=== PATIENT | male | born 1950 | race American Indian/Alaskan Native ===

== ENCOUNTER 2017-06-17 22:16 | Inpatient (IN) | payer MEDICARE ==
[2017-06-17] MEDS ORDERED: NACL 0.9% 1000 ML 1,000 ML IV ONE (22:49)
[2017-06-17 23:52] LABS: Basophils % (Auto) 1.4 % (0.0-1.8); Eosinophils % (Auto) 1.4 % (0.0-4.3); Hemoglobin 6.4 gm/dl (11.8-15.2); Mean Corpuscular HGB Conc 33 % (32-34); Mean Corpuscular Hemoglobin 28 pg (28-32); Mean Corpuscular Volume 85 fl (84-94); Platelet Count 208 K/mm3 (140-440); Red Blood Count 2.29 M/mm3 (3.65-5.03)
[2017-06-17 23:58] LABS: Hematocrit 19.4 % (35.5-45.6)
[2017-06-18 00:01] LABS: Albumin 3.7 g/dL (3.9-5); Albumin/Globulin Ratio 1.3 %; Alkaline Phosphatase 43 units/L (35-129); Anion Gap 20 mmol/L; BUN/Creatinine Ratio 4.26; Blood Urea Nitrogen 29 mg/dL (9-20); Calcium 8.9 mg/dL (8.4-10.2); Carbon Dioxide 29 mmol/L (22-30); Chloride 96.6 mmol/L (98-107); Glucose 88 mg/dL (75-100); Lipase 32 units/L (13-60); Potassium 4.7 mmol/L (3.6-5.0); Sodium 141 mmol/L (137-145); Total Protein 6.6 g/dL (6.3-8.2)
[2017-06-18 00:04] LABS: INR 1.14 (0.87-1.13)
[2017-06-18 00:05] LABS: Partial Thromboplastin Time 37.7 Sec. (24.2-36.6)
[2017-06-18 00:17] LABS: Alanine Aminotransferase < 5 units/L (7-56)
[2017-06-18] MEDS ORDERED: NACL 0.9% 1000 ML 1,000 ML ONE (06:52)
[2017-06-18] MEDS ORDERED: NACL 0.9% 500 ML 500 ML IV ONE (07:24)
--- NOTE | 2017-06-18 07:28 | Emergency Department Report ---
HPI - General Chief Complaint: GI Bleed Time Seen by Provider: 06/18/17 07:24 - HPI HPI: patient c/o dark stool for the past 3 days. chest pain, mild sob. patient with h /o esrd on dialysis. patient describes chest pain as sharp, burning, no radiation. patient denies any alleviating or exacerbating factors. ED Past Medical Hx - Past Medical History Previous Medical History?: Yes Hx Renal Disease: Yes (dialysis fri) - Surgical History Past Surgical History?: No Additional Surgical History: prostate - Family History Family history: hypertension - Social History Smoking Status: Current Every Day Smoker Substance Use Type: None ED Review of Systems ROS: Stated complaint: BLEEDING/ ABD BLOATING Other details as noted in HPI Comment: All other systems reviewed and negative Cardiovascular: chest pain Endocrine: no symptoms reported Gastrointestinal: melena Physical Exam - Physical Exam Vital Signs: Vital Signs 06/17/17 06/17/17 06/18/17 22:26 22:41 02:07 Temperature 98.5 F 98.5 F 97.7 F Pulse Rate 97 H 97 H 89 Respiratory 18 18 18 Rate Blood Pressure 173/96 172/95 Blood Pressure 173/96 [Right] O2 Sat by Pulse 100 100 Oximetry Physical Exam: gen: alert and oriented x 3 heent: perrla, eomi cv: rrr, normal s1,s2 abd: s,nt,nd pos bs ext: left upper ext dialysis access d/c/i neuro: no deficits, lungs: cta dayanna psych: normal mood. ED Course Vital Signs 06/17/17 06/17/17 06/18/17 22:26 22:41 02:07 Temperature 98.5 F 98.5 F 97.7 F Pulse Rate 97 H 97 H 89 Respiratory 18 18 18 Rate Blood Pressure 173/96 172/95 Blood Pressure 173/96 [Right] O2 Sat by Pulse 100 100 Oximetry - Reevaluation(s) Reevaluation #1: 06/18/17 09:25 GI CONSULTED NEPRHOLOGY CONSULTED ED Medical Decision Making - Lab Data Result diagrams: 06/17/17 23:10 06/17/17 23:10 Critical care time in (mins) excluding proc time.: 45 Critical care attestation.: If time is entered above; I have spent that time in minutes in the direct care of this critically ill patient, excluding procedure time. ED Disposition Clinical Impression: GI bleed, Severe anemia Disposition: DC OP ADMIT IP TO THIS HOSP Is pt being admited?: Yes Does the pt Need Aspirin: No Condition: Stable Referrals: PRIMARY CARE, [Primary Care Provider] - 3-5 Days Forms: Accompanied Note
--- NOTE | 2017-06-18 08:05 | XRay Report ---
AP CHEST: HISTORY: chest pain AP view of the chest demonstrates a normal mediastinal and cardiac contour with clear lungs and normal bony and soft tissue structures. IMPRESSION: No acute cardiopulmonary process appreciated.
--- NOTE | 2017-06-18 08:09 | Admit Criteria Form ---
Admission Criteria Documentation: GASTROINTESTINAL BLEEDING Clinical Indications for Inpatient Care (Place 'X' for any and all applicable criteria): Ongoing inpatient care may be indicated for gastrointestinal bleeding with ANY ONE of the following (4)(20)(21)(22)(23)(24): [X ]I. Active bleeding (eg, fresh voluminous blood in emesis or nasogastric aspirate, or per rectum) [ ]II. Hemodynamic instability [ ]III. Anticoagulation therapy or coagulopathy ((eg, advanced liver disease, irreversible anticoagulation) [ ]IV. Ischemic colitis (22) [ ]V. Endoscopy showing arterial bleeding, adherent clot, nonbleeding visible vessel, varices, flat red spots, ulcer size greater than 2 cm, or portal hypertensive gastropathy [ ]. High-risk low platelet count [ X]VII. Anemia requiring inpatient care as indicated by ANY ONE of the following a)[ ] Cognitive impairment b)[ ] Syncope c)[ ] Heart failure d)[X ] Chest pain e)[X ] Dyspnea f)[ ] Other findings suggesting inadequate perfusion (eg, peripheral or myocardial ischemia, end organ dysfunction) [ ]VIII. High-risk low platelet count [ ]IX. Suspected variceal cause of bleeding as indicated by ANY ONE of the following(27)(28): a)[ ] Known varices b)[ ] Hepatomegaly or splenomegaly c)[ ] Ascites d)[ ] Jaundice or scleral icterus e)[ ] History of liver disease (eg, cirrhosis) f)[ ] Physical findings of portal hypertension (eg, caput medusa) g)[ ] Comorbid disorder indicating risk for portal vein thrombosis (eg , abdominal surgery, sepsis, shock, exchange transfusion, prior umbilical vein catheterization) Extended stay may be needed until ALL of the following are present(20)(38)(47): [ ]a) Hemodynamic stability [ ]b) No evidence of active bleeding (eg, stable Hematocrit) [ ]c) Platelet count, prothrombin time, and partial thromboplastin time acceptable for next level of care [ ]d) Surgical or other acute intervention not needed [ ]e) Oral hydration and diet tolerated The original [facility] [employer] content created by [employer] has been revised. The portions of the content which have been revised are identified through the use of italic text or in bold, and [facility] [employer] has neither reviewed nor approved the modified material. All other unmodified content is copyright [facility]. Please see references footnoted in the original [facility] edition 2016 Admission Criteria Met: Yes
[2017-06-18] MEDS: PROTONIX IV ONE ×2 (08:20→08:40)
[2017-06-18] MEDS ORDERED: DULCOLAX PR PRN (09:02)
[2017-06-18] MEDS ORDERED: TYLENOL PO PRN (09:02)
--- NOTE | 2017-06-18 09:14 | Progress Note ---
Hospitalist Physical - Constitutional Vitals: Temp Pulse Resp BP Pulse Ox 98.5 F 82 18 177/90 97 06/18/17 08:40 06/18/17 08:40 06/18/17 08:40 06/18/17 08:40 06/18/17 08:40 Results - Labs CBC & Chem 7: 06/17/17 23:10 06/17/17 23:10 Labs: Laboratory Last Values WBC 5.0 K/mm3 (4.5-11.0) 06/17/17 23:10 RBC 2.29 M/mm3 (3.65-5.03) L 06/17/17 23:10 Hgb 6.4 gm/dl (11.8-15.2) L 06/17/17 23:10 Hct 19.4 % (35.5-45.6) L* 06/17/17 23:10 MCV 85 fl (84-94) 06/17/17 23:10 MCH 28 pg (28-32) 06/17/17 23:10 MCHC 33 % (32-34) 06/17/17 23:10 RDW 21.0 % (13.2-15.2) H 06/17/17 23:10 Plt Count 208 K/mm3 (140-440) 06/17/17 23:10 Lymph % (Auto) 26.5 % (13.4-35.0) 06/17/17 23:10 [place] % (Auto) 9.9 % (0.0-7.3) H 06/17/17 23:10 Eos % (Auto) 1.4 % (0.0-4.3) 06/17/17 23:10 Baso % (Auto) 1.4 % (0.0-1.8) 06/17/17 23:10 Lymph # 1.3 K/mm3 (1.2-5.4) 06/17/17 23:10 [place] # 0.5 K/mm3 (0.0-0.8) 06/17/17 23:10 Eos # 0.1 K/mm3 (0.0-0.4) 06/17/17 23:10 Baso # 0.1 K/mm3 (0.0-0.1) 06/17/17 23:10 Seg Neutrophils % 60.8 % (40.0-70.0) 06/17/17 23:10 Seg Neutrophils # 3.1 K/mm3 (1.8-7.7) 06/17/17 23:10 PT 14.5 Sec. (12.2-14.9) 06/17/17 23:10 INR 1.14 (0.87-1.13) H 06/17/17 23:10 APTT 37.7 Sec. (24.2-36.6) H 06/17/17 23:10 Sodium 141 mmol/L (137-145) 06/17/17 23:10 Potassium 4.7 mmol/L (3.6-5.0) 06/17/17 23:10 Chloride 96.6 mmol/L (98-107) L 06/17/17 23:10 Carbon Dioxide 29 mmol/L (22-30) 06/17/17 23:10 Anion Gap 20 mmol/L 06/17/17 23:10 BUN 29 mg/dL (9-20) H 06/17/17 23:10 Creatinine 6.8 mg/dL (0.8-1.5) H 06/17/17 23:10 Estimated GFR 8 ml/min 06/17/17 23:10 BUN/Creatinine Ratio 4.26 % 06/17/17 23:10 Glucose 88 mg/dL (75-100) 06/17/17 23:10 Calcium 8.9 mg/dL (8.4-10.2) 06/17/17 23:10 Total Bilirubin 0.40 mg/dL (0.1-1.2) 06/17/17 23:10 AST 9 units/L (5-40) 06/17/17 23:10 ALT < 5 units/L (7-56) L 06/17/17 23:10 Alkaline Phosphatase 43 units/L (35-129) 06/17/17 23:10 Total Protein 6.6 g/dL (6.3-8.2) 06/17/17 23:10 Albumin 3.7 g/dL (3.9-5) L 06/17/17 23:10 Albumin/Globulin Ratio 1.3 % 06/17/17 23:10 Lipase 32 units/L (13-60) 06/17/17 23:10 Blood Type O POSITIVE 06/17/17 23:15 Antibody Screen Negative 06/17/17 23:15 Crossmatch See Detail 06/17/17 23:15
--- NOTE | 2017-06-18 09:20 | Consultation ---
History of Present Illness - Reason for Consult Consult date: 06/18/17 end stage renal disease - History of Present Illness atient c/o dark stool for the past 3 days. chest pain, mild sob. patient with h/ o esrd on dialysis. patient describes chest pain as sharp, burning, no radiation. patient denies any alleviating or exacerbating factors. - Past Medical History Previous Medical History?: Yes Hx Renal Disease: Yes (dialysis fri) - Surgical History Past Surgical History?: No Additional Surgical History: prostate - Family History Family history: hypertension - Social History Smoking Status: Current Every Day Smoker Substance Use Type: None ROS: Stated complaint: BLEEDING/ ABD BLOATING Other details as noted in HPI Comment: All other systems reviewed and negative Cardiovascular: chest pain Endocrine: no symptoms reported Gastrointestinal: melena Medications and Allergies Allergies Allergy/AdvReac Type Severity Reaction Status Date / Time No Known Allergies Allergy Unverified 06/17/17 22:41 Active Meds: Active Medications Acetaminophen (Tylenol) 650 mg PO Q4H PRN PRN Reason: Pain MILD(1-3)/Fever >100.5/CALDERÓN Bisacodyl (Dulcolax) 10 mg [place] QDAY PRN PRN Reason: Constipation unrelieved by MOM Epoetin Roman (Epogen) 20,000 unit IV BROWN PRN PRN Reason: hemodialysis Sodium Chloride (Nacl 0.9% 1000 Ml) 1,000 mls @ 100 mls/hr IV DIRECT ZAHIDA Pantoprazole Sodium 80 mg/ (Sodium Chloride) 100 mls @ 10 mls/hr IV Q10H ZAHIDA PRN Reason: 8 MG/HR Sodium Chloride (Nacl 0.9%) 100 mls @ 999 mls/hr IV BROWN PRN PRN Reason: Hypotension Exam - Vital Signs Vital signs: Vital Signs Temp Pulse Resp BP Pulse Ox 98.5 F 97 H 18 173/96 100 06/17/17 22:26 06/17/17 22:26 06/17/17 22:26 06/17/17 22:26 06/17/17 22:26 - Physical Exam Narrative exam: gen: alert and oriented x 3 heent: perrla, eomi cv: rrr, normal s1,s2 abd: s,nt,nd pos bs ext: left upper ext dialysis access d/c/i neuro: no deficits, lungs: cta dayanna psych: normal mood. Results - Lab Results 06/17/17 23:10 06/17/17 23:10 Most recent lab results Calcium 8.9 mg/dL (8.4-10.2) 06/17/17 23:10 Assessment and Plan Impression: * esrd * gi bleeding * anemia abl/esrd * htn plan: * hd today with uf as tolerated * epogen with hd * no heparin * gi consult needed * strict i/os * avoid nephrotoxins * daily cbc * renal diet
[2017-06-18] MEDS ORDERED: MORPHINE IV ONE (09:22)
[2017-06-18] MEDS ORDERED: NITROSTAT SL PRN (09:34)
[2017-06-18] MEDS ORDERED: NACL 0.9% 500 ML 500 ML ONE (09:42)
--- NOTE | 2017-06-18 09:45 | Gastroenterology Consultation ---
<ALESSIO ROJO - Last Filed: 06/18/17 10:01> History of Present Illness - Reason for Consult Consult date: 06/18/17 GI bleed Requesting physician: DINA WATKINS - History of Present Illness Patient is a 66 y/o male with a medical hx of HTN and ESRD on HD who presented to ER for black stools x 3 days. This morning pt was resting on stretcher. States he flew into [place] from [place] where he lives to participate in a court case (he is a retired care worker) and to see family. He reports noticing black stools on Friday which have continued, last BM of black stool last night. He admits to N/V x 3 episode this am with non-bloody emesis. He is also c/o active CP. Hospitalist notified, EKG and troponin ordered. Denies fever , wt loss, SOB, dizziness, hematemesis, diarrhea, constipation, or hematochezia. No hx of liver disease. No NSAID use. No ETOH abuse. Current daily smoker. Past History Past Medical History: ESRD (on HD), hyperthyroidism Past Surgical History: Other (prostate CA) Social history: lives with family, smoking. denies: alcohol abuse Medications and Allergies Allergies Allergy/AdvReac Type Severity Reaction Status Date / Time No Known Allergies Allergy Unverified 06/17/17 22:41 Active Meds: Active Medications Acetaminophen (Tylenol) 650 mg PO Q4H PRN PRN Reason: Pain MILD(1-3)/Fever >100.5/CALDERÓN Bisacodyl (Dulcolax) 10 mg [place] QDAY PRN PRN Reason: Constipation unrelieved by MOM Epoetin Roman (Epogen) 20,000 unit IV BROWN PRN PRN Reason: hemodialysis Sodium Chloride (Nacl 0.9% 1000 Ml) 1,000 mls @ 100 mls/hr IV DIRECT ZAHIDA Pantoprazole Sodium 80 mg/ (Sodium Chloride) 100 mls @ 10 mls/hr IV Q10H ZAHIDA PRN Reason: 8 MG/HR Sodium Chloride (Nacl 0.9%) 100 mls @ 999 mls/hr IV BROWN PRN PRN Reason: Hypotension Morphine Sulfate (Morphine) 2 mg IV Q4H PRN PRN Reason: Pain, Moderate (4-6) Nitroglycerin (Nitrostat) 0.4 mg SL .Q5MIN PRN PRN Reason: Chest Pain Review of Systems - Review of Systems All systems: negative Cardiovascular: chest pain Gastrointestinal: nausea, vomiting, melena Exam - Constitutional Vital Signs: Temp Pulse Resp BP Pulse Ox 98.5 F 82 18 177/90 97 06/18/17 08:40 06/18/17 08:40 06/18/17 08:40 06/18/17 08:40 06/18/17 08:40 General appearance: mild distress, well-nourished - EENT Eyes: PERRL, EOM intact ENT: hearing intact - Neck Neck: supple, normal ROM - Respiratory Respiratory: bilateral: CTA - Cardiovascular Heart Sounds: Present: S1 & S2 Extremities: No edema - Gastrointestinal General gastrointestinal: Present: soft, non-tender, non-distended, normal bowel sounds Rectal Exam: stool dark - Integumentary Integumentary: Present: warm, dry - Neurologic Neurological: alert and oriented x3 - Psychiatric Psychiatric: appropriate mood/affect, cooperative - Labs CBC & Chem 7: 06/17/17 23:10 06/17/17 23:10 Lab Results: Laboratory Results - last 24 hr 06/17/17 06/17/17 06/17/17 23:10 23:10 23:10 WBC 5.0 RBC 2.29 L Hgb 6.4 L Hct 19.4 L* MCV 85 MCH 28 MCHC 33 RDW 21.0 H Plt Count 208 Lymph % (Auto) 26.5 [place] % (Auto) 9.9 H Eos % (Auto) 1.4 Baso % (Auto) 1.4 Lymph # 1.3 [place] # 0.5 Eos # 0.1 Baso # 0.1 Seg Neutrophils % 60.8 Seg Neutrophils # 3.1 PT 14.5 INR 1.14 H APTT 37.7 H Sodium 141 Potassium 4.7 Chloride 96.6 L Carbon Dioxide 29 Anion Gap 20 BUN 29 H Creatinine 6.8 H Estimated GFR 8 BUN/Creatinine Ratio 4.26 Glucose 88 Calcium 8.9 Total Bilirubin 0.40 AST 9 ALT < 5 L Alkaline Phosphatase 43 Total Protein 6.6 Albumin 3.7 L Albumin/Globulin Ratio 1.3 Lipase 32 Blood Type Antibody Screen Crossmatch 06/17/17 23:15 WBC RBC Hgb Hct MCV MCH MCHC RDW Plt Count Lymph % (Auto) [place] % (Auto) Eos % (Auto) Baso % (Auto) Lymph # Morrison # Eos # Baso # Seg Neutrophils % Seg Neutrophils # PT INR APTT Sodium Potassium Chloride Carbon Dioxide Anion Gap BUN Creatinine Estimated GFR BUN/Creatinine Ratio Glucose Calcium Total Bilirubin AST ALT Alkaline Phosphatase Total Protein Albumin Albumin/Globulin Ratio Lipase Blood Type O POSITIVE Antibody Screen Negative Crossmatch See Detail Assessment and Plan 1. GI bleed 2. melena 3. CP -pt with active CP- EKG and cardiac enzymes pending -HGB 6.4- transfusion of PRBCs pending -continue to monitor H&H and transfuse as needed -Last BM with black stool last night around 10pm, no signs of active bleeding this am -hold blood thinning medications -continue PPI -Keep NPO -Will schedule EGD once cardiac evaluation is complete and pt medically stable, unless overt bleeding develops -will follow <JOANNA BINGHAM - Last Filed: 06/18/17 14:32> History of Present Illness - History of Present Illness Pt has had 2 similar episodes over the last 2-3 yrs, with EGD/Colon x 2 with no etiology found. Last episode was approx 1 yr ago. No Pillcam done. ? Dieulafoy's lesion. Will do EGD once stable. Subsequently, may need outpatient Pillcam. Medications and Allergies Active Meds: Active Medications Acetaminophen (Tylenol) 650 mg PO Q4H PRN PRN Reason: Pain MILD(1-3)/Fever >100.5/CALDERÓN Aspirin (Aspirin) 325 mg PO DAILY [facility] Last Admin: 06/18/17 10:06 Dose: 325 mg Bisacodyl (Dulcolax) 10 mg [place] QDAY PRN PRN Reason: Constipation unrelieved by MOM Epoetin Roman (Epogen) 20,000 unit IV BROWN PRN PRN Reason: hemodialysis Hydralazine HCl (Apresoline) 10 mg IV Q6H [facility] Last Admin: 06/18/17 12:54 Dose: Not Given Sodium Chloride (Nacl 0.9% 1000 Ml) 1,000 mls @ 100 mls/hr IV DIRECT ZAHIDA Pantoprazole Sodium 80 mg/ (Sodium Chloride) 100 mls @ 10 mls/hr IV Q10H ZAHIDA PRN Reason: 8 MG/HR Last Admin: 06/18/17 12:54 Dose: Not Given Sodium Chloride (Nacl 0.9%) 100 mls @ 999 mls/hr IV BROWN PRN PRN Reason: Hypotension Morphine Sulfate (Morphine) 2 mg IV Q4H PRN PRN Reason: Pain, Moderate (4-6) Nitroglycerin (Nitrostat) 0.4 mg SL .Q5MIN PRN PRN Reason: Chest Pain Exam - Constitutional Vital Signs: Temp Pulse Resp BP Pulse Ox 97.6 F 98 H 20 198/98 99 06/18/17 14:03 06/18/17 14:03 06/18/17 14:03 06/18/17 14:03 06/18/17 13:44 - Labs CBC & Chem 7: 06/17/17 23:10 06/17/17 23:10 Lab Results: Laboratory Results - last 24 hr 06/18/17 09:32 Troponin T 0.029
[2017-06-18] MEDS ORDERED: NACL 0.9% 100 ML IV PRN (10:00)
[2017-06-18] MEDS: ASPIRIN PO SCH (10:06)
[2017-06-18] MEDS ORDERED: ASPIRIN ONE (10:11)
--- NOTE | 2017-06-18 12:08 | Consultation ---
History of Present Illness Consult date: 06/18/17 Consult reason: chest pain History of present illness: This is a 66yr old male who is visiting from [place] for a court case. He reports a history of end stage renal disease and is on hemodialysis. Patient reports he is currently being evaluated for kidney transplant. He also has chronic hypertension. He came to this hospital with complaints of black tarry stools. While waiting in the lobby, patient had an episode of vomiting followed with chest pain. He denies any exertional chest pain and shortness of breath. Initial labs in the ED showed severe anemia with a Hgb of 6.4. His ECG shows a sinus rhythm with ST, T wave abnormalities. No prior ECG for comparison. Patient denies a cardiac history. He had not had any recent cardiac workup. Cardiac consultation requested for evaluation of chest pain. Past History Past Medical History: ESRD (on HD), hypertension Past Surgical History: Other (prostate CA) Social history: lives with family, smoking. denies: alcohol abuse Medications and Allergies Allergies Allergy/AdvReac Type Severity Reaction Status Date / Time No Known Allergies Allergy Unverified 06/17/17 22:41 Home Medications Medication Instructions Recorded Confirmed Last Taken Type AtorvaSTATin [Lipitor] 10 mg PO QHS 06/18/17 06/18/17 06/17/17 History Carvedilol [Coreg] 12.5 mg PO BID 06/18/17 06/18/17 06/17/17 History Cinacalcet HCl [Sensipar] 90 mg PO DAILY 06/18/17 06/18/17 06/17/17 History Clonidine HCl [Catapres] 0.3 mg PO TID 06/18/17 06/18/17 06/17/17 History Dexlansoprazole [Dexilant] 60 mg PO DAILY 06/18/17 06/18/17 06/17/17 History Fluticasone [Flonase] 1 spray NS QDAY 06/18/17 06/18/17 06/17/17 History Folic Acid/Vit B Comp W-C [Renal 1 cap PO QDAY 06/18/17 06/18/17 06/17/17 History Caps] Hydralazine HCl [Apresoline TAB] 50 mg PO BID 06/18/17 06/18/17 06/17/17 History Valsartan [Diovan] 320 mg PO QDAY 06/18/17 06/18/17 06/17/17 History Zolpidem [Ambien] 10 mg PO QHS 06/18/17 06/18/17 06/17/17 History amLODIPine [Norvasc] 10 mg PO DAILY 06/18/17 06/18/17 06/17/17 History Active Meds: Active Medications Acetaminophen (Tylenol) 650 mg PO Q4H PRN PRN Reason: Pain MILD(1-3)/Fever >100.5/CALDERÓN Aspirin (Aspirin) 325 mg PO DAILY [facility] Last Admin: 06/18/17 10:06 Dose: 325 mg Bisacodyl (Dulcolax) 10 mg [place] QDAY PRN PRN Reason: Constipation unrelieved by MOM Epoetin Roman (Epogen) 20,000 unit IV BROWN PRN PRN Reason: hemodialysis Hydralazine HCl (Apresoline) 10 mg IV Q6H [facility] Sodium Chloride (Nacl 0.9% 1000 Ml) 1,000 mls @ 100 mls/hr IV DIRECT ZAHIDA Pantoprazole Sodium 80 mg/ (Sodium Chloride) 100 mls @ 10 mls/hr IV Q10H ZAHIDA PRN Reason: 8 MG/HR Sodium Chloride (Nacl 0.9%) 100 mls @ 999 mls/hr IV BROWN PRN PRN Reason: Hypotension Morphine Sulfate (Morphine) 2 mg IV Q4H PRN PRN Reason: Pain, Moderate (4-6) Nitroglycerin (Nitrostat) 0.4 mg SL .Q5MIN PRN PRN Reason: Chest Pain Physical Examination Vital Signs Temp Pulse Resp BP Pulse Ox 98.5 F 97 H 18 173/96 100 06/17/17 22:26 06/17/17 22:26 06/17/17 22:26 06/17/17 22:26 06/17/17 22:26 General appearance: no acute distress HEENT: Positive: PERRL Neck: Positive: trachea midline Cardiac: Positive: Reg Rate and Rhythm Lungs: Positive: Decreased Breath Sounds Neuro: Positive: Grossly Intact Results 06/17/17 23:10 06/17/17 23:10 Assessment and Plan Acute GI bleed s/p transfusion of PRBCs ESRD on HD Hypertension Tobacco abuse
--- NOTE | 2017-06-18 12:08 | History and Physical Report ---
<KRYSTAL JONES - Last Filed: 06/18/17 13:25> History of Present Illness Date of examination: 06/18/17 Date of admission: 06/18/17 09:02 Chief complaint: Bloody stool History of present illness: Patient is 66 years old male with past medical history of hypertension and end stage renal disease and is on hemodialysis who presents to the with 3 days of worsening bloody stools . Just over 3 days ago the patient was at his normal baseline state of health. Now he has had progressive worsening of bloody stool. Patient noticed black stools on 06/15/2017 and Called his Information Technology Technician in [facility] and instructed him to visit the nearest emergency department if continue to have bloody stools. Patient on 06/17 he had a toilet full of bloody loose stools. Patient had the same problem years ago. Patient also complaining chest pain on the epigastric area. [place] states that the pain began this morning and consisted of a sharp pain that lasted around 30 seconds, followed by constant a dull pain. He describes the quality as a chest tightness/pressure without radiation to the shoulder, arm, back, or jaw. He denies nausea, vomiting and shortness of breath. He denies fever, wt loss, SOB, dizziness, hematemesis, diarrhea, constipation, or hematochezia. No hx of liver disease. No NSAID use. No ETOH abuse. Patient current daily smoker. Past History Past Medical History: ESRD (on HD), hyperthyroidism Past Surgical History: Other (prostate CA) Social history: lives with family, smoking. denies: alcohol abuse Medications and Allergies Allergies Allergy/AdvReac Type Severity Reaction Status Date / Time No Known Allergies Allergy Unverified 06/17/17 22:41 Home Medications Medication Instructions Recorded Confirmed Last Taken Type AtorvaSTATin [Lipitor] 10 mg PO QHS 06/18/17 06/18/17 06/17/17 History Carvedilol [Coreg] 12.5 mg PO BID 06/18/17 06/18/17 06/17/17 History Cinacalcet HCl [Sensipar] 90 mg PO DAILY 06/18/17 06/18/17 06/17/17 History Clonidine HCl [Catapres] 0.3 mg PO TID 06/18/17 06/18/17 06/17/17 History Dexlansoprazole [Dexilant] 60 mg PO DAILY 06/18/17 06/18/17 06/17/17 History Fluticasone [Flonase] 1 spray NS QDAY 06/18/17 06/18/17 06/17/17 History Folic Acid/Vit B Comp W-C [Renal 1 cap PO QDAY 06/18/17 06/18/17 06/17/17 History Caps] Hydralazine HCl [Apresoline TAB] 50 mg PO BID 06/18/17 06/18/17 06/17/17 History Valsartan [Diovan] 320 mg PO QDAY 06/18/17 06/18/17 06/17/17 History Zolpidem [Ambien] 10 mg PO QHS 06/18/17 06/18/17 06/17/17 History amLODIPine [Norvasc] 10 mg PO DAILY 06/18/17 06/18/17 06/17/17 History Active Meds: Active Medications Acetaminophen (Tylenol) 650 mg PO Q4H PRN PRN Reason: Pain MILD(1-3)/Fever >100.5/CALDERÓN Aspirin (Aspirin) 325 mg PO DAILY [facility] Last Admin: 06/18/17 10:06 Dose: 325 mg Bisacodyl (Dulcolax) 10 mg MA QDAY PRN PRN Reason: Constipation unrelieved by MOM Epoetin Roman (Epogen) 20,000 unit IV BROWN PRN PRN Reason: hemodialysis Hydralazine HCl (Apresoline) 10 mg IV Q6H [facility] Sodium Chloride (Nacl 0.9% 1000 Ml) 1,000 mls @ 100 mls/hr IV DIRECT ZAHIDA Pantoprazole Sodium 80 mg/ (Sodium Chloride) 100 mls @ 10 mls/hr IV Q10H ZAHIDA PRN Reason: 8 MG/HR Sodium Chloride (Nacl 0.9%) 100 mls @ 999 mls/hr IV BROWN PRN PRN Reason: Hypotension Morphine Sulfate (Morphine) 2 mg IV Q4H PRN PRN Reason: Pain, Moderate (4-6) Nitroglycerin (Nitrostat) 0.4 mg SL .Q5MIN PRN PRN Reason: Chest Pain Review of Systems Constitutional: no fever, no chills, no sweats Ears, nose, mouth and throat: no ear pain, no ear discharge, no tinnitis, no decreased hearing, no nose pain Cardiovascular: chest pain, lightheadedness, no orthopnea, no palpitations, no rapid/irregular heart beat, no dyspnea on exertion Respiratory: no cough, no cough with sputum, no excessive sputum Gastrointestinal: melena, loss of appetite, no nausea, no vomiting, no diarrhea , no constipation, no hematemesis Genitourinary Male: no hematuria, no flank pain, no discharge, no urinary frequency Rectal: no incontinence, no bleeding Musculoskeletal: no neck stiffness, no neck pain, no shooting arm pain, no arm numbness/tingling Integumentary: no rash, no pruritis, no redness Neurological: weakness, no head injury, no transient paralysis, no paralysis, no parathesias Psychiatric: no anxiety, no memory loss, no change in sleep habits, no sleep disturbances Endocrine: no cold intolerance, no heat intolerance, no polyphagia, no excessive thirst, no polydipsia Hematologic/Lymphatic: no easy bruising, no easy bleeding Allergic/Immunologic: no urticaria, no allergic rhinitis, no wheezing Exam - Constitutional Vitals: Temp Pulse Resp BP Pulse Ox 97.5 F L 76 20 176/96 98 06/18/17 11:48 06/18/17 11:48 06/18/17 11:48 06/18/17 11:48 06/18/17 10:28 General appearance: Present: no acute distress - EENT Eyes: Present: PERRL ENT: hearing intact - Neck Neck: Present: supple - Respiratory Respiratory effort: normal Respiratory: bilateral: CTA - Cardiovascular Rhythm: regular Heart Sounds: Present: S1 & S2 - Extremities Extremities: no ischemia Peripheral Pulses: within normal limits - Abdominal General gastrointestinal: Present: soft, non-tender Male genitourinary: Present: deferred - Rectal Rectal Exam: deferred - Integumentary Integumentary: Present: clear, warm, dry - Musculoskeletal Musculoskeletal: strength equal bilaterally - Psychiatric Psychiatric: appropriate mood/affect - Neurologic Neurologic: CNII-XII intact - Allied Health Allied health notes reviewed: nursing Results - Labs CBC & Chem 7: 06/17/17 23:10 06/17/17 23:10 Labs: Laboratory Last Values WBC 5.0 K/mm3 (4.5-11.0) 06/17/17 23:10 RBC 2.29 M/mm3 (3.65-5.03) L 06/17/17 23:10 Hgb 6.4 gm/dl (11.8-15.2) L 06/17/17 23:10 Hct 19.4 % (35.5-45.6) L* 06/17/17 23:10 MCV 85 fl (84-94) 06/17/17 23:10 MCH 28 pg (28-32) 06/17/17 23:10 MCHC 33 % (32-34) 06/17/17 23:10 RDW 21.0 % (13.2-15.2) H 06/17/17 23:10 Plt Count 208 K/mm3 (140-440) 06/17/17 23:10 Lymph % (Auto) 26.5 % (13.4-35.0) 06/17/17 23:10 [place] % (Auto) 9.9 % (0.0-7.3) H 06/17/17 23:10 Eos % (Auto) 1.4 % (0.0-4.3) 06/17/17 23:10 Baso % (Auto) 1.4 % (0.0-1.8) 06/17/17 23:10 Lymph # 1.3 K/mm3 (1.2-5.4) 06/17/17 23:10 [place] # 0.5 K/mm3 (0.0-0.8) 06/17/17 23:10 Eos # 0.1 K/mm3 (0.0-0.4) 06/17/17 23:10 Baso # 0.1 K/mm3 (0.0-0.1) 06/17/17 23:10 Seg Neutrophils % 60.8 % (40.0-70.0) 06/17/17 23:10 Seg Neutrophils # 3.1 K/mm3 (1.8-7.7) 06/17/17 23:10 PT 14.5 Sec. (12.2-14.9) 06/17/17 23:10 INR 1.14 (0.87-1.13) H 06/17/17 23:10 APTT 37.7 Sec. (24.2-36.6) H 06/17/17 23:10 Sodium 141 mmol/L (137-145) 06/17/17 23:10 Potassium 4.7 mmol/L (3.6-5.0) 06/17/17 23:10 Chloride 96.6 mmol/L (98-107) L 06/17/17 23:10 Carbon Dioxide 29 mmol/L (22-30) 06/17/17 23:10 Anion Gap 20 mmol/L 06/17/17 23:10 BUN 29 mg/dL (9-20) H 06/17/17 23:10 Creatinine 6.8 mg/dL (0.8-1.5) H 06/17/17 23:10 Estimated GFR 8 ml/min 06/17/17 23:10 BUN/Creatinine Ratio 4.26 % 06/17/17 23:10 Glucose 88 mg/dL (75-100) 06/17/17 23:10 Calcium 8.9 mg/dL (8.4-10.2) 06/17/17 23:10 Total Bilirubin 0.40 mg/dL (0.1-1.2) 06/17/17 23:10 AST 9 units/L (5-40) 06/17/17 23:10 ALT < 5 units/L (7-56) L 06/17/17 23:10 Alkaline Phosphatase 43 units/L (35-129) 06/17/17 23:10 Troponin T 0.029 ng/mL (0.00-0.029) 06/18/17 09:32 Total Protein 6.6 g/dL (6.3-8.2) 06/17/17 23:10 Albumin 3.7 g/dL (3.9-5) L 06/17/17 23:10 Albumin/Globulin Ratio 1.3 % 06/17/17 23:10 Lipase 32 units/L (13-60) 06/17/17 23:10 Blood Type O POSITIVE 06/17/17 23:15 Antibody Screen Negative 06/17/17 23:15 Crossmatch See Detail 06/17/17 23:15 - Imaging and Cardiology Chest x-ray: image reviewed (unremarkable AP) Assessment and Plan Assessment and plan: Acute Blood loss Anemia Patient has significant drop of H&H today, ordered stat transfusion of 2 units of PRBC STAT Type and screen for transfusion Treat underlying cause and restore normal levels of red blood cells, hemoglobin to safe levels. IV Fluid GI consulted Closely monitor H&H Acute GI bleed Started on IV Protonix Possible endoscopy today, place the patient nothing by mouth GI consulted Closely monitor H&H Chest Pain Admit to Telemetry floor for continues cardiac monitoring ECG shows a sinus rhythm with ST, T wave abnormalities. No prior ECG for comparison but we will also get another EKG in order for any changes that have taken since the first one. Negative cardiac enzyme X2 Started on Aspirin and nitroglycerin when necessary We will get stress test IV Fluid Hydration Cardiology evaluation Closely monitor patient End stage renal disease (ESRD) Nephrology consulted Hypertension Continue on home antihypertensive medicine Thrombocytopenia Closely monitor PT/INR DVT/GI prophylaxis Protonix IV Just SCD's due to active GI bleeding Advance Directives: Yes VTE prophylaxis?: Mechanical Contraindication Mechanical VTE Prophylaxis: Treatment Not Indicated Plan of care discussed with patient/family: Yes <MARY THORNTON M - Last Filed: 06/18/17 17:21> History of Present Illness Date of admission: 06/18/17 09:02 Medications and Allergies Active Meds: Active Medications Acetaminophen (Tylenol) 650 mg PO Q4H PRN PRN Reason: Pain MILD(1-3)/Fever >100.5/CALDER[place]N Aspirin (Aspirin) 325 mg PO DAILY [facility] Last Admin: 06/18/17 10:06 Dose: 325 mg Bisacodyl (Dulcolax) 10 mg MA QDAY PRN PRN Reason: Constipation unrelieved by MOM Epoetin Roman (Epogen) 20,000 unit IV BROWN PRN PRN Reason: hemodialysis Hydralazine HCl (Apresoline) 10 mg IV Q6H [facility] Last Admin: 06/18/17 12:54 Dose: Not Given Sodium Chloride (Nacl 0.9% 1000 Ml) 1,000 mls @ 100 mls/hr IV DIRECT [facility] Pantoprazole Sodium 80 mg/ (Sodium Chloride) 100 mls @ 10 mls/hr IV Q10H ZAHIDA PRN Reason: 8 MG/HR Last Admin: 06/18/17 12:54 Dose: Not Given Sodium Chloride (Nacl 0.9%) 100 mls @ 999 mls/hr IV BROWN PRN PRN Reason: Hypotension Morphine Sulfate (Morphine) 2 mg IV Q4H PRN PRN Reason: Pain, Moderate (4-6) Nitroglycerin (Nitrostat) 0.4 mg SL .Q5MIN PRN PRN Reason: Chest Pain Exam - Constitutional Vitals: Temp Pulse Resp BP Pulse Ox 97.6 F 98 H 20 198/98 99 06/18/17 14:03 06/18/17 14:03 06/18/17 14:03 06/18/17 14:03 06/18/17 13:44 Results - Labs CBC & Chem 7: 06/17/17 23:10 06/17/17 23:10 Labs: Laboratory Last Values WBC 5.0 K/mm3 (4.5-11.0) 06/17/17 23:10 RBC 2.29 M/mm3 (3.65-5.03) L 06/17/17 23:10 Hgb 6.4 gm/dl (11.8-15.2) L 06/17/17 23:10 Hct 19.4 % (35.5-45.6) L* 06/17/17 23:10 MCV 85 fl (84-94) 06/17/17 23:10 MCH 28 pg (28-32) 06/17/17 23:10 MCHC 33 % (32-34) 06/17/17 23:10 RDW 21.0 % (13.2-15.2) H 06/17/17 23:10 Plt Count 208 K/mm3 (140-440) 06/17/17 23:10 Lymph % (Auto) 26.5 % (13.4-35.0) 06/17/17 23:10 [place] % (Auto) 9.9 % (0.0-7.3) H 06/17/17 23:10 Eos % (Auto) 1.4 % (0.0-4.3) 06/17/17 23:10 Baso % (Auto) 1.4 % (0.0-1.8) 06/17/17 23:10 Lymph # 1.3 K/mm3 (1.2-5.4) 06/17/17 23:10 [place] # 0.5 K/mm3 (0.0-0.8) 06/17/17 23:10 Eos # 0.1 K/mm3 (0.0-0.4) 06/17/17 23:10 Baso # 0.1 K/mm3 (0.0-0.1) 06/17/17 23:10 Seg Neutrophils % 60.8 % (40.0-70.0) 06/17/17 23:10 Seg Neutrophils # 3.1 K/mm3 (1.8-7.7) 06/17/17 23:10 PT 14.5 Sec. (12.2-14.9) 06/17/17 23:10 INR 1.14 (0.87-1.13) H 06/17/17 23:10 APTT 37.7 Sec. (24.2-36.6) H 06/17/17 23:10 Sodium 141 mmol/L (137-145) 06/17/17 23:10 Potassium 4.7 mmol/L (3.6-5.0) 06/17/17 23:10 Chloride 96.6 mmol/L (98-107) L 06/17/17 23:10 Carbon Dioxide 29 mmol/L (22-30) 06/17/17 23:10 Anion Gap 20 mmol/L 06/17/17 23:10 BUN 29 mg/dL (9-20) H 06/17/17 23:10 Creatinine 6.8 mg/dL (0.8-1.5) H 06/17/17 23:10 Estimated GFR 8 ml/min 06/17/17 23:10 BUN/Creatinine Ratio 4.26 % 06/17/17 23:10 Glucose 88 mg/dL (75-100) 06/17/17 23:10 Calcium 8.9 mg/dL (8.4-10.2) 06/17/17 23:10 Total Bilirubin 0.40 mg/dL (0.1-1.2) 06/17/17 23:10 AST 9 units/L (5-40) 06/17/17 23:10 ALT < 5 units/L (7-56) L 06/17/17 23:10 Alkaline Phosphatase 43 units/L (35-129) 06/17/17 23:10 Troponin T 0.046 ng/mL (0.00-0.029) H D 06/18/17 15:40 Total Protein 6.6 g/dL (6.3-8.2) 06/17/17 23:10 Albumin 3.7 g/dL (3.9-5) L 06/17/17 23:10 Albumin/Globulin Ratio 1.3 % 06/17/17 23:10 Triglycerides 90 mg/dL (2-149) 06/18/17 15:40 Cholesterol 92 mg/dL (50-199) 06/18/17 15:40 LDL Cholesterol Direct 48 mg/dL (50-130) L 06/18/17 15:40 HDL Cholesterol 26 mg/dL (40-59) L 06/18/17 15:40 Cholesterol/HDL Ratio 3.53 % 06/18/17 15:40 Lipase 32 units/L (13-60) 06/17/17 23:10 Blood Type O POSITIVE 06/17/17 23:15 Antibody Screen Negative 06/17/17 23:15 Crossmatch See Detail 06/17/17 23:15 Assessment and Plan Assessment and plan: I saw and evaluated the patient. I agree with the findings and the plan of care as documented in the Nurse Practitioner's historynote, with the following corrections and additions. Patient was evaluated by cardiology and recommend cardiac cath before starting any procedure, 2 nd troponin is negative , NSTEMI should be considered given he has chest pain, even though the patient has ESRD. Advance Directives: Yes VTE prophylaxis?: Mechanical Contraindication Mechanical VTE Prophylaxis: Contraindicated Reason for no VTE Prophylaxis: Bleeding Plan of care discussed with patient/family: Yes
[2017-06-18] MEDS: PROTONIX 80 MG in NACL 0.9% 100 ML IV SCH ×2 (12:54→19:17)
[2017-06-18] MEDS: APRESOLINE IV SCH ×3 (12:54→21:51)
[2017-06-18 19:05] LABS: Hematocrit 20.8 % (35.5-45.6); Hemoglobin 7.1 gm/dl (11.8-15.2)
[2017-06-18] MEDS ORDERED: APRESOLINE IV ONE (19:35)
[2017-06-19] MEDS ORDERED: PROTONIX 80 MG in NACL 0.9% 100 ML IV SCH (01:00)
[2017-06-19] MEDS: NACL 0.9% 1000 ML 1,000 ML IV SCH ×2 (02:04→16:00)
[2017-06-19] MEDS: APRESOLINE IV SCH ×4 (04:56→23:09)
[2017-06-19 06:27] LABS: Basophils % (Auto) 0.5 % (0.0-1.8); Eosinophils % (Auto) 0.1 % (0.0-4.3); Mean Corpuscular HGB Conc 34 % (32-34); Mean Corpuscular Hemoglobin 29 pg (28-32); Mean Corpuscular Volume 83 fl (84-94); Platelet Count 169 K/mm3 (140-440); Red Cell Distribution Width 17.2 % (13.2-15.2); White Blood Count 10.5 K/mm3 (4.5-11.0)
[2017-06-19 06:41] LABS: Hematocrit 17.4 % (35.5-45.6)
[2017-06-19 06:44] LABS: BUN/Creatinine Ratio 4.34; Calcium 8.6 mg/dL (8.4-10.2); Chloride 99.7 mmol/L (98-107); Potassium 5.4 mmol/L (3.6-5.0)
[2017-06-19 07:43] LABS: Hematocrit 15.5 % (35.5-45.6); Hemoglobin 5.3 gm/dl (11.8-15.2)
--- NOTE | 2017-06-19 08:04 | Progress Note ---
Assessment and Plan Assessment and plan: Severe anemia secondary to GI bleed - Patient has multiple bloody bowel movement overnight - Hemoglobin and hematocrit is trending down despite he was given 3 units of blood, last hemoglobin is 5.3 - I will transfuse with 3 more units of blood - I discussed with GI and is going to do emergency EGD Chest pain - Cardiology consulted and is going to do left heart cath - The patient needs emergency EGD End stage renal disease on hemodialysis -Nephrology is consulted -Continue with the hemodialysis DVT prophylaxis -chemical because of GI bleed Disposition - Transfer to ICU for close follow-up and monitoring History Interval history: Patient has multiple bloody BM overnight Hospitalist Physical - Physical exam Narrative exam: Not in cardiopulmonary distress. The patient appeared well nourished and normally developed. Vital signs as documented. Head exam is unremarkable. No scleral icterus . Neck is without jugular venous distension, thyromegaly, or carotid bruits. Lungs are clear to auscultation. Cardiac exam reveals regular rate and Rhythm. First and second heart sounds normal. No murmurs, rubs or gallops. Abdominal exam reveals normal bowel sounds, no masses, no organomegaly and no aortic enlargement. Extremities are nonedematous and both femoral and pedal pulses are normal. DIRECTOR OF PLANNING: Alert and oriented 3. No focal weakness. - Constitutional Vitals: Temp Pulse Resp BP Pulse Ox 97.7 F 95 H 18 155/80 100 06/19/17 05:00 06/19/17 05:00 06/19/17 05:00 06/19/17 05:00 06/19/17 00:10 General appearance: Present: no acute distress Results - Labs CBC & Chem 7: 06/19/17 08:06/19/17 05:30 Labs: Laboratory Last Values WBC 10.5 K/mm3 (4.5-11.0) 06/19/17 05:30 RBC 2.10 M/mm3 (3.65-5.03) L 06/19/17 05:30 Hgb 5.3 gm/dl (11.8-15.2) L* 06/19/17 07:21 Hct 15.5 % (35.5-45.6) L* 06/19/17 07:21 MCV 83 fl (84-94) L 06/19/17 05:30 MCH 29 pg (28-32) 06/19/17 05:30 MCHC 34 % (32-34) 06/19/17 05:30 RDW 17.2 % (13.2-15.2) H 06/19/17 05:30 Plt Count 169 K/mm3 (140-440) 06/19/17 05:30 Lymph % (Auto) 12.0 % (13.4-35.0) L 06/19/17 05:30 [place] % (Auto) 8.6 % (0.0-7.3) H 06/19/17 05:30 Eos % (Auto) 0.1 % (0.0-4.3) 06/19/17 05:30 Baso % (Auto) 0.5 % (0.0-1.8) 06/19/17 05:30 Lymph # 1.3 K/mm3 (1.2-5.4) 06/19/17 05:30 [place] # 0.9 K/mm3 (0.0-0.8) H 06/19/17 05:30 Eos # 0.0 K/mm3 (0.0-0.4) 06/19/17 05:30 Baso # 0.1 K/mm3 (0.0-0.1) 06/19/17 05:30 Seg Neutrophils % 78.8 % (40.0-70.0) H 06/19/17 05:30 Seg Neutrophils # 8.3 K/mm3 (1.8-7.7) H 06/19/17 05:30 PT 14.5 Sec. (12.2-14.9) 06/17/17 23:10 INR 1.14 (0.87-1.13) H 06/17/17 23:10 APTT 37.7 Sec. (24.2-36.6) H 06/17/17 23:10 Sodium 143 mmol/L (137-145) 06/19/17 05:30 Potassium 5.4 mmol/L (3.6-5.0) H 06/19/17 05:30 Chloride 99.7 mmol/L (98-107) 06/19/17 05:30 Carbon Dioxide 27 mmol/L (22-30) 06/19/17 05:30 Anion Gap 22 mmol/L 06/19/17 05:30 BUN 33 mg/dL (9-20) H 06/19/17 05:30 Creatinine 7.6 mg/dL (0.8-1.5) H 06/19/17 05:30 Estimated GFR 9 ml/min 06/19/17 05:30 BUN/Creatinine Ratio 4.34 % 06/19/17 05:30 Glucose 78 mg/dL (75-100) 06/19/17 05:30 Calcium 8.6 mg/dL (8.4-10.2) 06/19/17 05:30 Total Bilirubin 0.40 mg/dL (0.1-1.2) 06/17/17 23:10 AST 9 units/L (5-40) 06/17/17 23:10 ALT < 5 units/L (7-56) L 06/17/17 23:10 Alkaline Phosphatase 43 units/L (35-129) 06/17/17 23:10 Troponin T 0.063 ng/mL (0.00-0.029) H D 06/18/17 18:34 Total Protein 6.6 g/dL (6.3-8.2) 06/17/17 23:10 Albumin 3.7 g/dL (3.9-5) L 06/17/17 23:10 Albumin/Globulin Ratio 1.3 % 06/17/17 23:10 Triglycerides 90 mg/dL (2-149) 06/18/17 15:40 Cholesterol 92 mg/dL (50-199) 06/18/17 15:40 LDL Cholesterol Direct 48 mg/dL (50-130) L 06/18/17 15:40 HDL Cholesterol 26 mg/dL (40-59) L 06/18/17 15:40 Cholesterol/HDL Ratio 3.53 % 06/18/17 15:40 Lipase 32 units/L (13-60) 06/17/17 23:10 Blood Type O POSITIVE 06/17/17 23:15 Antibody Screen Negative 06/17/17 23:15 Crossmatch See Detail 06/17/17 23:15 Hemoglobin is trending down
[2017-06-19] MEDS ORDERED: NACL 0.9% 500 ML 500 ML IV NR (08:30)
[2017-06-19 08:34] LABS: Hematocrit 15.5 % (35.5-45.6); Hemoglobin 5.2 gm/dl (11.8-15.2)
--- NOTE | 2017-06-19 09:19 | Gastroenterology Progress Note ---
Assessment and Plan 1. GI bleed 2. melena 3. CP -EKG abnormal with troponin elevated- cardiology plans to do diagnostic heart cath but with active bleed, emergent GI intervention benefits outweigh risks -HGB 5.2- first of 3 units PRBCs transfusing now -continue to monitor H&H and transfuse as needed -large BM last night and this morning with bright red blood reported by pt and nursing -pt currently hemodynamically stable, denies active CP, SOB, or dizziness -hold blood thinning medications -continue PPI gtt -Keep NPO -will schedule CTA and emergent EGD for today -will follow Subjective Date of service: 06/19/17 Principal diagnosis: GI bleed Interval history: Patient resting in bed. No acute distress. Reports large BM last night and this morning of bright red blood. PRBCs transfusing now. Denies SOB, CP, or dizziness. Objective - Constitutional Vitals: Temp Pulse Resp BP Pulse Ox 99.1 F 94 H 20 130/60 96 06/19/17 07:15 06/19/17 08:17 06/19/17 07:15 06/19/17 07:15 06/19/17 07:15 General appearance: no acute distress, well-nourished - EENT Eyes: PERRL, EOM intact ENT: hearing intact - Neck Neck: supple, normal ROM - Respiratory Respiratory: bilateral: CTA - Cardiovascular Rhythm: regular Heart Sounds: Present: S1 & S2 - Extremities Extremities: No edema - Gastrointestinal General gastrointestinal: Present: soft, non-tender, non-distended, normal bowel sounds - Integumentary Integumentary: Present: warm, dry - Neurologic Neurological: alert and oriented x3 - Psychiatric Psychiatric: appropriate mood/affect, cooperative - Labs CBC & Chem 7: 06/19/17 08:17 06/19/17 05:30 Labs: Laboratory Results - last 24 hr 06/18/17 06/18/17 06/18/17 09:32 15:40 18:34 WBC RBC Hgb Hct MCV MCH MCHC RDW Plt Count Lymph % (Auto) [place] % (Auto) Eos % (Auto) Baso % (Auto) Lymph # [place] # Eos # Baso # Seg Neutrophils % Seg Neutrophils # Sodium Potassium Chloride Carbon Dioxide Anion Gap BUN Creatinine Estimated GFR BUN/Creatinine Ratio Glucose Calcium Troponin T 0.029 0.046 H D 0.063 H D Triglycerides 90 Cholesterol 92 LDL Cholesterol Direct 48 L HDL Cholesterol 26 L Cholesterol/HDL Ratio 3.53 06/18/17 06/19/17 06/19/17 18:34 05:30 05:30 WBC 10.5 RBC 2.10 L Hgb 7.1 L 6.0 L Hct 20.8 L 17.4 L* MCV 83 L MCH 29 MCHC 34 RDW 17.2 H Plt Count 169 Lymph % (Auto) 12.0 L [place] % (Auto) 8.6 H Eos % (Auto) 0.1 Baso % (Auto) 0.5 Lymph # 1.3 [place] # 0.9 H Eos # 0.0 Baso # 0.1 Seg Neutrophils % 78.8 H Seg Neutrophils # 8.3 H Sodium 143 Potassium 5.4 H Chloride 99.7 Carbon Dioxide 27 Anion Gap 22 BUN 33 H Creatinine 7.6 H Estimated GFR 9 BUN/Creatinine Ratio 4.34 Glucose 78 Calcium 8.6 Troponin T Triglycerides Cholesterol LDL Cholesterol Direct HDL Cholesterol Cholesterol/HDL Ratio 06/19/17 06/19/17 07:21 08:17 WBC RBC Hgb 5.3 L* 5.2 L* Hct 15.5 L* 15.5 L* MCV MCH MCHC RDW Plt Count Lymph % (Auto) [place] % (Auto) Eos % (Auto) Baso % (Auto) Lymph # [place] # Eos # Baso # Seg Neutrophils % Seg Neutrophils # Sodium Potassium Chloride Carbon Dioxide Anion Gap BUN Creatinine Estimated GFR BUN/Creatinine Ratio Glucose Calcium Troponin T Triglycerides Cholesterol LDL Cholesterol Direct HDL Cholesterol Cholesterol/HDL Ratio
--- NOTE | 2017-06-19 09:37 | Progress Note ---
Assessment and Plan Impression: * esrd * gi bleeding * anemia abl/esrd * htn plan: * hd today with uf as tolerated * prbcs with hd * epogen with hd * no heparin * gi consult needed * strict i/os * avoid nephrotoxins * daily cbc * renal diet Subjective Date of service: 06/19/17 Principal diagnosis: GI bleed Interval history: resting in bed today Objective - Exam Narrative Exam: gen: alert and oriented x 3 heent: perrla, eomi cv: rrr, normal s1,s2 abd: s,nt,nd pos bs ext: left upper ext dialysis access d/c/i neuro: no deficits, lungs: cta dayanna psych: normal mood. - Vital Signs Vital signs: Vital Signs - 12hr 06/18/17 06/19/17 06/19/17 22:00 00:10 05:00 Temperature 99.2 F 97.7 F Pulse Rate 102 H 95 H Respiratory 18 18 18 Rate Blood Pressure 142/99 155/80 O2 Sat by Pulse 100 Oximetry 06/19/17 06/19/17 07:15 08:17 Temperature 99.1 F Pulse Rate 104 H 94 H Respiratory 20 Rate Blood Pressure 130/60 O2 Sat by Pulse 96 Oximetry - Lab 06/19/17 08:17 06/19/17 05:30 Most recent lab results Calcium 8.6 mg/dL (8.4-10.2) 06/19/17 05:30
[2017-06-19] MEDS ORDERED: XYLOCAINE CARDIAC IV ONE (10:00)
[2017-06-19] MEDS: ASPIRIN PO SCH (10:47)
--- NOTE | 2017-06-19 14:33 | Progress Note ---
Assessment and Plan Acute GI bleed s/p transfusion of PRBCs ESRD on HD Hypertension Tobacco abuse Chest pain Subjective Date of service: 06/19/17 Principal diagnosis: GI bleed Interval history: Patient is resting in bed comfortably. Noted severe anemia on am labs. Objective Vital Signs Temp Pulse Pulse Resp Resp BP Pulse Ox 06/19/17 13:19 98.8 F 98 H 20 168/90 100 06/19/17 12:00 99 F 100 H 18 164/78 100 06/19/17 11:30 99 F 96 H 20 160/80 100 06/19/17 11:15 99.0 F 100 H 18 177/85 98 06/19/17 11:00 99 F 100 H 20 158/84 06/19/17 10:47 72 110/64 06/19/17 10:30 99.6 F 101 H 18 136/64 100 06/19/17 10:00 99.2 F 102 H 100 H 20 20 128/68 99 06/19/17 09:30 99 F 100 H 20 110/60 98 06/19/17 09:15 99.4 F 102 H 20 110/52 99 06/19/17 08:55 99.1 F 104 H 20 114/54 99 06/19/17 08:17 94 H 06/19/17 07:15 99.1 F 104 H 20 130/60 96 06/19/17 05:00 97.7 F 95 H 18 155/80 06/19/17 00:10 99.2 F 102 H 18 142/99 100 06/18/17 22:00 18 06/18/17 21:00 98.7 F 97 H 18 121/71 06/18/17 17:40 98.2 F 98 H 18 102/67 06/18/17 17:30 102 H 100/68 06/18/17 17:15 95 H 100/72 06/18/17 17:00 95 H 110/70 06/18/17 16:45 97 H 115/73 06/18/17 16:30 99 H 129/80 06/18/17 16:15 98 H 105/72 06/18/17 16:00 101 H 124/69 06/18/17 15:45 103 H 141/83 06/18/17 15:33 102 H 151/86 06/18/17 15:20 97.7 F 105 H 18 153/93 - Physical Examination General: No Apparent Distress HEENT: Positive: PERRL Neck: Positive: trachea midline Cardiac: Positive: Reg Rate and Rhythm Lungs: Positive: Decreased Breath Sounds Neuro: Positive: Grossly Intact - Labs and Meds Lipids 06/18/17 Range/Units 15:40 Triglycerides 90 (2-149) mg/dL Cholesterol 92 (50-199) mg/dL HDL Cholesterol 26 L (40-59) mg/dL Cholesterol/HDL Ratio 3.53 % CBC 06/18/17 06/19/17 06/19/17 Range/Units 18:34 05:30 07:21 WBC 10.5 (4.5-11.0) K/mm3 RBC 2.10 L (3.65-5.03) M/mm3 Hgb 7.1 L 6.0 L 5.3 L* (11.8-15.2) gm/dl Hct 20.8 L 17.4 L* 15.5 L* (35.5-45.6) % Plt Count 169 (140-440) K/mm3 Lymph # 1.3 (1.2-5.4) K/mm3 [place] # 0.9 H (0.0-0.8) K/mm3 Eos # 0.0 (0.0-0.4) K/mm3 Baso # 0.1 (0.0-0.1) K/mm3 06/19/17 Range/Units 08:17 WBC (4.5-11.0) K/mm3 RBC (3.65-5.03) M/mm3 Hgb 5.2 L* (11.8-15.2) gm/dl Hct 15.5 L* (35.5-45.6) % Plt Count (140-440) K/mm3 Lymph # (1.2-5.4) K/mm3 [place] # (0.0-0.8) K/mm3 Eos # (0.0-0.4) K/mm3 Baso # (0.0-0.1) K/mm3 Comprehensive Metabolic Panel 06/19/17 Range/Units 05:30 Sodium 143 (137-145) mmol/L Potassium 5.4 H (3.6-5.0) mmol/L Chloride 99.7 (98-107) mmol/L Carbon Dioxide 27 (22-30) mmol/L BUN 33 H (9-20) mg/dL Creatinine 7.6 H (0.8-1.5) mg/dL Glucose 78 (75-100) mg/dL Calcium 8.6 (8.4-10.2) mg/dL
--- NOTE | 2017-06-19 15:02 | Event Note ---
Date: 06/19/17 66-year-old male with end-stage renal disease and history of obscure bleeding who presents with melanoma and subsequent bright red blood per rectum. Recommend multiphase CT angiogram of the abdomen and pelvis. Patient will subsequently have endoscopy performed by gastroenterology (Dr. Felix) Based on endoscopy and CT angiogram, possible intervention can be considered. Await imaging and endoscopy results.
[2017-06-19] MEDS ORDERED: WATER FOR IRRIG STERILE IR ONE (16:07)
[2017-06-19] MEDS ORDERED: DIPRIVAN 10 MG/ML IV ONE ×2 (16:15)
--- NOTE | 2017-06-19 16:15 | Anesthesia Consultation ---
Anesthesia Consult and Med Hx Date of service: 06/19/17 - Airway Anesthetic Teeth Evaluation: Good ROM Head & Neck: Adequate Mental/Hyoid Distance: Adequate Mallampati Class: Class II Intubation Access Assessment: Possibly Difficult - Pulmonary Exam CTA: Yes - Cardiac Exam Cardiac Exam: RRR - Pre-Operative Health Status ASA Pre-Surgery Classification: ASA3 Proposed Anesthetic Plan: MAC - Pulmonary Hx Smoking: Yes (tobacco use) Hx Asthma: No COPD: No Hx Pneumonia: No - Cardiovascular System Hx Hypertension: Yes - Central Nervous System Hx Psychiatric Problems: No - Gastrointestinal Hx Gastroesophageal Reflux Disease: Yes - Endocrine Hx Renal Disease: Yes (dialysis fri) Hx End Stage Renal Disease: Yes Hx Hyperthyroidism: Yes - Hematic Hx Anemia: Yes
--- NOTE | 2017-06-19 16:15 | Anesthesia Day of Surgery ---
Anesthesia Day of Surgery - Day of Surgery Patient Examined: Yes Patient H&P Reviewed: Yes Patient is NPO: Yes Beta Blockers: No (not in hospital; at home)
[2017-06-19] MEDS ORDERED: AMIDATE IV ONE (16:16)
--- NOTE | 2017-06-19 16:53 | Post Operative Note ---
Pre-op diagnosis: GI bleed Post-op diagnosis: other (Normal exam) Findings: 1. Normal EGD Procedure: EGD Anesthesia: MAC Surgeon: JOANNA BINGHAM Estimated blood loss: none Pathology: none Condition: stable Disposition: floor (Colonoscopy tomorrow)
[2017-06-19] MEDS ORDERED: NACL 0.9% 1000 ML 1,000 ML IV SCH (17:00)
--- NOTE | 2017-06-19 17:03 | Cat Scan Report ---
CTA ABDOMEN AND PELVIS INDICATION: GI bleed. COMPARISON: None similar. FINDINGS: Abdomen and pelvis CTA performed following IV contrast. Precontrast images also obtained. LUNG BASES: Slight cardiomegaly. Minimal bilateral pleural effusions/thickening posteriorly also noted as on axial image 4, series 3. Anemia suspected. Atherosclerotic coronary and aortic calcifications. ABDOMEN: Precontrast images demonstrate no radiopaque gallstones or definite renal calculi with innumerable bilateral renal cysts. Postcontrast arterial phase images demonstrate no suspicious hypervascular lesions. Patent celiac axis although mild stenosis possible approximately 2.5 cm beyond its aortic origin. Patent SMA and DOROTHY as well. Atherosclerotic aortoiliac and bilateral renal artery calcifications. Right renal artery not excluded occluded approximately 9 mm from its aortic origin. Left renal artery though patent with few calcifications. Mildly aneurysmal left proximal common iliac artery, axial image 61, series 6 with subtle 6-7 mm pseudoaneurysms as on axial image 63. Tiny left hepatic benign calcifications superiorly, axial image 28, series 5. Otherwise unremarkable liver, spleen, gallbladder, pancreas, adrenals and IVC. Polycystic kidneys with innumerable cysts near completely replacing renal cortex noted bilaterally. Largest right renal cyst is 7.3 cm, axial image 51, series 5 while on the left inferiorly is approximately 7 cm, axial image 88. Nonopacified GI tract evaluation limited, though grossly nonobstructive. Normal appendix. Numerous colonic diverticuli, greatest along the ascending and distal descending colon. Slight fat stranding around the left distal descending colon also noted, axial images 105-150 on series 5, also extending to the proximal sigmoid. Small fat-containing umbilical hernia with a transverse neck of 1 cm. PELVIS: Numerous remainder sigmoid diverticuli also noted. Mild rectosigmoid stool. Numerous prostatic calcifications, few small brachytherapy seeds and an approximately 4.5 cm AP x 5.2 cm transverse prostate as on axial image 174, series 5 creating an impression at the bladder base may also be correlated for clinically and with PSA. Urinary bladder suboptimally distended and assessed. Grossly unremarkable seminal vesicles. No free fluid or significant adenopathy. Demineralized bones. Mild spinal dextrorotoscoliosis. Mild multilevel spinal degenerative spurring, more so lower thoracic and lower lumbar. CONCLUSION: 1. Mild acute diverticulitis with exaggerated wall prominence/thickening suspected along the descending colon and proximal sigmoid in this patient with extensive diverticulosis. Subtle occult mass/neoplasm however difficult to exclude in this setting and may be reevaluated after resolution of acute symptoms. Please correlate. 2. Various other incidental findings, including those at imaged lung bases, polycystic kidneys, possibly occluded right renal artery, mildly aneurysmal left proximal iliac artery, and an enlarged prostate, amongst others, as detailed above. Thank you for the opportunity to participate in this patient's care.
[2017-06-19] MEDS ORDERED: NACL 0.9 (PRIMING MACHINE ONLY DIALYSIS) MC ONE (20:08)
[2017-06-19] MEDS: ZOFRAN IV PRN (20:10)
[2017-06-20 00:58] LABS: Hematocrit 20.8 % (35.5-45.6); Hemoglobin 6.9 gm/dl (11.8-15.2)
[2017-06-20] MEDS ORDERED: GOLYTELY PO ONE (02:00)
[2017-06-20 04:50] LABS: Hemoglobin 6.6 gm/dl (11.8-15.2)
[2017-06-20 04:57] LABS: Hematocrit 19.3 % (35.5-45.6)
[2017-06-20] MEDS ORDERED: NACL 0.9% 500 ML 500 ML ONE (05:07)
[2017-06-20] MEDS ORDERED: NACL 0.9% 500 ML 500 ML IV ONE (06:45)
[2017-06-20] MEDS ORDERED: WATER FOR IRRIG STERILE IR ONE (08:09)
--- NOTE | 2017-06-20 09:18 | Consultation ---
History of Present Illness - Reason for Consult Consult date: 06/20/17 GI bleed Requesting physician: MARY THORNTON - History of Present Illness 66 y/o male transitioned from the floor secondary to GI bleed. Scoped once already and had normal EGD. Now having BRBPR. Has been transfused several units and remains anemic. Hemodynamically stable. Past History Past Medical History: ESRD (on HD), hyperthyroidism Past Surgical History: Other (prostate CA) Social history: lives with family, smoking. denies: alcohol abuse Medications and Allergies Allergies Allergy/AdvReac Type Severity Reaction Status Date / Time No Known Allergies Allergy Unverified 06/17/17 22:41 Home Medications Medication Instructions Recorded Confirmed Last Taken Type AtorvaSTATin [Lipitor] 10 mg PO QHS 06/18/17 06/18/17 06/17/17 History Carvedilol [Coreg] 12.5 mg PO BID 06/18/17 06/18/17 06/17/17 History Cinacalcet HCl [Sensipar] 90 mg PO DAILY 06/18/17 06/18/17 06/17/17 History Clonidine HCl [Catapres] 0.3 mg PO TID 06/18/17 06/18/17 06/17/17 History Dexlansoprazole [Dexilant] 60 mg PO DAILY 06/18/17 06/18/17 06/17/17 History Fluticasone [Flonase] 1 spray NS QDAY 06/18/17 06/18/17 06/17/17 History Folic Acid/Vit B Comp W-C [Renal 1 cap PO QDAY 06/18/17 06/18/17 06/17/17 History Caps] Hydralazine HCl [Apresoline TAB] 50 mg PO BID 06/18/17 06/18/17 06/17/17 History Valsartan [Diovan] 320 mg PO QDAY 06/18/17 06/18/17 06/17/17 History Zolpidem [Ambien] 10 mg PO QHS 06/18/17 06/18/17 06/17/17 History amLODIPine [Norvasc] 10 mg PO DAILY 06/18/17 06/18/17 06/17/17 History Active Meds: Active Medications Acetaminophen (Tylenol) 650 mg PO Q4H PRN PRN Reason: Pain MILD(1-3)/Fever >100.5/CALDERÓN Epoetin Roman (Epogen) 20,000 unit IV BROWN PRN PRN Reason: hemodialysis Last Admin: 06/19/17 20:09 Dose: 20,000 unit Hydralazine HCl (Apresoline) 10 mg IV Q6H ZAHIDA Last Admin: 06/19/17 23:09 Dose: 10 mg Sodium Chloride (Nacl 0.9% 1000 Ml) 1,000 mls @ 50 mls/hr IV DIRECT ZAHIDA Last Admin: 06/19/17 15:40 Dose: 50 mls/hr Sodium Chloride (Nacl 0.9% 500 Ml) 500 mls @ 0 mls/hr IV ONCE ONE PRN Reason: As Directed Stop: 06/20/17 08:21 Morphine Sulfate (Morphine) 2 mg IV Q4H PRN PRN Reason: Pain, Moderate (4-6) Nitroglycerin (Nitrostat) 0.4 mg SL .Q5MIN PRN PRN Reason: Chest Pain Ondansetron HCl (Zofran) 4 mg IV Q8H PRN PRN Reason: Nausea And Vomiting Last Admin: 06/19/17 20:10 Dose: 4 mg Pantoprazole Sodium (Protonix) 40 mg IV BID [facility] Review of Systems All systems: negative Exam - Constitutional Vitals: Temp Pulse Resp BP Pulse Ox 98.6 F 99 H 14 142/80 100 06/20/17 08:00 06/20/17 08:40 06/20/17 08:40 06/20/17 08:40 06/20/17 08:40 General appearance: Present: no acute distress - EENT ENT: hearing intact - Neck Neck: Present: supple - Respiratory Respiratory effort: normal Respiratory: bilateral: CTA - Cardiovascular Rhythm: regular Heart Sounds: Present: S1 & S2 - Abdominal General gastrointestinal: Present: soft Results - Labs CBC & Chem 7: 06/20/17 03:57 06/19/17 05:30 Labs: Abnormal lab results 06/20/17 06/20/17 Range/Units 00:24 03:57 Hgb 6.9 L 6.6 L (11.8-15.2) gm/dl Hct 20.8 L 19.3 L* (35.5-45.6) % - Imaging and Cardiology Chest x-ray: report reviewed CT scan - abdomen: report reviewed CT scan - pelvis: report reviewed Assessment and Plan 66 y/o male with GI bleed Per GI this is the patients third episode. He has had 2 in the [facility] prior to this episode. Will do as follows: 1. Colonoscopy today 2. If negative, then bleeding scan 3. Continue q6hr H/H's through tomorrow at least 4. Refresh type and screen 5. May need transfer to [place] for deep form of endoscopy. CCT 31 minutes.
[2017-06-20] MEDS ORDERED: NACL 0.9% 1000 ML 1,000 ML ONE (09:29)
[2017-06-20] MEDS ORDERED: DIPRIVAN 10 MG/ML IV ONE ×2 (09:35)
[2017-06-20] MEDS: APRESOLINE IV SCH ×4 (10:14→22:49)
[2017-06-20] MEDS ORDERED: NACL 0.9% 500 ML 500 ML IV NR (10:30)
--- NOTE | 2017-06-20 10:45 | Progress Note ---
Subjective Principal diagnosis: GI bleed Interval history: Patient was evaluated today for follow-up on multiple renal related issues, time of evaluation 2 PM Events of this hospitalization were noted,admitted with GI bleed Patient states that he does not require any dialysis today Patient does not appear to be any acute distress Vital labs intake and output medications were reviewed Current medications: Reviewed Social history:Reviewed Family history: Reviewed HEENT: No uremic order oral mucosa moist Neck: Supple without any thyromegaly mass or JVD Chest: Clear to auscultation occasional basilar crackles posteriorly Heart: Regular rate and rhythm S1 and S2 heard no S3-S4 Abdomen: Soft nontender no voluntary guarding rigidity or rebound Extremity: Dry skin minimal edema Psychiatry: No agitation and aggression noted Assessment and plan End-stage renal disease: Patient is currently in maintenance hemodialysis there is no acute indication for renal replacement therapy today Hyperkalemia: Needs to be monitored and followed, current potassium is 4.2 Anemia and end-stage renal disease: Patient also has evidence evidence of GI bleed currently on Protonix 40 mg twice a day also on erythropoietin was also given desmopressin and is currently on at Secondary hyperparathyroidism: To monitor and follow Malnutrition risk: High in dialysis patient currently nothing by mouth status advance diet as tolerated per GI Hypertension and volume: Monitor follow-up keep systolic blood pressure under 150 Accelerated hypertension requires better control, we will start the patient on clonidine Bone mineral disorder phosphorus currently 4.5 Objective - Vital Signs Vital signs: Vital Signs - 12hr 06/19/17 06/19/17 06/19/17 22:50 23:00 23:10 Temperature Pulse Rate 98 H 98 H 101 H Respiratory 20 15 12 Rate Blood Pressure 184/69 184/69 150/65 O2 Sat by Pulse 100 100 100 Oximetry 06/19/17 06/19/17 06/19/17 23:20 23:30 23:40 Temperature Pulse Rate 105 H 103 H 107 H Respiratory 22 19 21 Rate Blood Pressure 150/65 139/86 139/86 O2 Sat by Pulse 99 99 100 Oximetry 06/19/17 06/20/17 06/20/17 23:50 00:00 00:10 Temperature 98.8 F Pulse Rate 104 H 102 H 107 H Respiratory 19 19 22 Rate Blood Pressure 139/86 152/68 139/86 O2 Sat by Pulse 98 98 98 Oximetry 06/20/17 06/20/17 06/20/17 00:20 00:30 00:40 Temperature Pulse Rate 105 H 103 H 101 H Respiratory 19 17 21 Rate Blood Pressure 139/86 150/63 150/63 O2 Sat by Pulse 99 98 98 Oximetry 06/20/17 06/20/17 06/20/17 00:44 00:50 01:00 Temperature 99.5 F Pulse Rate 103 H 107 H Respiratory 21 22 Rate Blood Pressure 150/63 136/74 O2 Sat by Pulse 99 96 Oximetry 06/20/17 06/20/17 06/20/17 01:10 01:20 01:30 Temperature Pulse Rate 104 H 103 H 103 H Respiratory 20 25 H 19 Rate Blood Pressure 136/74 136/74 146/69 O2 Sat by Pulse 98 100 98 Oximetry 06/20/17 06/20/17 06/20/17 01:40 01:50 02:00 Temperature Pulse Rate 107 H 99 H 106 H Respiratory 19 17 21 Rate Blood Pressure 136/74 136/74 136/74 O2 Sat by Pulse 99 99 99 Oximetry 06/20/17 06/20/17 06/20/17 02:10 02:20 02:30 Temperature Pulse Rate 97 H 98 H 98 H Respiratory 18 20 20 Rate Blood Pressure 146/69 146/69 142/75 O2 Sat by Pulse 99 99 100 Oximetry 06/20/17 06/20/17 06/20/17 02:40 02:50 03:00 Temperature Pulse Rate 99 H 104 H 105 H Respiratory 24 23 21 Rate Blood Pressure 137/71 137/71 142/75 O2 Sat by Pulse 100 99 100 Oximetry 06/20/17 06/20/17 06/20/17 03:10 03:20 03:30 Temperature Pulse Rate 101 H 99 H 104 H Respiratory 19 15 22 Rate Blood Pressure 142/75 142/75 142/75 O2 Sat by Pulse 96 98 100 Oximetry 06/20/17 06/20/17 06/20/17 03:40 03:50 04:00 Temperature 99.5 F Pulse Rate 96 H 95 H 97 H Respiratory 12 21 20 Rate Blood Pressure 133/82 133/82 133/82 O2 Sat by Pulse 98 98 97 Oximetry 06/20/17 06/20/17 06/20/17 04:10 04:20 04:30 Temperature Pulse Rate 96 H 113 H 98 H Respiratory 18 24 19 Rate Blood Pressure 141/78 141/78 134/73 O2 Sat by Pulse 97 99 98 Oximetry 06/20/17 06/20/17 06/20/17 04:40 04:50 04:53 Temperature 99.0 F Pulse Rate 112 H 103 H Respiratory 30 H 22 Rate Blood Pressure 163/72 163/72 O2 Sat by Pulse 98 100 Oximetry 06/20/17 06/20/17 06/20/17 05:00 05:10 05:20 Temperature Pulse Rate 98 H 98 H 95 H Respiratory 16 26 H 19 Rate Blood Pressure 139/70 139/70 139/70 O2 Sat by Pulse 98 99 98 Oximetry 06/20/17 06/20/17 06/20/17 05:30 05:40 05:50 Temperature Pulse Rate 95 H 94 H 107 H Respiratory 22 14 27 H Rate Blood Pressure 147/67 147/67 147/67 O2 Sat by Pulse 100 100 100 Oximetry 06/20/17 06/20/17 06/20/17 06:00 06:10 06:20 Temperature Pulse Rate 102 H 96 H 99 H Respiratory 16 18 14 Rate Blood Pressure 152/88 152/88 152/88 O2 Sat by Pulse 99 100 99 Oximetry 06/20/17 06/20/17 06/20/17 06:30 06:40 06:50 Temperature Pulse Rate 97 H 97 H 103 H Respiratory 16 15 19 Rate Blood Pressure 152/88 148/79 148/79 O2 Sat by Pulse 100 99 100 Oximetry 06/20/17 06/20/17 06/20/17 07:00 07:10 07:20 Temperature Pulse Rate 95 H 96 H 100 H Respiratory 22 23 13 Rate Blood Pressure 142/79 142/79 O2 Sat by Pulse 99 98 100 Oximetry 06/20/17 06/20/17 06/20/17 07:30 07:40 07:50 Temperature 98.3 F Pulse Rate 99 H 101 H 100 H Respiratory 16 16 21 Rate Blood Pressure 144/82 144/82 144/82 O2 Sat by Pulse 100 98 100 Oximetry 06/20/17 06/20/17 06/20/17 08:00 08:10 08:20 Temperature 98.6 F Pulse Rate 99 H 101 H 98 H Respiratory 22 25 H 16 Rate Blood Pressure 132/80 132/80 132/80 O2 Sat by Pulse 100 99 99 Oximetry 06/20/17 06/20/17 06/20/17 08:30 08:40 08:50 Temperature Pulse Rate 102 H 99 H 101 H Respiratory 21 14 20 Rate Blood Pressure 142/80 142/80 142/80 O2 Sat by Pulse 100 100 99 Oximetry 06/20/17 06/20/17 06/20/17 09:00 09:10 09:20 Temperature 98.5 F Pulse Rate 99 H 100 H 99 H Respiratory 16 15 13 Rate Blood Pressure 138/60 138/60 134/73 O2 Sat by Pulse 100 98 99 Oximetry 06/20/17 06/20/17 06/20/17 09:30 09:40 09:50 Temperature 98.2 F Pulse Rate 98 H 98 H 93 H Respiratory 13 13 13 Rate Blood Pressure 152/65 152/65 129/87 O2 Sat by Pulse 100 98 99 Oximetry 06/20/17 06/20/17 10:00 10:14 Temperature 98.7 F Pulse Rate 95 H Respiratory 18 Rate Blood Pressure 153/79 O2 Sat by Pulse 100 Oximetry - Lab 06/20/17 12:16 06/20/17 12:16 Most recent lab results Calcium 8.6 mg/dL (8.4-10.2) 06/19/17 05:30
--- NOTE | 2017-06-20 10:54 | Progress Note ---
Assessment and Plan Acute GI bleed s/p transfusion of PRBCs awaits further GI workup ESRD on HD Hypertension Tobacco abuse Chest pain Further cardiac evaluation depends on clinical course. Subjective Date of service: 06/20/17 Principal diagnosis: GI bleed Interval history: Patient reports continued bright red blood per rectum. He denies chest pain. Objective Vital Signs Temp Pulse Resp Resp BP Pulse Ox 06/20/17 10:50 98.8 F 06/20/17 10:40 98 H 13 152/81 06/20/17 10:30 97 H 17 152/81 06/20/17 10:20 99 H 19 156/77 100 06/20/17 10:14 98.7 F 06/20/17 10:10 98 H 19 153/79 97 06/20/17 10:00 95 H 18 153/79 100 06/20/17 09:50 93 H 13 129/87 99 06/20/17 09:40 98.2 F 98 H 13 152/65 98 06/20/17 09:30 98 H 13 152/65 100 06/20/17 09:20 98.5 F 99 H 13 134/73 99 06/20/17 09:10 100 H 15 138/60 98 06/20/17 09:00 99 H 16 138/60 100 06/20/17 08:50 101 H 20 142/80 99 06/20/17 08:40 99 H 14 142/80 100 06/20/17 08:30 102 H 21 142/80 100 06/20/17 08:20 98 H 16 132/80 99 06/20/17 08:10 101 H 25 H 132/80 99 06/20/17 08:00 98.6 F 99 H 22 132/80 100 06/20/17 07:50 98.3 F 100 H 21 144/82 100 06/20/17 07:40 101 H 16 144/82 98 06/20/17 07:30 99 H 16 144/82 100 06/20/17 07:20 100 H 13 100 06/20/17 07:10 96 H 23 142/79 98 06/20/17 07:00 95 H 22 142/79 99 06/20/17 06:50 103 H 19 148/79 100 06/20/17 06:40 97 H 15 148/79 99 06/20/17 06:30 97 H 16 152/88 100 17 06:20 99 H 14 152/88 99 18/17 06:10 96 H 18 152/88 100 1817 06:00 102 H 16 152/88 99 1817 05:50 107 H 27 H 147/67 100 1817 05:40 94 H 14 147/67 100 18/17 05:30 95 H 22 147/67 100 1817 05:20 95 H 19 139/70 98 18 05:10 98 H 26 H 139/70 99 1817 05:00 98 H 16 139/70 98 1817 04:53 99.0 F 06/20/17 04:50 103 H 22 163/72 100 06/20/17 04:40 112 H 30 H 163/72 98 1817 04:30 98 H 19 134/73 98 06/20/17 04:20 113 H 24 141/78 99 06/20/17 04:10 96 H 18 141/78 97 06/20/17 04:00 99.5 F 97 H 20 133/82 97 18 03:50 95 H 21 133/82 98 18/17 03:40 96 H 12 133/82 98 18 03:30 104 H 22 142/75 100 06/20/17 03:20 99 H 15 142/75 98 1817 03:10 101 H 19 142/75 96 1817 03:00 105 H 21 142/75 100 06/20/17 02:50 104 H 23 137/71 99 1817 02:40 99 H 24 137/71 100 1817 02:30 98 H 20 142/75 100 1817 02:20 98 H 20 146/69 99 18/17 02:10 97 H 18 146/69 99 1817 02:00 106 H 21 136/74 99 18 01:50 99 H 17 136/74 99 1817 01:40 107 H 19 136/74 99 18/17 01:30 103 H 19 146/69 98 18 01:20 103 H 25 H 136/74 100 18 01:10 104 H 20 136/74 98 06/20/17 01:00 107 H 22 136/74 96 06/20/17 00:50 103 H 21 150/63 99 06/20/17 00:44 99.5 F 06/20/17 00:40 101 H 21 150/63 98 06/20/17 00:30 103 H 17 150/63 98 06/20/17 00:20 105 H 19 139/86 99 06/20/17 00:10 107 H 22 139/86 98 06/20/17 00:00 98.8 F 102 H 19 152/68 98 06/19/17 23:50 104 H 19 139/86 98 06/19/17 23:40 107 H 21 139/86 100 06/19/17 23:30 103 H 19 139/86 99 06/19/17 23:20 105 H 22 150/65 99 06/19/17 23:10 101 H 12 150/65 100 06/19/17 23:00 98 H 15 184/69 100 06/19/17 22:50 98 H 20 184/69 100 06/19/17 22:40 100 H 14 184/69 100 06/19/17 22:30 97 H 19 162/80 99 06/19/17 22:20 99 H 17 184/69 100 06/19/17 22:10 97 H 26 H 184/69 99 06/19/17 22:00 100 H 16 20 100 06/19/17 21:54 101 H 17 06/19/17 20:45 98.8 F 88 20 158/80 06/19/17 20:30 94 H 155/91 06/19/17 20:15 99 H 132/72 06/19/17 20:00 80 137/62 06/19/17 19:45 99 H 142/82 06/19/17 19:30 80 137/62 06/19/17 19:15 95 H 152/94 06/19/17 19:00 62 152/94 06/19/17 18:45 59 L 149/80 06/19/17 18:30 92 H 174/92 06/19/17 18:15 94 H 155/91 06/19/17 18:00 94 H 166/90 06/19/17 17:45 94 H 178/94 06/19/17 17:30 99.0 F 76 20 175/93 06/19/17 17:11 97 H 20 141/80 98 06/19/17 16:38 98.7 F 95 H 19 130/72 99 06/19/17 16:35 98.7 F 96 H 24 148/79 100 06/19/17 15:46 97.6 F 77 15 107/46 100 06/19/17 15:40 98.6 F 96 H 32 H 197/97 98 06/19/17 14:04 98.7 F 95 H 19 130/72 99 06/19/17 14:00 98.6 F 86 20 164/78 06/19/17 13:35 98.6 F 100 H 20 170/88 100 06/19/17 13:19 98.8 F 98 H 20 168/90 100 06/19/17 12:00 99 F 100 H 18 164/78 100 06/19/17 11:30 99 F 96 H 20 160/80 100 06/19/17 11:15 99.0 F 100 H 18 177/85 98 06/19/17 11:00 99 F 100 H 20 158/84 - Physical Examination General: No Apparent Distress HEENT: Positive: PERRL Neck: Positive: trachea midline Cardiac: Positive: Reg Rate and Rhythm Lungs: Positive: Decreased Breath Sounds Neuro: Positive: Grossly Intact - Labs and Meds CBC 06/20/17 06/20/17 Range/Units 00:24 03:57 Hgb 6.9 L 6.6 L (11.8-15.2) gm/dl Hct 20.8 L 19.3 L* (35.5-45.6) %
[2017-06-20] MEDS: PROTONIX IV SCH ×2 (12:01→22:48)
--- NOTE | 2017-06-20 12:15 | Anesthesia Day of Surgery ---
Anesthesia Day of Surgery - Day of Surgery Patient Examined: Yes Patient H&P Reviewed: Yes Patient is NPO: Yes
[2017-06-20 12:59] LABS: Hematocrit 21.4 % (35.5-45.6); Hemoglobin 7.2 gm/dl (11.8-15.2)
[2017-06-20 13:13] LABS: BUN/Creatinine Ratio 4.55; Calcium 8.4 mg/dL (8.4-10.2); Chloride 96.7 mmol/L (98-107); Potassium 4.2 mmol/L (3.6-5.0)
--- NOTE | 2017-06-20 13:51 | Post Operative Note ---
Pre-op diagnosis: GI bleed Post-op diagnosis: other (Diverticulosis, cecal AVMs, and relatively fresh blood and clot throughout colon - no active bleeding) Findings: 1. Terminal ileum showed bilious material, no blood. 2. Relatively fresh blood and clot throughout the colon. 3. Severe diffuse diverticulosis. 4. No active bleeding identified. Procedure: Colonoscopy Anesthesia: MAC Surgeon: JOANNA BINGHAM Estimated blood loss: none Pathology: none Condition: stable Disposition: ICU (1. DDAVP, and monitor H/H and transfuse as needed. 2. Bleeding scan. 3. Surgical evaluation 4. If continues to bleed, consider subtotal colectomy)
--- NOTE | 2017-06-20 14:32 | Progress Note ---
Assessment and Plan Assessment and plan: Severe anemia secondary to GI bleed - Patient has dark tarry stool - was transfused multiple units of blood - last hemoglobin was 7.2, will monitor closely - GI did endoscopy and colonoscopy, diverticulosis, no active bleeding, recommended Surgical evaluation and consult placed, DDAVP Chest pain - Cardiology consulted - Patient didn't have any chest pain and recommend to continue with GI work up End stage renal disease on hemodialysis -Nephrology is consulted -Continue with the hemodialysis DVT prophylaxis -chemical because of GI bleed Disposition - Continue ICU care The high probability of a clinically significant, sudden or life threatening deterioration of the [GI, CVS] system(s) required my full and direct attention, intervention and personal management. The aggregate critical care time was [32] minutes. This time is in addition to time spent performing reported procedures but includes the following: [x] Data Review and interpretation [x] Patient assessment and monitoring of vital signs [x] Documentation [x] Medication orders and management History Interval history: Patient has 2 bowel movement overnight and was dark. Patient is feeling tired. Hospitalist Physical - Physical exam Narrative exam: Not in cardiopulmonary distress. The patient appeared well nourished and normally developed. Vital signs as documented. Head exam is unremarkable. No scleral icterus . Neck is without jugular venous distension, thyromegaly, or carotid bruits. Lungs are clear to auscultation. Cardiac exam reveals regular rate and Rhythm. First and second heart sounds normal. No murmurs, rubs or gallops. Abdominal exam reveals normal bowel sounds, no masses, no organomegaly and no aortic enlargement. Extremities are nonedematous and both femoral and pedal pulses are normal. TRANSIT MIX OPERATOR: Alert and oriented 3. No focal weakness. - Constitutional Vitals: Temp Pulse Resp BP Pulse Ox 98.2 F 87 14 189/96 99 06/20/17 13:39 06/20/17 14:09 06/20/17 14:09 06/20/17 14:09 06/20/17 14:09 General appearance: Present: no acute distress Results - Labs CBC & Chem 7: 06/20/17 12:16 06/20/17 12:16 Labs: Laboratory Last Values WBC 10.5 K/mm3 (4.5-11.0) 06/19/17 05:30 RBC 2.10 M/mm3 (3.65-5.03) L 06/19/17 05:30 Hgb 7.2 gm/dl (11.8-15.2) L 06/20/17 12:16 Hct 21.4 % (35.5-45.6) L 06/20/17 12:16 MCV 83 fl (84-94) L 06/19/17 05:30 MCH 29 pg (28-32) 06/19/17 05:30 MCHC 34 % (32-34) 06/19/17 05:30 RDW 17.2 % (13.2-15.2) H 06/19/17 05:30 Plt Count 169 K/mm3 (140-440) 06/19/17 05:30 Lymph % (Auto) 12.0 % (13.4-35.0) L 06/19/17 05:30 [place] % (Auto) 8.6 % (0.0-7.3) H 06/19/17 05:30 Eos % (Auto) 0.1 % (0.0-4.3) 06/19/17 05:30 Baso % (Auto) 0.5 % (0.0-1.8) 06/19/17 05:30 Lymph # 1.3 K/mm3 (1.2-5.4) 06/19/17 05:30 [place] # 0.9 K/mm3 (0.0-0.8) H 06/19/17 05:30 Eos # 0.0 K/mm3 (0.0-0.4) 06/19/17 05:30 Baso # 0.1 K/mm3 (0.0-0.1) 06/19/17 05:30 Seg Neutrophils % 78.8 % (40.0-70.0) H 06/19/17 05:30 Seg Neutrophils # 8.3 K/mm3 (1.8-7.7) H 06/19/17 05:30 PT 14.5 Sec. (12.2-14.9) 06/17/17 23:10 INR 1.14 (0.87-1.13) H 06/17/17 23:10 APTT 37.7 Sec. (24.2-36.6) H 06/17/17 23:10 Sodium 140 mmol/L (137-145) 06/20/17 12:16 Potassium 4.2 mmol/L (3.6-5.0) D 06/20/17 12:16 Chloride 96.7 mmol/L (98-107) L 06/20/17 12:16 Carbon Dioxide 28 mmol/L (22-30) 06/20/17 12:16 Anion Gap 20 mmol/L 06/20/17 12:16 BUN 31 mg/dL (9-20) H 06/20/17 12:16 Creatinine 6.8 mg/dL (0.8-1.5) H 06/20/17 12:16 Estimated GFR 10 ml/min 06/20/17 12:16 BUN/Creatinine Ratio 4.55 % 06/20/17 12:16 Glucose 83 mg/dL (75-100) 06/20/17 12:16 POC Glucose 90 (70-105) 06/20/17 11:19 Calcium 8.4 mg/dL (8.4-10.2) 06/20/17 12:16 Phosphorus 4.50 mg/dL (2.5-4.5) 06/20/17 12:20 Total Bilirubin 0.40 mg/dL (0.1-1.2) 06/17/17 23:10 AST 9 units/L (5-40) 06/17/17 23:10 ALT < 5 units/L (7-56) L 06/17/17 23:10 Alkaline Phosphatase 43 units/L (35-129) 06/17/17 23:10 Troponin T 0.063 ng/mL (0.00-0.029) H D 06/18/17 18:34 Total Protein 6.6 g/dL (6.3-8.2) 06/17/17 23:10 Albumin 3.7 g/dL (3.9-5) L 06/17/17 23:10 Albumin/Globulin Ratio 1.3 % 06/17/17 23:10 Triglycerides 90 mg/dL (2-149) 06/18/17 15:40 Cholesterol 92 mg/dL (50-199) 06/18/17 15:40 LDL Cholesterol Direct 48 mg/dL (50-130) L 06/18/17 15:40 HDL Cholesterol 26 mg/dL (40-59) L 06/18/17 15:40 Cholesterol/HDL Ratio 3.53 % 06/18/17 15:40 Lipase 32 units/L (13-60) 06/17/17 23:10 Blood Type O POSITIVE 06/17/17 23:15 Antibody Screen Negative 06/17/17 23:15 Crossmatch See Detail 06/17/17 23:15
[2017-06-20] MEDS ORDERED: FLUSH HEPARIN IV ONE ×2 (15:16→15:23)
--- NOTE | 2017-06-20 17:55 | Operative Report ---
PROCEDURE: Upper endoscopy. PREOPERATIVE DIAGNOSIS: Gastrointestinal bleed. POSTOPERATIVE DIAGNOSIS: Normal upper endoscopy with mild duodenitis. SEDATION: MAC by Anesthesia. HISTORY: The patient is a 66-year-old man who has chronic renal failure, on dialysis for 10 years. He presents with GI bleeding. Of note, he has a history of GI bleed episodes x 2 in the past with negative upper and lower endoscopy over the last 2 years. Procedure, indications, risks, and benefits were explained and consent was obtained. The patient was placed in left lateral decubitus position and sedated. [employer] video upper scope was passed through the mouth and oropharynx into the descending duodenum. Scope was then gradually withdrawn with close inspection of mucosa. FINDINGS: 1. Normal appearing esophagus. 2. Normal appearing gastric antrum, fundus, body, and cardia. 3. Patchy erythema in the duodenum at the apex of the bulb consistent with mild duodenitis, but with no bleeding source identified. No clear AVMs was noted. The patient tolerated procedure well without immediate complications. IMPRESSION: 1. Normal upper endoscopy with mild duodenitis. This can be seen with renal failure. 2. No bleeding identified. PLAN: 1. Monitor H and H and transfuse as needed. 2. Colonoscopy. JOB# [id number] HRC/NTS
--- NOTE | 2017-06-20 18:20 | Nuclear Medicine Report ---
FINAL REPORT EXAM: NM GI BLEEDING SCAN HISTORY: Hematochezia TECHNIQUE: Standard gastrointestinal imaging was obtained in the anterior projection over 60 minutes. Delayed images were also obtained in multiple oblique and lateral positions. DOSE: 20.0 mCi 99m-Tc Ultratagged Red Blood Cells given IV. PRIORS: None. FINDINGS: There is abnormal uptake identified in the left upper quadrant which progressively increases throughout the exam. This is located anteriorly on lateral films suggesting distal transverse colon and splenic flexure as the most likely etiology. In addition, at 30 minutes, there is a small focus of uptake in the lateral left mid flank which persists throughout the remainder of the exam and is likely antegrade intraluminal flow tracer in the descending colon. IMPRESSION: Abnormal uptake in the left upper quadrant in a distribution suspicious for distal transverse colon or splenic flexure. There is antegrade flow of intraluminal tracer to the mid descending colon on later images.
[2017-06-20] MEDS ORDERED: APRESOLINE IV ONE (19:30)
[2017-06-20] MEDS: DDAVP 25 MCG in NACL 0.9% 50 ML IV SCH ×2 (19:36→23:05)
[2017-06-20 19:46] LABS: Hematocrit 21.7 % (35.5-45.6); Hemoglobin 7.2 gm/dl (11.8-15.2)
[2017-06-20 19:56] LABS: INR 1.14 (0.87-1.13)
[2017-06-20 19:57] LABS: Partial Thromboplastin Time 30.2 Sec. (24.2-36.6)
--- NOTE | 2017-06-20 20:18 | Operative Report ---
PROCEDURE: Colonoscopy. PREOPERATIVE DIAGNOSIS: Gastrointestinal bleed. POSTOPERATIVE DIAGNOSIS: Blood noted throughout the colon and severe diverticulosis. SEDATION: MAC by Anesthesia. HISTORY: The patient is a 66-year-old man who is on dialysis for the last 10 years. He has had 2 episodes in the past of GI bleeding of unclear etiology. He presents again with repeat bleeding. Upper endoscopy yesterday was normal. PROCEDURE: Indications, risks, and benefits were explained and consent was obtained. The patient was placed in left lateral decubitus position and sedated. [employer] video colonoscope was passed through the rectum after digital examination and passed with minimal difficulty to the cecum, which was identified by the ileocecal valve and the appendiceal orifice. Scope was then advanced into the terminal ileum very briefly. Prep was fair to poor with areas of scattered blood the lumen. FINDINGS: 1. Terminal ileum had bilious material in it and no fresh blood was noted. 2. Severe diverticulosis noted throughout the colon. 3. 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 4. Throughout the colon, fresh red blood and clots were noted, but no active bleeding was identified. The patient tolerated the procedure well without immediate complications. IMPRESSION: 1. Blood noted throughout the colon, but no active bleeding noted. 2. No blood noted in small bowel. 3. Diverticulosis severe throughout the colon, and cecal AVM noted. RECOMMENDATIONS: 1. DDAVP and hematologic support. 2. Bleeding scan. 3. Surgical evaluation. 4. If the patient continues to bleed, subtotal colectomy would need to be considered. JOB# [id number] HRC/NTS
[2017-06-20] MEDS: CATAPRES PO SCH (22:46)
[2017-06-20] MEDS: MORPHINE IV PRN (22:49)
[2017-06-21 01:43] LABS: Hemoglobin 6.3 gm/dl (11.8-15.2)
[2017-06-21 01:59] LABS: Hematocrit 18.4 % (35.5-45.6)
[2017-06-21 04:21] LABS: Hemoglobin 6.1 gm/dl (11.8-15.2)
[2017-06-21 04:24] LABS: Hematocrit 18.2 % (35.5-45.6)
[2017-06-21] MEDS ORDERED: DILAUDID ONE (05:04)
[2017-06-21] MEDS ORDERED: XYLOCAINE MPF 2% ONE (05:04)
[2017-06-21] MEDS ORDERED: DIPRIVAN 10 MG/ML IV ONE (05:04)
[2017-06-21] MEDS ORDERED: QUELICIN ONE (05:05)
[2017-06-21] MEDS ORDERED: ZEMURON IV ONE (05:05)
[2017-06-21] MEDS: DDAVP 25 MCG in NACL 0.9% 50 ML IV SCH ×2 (05:10→11:27)
[2017-06-21] MEDS: MORPHINE IV PRN (05:14)
[2017-06-21] MEDS: ZOFRAN IV PRN (05:16)
[2017-06-21] MEDS: APRESOLINE IV SCH ×4 (05:16→22:50)
[2017-06-21] MEDS ORDERED: ANCEF ONE ×2 (06:03)
[2017-06-21] MEDS ORDERED: ePHEDrine SULFATE ONE (06:11)
[2017-06-21] MEDS ORDERED: NACL 0.9% 500 ML 500 ML IV ONE (06:19)
[2017-06-21] MEDS ORDERED: NEOSTIGMINE ONE (07:59)
[2017-06-21] MEDS ORDERED: ROBINUL ONE (07:59)
[2017-06-21] MEDS ORDERED: NEO SYNEPHRINE/NS Syringe(OR USE) IV ONE (08:00)
[2017-06-21] MEDS ORDERED: ZOFRAN ONE (08:00)
[2017-06-21] MEDS ORDERED: ZOFRAN IV PRN (08:15)
--- NOTE | 2017-06-21 08:15 | Anesthesia Day of Surgery ---
Anesthesia Day of Surgery - Day of Surgery Patient Examined: Yes Patient H&P Reviewed: Yes Patient is NPO: Yes
[2017-06-21] MEDS: DILAUDID IV PRN ×5 (08:16→22:48)
[2017-06-21] MEDS ORDERED: NACL 0.9% 500 ML 500 ML ONE (08:27)
--- NOTE | 2017-06-21 08:27 | Operative Report ---
PREOPERATIVE DIAGNOSIS: Massive bleeding from the colon. POSTOPERATIVE DIAGNOSIS: Massive bleeding from the colon. SURGERY: Exploratory laparotomy, subtotal colon resection with upper rectal anastomoses. ANESTHESIA: General. BLOOD LOSS: About 250 mL. FINDINGS: The patient had very diffuse diverticular disease with diverticulosis all the way in the small intestine from the cecum to the descending colon and the proximal rectum. I could see blood within the lumen of the colon. I was able to anastomose the distal ileum to the proximal rectum using the COURT for that purpose. I am sure that the anastomosis was wide open. ANESTHESIA: General. BLOOD LOSS: As mentioned above. PROCEDURE: With the patient in supine position, routine prepped and draped in the usual fashion. I made a midline incision from above the umbilicus to below it by about 10 cm to the deep subcutaneous tissue all the way down to the fascia and then, the peritoneum was opened. Once I was there, I could see the colon as mentioned above with very diffuse disease diverticulosis. I could see the bleeding within the colon, so I went ahead and transected the distal ileum using for that purpose, the COURT #75 and then slowly dissecting mesocolon using the [employer] for that purpose assuring no bleeding. Then, this was done all the way up to the splenic flexure that was mobilized inferiorly. The dissection continued all the way inferiorly towards the peritoneal reflection of the colon. At that point, I was able to transect the rectum at its upper part using the COURT-75. I was well satisfied, we had good hemostasis. Then, the anastomosis was performed using also the COURT-75 between 2 other stay sutures of 3-0 Vicryl and then the opening was closed with a TA-60 in the usual fashion. I was very much satisfied, the staple lines were then enforced with interrupted stitches of 3-0 Vicryl. We had good hemostasis. The area was then irrigated and the medial fascia was closed with interrupted stitches of #1 Vicryl and the skin with darek. We did have NG tube into the stomach. The patient was then transferred to the recovery room in good condition. cc: JOB# [id number] ETHEL/KARLOS
--- NOTE | 2017-06-21 08:56 | Event Note ---
Date: 06/21/17 Patient off the floor. S/p subtotal colectomy this morning. Will f/u as needed , please call with questions.
[2017-06-21] MEDS ORDERED: NACL 0.9% 1000 ML 1,000 ML IV SCH (09:00)
--- NOTE | 2017-06-21 09:44 | Progress Note ---
Subjective Principal diagnosis: GI bleed Objective - Constitutional Vitals: Vital Signs - 12hr 06/20/17 06/20/17 06/20/17 22:00 22:46 22:49 Temperature Pulse Rate 103 H 104 H 106 H Respiratory 18 12 Rate Respiratory Rate [Abdomen] Blood Pressure 153/67 153/67 153/67 O2 Sat by Pulse Oximetry 06/20/17 06/20/17 06/21/17 23:00 23:38 00:00 Temperature 97.9 F Pulse Rate 104 H 102 H Respiratory 20 21 Rate Respiratory Rate [Abdomen] Blood Pressure 173/84 176/89 O2 Sat by Pulse Oximetry 06/21/17 06/21/17 06/21/17 01:00 02:00 03:00 Temperature Pulse Rate 95 H 96 H 93 H Respiratory 18 18 20 Rate Respiratory Rate [Abdomen] Blood Pressure 161/88 169/90 180/79 O2 Sat by Pulse Oximetry 06/21/17 06/21/17 06/21/17 04:00 05:00 05:14 Temperature 98.2 F Pulse Rate 89 94 H Respiratory 15 23 18 Rate Respiratory 25 H Rate [Abdomen] Blood Pressure 198/89 183/87 O2 Sat by Pulse Oximetry 06/21/17 06/21/17 06/21/17 05:16 08:00 08:05 Temperature 97.7 F Pulse Rate 94 H 107 H 105 H Respiratory 16 15 Rate Respiratory Rate [Abdomen] Blood Pressure 183/84 166/69 159/69 O2 Sat by Pulse 100 100 Oximetry 06/21/17 06/21/17 06/21/17 08:10 08:15 08:16 Temperature Pulse Rate 102 H 96 H Respiratory 17 16 16 Rate Respiratory Rate [Abdomen] Blood Pressure 154/76 153/66 O2 Sat by Pulse 100 100 Oximetry 06/21/17 06/21/17 06/21/17 08:20 08:30 08:35 Temperature 97.3 F L Pulse Rate 97 H 95 H 93 H Respiratory 15 16 14 Rate Respiratory Rate [Abdomen] Blood Pressure 145/67 134/61 126/60 O2 Sat by Pulse 100 100 100 Oximetry 06/21/17 06/21/17 06/21/17 08:45 08:49 09:00 Temperature Pulse Rate 91 H 92 H Respiratory 14 14 14 Rate Respiratory Rate [Abdomen] Blood Pressure 123/55 134/60 O2 Sat by Pulse 100 100 Oximetry 06/21/17 09:15 Temperature Pulse Rate 92 H Respiratory 14 Rate Respiratory Rate [Abdomen] Blood Pressure 126/58 O2 Sat by Pulse 100 Oximetry - Labs CBC & Chem 7: 06/21/17 03:57 06/20/17 12:16 Labs: Abnormal lab results 06/20/17 06/20/17 06/20/17 Range/Units 12:16 12:16 19:31 Hgb 7.2 L 7.2 L (11.8-15.2) gm/dl Hct 21.4 L 21.7 L (35.5-45.6) % PT (12.2-14.9) Sec. INR (0.87-1.13) Chloride 96.7 L (98-107) mmol/L BUN 31 H (9-20) mg/dL Creatinine 6.8 H (0.8-1.5) mg/dL Crossmatch 06/20/17 06/21/17 06/21/17 Range/Units 19:31 01:10 03:57 Hgb 6.3 L 6.1 L (11.8-15.2) gm/dl Hct 18.4 L* 18.2 L* (35.5-45.6) % PT 15.2 H (12.2-14.9) Sec. INR 1.14 H (0.87-1.13) Chloride (98-107) mmol/L BUN (9-20) mg/dL Creatinine (0.8-1.5) mg/dL Crossmatch 06/21/17 Range/Units 06:54 Hgb (11.8-15.2) gm/dl Hct (35.5-45.6) % PT (12.2-14.9) Sec. INR (0.87-1.13) Chloride (98-107) mmol/L BUN (9-20) mg/dL Creatinine (0.8-1.5) mg/dL Crossmatch See Detail
[2017-06-21] MEDS: CATAPRES PO SCH ×3 (11:02→23:38)
[2017-06-21] MEDS: PROTONIX IV SCH ×2 (11:26→22:47)
--- NOTE | 2017-06-21 11:31 | Progress Note ---
Subjective Principal diagnosis: GI bleed Interval history: Patient was evaluated today for follow-up on multiple renal related issues, He is feeling much better no complaints of any nausea vomiting due for dialysis today Patient does not appear to be any acute distress Vital labs intake and output medications were reviewed Current medications: Reviewed Social history:Reviewed Family history: Reviewed HEENT: No uremic order oral mucosa moist Neck: Supple without any thyromegaly mass or JVD Chest: Clear to auscultation occasional basilar crackles posteriorly Heart: Regular rate and rhythm S1 and S2 heard no S3-S4 Abdomen: Soft nontender no voluntary guarding rigidity or rebound Extremity: Dry skin minimal edema Psychiatry: No agitation and aggression noted Assessment and plan End-stage renal disease: Patient is currently in maintenance hemodialysis , patient will now continue to dialyze on Friday schedule Hyperkalemia appears to have improved Anemia likely due to chronic kidney disease as well as GI bleed currently stabilized, GI to follow and make recommendations Secondary hyperparathyroidism: To monitor and follow Malnutrition risk: High in dialysis patient currently nothing by mouth status advance diet as tolerated per GI Hypertension and volume: Monitor follow-up keep systolic blood pressure under 150 Accelerated hypertension requires better control, we will start the patient on clonidine Bone mineral disorder phosphorus currently 4.5 Patient is adequately educated about rule out diet and lifestyle changes with dialysis With a recent history of GI bleed advised not to use any form of Renvela Renagel or Fosrenol Objective - Vital Signs Vital signs: Vital Signs - 12hr 06/20/17 06/21/17 06/21/17 23:38 00:00 01:00 Temperature 97.9 F Pulse Rate 102 H 95 H Respiratory 21 18 Rate Respiratory Rate [Abdomen] Blood Pressure 176/89 161/88 O2 Sat by Pulse Oximetry 06/21/17 06/21/17 06/21/17 02:00 03:00 04:00 Temperature 98.2 F Pulse Rate 96 H 93 H 89 Respiratory 18 20 15 Rate Respiratory Rate [Abdomen] Blood Pressure 169/90 180/79 198/89 O2 Sat by Pulse Oximetry 06/21/17 06/21/17 06/21/17 05:00 05:14 05:16 Temperature Pulse Rate 94 H 94 H Respiratory 23 18 Rate Respiratory 25 H Rate [Abdomen] Blood Pressure 183/87 183/84 O2 Sat by Pulse Oximetry 06/21/17 06/21/17 06/21/17 08:00 08:05 08:10 Temperature 97.7 F Pulse Rate 107 H 105 H 102 H Respiratory 16 15 17 Rate Respiratory Rate [Abdomen] Blood Pressure 166/69 159/69 154/76 O2 Sat by Pulse 100 100 100 Oximetry 06/21/17 06/21/17 06/21/17 08:15 08:16 08:20 Temperature Pulse Rate 96 H 97 H Respiratory 16 16 15 Rate Respiratory Rate [Abdomen] Blood Pressure 153/66 145/67 O2 Sat by Pulse 100 100 Oximetry 06/21/17 06/21/17 06/21/17 08:30 08:35 08:45 Temperature 97.3 F L Pulse Rate 95 H 93 H 91 H Respiratory 16 14 14 Rate Respiratory Rate [Abdomen] Blood Pressure 134/61 126/60 123/55 O2 Sat by Pulse 100 100 100 Oximetry 06/21/17 06/21/17 06/21/17 08:49 09:00 09:15 Temperature Pulse Rate 92 H 92 H Respiratory 14 14 14 Rate Respiratory Rate [Abdomen] Blood Pressure 134/60 126/58 O2 Sat by Pulse 100 100 Oximetry 06/21/17 06/21/17 06/21/17 09:30 09:40 09:45 Temperature 98.3 F Pulse Rate 90 93 H Respiratory 16 16 14 Rate Respiratory Rate [Abdomen] Blood Pressure 122/65 132/59 O2 Sat by Pulse 100 100 Oximetry 06/21/17 06/21/17 06/21/17 09:50 09:55 10:00 Temperature Pulse Rate 93 H Respiratory 16 14 14 Rate Respiratory Rate [Abdomen] Blood Pressure 126/62 O2 Sat by Pulse 100 Oximetry 06/21/17 06/21/17 06/21/17 10:15 10:22 10:30 Temperature Pulse Rate 93 H 95 H Respiratory 15 10 L 12 Rate Respiratory Rate [Abdomen] Blood Pressure 134/61 O2 Sat by Pulse 100 Oximetry 06/21/17 06/21/17 06/21/17 10:40 11:00 11:10 Temperature 97.8 F Pulse Rate 98 H 100 H 100 H Respiratory 15 12 15 Rate Respiratory Rate [Abdomen] Blood Pressure 134/61 153/67 134/61 O2 Sat by Pulse 100 100 100 Oximetry 06/21/17 11:26 Temperature Pulse Rate 102 H Respiratory Rate Respiratory Rate [Abdomen] Blood Pressure 153/67 O2 Sat by Pulse Oximetry - Lab 06/21/17 03:57 06/20/17 12:16 Most recent lab results Calcium 8.4 mg/dL (8.4-10.2) 06/20/17 12:16 Phosphorus 4.50 mg/dL (2.5-4.5) 06/20/17 12:20
[2017-06-21] MEDS ORDERED: NACL 0.9% 100 ML IV PRN (11:32)
--- NOTE | 2017-06-21 13:09 | Progress Note ---
Assessment and Plan Assessment and plan: Severe anemia secondary to GI bleed, S/P total colectomy - was transfused multiple units of blood - last hemoglobin was 6.1, transfused with 1 unit of blood, will check H/H after transfusion - Colectomy done this morning Chest pain - Cardiology consulted - Patient didn't have any chest pain and recommend to continue with GI work up End stage renal disease on hemodialysis -Nephrology is consulted -Continue with the hemodialysis DVT prophylaxis - On SCDs because of GI bleed Disposition - Continue ICU care The high probability of a clinically significant, sudden or life threatening deterioration of the [GI, CVS] system(s) required my full and direct attention, intervention and personal management. The aggregate critical care time was [32] minutes. This time is in addition to time spent performing reported procedures but includes the following: [x] Data Review and interpretation [x] Patient assessment and monitoring of vital signs [x] Documentation [x] Medication orders and management History Interval history: Patient was seen and evaluated this morning, S/P total colectomy. Hospitalist Physical - Physical exam Narrative exam: Not in cardiopulmonary distress. The patient appeared well nourished and normally developed. Vital signs as documented. Head exam is unremarkable. No scleral icterus . Neck is without jugular venous distension, thyromegaly, or carotid bruits. Lungs are clear to auscultation. Cardiac exam reveals regular rate and Rhythm. First and second heart sounds normal. No murmurs, rubs or gallops. Abdominal exam reveals clean dressing on the mid abdomen. Extremities are nonedematous and both femoral and pedal pulses are normal. LEAD JAVASCRIPT ENGINEER: Alert and oriented 3. No focal weakness. - Constitutional Vitals: Temp Pulse Resp BP Pulse Ox 97.6 F 101 H 11 L 125/54 98 06/21/17 12:00 06/21/17 12:00 06/21/17 12:00 06/21/17 12:00 06/21/17 12:00 General appearance: Present: no acute distress Results - Labs CBC & Chem 7: 06/21/17 03:57 06/20/17 12:16 Labs: Laboratory Last Values WBC 10.5 K/mm3 (4.5-11.0) 06/19/17 05:30 RBC 2.10 M/mm3 (3.65-5.03) L 06/19/17 05:30 Hgb 6.1 gm/dl (11.8-15.2) L 06/21/17 03:57 Hct 18.2 % (35.5-45.6) L* 06/21/17 03:57 MCV 83 fl (84-94) L 06/19/17 05:30 MCH 29 pg (28-32) 06/19/17 05:30 MCHC 34 % (32-34) 06/19/17 05:30 RDW 17.2 % (13.2-15.2) H 06/19/17 05:30 Plt Count 169 K/mm3 (140-440) 06/19/17 05:30 Lymph % (Auto) 12.0 % (13.4-35.0) L 06/19/17 05:30 [place] % (Auto) 8.6 % (0.0-7.3) H 06/19/17 05:30 Eos % (Auto) 0.1 % (0.0-4.3) 06/19/17 05:30 Baso % (Auto) 0.5 % (0.0-1.8) 06/19/17 05:30 Lymph # 1.3 K/mm3 (1.2-5.4) 06/19/17 05:30 [place] # 0.9 K/mm3 (0.0-0.8) H 06/19/17 05:30 Eos # 0.0 K/mm3 (0.0-0.4) 06/19/17 05:30 Baso # 0.1 K/mm3 (0.0-0.1) 06/19/17 05:30 Seg Neutrophils % 78.8 % (40.0-70.0) H 06/19/17 05:30 Seg Neutrophils # 8.3 K/mm3 (1.8-7.7) H 06/19/17 05:30 PT 15.2 Sec. (12.2-14.9) H 06/20/17 19:31 INR 1.14 (0.87-1.13) H 06/20/17 19:31 APTT 30.2 Sec. (24.2-36.6) 06/20/17 19:31 Sodium 140 mmol/L (137-145) 06/20/17 12:16 Potassium 4.2 mmol/L (3.6-5.0) D 06/20/17 12:16 Chloride 96.7 mmol/L (98-107) L 06/20/17 12:16 Carbon Dioxide 28 mmol/L (22-30) 06/20/17 12:16 Anion Gap 20 mmol/L 06/20/17 12:16 BUN 31 mg/dL (9-20) H 06/20/17 12:16 Creatinine 6.8 mg/dL (0.8-1.5) H 06/20/17 12:16 Estimated GFR 10 ml/min 06/20/17 12:16 BUN/Creatinine Ratio 4.55 % 06/20/17 12:16 Glucose 83 mg/dL (75-100) 06/20/17 12:16 POC Glucose 80 (70-105) 06/21/17 11:29 Calcium 8.4 mg/dL (8.4-10.2) 06/20/17 12:16 Phosphorus 4.50 mg/dL (2.5-4.5) 06/20/17 12:20 Total Bilirubin 0.40 mg/dL (0.1-1.2) 06/17/17 23:10 AST 9 units/L (5-40) 06/17/17 23:10 ALT < 5 units/L (7-56) L 06/17/17 23:10 Alkaline Phosphatase 43 units/L (35-129) 06/17/17 23:10 Troponin T 0.063 ng/mL (0.00-0.029) H D 06/18/17 18:34 Total Protein 6.6 g/dL (6.3-8.2) 06/17/17 23:10 Albumin 3.7 g/dL (3.9-5) L 06/17/17 23:10 Albumin/Globulin Ratio 1.3 % 06/17/17 23:10 Triglycerides 90 mg/dL (2-149) 06/18/17 15:40 Cholesterol 92 mg/dL (50-199) 06/18/17 15:40 LDL Cholesterol Direct 48 mg/dL (50-130) L 06/18/17 15:40 HDL Cholesterol 26 mg/dL (40-59) L 06/18/17 15:40 Cholesterol/HDL Ratio 3.53 % 06/18/17 15:40 Lipase 32 units/L (13-60) 06/17/17 23:10 Blood Type O POSITIVE 06/21/17 06:54 Antibody Screen Negative 06/21/17 06:54 Crossmatch See Detail 06/21/17 06:54
[2017-06-21 13:23] LABS: Hematocrit 21.9 % (35.5-45.6); Hemoglobin 7.3 gm/dl (11.8-15.2); Mean Corpuscular HGB Conc 33 % (32-34); Mean Corpuscular Hemoglobin 29 pg (28-32); Mean Corpuscular Volume 87 fl (84-94); Platelet Count 191 K/mm3 (140-440); Red Blood Count 2.52 M/mm3 (3.65-5.03); Red Cell Distribution Width 16.2 % (13.2-15.2); White Blood Count 13.8 K/mm3 (4.5-11.0)
[2017-06-21 13:43] LABS: Albumin 2.8 g/dL (3.9-5); Albumin/Globulin Ratio 1.3 %; BUN/Creatinine Ratio 4.28; Bilirubin,Total 0.4 mg/dL (0.1-1.2); Calcium 8.2 mg/dL (8.4-10.2); Chloride 99.8 mmol/L (98-107); Potassium 4.5 mmol/L (3.6-5.0); Total Protein 4.9 g/dL (6.3-8.2)
[2017-06-21 14:19] LABS: Blastocytes % (Manual) 0 %; Total Cells Counted Percent 0
[2017-06-21 14:20] LABS: Anisocytosis 1+; Diff Status Complete; Polychromasia Few
--- NOTE | 2017-06-21 15:08 | Post Anesthesia Evaluation ---
- Post Anesthesia Evaluation Patient Participated: Yes Airway Patent: Yes Stable Respiratory Function: Yes Nausea/Vomiting: No Temp > 96.8F: Yes Pain Manageable: Yes Adequeate Hydration: Yes Anesthesia Complications: No Block Receding Appropriately: Not Applicable Patient on Ventilator: No
--- NOTE | 2017-06-21 18:17 | Progress Note ---
Assessment and Plan 66 y/o male with GI bleed 1. Status post surgery this am, back in ICU stable 2. Continue q6hour H/H's 3. Transfuse for H/H less than 7 4. Will continue to follow CCT 31 minutes. Subjective Date of service: 06/21/17 Principal diagnosis: GI bleed Interval history: BAck from OR stable. Did receive blood in the OR. Extubated and stable Objective - Constitutional Vitals: Vital Signs - 12hr 06/21/17 06/21/17 06/21/17 08:00 08:05 08:10 Temperature 97.7 F Pulse Rate 107 H 105 H 102 H Pulse Rate [ From Monitor] Respiratory 16 15 17 Rate Blood Pressure 166/69 159/69 154/76 O2 Sat by Pulse 100 100 100 Oximetry 06/21/17 06/21/17 06/21/17 08:15 08:16 08:20 Temperature Pulse Rate 96 H 97 H Pulse Rate [ From Monitor] Respiratory 16 16 15 Rate Blood Pressure 153/66 145/67 O2 Sat by Pulse 100 100 Oximetry 06/21/17 06/21/17 06/21/17 08:30 08:35 08:45 Temperature 97.3 F L Pulse Rate 95 H 93 H 91 H Pulse Rate [ From Monitor] Respiratory 16 14 14 Rate Blood Pressure 134/61 126/60 123/55 O2 Sat by Pulse 100 100 100 Oximetry 06/21/17 06/21/17 06/21/17 08:49 09:00 09:15 Temperature Pulse Rate 92 H 92 H Pulse Rate [ From Monitor] Respiratory 14 14 14 Rate Blood Pressure 134/60 126/58 O2 Sat by Pulse 100 100 Oximetry 06/21/17 06/21/17 06/21/17 09:30 09:40 09:45 Temperature 98.3 F Pulse Rate 90 93 H Pulse Rate [ From Monitor] Respiratory 16 16 14 Rate Blood Pressure 122/65 132/59 O2 Sat by Pulse 100 100 Oximetry 06/21/17 06/21/17 06/21/17 09:50 09:55 10:00 Temperature Pulse Rate 93 H Pulse Rate [ From Monitor] Respiratory 16 14 14 Rate Blood Pressure 126/62 O2 Sat by Pulse 100 Oximetry 06/21/17 06/21/17 06/21/17 10:15 10:22 10:30 Temperature Pulse Rate 93 H 95 H Pulse Rate [ From Monitor] Respiratory 15 10 L 12 Rate Blood Pressure 134/61 O2 Sat by Pulse 100 Oximetry 06/21/17 06/21/17 06/21/17 10:40 11:00 11:10 Temperature 97.8 F Pulse Rate 98 H 100 H 100 H Pulse Rate [ From Monitor] Respiratory 15 12 15 Rate Blood Pressure 134/61 153/67 134/61 O2 Sat by Pulse 100 100 100 Oximetry 06/21/17 06/21/17 06/21/17 11:26 11:47 12:00 Temperature 97.6 F Pulse Rate 102 H 101 H Pulse Rate [ 102 H From Monitor] Respiratory 20 11 L Rate Blood Pressure 153/67 125/54 O2 Sat by Pulse 98 98 Oximetry 06/21/17 06/21/17 06/21/17 12:45 13:00 13:15 Temperature 98.7 F Pulse Rate 101 H 103 H 105 H Pulse Rate [ From Monitor] Respiratory 12 15 Rate Blood Pressure 125/54 129/62 129/62 O2 Sat by Pulse 100 Oximetry 06/21/17 06/21/17 06/21/17 13:30 13:45 14:00 Temperature Pulse Rate 105 H 105 H 104 H Pulse Rate [ From Monitor] Respiratory 9 L Rate Blood Pressure 112/62 106/62 112/56 O2 Sat by Pulse 99 Oximetry 06/21/17 06/21/17 06/21/17 14:15 14:30 14:45 Temperature Pulse Rate 106 H 103 H 102 H Pulse Rate [ From Monitor] Respiratory Rate Blood Pressure 94/56 98/60 99/59 O2 Sat by Pulse Oximetry 06/21/17 06/21/17 06/21/17 15:00 15:15 15:30 Temperature Pulse Rate 104 H 104 H 103 H Pulse Rate [ From Monitor] Respiratory 10 L Rate Blood Pressure 105/60 94/67 98/66 O2 Sat by Pulse 100 Oximetry 06/21/17 06/21/17 06/21/17 15:45 16:00 16:13 Temperature 97.5 F L 97.6 F Pulse Rate 102 H 105 H 102 H Pulse Rate [ From Monitor] Respiratory 12 12 Rate Blood Pressure 99/59 100/60 100/60 O2 Sat by Pulse 100 Oximetry 06/21/17 06/21/17 17:00 18:05 Temperature Pulse Rate 105 H 104 H Pulse Rate [ From Monitor] Respiratory 9 L Rate Blood Pressure 109/56 113/60 O2 Sat by Pulse 100 Oximetry General appearance: Present: no acute distress - Neck Neck: supple - Respiratory Respiratory effort: normal Respiratory: bilateral: CTA - Breasts Breasts: deferred - Cardiovascular Rhythm: regular Heart Sounds: Present: S1 & S2 - Labs CBC & Chem 7: 06/21/17 12:49 06/21/17 12:49 Labs: Abnormal lab results 06/20/17 06/20/17 06/21/17 Range/Units 19:31 19:31 01:10 WBC (4.5-11.0) K/mm3 RBC (3.65-5.03) M/mm3 Hgb 7.2 L 6.3 L (11.8-15.2) gm/dl Hct 21.7 L 18.4 L* (35.5-45.6) % RDW (13.2-15.2) % Lymphocytes % (Manual) (13.4-35.0) % Seg Neutrophils # Man (1.8-7.7) K/mm3 Lymphocytes # (Manual) (1.2-5.4) K/mm3 PT 15.2 H (12.2-14.9) Sec. INR 1.14 H (0.87-1.13) BUN (9-20) mg/dL Creatinine (0.8-1.5) mg/dL Glucose (75-100) mg/dL Calcium (8.4-10.2) mg/dL ALT (7-56) units/L Total Protein (6.3-8.2) g/dL Albumin (3.9-5) g/dL Crossmatch 06/21/17 06/21/17 06/21/17 Range/Units 03:57 06:54 12:49 WBC 13.8 H (4.5-11.0) K/mm3 RBC 2.52 L (3.65-5.03) M/mm3 Hgb 6.1 L 7.3 L (11.8-15.2) gm/dl Hct 18.2 L* 21.9 L (35.5-45.6) % RDW 16.2 H (13.2-15.2) % Lymphocytes % (Manual) 4.0 L (13.4-35.0) % Seg Neutrophils # Man 12.6 H (1.8-7.7) K/mm3 Lymphocytes # (Manual) 0.6 L (1.2-5.4) K/mm3 PT (12.2-14.9) Sec. INR (0.87-1.13) BUN (9-20) mg/dL Creatinine (0.8-1.5) mg/dL Glucose (75-100) mg/dL Calcium (8.4-10.2) mg/dL ALT (7-56) units/L Total Protein (6.3-8.2) g/dL Albumin (3.9-5) g/dL Crossmatch See Detail 06/21/17 Range/Units 12:49 WBC (4.5-11.0) K/mm3 RBC (3.65-5.03) M/mm3 Hgb (11.8-15.2) gm/dl Hct (35.5-45.6) % RDW (13.2-15.2) % Lymphocytes % (Manual) (13.4-35.0) % Seg Neutrophils # Man (1.8-7.7) K/mm3 Lymphocytes # (Manual) (1.2-5.4) K/mm3 PT (12.2-14.9) Sec. INR (0.87-1.13) BUN 42 H (9-20) mg/dL Creatinine 9.8 H (0.8-1.5) mg/dL Glucose 64 L (75-100) mg/dL Calcium 8.2 L (8.4-10.2) mg/dL ALT 5 L (7-56) units/L Total Protein 4.9 L D (6.3-8.2) g/dL Albumin 2.8 L (3.9-5) g/dL Crossmatch
[2017-06-21 18:48] LABS: Hematocrit 21.2 % (35.5-45.6); Hemoglobin 7.1 gm/dl (11.8-15.2)
[2017-06-22 00:48] LABS: Hematocrit 21.7 % (35.5-45.6); Hemoglobin 7.2 gm/dl (11.8-15.2)
[2017-06-22] MEDS: APRESOLINE IV SCH ×4 (04:47→22:39)
[2017-06-22] MEDS: CATAPRES PO SCH ×3 (06:49→22:54)
[2017-06-22] MEDS: MORPHINE IV PRN ×3 (07:30→22:48)
[2017-06-22 08:00] LABS: Hematocrit 23.3 % (35.5-45.6); Hemoglobin 7.7 gm/dl (11.8-15.2); Mean Corpuscular HGB Conc 33 % (32-34); Mean Corpuscular Hemoglobin 29 pg (28-32); Mean Corpuscular Volume 88 fl (84-94); Platelet Count 168 K/mm3 (140-440); Red Blood Count 2.65 M/mm3 (3.65-5.03); Red Cell Distribution Width 15.7 % (13.2-15.2); White Blood Count 3.1 K/mm3 (4.5-11.0)
[2017-06-22 08:58] LABS: BUN/Creatinine Ratio 3.41; Calcium 8.3 mg/dL (8.4-10.2); Chloride 101.4 mmol/L (98-107)
--- NOTE | 2017-06-22 09:19 | Progress Note ---
Assessment and Plan Acute GI bleed s/p transfusion of PRBCs s/p colectomy and iterminal ileum-rectal anstomosis ESRD on HD Hypertension Tobacco abuse Chest pain Reflex sinus tachycardia Recommendations: Supportive care Low dose IV lopressor Subjective Date of service: 06/22/17 Principal diagnosis: GI bleed Interval history: s/p colectomy yesterday, sinus tachycardia on tele. Objective Vital Signs Temp Pulse Pulse Pulse Pulse Resp Resp 06/22/17 08:00 98.6 F 116 H 116 H 21 06/22/17 07:30 31 H 06/22/17 07:21 06/22/17 07:00 120 H 21 06/22/17 06:49 99 H 06/22/17 06:00 124 H 20 06/22/17 05:00 109 H 29 H 06/22/17 04:47 74 06/22/17 04:35 107 H 105 H 109 H 101 H 26 H 25 H 06/22/17 04:00 128 H 17 06/22/17 03:21 99.1 F 06/22/17 03:00 114 H 06/22/17 02:00 100 H 06/22/17 01:00 102 H 06/22/17 00:00 98.7 F 99 H 06/21/17 23:38 101 H 06/21/17 23:28 98.7 F 06/21/17 23:18 29 H 06/21/17 23:00 99 H 06/21/17 22:50 98 H 06/21/17 22:48 26 H 06/21/17 22:00 99 H 16 06/21/17 21:00 99 H 06/21/17 20:00 99.8 F H 103 H 18 06/21/17 19:00 103 H 15 06/21/17 18:30 104 H 17 06/21/17 18:05 104 H 06/21/17 18:00 104 H 16 06/21/17 17:00 105 H 9 L 06/21/17 16:13 97.6 F 102 H 12 06/21/17 16:00 97.5 F L 105 H 12 06/21/17 15:45 102 H 06/21/17 15:30 103 H 06/21/17 15:15 104 H 06/21/17 15:00 104 H 10 L 06/21/17 14:45 102 H 06/21/17 14:30 103 H 06/21/17 14:15 106 H 06/21/17 14:00 104 H 9 L 06/21/17 13:45 105 H 06/21/17 13:30 105 H 06/21/17 13:15 105 H 06/21/17 13:00 103 H 15 06/21/17 12:45 98.7 F 101 H 12 06/21/17 12:00 97.6 F 101 H 11 L 06/21/17 11:47 102 H 20 06/21/17 11:26 102 H 06/21/17 11:10 100 H 15 06/21/17 11:00 97.8 F 100 H 12 06/21/17 10:40 98 H 15 06/21/17 10:30 95 H 12 06/21/17 10:22 93 H 10 L 06/21/17 10:15 15 06/21/17 10:00 93 H 14 06/21/17 09:55 14 06/21/17 09:50 16 06/21/17 09:45 93 H 14 06/21/17 09:40 16 06/21/17 09:30 98.3 F 90 16 BP Pulse Ox 06/22/17 08:00 128/47 99 06/22/17 07:30 06/22/17 07:21 95 06/22/17 07:00 114/59 06/22/17 06:49 139/69 06/22/17 06:00 138/78 06/22/17 05:00 139/69 06/22/17 04:47 139/69 06/22/17 04:35 94 06/22/17 04:00 158/77 06/22/17 03:21 06/22/17 03:00 141/78 06/22/17 02:00 145/76 06/22/17 01:00 137/70 06/22/17 00:00 136/69 06/21/17 23:38 131/65 06/21/17 23:28 06/21/17 23:18 06/21/17 23:00 147/74 100 06/21/17 22:50 131/65 06/21/17 22:48 06/21/17 22:00 146/73 100 06/21/17 21:00 131/65 100 06/21/17 20:00 130/63 100 06/21/17 19:00 126/64 99 06/21/17 18:30 119/59 100 06/21/17 18:05 113/60 06/21/17 18:00 128/65 100 06/21/17 17:00 109/56 100 06/21/17 16:13 100/60 06/21/17 16:00 100/60 100 06/21/17 15:45 99/59 06/21/17 15:30 98/66 06/21/17 15:15 94/67 06/21/17 15:00 105/60 100 06/21/17 14:45 99/59 06/21/17 14:30 98/60 06/21/17 14:15 94/56 06/21/17 14:00 112/56 99 06/21/17 13:45 106/62 06/21/17 13:30 112/62 06/21/17 13:15 129/62 06/21/17 13:00 129/62 100 06/21/17 12:45 125/54 06/21/17 12:00 125/54 98 06/21/17 11:47 98 06/21/17 11:26 153/67 06/21/17 11:10 134/61 100 06/21/17 11:00 153/67 100 06/21/17 10:40 134/61 100 06/21/17 10:30 134/61 100 06/21/17 10:22 06/21/17 10:15 06/21/17 10:00 126/62 100 06/21/17 09:55 06/21/17 09:50 06/21/17 09:45 132/59 100 06/21/17 09:40 06/21/17 09:30 122/65 100 - Physical Examination General: No Apparent Distress HEENT: Positive: PERRL Neck: Positive: trachea midline Cardiac: Positive: Tachycardia Lungs: Positive: Decreased Breath Sounds Neuro: Positive: Grossly Intact - Labs and Meds Cardiac Enzymes 06/21/17 Range/Units 12:49 AST 16 (5-40) units/L CBC 06/21/17 06/21/17 06/22/17 Range/Units 12:49 18:28 00:33 WBC 13.8 H (4.5-11.0) K/mm3 RBC 2.52 L (3.65-5.03) M/mm3 Hgb 7.3 L 7.1 L 7.2 L (11.8-15.2) gm/dl Hct 21.9 L 21.2 L 21.7 L (35.5-45.6) % Plt Count 191 (140-440) K/mm3 06/22/17 Range/Units 07:23 WBC 3.1 L (4.5-11.0) K/mm3 RBC 2.65 L (3.65-5.03) M/mm3 Hgb 7.7 L (11.8-15.2) gm/dl Hct 23.3 L (35.5-45.6) % Plt Count 168 (140-440) K/mm3 Comprehensive Metabolic Panel 06/21/17 06/22/17 Range/Units 12:49 07:53 Sodium 144 144 (137-145) mmol/L Potassium 4.5 4.0 (3.6-5.0) mmol/L Chloride 99.8 101.4 (98-107) mmol/L Carbon Dioxide 25 27 (22-30) mmol/L BUN 42 H 27 H (9-20) mg/dL Creatinine 9.8 H 7.9 H (0.8-1.5) mg/dL Glucose 64 L 57 L (75-100) mg/dL Calcium 8.2 L 8.3 L (8.4-10.2) mg/dL AST 16 (5-40) units/L ALT 5 L (7-56) units/L Alkaline Phosphatase 40 (35-129) units/L Total Protein 4.9 L D (6.3-8.2) g/dL Albumin 2.8 L (3.9-5) g/dL
[2017-06-22] MEDS: PROTONIX IV SCH ×2 (10:25→22:39)
--- NOTE | 2017-06-22 10:32 | Progress Note ---
Assessment and Plan 66 y/o male with GI bleed 1. Change H/H to q12 2. Follow up any surgery recs 3. HD per renal 4. OK with transfer out of unit. Appears stable. Subjective Date of service: 06/22/17 Principal diagnosis: GI bleed Interval history: No further bleeding episodes. h/h has been stable through the night. Objective - Constitutional Vitals: Vital Signs - 12hr 06/21/17 06/21/17 06/21/17 22:48 22:50 23:00 Temperature Pulse Rate 98 H 99 H Pulse Rate [ From Monitor] Pulse Rate [ Left Radial] Pulse Rate [ Right Radial] Respiratory 26 H 16 Rate Respiratory Rate [Abdomen] Blood Pressure 131/65 147/74 O2 Sat by Pulse 100 Oximetry 06/21/17 06/21/17 06/21/17 23:18 23:28 23:38 Temperature 98.7 F Pulse Rate 101 H Pulse Rate [ From Monitor] Pulse Rate [ Left Radial] Pulse Rate [ Right Radial] Respiratory 29 H Rate Respiratory Rate [Abdomen] Blood Pressure 131/65 O2 Sat by Pulse Oximetry 06/22/17 06/22/17 06/22/17 00:00 01:00 02:00 Temperature 98.7 F Pulse Rate 99 H 102 H 100 H Pulse Rate [ From Monitor] Pulse Rate [ Left Radial] Pulse Rate [ Right Radial] Respiratory 12 13 15 Rate Respiratory Rate [Abdomen] Blood Pressure 136/69 137/70 145/76 O2 Sat by Pulse Oximetry 06/22/17 06/22/17 06/22/17 03:00 03:21 04:00 Temperature 99.1 F Pulse Rate 114 H 128 H Pulse Rate [ From Monitor] Pulse Rate [ Left Radial] Pulse Rate [ Right Radial] Respiratory 15 17 Rate Respiratory 21 Rate [Abdomen] Blood Pressure 141/78 158/77 O2 Sat by Pulse Oximetry 06/22/17 06/22/17 06/22/17 04:35 04:47 05:00 Temperature Pulse Rate 107 H 74 109 H Pulse Rate [ 105 H From Monitor] Pulse Rate [ 109 H Left Radial] Pulse Rate [ 101 H Right Radial] Respiratory 26 H 29 H Rate Respiratory 25 H Rate [Abdomen] Blood Pressure 139/69 139/69 O2 Sat by Pulse 94 Oximetry 06/22/17 06/22/17 06/22/17 06:00 06:49 07:00 Temperature Pulse Rate 124 H 99 H 120 H Pulse Rate [ From Monitor] Pulse Rate [ Left Radial] Pulse Rate [ Right Radial] Respiratory 20 21 Rate Respiratory Rate [Abdomen] Blood Pressure 138/78 139/69 114/59 O2 Sat by Pulse Oximetry 06/22/17 06/22/17 06/22/17 07:21 07:30 08:00 Temperature 98.6 F Pulse Rate 116 H Pulse Rate [ 116 H From Monitor] Pulse Rate [ Left Radial] Pulse Rate [ Right Radial] Respiratory 31 H 21 Rate Respiratory Rate [Abdomen] Blood Pressure 128/47 O2 Sat by Pulse 95 99 Oximetry 06/22/17 06/22/17 06/22/17 09:00 10:01 10:25 Temperature Pulse Rate 111 H 111 H 111 H Pulse Rate [ From Monitor] Pulse Rate [ Left Radial] Pulse Rate [ Right Radial] Respiratory 21 17 Rate Respiratory Rate [Abdomen] Blood Pressure 127/59 134/54 134/54 O2 Sat by Pulse 98 100 Oximetry General appearance: Present: no acute distress - Neck Neck: supple, normal ROM - Respiratory Respiratory effort: normal Respiratory: bilateral: CTA - Labs CBC & Chem 7: 06/22/17 07:23 06/22/17 07:53 Labs: Abnormal lab results 06/21/17 06/21/17 06/21/17 Range/Units 06:54 12:49 12:49 WBC 13.8 H (4.5-11.0) K/mm3 RBC 2.52 L (3.65-5.03) M/mm3 Hgb 7.3 L (11.8-15.2) gm/dl Hct 21.9 L (35.5-45.6) % RDW 16.2 H (13.2-15.2) % Lymphocytes % (Manual) 4.0 L (13.4-35.0) % Seg Neutrophils # Man 12.6 H (1.8-7.7) K/mm3 Lymphocytes # (Manual) 0.6 L (1.2-5.4) K/mm3 BUN 42 H (9-20) mg/dL Creatinine 9.8 H (0.8-1.5) mg/dL Glucose 64 L (75-100) mg/dL POC Glucose (70-105) Calcium 8.2 L (8.4-10.2) mg/dL ALT 5 L (7-56) units/L Total Protein 4.9 L D (6.3-8.2) g/dL Albumin 2.8 L (3.9-5) g/dL Crossmatch See Detail 06/21/17 06/22/17 06/22/17 Range/Units 18:28 00:33 05:12 WBC (4.5-11.0) K/mm3 RBC (3.65-5.03) M/mm3 Hgb 7.1 L 7.2 L (11.8-15.2) gm/dl Hct 21.2 L 21.7 L (35.5-45.6) % RDW (13.2-15.2) % Lymphocytes % (Manual) (13.4-35.0) % Seg Neutrophils # Man (1.8-7.7) K/mm3 Lymphocytes # (Manual) (1.2-5.4) K/mm3 BUN (9-20) mg/dL Creatinine (0.8-1.5) mg/dL Glucose (75-100) mg/dL POC Glucose 69 L (70-105) Calcium (8.4-10.2) mg/dL ALT (7-56) units/L Total Protein (6.3-8.2) g/dL Albumin (3.9-5) g/dL Crossmatch 06/22/17 06/22/17 Range/Units 07:23 07:53 WBC 3.1 L (4.5-11.0) K/mm3 RBC 2.65 L (3.65-5.03) M/mm3 Hgb 7.7 L (11.8-15.2) gm/dl Hct 23.3 L (35.5-45.6) % RDW 15.7 H (13.2-15.2) % Lymphocytes % (Manual) (13.4-35.0) % Seg Neutrophils # Man (1.8-7.7) K/mm3 Lymphocytes # (Manual) (1.2-5.4) K/mm3 BUN 27 H (9-20) mg/dL Creatinine 7.9 H (0.8-1.5) mg/dL Glucose 57 L (75-100) mg/dL POC Glucose (70-105) Calcium 8.3 L (8.4-10.2) mg/dL ALT (7-56) units/L Total Protein (6.3-8.2) g/dL Albumin (3.9-5) g/dL Crossmatch
--- NOTE | 2017-06-22 11:05 | Progress Note ---
Subjective Principal diagnosis: GI bleed Interval history: Patient was evaluated today for follow-up on multiple renal related issues, he is resting comfortably tolerated dialysis fairly well Patient has an NG tube Vital labs intake and output medications were reviewed Current medications: Reviewed Social history:Reviewed Family history: Reviewed HEENT: No uremic order oral mucosa moist Neck: Supple without any thyromegaly mass or JVD Chest: Clear to auscultation occasional basilar crackles posteriorly Heart: Regular rate and rhythm S1 and S2 heard no S3-S4 Abdomen: Soft nontender no voluntary guarding rigidity or rebound Extremity: Dry skin minimal edema Psychiatry: No agitation and aggression noted Assessment and plan End-stage renal disease: Patient is currently in maintenance hemodialysis , patient will now continue to dialyze on Friday schedule at this time patient will benefit from IV hydration/we'll start IV fluid He has been appropriately counseled and educated regarding all the renal data issues Hyperkalemia appears to have improved Anemia likely due to chronic kidney disease as well as GI bleed currently stabilized, GI to follow and make recommendations Secondary hyperparathyroidism: To monitor and follow Malnutrition risk: High in dialysis patient currently nothing by mouth status advance diet as tolerated per GI Hypertension and volume: Monitor follow-up keep systolic blood pressure under 150 Accelerated hypertension East monitoring and close follow Bone mineral disorder phosphorus currently 4.5 Patient is adequately educated about rule out diet and lifestyle changes with dialysis With a recent history of GI bleed advised not to use any form of Renvela Renagel or Fosrenol Objective - Vital Signs Vital signs: Vital Signs - 12hr 06/21/17 06/21/17 06/21/17 23:18 23:28 23:38 Temperature 98.7 F Pulse Rate 101 H Pulse Rate [ From Monitor] Pulse Rate [ Left Radial] Pulse Rate [ Right Radial] Respiratory 29 H Rate Respiratory Rate [Abdomen] Blood Pressure 131/65 O2 Sat by Pulse Oximetry 06/22/17 06/22/17 06/22/17 00:00 01:00 02:00 Temperature 98.7 F Pulse Rate 99 H 102 H 100 H Pulse Rate [ From Monitor] Pulse Rate [ Left Radial] Pulse Rate [ Right Radial] Respiratory 12 13 15 Rate Respiratory Rate [Abdomen] Blood Pressure 136/69 137/70 145/76 O2 Sat by Pulse Oximetry 06/22/17 06/22/17 06/22/17 03:00 03:21 04:00 Temperature 99.1 F Pulse Rate 114 H 128 H Pulse Rate [ From Monitor] Pulse Rate [ Left Radial] Pulse Rate [ Right Radial] Respiratory 15 17 Rate Respiratory 21 Rate [Abdomen] Blood Pressure 141/78 158/77 O2 Sat by Pulse Oximetry 06/22/17 06/22/17 06/22/17 04:35 04:47 05:00 Temperature Pulse Rate 107 H 74 109 H Pulse Rate [ 105 H From Monitor] Pulse Rate [ 109 H Left Radial] Pulse Rate [ 101 H Right Radial] Respiratory 26 H 29 H Rate Respiratory 25 H Rate [Abdomen] Blood Pressure 139/69 139/69 O2 Sat by Pulse 94 Oximetry 06/22/17 06/22/17 06/22/17 06:00 06:49 07:00 Temperature Pulse Rate 124 H 99 H 120 H Pulse Rate [ From Monitor] Pulse Rate [ Left Radial] Pulse Rate [ Right Radial] Respiratory 20 21 Rate Respiratory Rate [Abdomen] Blood Pressure 138/78 139/69 114/59 O2 Sat by Pulse Oximetry 06/22/17 06/22/17 06/22/17 07:21 07:30 08:00 Temperature 98.6 F Pulse Rate 116 H Pulse Rate [ 116 H From Monitor] Pulse Rate [ Left Radial] Pulse Rate [ Right Radial] Respiratory 31 H 21 Rate Respiratory Rate [Abdomen] Blood Pressure 128/47 O2 Sat by Pulse 95 99 Oximetry 06/22/17 06/22/17 06/22/17 09:00 10:01 10:25 Temperature Pulse Rate 111 H 111 H 111 H Pulse Rate [ From Monitor] Pulse Rate [ Left Radial] Pulse Rate [ Right Radial] Respiratory 21 17 Rate Respiratory Rate [Abdomen] Blood Pressure 127/59 134/54 134/54 O2 Sat by Pulse 98 100 Oximetry - Lab 06/22/17 07:23 06/22/17 07:53 Most recent lab results Calcium 8.3 mg/dL (8.4-10.2) L 06/22/17 07:53 Phosphorus 4.50 mg/dL (2.5-4.5) 06/20/17 12:20
[2017-06-22] MEDS ORDERED: VASELINE LIP THERAPY TP PRN (11:29)
[2017-06-22] MEDS: LOPRESSOR IV SCH ×2 (12:12→18:01)
[2017-06-22] MEDS ORDERED: D50W (25GM) Vial IV ONE (13:00)
--- NOTE | 2017-06-22 13:48 | Progress Note ---
Assessment and Plan Assessment and plan: Severe anemia secondary to GI bleed, S/P total colectomy - was transfused multiple units of blood - Hemoglobin this morning is 7.7 - No bowel movement after the surgery Chest pain - Cardiology consulted End stage renal disease on hemodialysis -Nephrology is consulted -Continue with the hemodialysis Hypoglycemia - blood glucose was 57 and was given IV dextrose DVT prophylaxis - On SCDs because of GI bleed Disposition - Continue ICU care The high probability of a clinically significant, sudden or life threatening deterioration of the [GI, CVS] system(s) required my full and direct attention, intervention and personal management. The aggregate critical care time was [31] minutes. This time is in addition to time spent performing reported procedures but includes the following: [x] Data Review and interpretation [x] Patient assessment and monitoring of vital signs [x] Documentation [x] Medication orders and management History Interval history: Patient was seen and evaluated this morning, S/P total colectomy, he said he is feeling better. No bowel movement after the procedure. Hospitalist Physical - Physical exam Narrative exam: Not in cardiopulmonary distress. The patient appeared well nourished and normally developed. Vital signs as documented. Head exam is unremarkable. No scleral icterus . Neck is without jugular venous distension, thyromegaly, or carotid bruits. Lungs are clear to auscultation. Cardiac exam reveals regular rate and Rhythm. First and second heart sounds normal. No murmurs, rubs or gallops. Abdominal exam reveals clean dressing on the mid abdomen. Extremities are nonedematous and both femoral and pedal pulses are normal. DIRECT CARE SUPERVISOR: Alert and oriented 3. No focal weakness. - Constitutional Vitals: Temp Pulse Resp BP Pulse Ox 99.0 F 105 H 18 112/57 100 06/22/17 12:00 06/22/17 12:12 06/22/17 12:01 06/22/17 12:12 06/22/17 12:01 General appearance: Present: no acute distress Results - Labs CBC & Chem 7: 06/22/17 07:23 06/22/17 07:53 Labs: Laboratory Last Values WBC 3.1 K/mm3 (4.5-11.0) L 06/22/17 07:23 RBC 2.65 M/mm3 (3.65-5.03) L 06/22/17 07:23 Hgb 7.7 gm/dl (11.8-15.2) L 06/22/17 07:23 Hct 23.3 % (35.5-45.6) L 06/22/17 07:23 MCV 88 fl (84-94) 06/22/17 07:23 MCH 29 pg (28-32) 06/22/17 07:23 MCHC 33 % (32-34) 06/22/17 07:23 RDW 15.7 % (13.2-15.2) H 06/22/17 07:23 Plt Count 168 K/mm3 (140-440) 06/22/17 07:23 Lymph % (Auto) 12.0 % (13.4-35.0) L 06/19/17 05:30 Winston % (Auto) 8.6 % (0.0-7.3) H 06/19/17 05:30 Eos % (Auto) 0.1 % (0.0-4.3) 06/19/17 05:30 Baso % (Auto) 0.5 % (0.0-1.8) 06/19/17 05:30 Lymph # 1.3 K/mm3 (1.2-5.4) 06/19/17 05:30 Winston # 0.9 K/mm3 (0.0-0.8) H 06/19/17 05:30 Eos # 0.0 K/mm3 (0.0-0.4) 06/19/17 05:30 Baso # 0.1 K/mm3 (0.0-0.1) 06/19/17 05:30 Add Manual Diff Complete 06/21/17 12:49 Total Counted 100 06/21/17 12:49 Seg Neutrophils % Outbound Sales Advisor 06/21/17 12:49 Band Neutrophils % 5.0 % 06/21/17 12:49 Lymphocytes % (Manual) 4.0 % (13.4-35.0) L 06/21/17 12:49 Reactive Lymphs % (Man) 0 % 06/21/17 12:49 Monocytes % (Manual) 0 % (0.0-7.3) 06/21/17 12:49 Metamyelocytes % 0 % 06/21/17 12:49 Myelocytes % 0 % 06/21/17 12:49 Promyelocytes % 0 % 06/21/17 12:49 Blast Cells % 0 % 06/21/17 12:49 Nucleated RBC % Not Reportable 06/21/17 12:49 Seg Neutrophils # 8.3 K/mm3 (1.8-7.7) H 06/19/17 05:30 Seg Neutrophils # Man 12.6 K/mm3 (1.8-7.7) H 06/21/17 12:49 Band Neutrophils # 0.7 K/mm3 06/21/17 12:49 Lymphocytes # (Manual) 0.6 K/mm3 (1.2-5.4) L 06/21/17 12:49 Abs React Lymphs (Man) 0.0 K/mm3 06/21/17 12:49 Monocytes # (Manual) 0.0 K/mm3 (0.0-0.8) 06/21/17 12:49 Eosinophils # (Manual) 0.0 K/mm3 (0.0-0.4) 06/21/17 12:49 Basophils # (Manual) 0.0 K/mm3 (0.0-0.1) 06/21/17 12:49 Metamyelocytes # 0.0 K/mm3 06/21/17 12:49 Myelocytes # 0.0 K/mm3 06/21/17 12:49 Promyelocytes # 0.0 K/mm3 06/21/17 12:49 Blast Cells # 0.0 K/mm3 06/21/17 12:49 WBC Morphology Not Reportable 06/21/17 12:49 Hypersegmented Neuts Not Reportable 06/21/17 12:49 Hyposegmented Neuts Not Reportable 06/21/17 12:49 Hypogranular Neuts Not Reportable 06/21/17 12:49 Smudge Cells Not Reportable 06/21/17 12:49 Toxic Granulation Not Reportable 06/21/17 12:49 Toxic Vacuolation Not Reportable 06/21/17 12:49 Dohle Bodies Not Reportable 06/21/17 12:49 Pelger-Huet Anomaly Not Reportable 06/21/17 12:49 Reji Rods Not Reportable 06/21/17 12:49 Platelet Estimate Appears normal 06/21/17 12:49 Clumped Platelets Not Reportable 06/21/17 12:49 Plt Clumps, EDTA Not Reportable 06/21/17 12:49 Large Platelets Not Reportable 06/21/17 12:49 Giant Platelets Not Reportable 06/21/17 12:49 Platelet Satelliting Not Reportable 06/21/17 12:49 Plt Morphology Comment Not Reportable 06/21/17 12:49 RBC Morphology Not Reportable 06/21/17 12:49 Dimorphic RBCs Not Reportable 06/21/17 12:49 Polychromasia Few 06/21/17 12:49 Hypochromasia Not Reportable 06/21/17 12:49 Poikilocytosis Not Reportable 06/21/17 12:49 Anisocytosis 1+ 06/21/17 12:49 Microcytosis Not Reportable 06/21/17 12:49 Macrocytosis Not Reportable 06/21/17 12:49 Spherocytes Not Reportable 06/21/17 12:49 Pappenheimer Bodies Not Reportable 06/21/17 12:49 Sickle Cells Not Reportable 06/21/17 12:49 Target Cells Not Reportable 06/21/17 12:49 Tear Drop Cells Not Reportable 06/21/17 12:49 Ovalocytes Not Reportable 06/21/17 12:49 Helmet Cells Not Reportable 06/21/17 12:49 [place] Bodies Not Reportable 06/21/17 12:49 [place] Rings Not Reportable 06/21/17 12:49 Nicole Cells Not Reportable 06/21/17 12:49 Bite Cells Not Reportable 06/21/17 12:49 Crenated Cell Not Reportable 06/21/17 12:49 Elliptocytes Not Reportable 06/21/17 12:49 Acanthocytes (Spur) Not Reportable 06/21/17 12:49 Rouleaux Not Reportable 06/21/17 12:49 Hemoglobin C Crystals Not Reportable 06/21/17 12:49 Schistocytes Not Reportable 06/21/17 12:49 Malaria parasites Not Reportable 06/21/17 12:49 Ravindra Bodies Not Reportable 06/21/17 12:49 Hem Pathologist Commnt No 06/21/17 12:49 PT 15.2 Sec. (12.2-14.9) H 06/20/17 19:31 INR 1.14 (0.87-1.13) H 06/20/17 19:31 APTT 30.2 Sec. (24.2-36.6) 06/20/17 19:31 Sodium 144 mmol/L (137-145) 06/22/17 07:53 Potassium 4.0 mmol/L (3.6-5.0) 06/22/17 07:53 Chloride 101.4 mmol/L (98-107) 06/22/17 07:53 Carbon Dioxide 27 mmol/L (22-30) 06/22/17 07:53 Anion Gap 20 mmol/L 06/22/17 07:53 BUN 27 mg/dL (9-20) H 06/22/17 07:53 Creatinine 7.9 mg/dL (0.8-1.5) H 06/22/17 07:53 Estimated GFR 8 ml/min 06/22/17 07:53 BUN/Creatinine Ratio 3.41 % 06/22/17 07:53 Glucose 57 mg/dL (75-100) L 06/22/17 07:53 POC Glucose 62 (70-105) L 06/22/17 11:37 Calcium 8.3 mg/dL (8.4-10.2) L 06/22/17 07:53 Phosphorus 4.50 mg/dL (2.5-4.5) 06/20/17 12:20 Total Bilirubin 0.40 mg/dL (0.1-1.2) 06/21/17 12:49 AST 16 units/L (5-40) 06/21/17 12:49 ALT 5 units/L (7-56) L 06/21/17 12:49 Alkaline Phosphatase 40 units/L (35-129) 06/21/17 12:49 Troponin T 0.063 ng/mL (0.00-0.029) H D 06/18/17 18:34 Total Protein 4.9 g/dL (6.3-8.2) L D 06/21/17 12:49 Albumin 2.8 g/dL (3.9-5) L 06/21/17 12:49 Albumin/Globulin Ratio 1.3 % 06/21/17 12:49 Triglycerides 90 mg/dL (2-149) 06/18/17 15:40 Cholesterol 92 mg/dL (50-199) 06/18/17 15:40 LDL Cholesterol Direct 48 mg/dL (50-130) L 06/18/17 15:40 HDL Cholesterol 26 mg/dL (40-59) L 06/18/17 15:40 Cholesterol/HDL Ratio 3.53 % 06/18/17 15:40 Lipase 32 units/L (13-60) 06/17/17 23:10 Blood Type O POSITIVE 06/21/17 06:54 Antibody Screen Negative 06/21/17 06:54 Crossmatch See Detail 06/21/17 06:54
[2017-06-22] MEDS ORDERED: D50W (25GM) Vial 50 ML IV ONE (17:33)
[2017-06-22] MEDS ORDERED: D50W (25GM) Syringe IV PRN (17:46)
[2017-06-22] MEDS ORDERED: D5W 1,000 ML IV SCH (18:00)
[2017-06-22] MEDS ORDERED: D5NS 1,000 ML IV SCH (20:00)
[2017-06-23] MEDS: DILAUDID IV PRN
[2017-06-23] MEDS: LOPRESSOR IV SCH ×5 (00:16→23:53)
[2017-06-23] MEDS ORDERED: D50W (25GM) Syringe IV ONE (00:47)
[2017-06-23] MEDS ORDERED: D50W (25GM) Vial 50 ML IV ONE ×4 (01:03→09:24)
[2017-06-23] MEDS: TYLENOL PR PRN ×2 (01:10→05:13)
[2017-06-23 02:49] LABS: Hematocrit 22.3 % (35.5-45.6); Hemoglobin 7.5 gm/dl (11.8-15.2); Mean Corpuscular HGB Conc 34 % (32-34); Mean Corpuscular Hemoglobin 29 pg (28-32); Mean Corpuscular Volume 88 fl (84-94); Platelet Count 191 K/mm3 (140-440); Red Blood Count 2.55 M/mm3 (3.65-5.03); Red Cell Distribution Width 16.9 % (13.2-15.2)
[2017-06-23 02:51] LABS: BUN/Creatinine Ratio 4.43; Calcium 8.8 mg/dL (8.4-10.2); Chloride 99.1 mmol/L (98-107); Potassium 5.3 mmol/L (3.6-5.0)
[2017-06-23 03:58] LABS: Anisocytosis 1+; Basophils % (Manual) 0 % (0.0-1.8); Blastocytes % (Manual) 0 %; Eosinophils % (Manual) 0 % (0.0-4.3); Macrocytosis Rare; Polychromasia Rare
[2017-06-23 03:59] LABS: Diff Status Complete; Platelet Estimate Consistent w Auto
[2017-06-23] MEDS: APRESOLINE IV SCH ×4 (04:43→21:54)
[2017-06-23] MEDS: CATAPRES PO SCH ×3 (05:27→21:53)
[2017-06-23] MEDS ORDERED: NACL 0.9% 1000 ML 2,000 ML IV ONE ×2 (08:11→10:18)
[2017-06-23] MEDS ORDERED: NACL 0.9% 1000 ML 1,000 ML IV SCH (09:00)
[2017-06-23] MEDS ORDERED: VANCOMYCIN PHARMACY TO DOSE IV SCH (09:00)
[2017-06-23] MEDS ORDERED: ZOSYN/NS 3.375GM/50ML 3.375 GM/50 ML BAG IV SCH (09:00)
[2017-06-23] MEDS ORDERED: VANCOMYCIN 1,250 MG in NACL 0.9% 250ML 250 ML IV ONE (10:00)
[2017-06-23] MEDS: D10W 1,000 ML IV SCH (10:14)
--- NOTE | 2017-06-23 10:46 | Progress Note ---
Subjective Principal diagnosis: GI bleed Interval history: Patient was evaluated today for follow-up on multiple renal related issues, According to the ICU nurse patient has been noted to be markedly hypotensive and hypoglycemic patient appears to be doing very poorly critically ill hypotensive not, doing well overall Events of 24 hours vitals labs intake output medications were reviewed He did receive fluid bolus as well as dextrose drip and an infusion Current medications: Reviewed Social history:Reviewed Family history: Reviewed HEENT: No uremic order oral mucosa moist Neck: Supple without any thyromegaly mass or JVD Chest: Clear to auscultation occasional basilar crackles posteriorly Heart: Regular rate and rhythm S1 and S2 heard no S3-S4 Abdomen: Soft nontender no voluntary guarding rigidity or rebound Extremity: Dry skin minimal edema Psychiatry: No agitation and aggression noted Assessment and plan End-stage renal disease: No acute emergent indication for renal replacement therapy today monitor labs hemodialysis ifrelatively stable, Patient is currently on dialysis Friday Hyperkalemia has stabilized , potassium 5.3 to follow Severe hypotension with fever rule out sepsis will give IV fluid monitor closely May require vasopressin nurse GI bleeding status post GI follow-up endoscopy Hypoglycemia needs to be kept on dextrose infusion monitor blood sugar closely Fever etiology unclear at this point, patient does need cultures antibiotic? Infectious disease evaluation his overall prognosis appears to be very poor patient is critically ill with multiorgan failure like feature mortality risk is very high family is aware Objective - Vital Signs Vital signs: Vital Signs - 12hr 06/22/17 06/22/17 06/22/17 22:48 23:00 23:18 Temperature Pulse Rate 104 H Pulse Rate [ From Monitor] Respiratory 18 18 20 Rate Respiratory Rate [Abdomen] Blood Pressure 121/63 O2 Sat by Pulse 94 Oximetry 06/23/17 06/23/17 06/23/17 00:00 00:16 00:27 Temperature 101.2 F H Pulse Rate 106 H 109 H Pulse Rate [ From Monitor] Respiratory 15 Rate Respiratory 20 Rate [Abdomen] Blood Pressure 141/81 141/81 O2 Sat by Pulse 88 Oximetry 06/23/17 06/23/17 06/23/17 00:30 01:01 01:10 Temperature Pulse Rate 100 H Pulse Rate [ From Monitor] Respiratory 19 20 19 Rate Respiratory Rate [Abdomen] Blood Pressure 141/81 O2 Sat by Pulse 97 Oximetry 06/23/17 06/23/17 06/23/17 01:31 01:46 02:00 Temperature Pulse Rate 123 H 118 H 118 H Pulse Rate [ From Monitor] Respiratory 26 H 24 Rate Respiratory Rate [Abdomen] Blood Pressure 122/98 97/47 O2 Sat by Pulse 93 92 Oximetry 06/23/17 06/23/17 06/23/17 02:10 02:30 03:00 Temperature Pulse Rate 110 H 112 H Pulse Rate [ From Monitor] Respiratory 20 23 22 Rate Respiratory Rate [Abdomen] Blood Pressure 102/52 87/53 O2 Sat by Pulse 94 90 Oximetry 06/23/17 06/23/17 06/23/17 03:30 04:00 04:30 Temperature 101.2 F H Pulse Rate 114 H 113 H 112 H Pulse Rate [ 113 H From Monitor] Respiratory 24 15 23 Rate Respiratory Rate [Abdomen] Blood Pressure 113/57 93/57 95/57 O2 Sat by Pulse 96 96 97 Oximetry 06/23/17 06/23/17 06/23/17 04:43 04:45 05:00 Temperature Pulse Rate 80 106 H 108 H Pulse Rate [ From Monitor] Respiratory 18 22 Rate Respiratory Rate [Abdomen] Blood Pressure 95/57 86/47 86/40 O2 Sat by Pulse 100 Oximetry 06/23/17 06/23/17 06/23/17 05:13 05:15 05:27 Temperature Pulse Rate 110 H 109 H Pulse Rate [ From Monitor] Respiratory 26 H 22 Rate Respiratory Rate [Abdomen] Blood Pressure 88/46 99/50 O2 Sat by Pulse 96 Oximetry 06/23/17 06/23/17 06/23/17 05:30 05:45 06:00 Temperature Pulse Rate 109 H 110 H 98 H Pulse Rate [ From Monitor] Respiratory 22 20 18 Rate Respiratory Rate [Abdomen] Blood Pressure 103/54 103/58 103/58 O2 Sat by Pulse 96 94 95 Oximetry 06/23/17 06/23/17 06/23/17 06:15 06:30 06:45 Temperature Pulse Rate 113 H 111 H 111 H Pulse Rate [ From Monitor] Respiratory 22 22 24 Rate Respiratory Rate [Abdomen] Blood Pressure 117/62 115/56 112/59 O2 Sat by Pulse 95 94 93 Oximetry 06/23/17 06/23/17 06/23/17 07:00 07:15 07:30 Temperature Pulse Rate 109 H 109 H 109 H Pulse Rate [ From Monitor] Respiratory 22 21 20 Rate Respiratory Rate [Abdomen] Blood Pressure 115/52 110/56 107/47 O2 Sat by Pulse 95 95 94 Oximetry 06/23/17 06/23/17 06/23/17 07:45 07:52 08:00 Temperature 99.2 F Pulse Rate 108 H Pulse Rate [ 105 H From Monitor] Respiratory 20 19 Rate Respiratory Rate [Abdomen] Blood Pressure 107/47 O2 Sat by Pulse 96 94 Oximetry 06/23/17 06/23/17 06/23/17 08:01 08:15 08:30 Temperature Pulse Rate 108 H 107 H 105 H Pulse Rate [ From Monitor] Respiratory 19 22 17 Rate Respiratory Rate [Abdomen] Blood Pressure 73/34 68/35 79/43 O2 Sat by Pulse 94 92 94 Oximetry 06/23/17 06/23/17 06/23/17 08:45 08:55 09:00 Temperature Pulse Rate 104 H 105 H Pulse Rate [ From Monitor] Respiratory 18 18 Rate Respiratory Rate [Abdomen] Blood Pressure 95/47 105/48 O2 Sat by Pulse 96 97 97 Oximetry - Lab 06/26/17 01:55 06/26/17 05:31 Most recent lab results Calcium 8.8 mg/dL (8.4-10.2) 06/23/17 02:11 Phosphorus 4.50 mg/dL (2.5-4.5) 06/20/17 12:20
--- NOTE | 2017-06-23 11:30 | Progress Note ---
Assessment and Plan Acute GI bleed s/p transfusion of PRBCs s/p colectomy and iterminal ileum-rectal anastomosis. AMS ESRD on HD Hypertension now hypotensive Fever Tobacco abuse Chest pain Reflex sinus tachycardia Conservative cardiac management. Subjective Date of service: 06/23/17 Principal diagnosis: GI bleed Interval history: Patient alert with confusion. Sinus tach on telemetry. Objective Vital Signs Temp Pulse Pulse Resp Resp BP Pulse Ox 06/23/17 09:00 105 H 18 105/48 97 06/23/17 08:55 97 06/23/17 08:45 104 H 18 95/47 96 06/23/17 08:30 105 H 17 79/43 94 06/23/17 08:15 107 H 22 68/35 92 06/23/17 08:01 108 H 19 73/34 94 06/23/17 08:00 105 H 19 94 06/23/17 07:52 99.2 F 06/23/17 07:45 108 H 20 107/47 96 06/23/17 07:30 109 H 20 107/47 94 06/23/17 07:15 109 H 21 110/56 95 06/23/17 07:00 109 H 22 115/52 95 06/23/17 06:45 111 H 24 112/59 93 06/23/17 06:30 111 H 22 115/56 94 06/23/17 06:15 113 H 22 117/62 95 06/23/17 06:00 98 H 18 103/58 95 06/23/17 05:45 110 H 20 103/58 94 06/23/17 05:30 109 H 22 103/54 96 06/23/17 05:27 109 H 99/50 06/23/17 05:15 110 H 22 88/46 96 06/23/17 05:13 26 H 06/23/17 05:00 108 H 22 86/40 100 06/23/17 04:45 106 H 18 86/47 06/23/17 04:43 80 95/57 06/23/17 04:30 112 H 23 95/57 97 06/23/17 04:00 101.2 F H 113 H 113 H 15 93/57 96 06/23/17 03:30 114 H 24 113/57 96 06/23/17 03:00 112 H 22 87/53 90 06/23/17 02:30 110 H 23 102/52 94 06/23/17 02:10 20 06/23/17 02:00 118 H 24 97/47 92 06/23/17 01:46 118 H 06/23/17 01:31 123 H 26 H 122/98 93 06/23/17 01:10 19 06/23/17 01:01 100 H 20 141/81 97 06/23/17 00:30 19 06/23/17 00:27 101.2 F H 06/23/17 00:16 109 H 141/81 06/23/17 00:00 106 H 15 20 141/81 88 06/22/17 23:18 20 06/22/17 23:00 104 H 18 121/63 94 06/22/17 22:48 18 06/22/17 22:39 74 156/67 06/22/17 22:00 103 H 19 156/67 94 06/22/17 21:00 99 H 15 155/73 96 06/22/17 20:00 98.6 F 99 H 16 135/81 100 06/22/17 19:45 97 H 06/22/17 19:00 97 H 17 135/82 99 06/22/17 18:03 94 H 16 135/58 99 06/22/17 18:01 89 120/58 06/22/17 18:00 93 H 17 135/58 99 06/22/17 17:00 101 H 15 120/58 99 06/22/17 16:27 101 H 126/50 06/22/17 16:00 98.7 F 103 H 16 126/50 100 06/22/17 15:00 102 H 19 133/57 100 06/22/17 14:00 100 H 14 124/63 100 06/22/17 13:00 98 H 18 115/59 100 06/22/17 12:12 105 H 112/57 06/22/17 12:01 105 H 18 134/54 100 06/22/17 12:00 99.0 F 105 H - Physical Examination General: No Apparent Distress HEENT: Positive: PERRL Neck: Positive: trachea midline Cardiac: Positive: Tachycardia - Labs and Meds CBC 06/23/17 Range/Units 02:11 WBC 2.0 L (4.5-11.0) K/mm3 RBC 2.55 L (3.65-5.03) M/mm3 Hgb 7.5 L (11.8-15.2) gm/dl Hct 22.3 L (35.5-45.6) % Plt Count 191 (140-440) K/mm3 Comprehensive Metabolic Panel 06/23/17 06/23/17 06/23/17 Range/Units 02:11 08:12 10:53 Sodium 142 (137-145) mmol/L Potassium 5.3 H D (3.6-5.0) mmol/L Chloride 99.1 (98-107) mmol/L Carbon Dioxide 24 (22-30) mmol/L BUN 43 H (9-20) mg/dL Creatinine 9.7 H (0.8-1.5) mg/dL Glucose 46 L 74 L 42 L (75-100) mg/dL Calcium 8.8 (8.4-10.2) mg/dL
[2017-06-23] MEDS: D50W (25GM) Vial IV PRN ×5 (11:33→23:40)
--- NOTE | 2017-06-23 12:02 | Progress Note ---
Assessment and Plan Hypotension/shock. Improving after IV fluids. Probably combine the setting of recent fever, hypotension, hyperglycemia; suspicious for septic shock component AMS. Secondary to the above. No immediate respiratory compromise noted. Patient not hypoxemic at the bedside Upper GI bleeding. H&H stable Status post hemicolectomy End-stage renal disease Recommendations Currently normotensive without pressors. I think he can have More fluid I'm have more fluid-500 mL saline if needed. Discussed with nurse I asked to review current IV site with nephrology, anticipating need for central line with hemodialysis capability, if low blood pressure continues The patient already has received antibiotics this morning and cultures are in progress Monitor fever and hypotension Serum lactate the next 24 hours Hemodialysis per nephrology Continue serial H&H next 24 hours Discussed with family and staff. Critical care time was 40 minutes of face-to- face evaluation coordination of care Subjective Date of service: 06/23/17 Principal diagnosis: GI bleed Interval history: Slightly confused this morning. He denies any chest pain or shortness of breath at this time. Family at the bedside. Noted with hypotension earlier, now completing fluid bolus Objective Vital Signs - 12hr 06/23/17 06/23/17 06/23/17 00:00 00:16 00:27 Temperature 101.2 F H Pulse Rate 106 H 109 H Pulse Rate [ From Monitor] Respiratory 15 Rate Respiratory 20 Rate [Abdomen] Blood Pressure 141/81 141/81 O2 Sat by Pulse 88 Oximetry 06/23/17 06/23/17 06/23/17 00:30 01:01 01:10 Temperature Pulse Rate 100 H Pulse Rate [ From Monitor] Respiratory 19 20 19 Rate Respiratory Rate [Abdomen] Blood Pressure 141/81 O2 Sat by Pulse 97 Oximetry 06/23/17 06/23/17 06/23/17 01:31 01:46 02:00 Temperature Pulse Rate 123 H 118 H 118 H Pulse Rate [ From Monitor] Respiratory 26 H 24 Rate Respiratory Rate [Abdomen] Blood Pressure 122/98 97/47 O2 Sat by Pulse 93 92 Oximetry 06/23/17 06/23/17 06/23/17 02:10 02:30 03:00 Temperature Pulse Rate 110 H 112 H Pulse Rate [ From Monitor] Respiratory 20 23 22 Rate Respiratory Rate [Abdomen] Blood Pressure 102/52 87/53 O2 Sat by Pulse 94 90 Oximetry 06/23/17 06/23/17 06/23/17 03:30 04:00 04:30 Temperature 101.2 F H Pulse Rate 114 H 113 H 112 H Pulse Rate [ 113 H From Monitor] Respiratory 24 15 23 Rate Respiratory Rate [Abdomen] Blood Pressure 113/57 93/57 95/57 O2 Sat by Pulse 96 96 97 Oximetry 06/23/17 06/23/17 06/23/17 04:43 04:45 05:00 Temperature Pulse Rate 80 106 H 108 H Pulse Rate [ From Monitor] Respiratory 18 22 Rate Respiratory Rate [Abdomen] Blood Pressure 95/57 86/47 86/40 O2 Sat by Pulse 100 Oximetry 06/23/17 06/23/17 06/23/17 05:13 05:15 05:27 Temperature Pulse Rate 110 H 109 H Pulse Rate [ From Monitor] Respiratory 26 H 22 Rate Respiratory Rate [Abdomen] Blood Pressure 88/46 99/50 O2 Sat by Pulse 96 Oximetry 06/23/17 06/23/17 06/23/17 05:30 05:45 06:00 Temperature Pulse Rate 109 H 110 H 98 H Pulse Rate [ From Monitor] Respiratory 22 20 18 Rate Respiratory Rate [Abdomen] Blood Pressure 103/54 103/58 103/58 O2 Sat by Pulse 96 94 95 Oximetry 06/23/17 06/23/17 06/23/17 06:15 06:30 06:45 Temperature Pulse Rate 113 H 111 H 111 H Pulse Rate [ From Monitor] Respiratory 22 22 24 Rate Respiratory Rate [Abdomen] Blood Pressure 117/62 115/56 112/59 O2 Sat by Pulse 95 94 93 Oximetry 06/23/17 06/23/17 06/23/17 07:00 07:15 07:30 Temperature Pulse Rate 109 H 109 H 109 H Pulse Rate [ From Monitor] Respiratory 22 21 20 Rate Respiratory Rate [Abdomen] Blood Pressure 115/52 110/56 107/47 O2 Sat by Pulse 95 95 94 Oximetry 06/23/17 06/23/17 06/23/17 07:45 07:52 08:00 Temperature 99.2 F Pulse Rate 108 H Pulse Rate [ 105 H From Monitor] Respiratory 20 19 Rate Respiratory Rate [Abdomen] Blood Pressure 107/47 O2 Sat by Pulse 96 94 Oximetry 06/23/17 06/23/17 06/23/17 08:01 08:15 08:30 Temperature Pulse Rate 108 H 107 H 105 H Pulse Rate [ From Monitor] Respiratory 19 22 17 Rate Respiratory Rate [Abdomen] Blood Pressure 73/34 68/35 79/43 O2 Sat by Pulse 94 92 94 Oximetry 06/23/17 06/23/17 06/23/17 08:45 08:55 09:00 Temperature Pulse Rate 104 H 105 H Pulse Rate [ From Monitor] Respiratory 18 18 Rate Respiratory Rate [Abdomen] Blood Pressure 95/47 105/48 O2 Sat by Pulse 96 97 97 Oximetry 06/23/17 11:47 Temperature 98.2 F Pulse Rate Pulse Rate [ From Monitor] Respiratory Rate Respiratory Rate [Abdomen] Blood Pressure O2 Sat by Pulse Oximetry Constitutional: no acute distress, alert Eyes: non-icteric Effort: no acute distress Ascultation: Bilateral: rhonchi (sporadic the bases. No crackles) Cardiovascular: regular rate and rhythm Gastrointestinal: absent bowel sounds, tender (mild), non-distended, other ( wound covered,no oozing) Integumentary: normal Extremities: no cyanosis, no edema Neurologic: non-focal exam, pupils equal and round, CN II-XII normal, other ( mild confusion but able to answer questions appropriately) Psychiatric: mood appropriate CBC and BMP: 06/23/17 02:11 06/23/17 10:53 ABG, PT/INR, D-dimer: PT/INR, D-dimer PT 15.2 Sec. (12.2-14.9) H 06/20/17 19:31 INR 1.14 (0.87-1.13) H 06/20/17 19:31 Abnormal lab findings: Abnormal Labs 06/18/17 06/18/17 06/18/17 15:40 18:34 18:34 WBC RBC Hgb 7.1 L Hct 20.8 L MCV RDW Lymph % (Auto) [place] % (Auto) [place] # Seg Neutrophils % Seg Neuts % (Manual) Lymphocytes % (Manual) Nucleated RBC % Seg Neutrophils # Seg Neutrophils # Man Lymphocytes # (Manual) PT INR Potassium Chloride BUN Creatinine Glucose POC Glucose Calcium ALT Troponin T 0.046 H D 0.063 H D Total Protein Albumin LDL Cholesterol Direct 48 L HDL Cholesterol 26 L Crossmatch 06/19/17 06/19/17 06/19/17 05:30 05:30 07:21 WBC RBC 2.10 L Hgb 6.0 L 5.3 L* Hct 17.4 L* 15.5 L* MCV 83 L RDW 17.2 H Lymph % (Auto) 12.0 L [place] % (Auto) 8.6 H [place] # 0.9 H Seg Neutrophils % 78.8 H Seg Neuts % (Manual) Lymphocytes % (Manual) Nucleated RBC % Seg Neutrophils # 8.3 H Seg Neutrophils # Man Lymphocytes # (Manual) PT INR Potassium 5.4 H Chloride BUN 33 H Creatinine 7.6 H Glucose POC Glucose Calcium ALT Troponin T Total Protein Albumin LDL Cholesterol Direct HDL Cholesterol Crossmatch 06/19/17 06/20/17 06/20/17 08:17 00:24 03:57 WBC RBC Hgb 5.2 L* 6.9 L 6.6 L Hct 15.5 L* 20.8 L 19.3 L* MCV RDW Lymph % (Auto) [place] % (Auto) [place] # Seg Neutrophils % Seg Neuts % (Manual) Lymphocytes % (Manual) Nucleated RBC % Seg Neutrophils # Seg Neutrophils # Man Lymphocytes # (Manual) PT INR Potassium Chloride BUN Creatinine Glucose POC Glucose Calcium ALT Troponin T Total Protein Albumin LDL Cholesterol Direct HDL Cholesterol Crossmatch 06/20/17 06/20/17 06/20/17 12:16 12:16 19:31 WBC RBC Hgb 7.2 L 7.2 L Hct 21.4 L 21.7 L MCV RDW Lymph % (Auto) [place] % (Auto) [place] # Seg Neutrophils % Seg Neuts % (Manual) Lymphocytes % (Manual) Nucleated RBC % Seg Neutrophils # Seg Neutrophils # Man Lymphocytes # (Manual) PT INR Potassium Chloride 96.7 L BUN 31 H Creatinine 6.8 H Glucose POC Glucose Calcium ALT Troponin T Total Protein Albumin LDL Cholesterol Direct HDL Cholesterol Crossmatch 06/20/17 06/21/17 06/21/17 19:31 01:10 03:57 WBC RBC Hgb 6.3 L 6.1 L Hct 18.4 L* 18.2 L* MCV RDW Lymph % (Auto) [place] % (Auto) [place] # Seg Neutrophils % Seg Neuts % (Manual) Lymphocytes % (Manual) Nucleated RBC % Seg Neutrophils # Seg Neutrophils # Man Lymphocytes # (Manual) PT 15.2 H INR 1.14 H Potassium Chloride BUN Creatinine Glucose POC Glucose Calcium ALT Troponin T Total Protein Albumin LDL Cholesterol Direct HDL Cholesterol Crossmatch 06/21/17 06/21/17 06/21/17 06:54 12:49 12:49 WBC 13.8 H RBC 2.52 L Hgb 7.3 L Hct 21.9 L MCV RDW 16.2 H Lymph % (Auto) [place] % (Auto) [place] # Seg Neutrophils % Seg Neuts % (Manual) Lymphocytes % (Manual) 4.0 L Nucleated RBC % Seg Neutrophils # Seg Neutrophils # Man 12.6 H Lymphocytes # (Manual) 0.6 L PT INR Potassium Chloride BUN 42 H Creatinine 9.8 H Glucose 64 L POC Glucose Calcium 8.2 L ALT 5 L Troponin T Total Protein 4.9 L D Albumin 2.8 L LDL Cholesterol Direct HDL Cholesterol Crossmatch See Detail 06/21/17 06/22/17 06/22/17 18:28 00:33 05:12 WBC RBC Hgb 7.1 L 7.2 L Hct 21.2 L 21.7 L MCV RDW Lymph % (Auto) [place] % (Auto) [place] # Seg Neutrophils % Seg Neuts % (Manual) Lymphocytes % (Manual) Nucleated RBC % Seg Neutrophils # Seg Neutrophils # Man Lymphocytes # (Manual) PT INR Potassium Chloride BUN Creatinine Glucose POC Glucose 69 L Calcium ALT Troponin T Total Protein Albumin LDL Cholesterol Direct HDL Cholesterol Crossmatch 06/22/17 06/22/17 06/22/17 07:23 07:53 11:37 WBC 3.1 L RBC 2.65 L Hgb 7.7 L Hct 23.3 L MCV RDW 15.7 H Lymph % (Auto) [place] % (Auto) [place] # Seg Neutrophils % Seg Neuts % (Manual) Lymphocytes % (Manual) Nucleated RBC % Seg Neutrophils # Seg Neutrophils # Man Lymphocytes # (Manual) PT INR Potassium Chloride BUN 27 H Creatinine 7.9 H Glucose 57 L POC Glucose 62 L Calcium 8.3 L ALT Troponin T Total Protein Albumin LDL Cholesterol Direct HDL Cholesterol Crossmatch 06/22/17 06/22/17 06/23/17 16:41 18:13 00:27 WBC RBC Hgb Hct MCV RDW Lymph % (Auto) [place] % (Auto) [place] # Seg Neutrophils % Seg Neuts % (Manual) Lymphocytes % (Manual) Nucleated RBC % Seg Neutrophils # Seg Neutrophils # Man Lymphocytes # (Manual) PT INR Potassium Chloride BUN Creatinine Glucose POC Glucose 57 L 156 H 64 L Calcium ALT Troponin T Total Protein Albumin LDL Cholesterol Direct HDL Cholesterol Crossmatch 06/23/17 06/23/1706/23/17 02:11 02:11 04:28 WBC 2.0 L RBC 2.55 L Hgb 7.5 L Hct 22.3 L MCV RDW 16.9 H Lymph % (Auto) [place] % (Auto) [place] # Seg Neutrophils % Seg Neuts % (Manual) 39.0 L Lymphocytes % (Manual) 8.0 L Nucleated RBC % 1.0 H Seg Neutrophils # Seg Neutrophils # Man 0.8 L Lymphocytes # (Manual) 0.2 L PT INR Potassium 5.3 H D Chloride BUN 43 H Creatinine 9.7 H Glucose 46 L POC Glucose 48 L Calcium ALT Troponin T Total Protein Albumin LDL Cholesterol Direct HDL Cholesterol Crossmatch 06/23/17 06/23/17 06/23/17 07:51 08:12 10:53 WBC RBC Hgb Hct MCV RDW Lymph % (Auto) [place] % (Auto) [place] # Seg Neutrophils % Seg Neuts % (Manual) Lymphocytes % (Manual) Nucleated RBC % Seg Neutrophils # Seg Neutrophils # Man Lymphocytes # (Manual) PT INR Potassium Chloride BUN Creatinine Glucose 74 L 42 L POC Glucose < 40 L Calcium ALT Troponin T Total Protein Albumin LDL Cholesterol Direct HDL Cholesterol Crossmatch 06/23/17 11:16 WBC RBC Hgb Hct MCV RDW Lymph % (Auto) [place] % (Auto) [place] # Seg Neutrophils % Seg Neuts % (Manual) Lymphocytes % (Manual) Nucleated RBC % Seg Neutrophils # Seg Neutrophils # Man Lymphocytes # (Manual) PT INR Potassium Chloride BUN Creatinine Glucose POC Glucose 51 L Calcium ALT Troponin T Total Protein Albumin LDL Cholesterol Direct HDL Cholesterol Crossmatch
[2017-06-23] MEDS: ZOSYN/NS 2.25 GM/50ML 2.25 GM/50 ML BAG IV SCH ×2 (12:18→19:57)
--- NOTE | 2017-06-23 15:44 | Progress Note ---
Subjective Patient Reports: Positive: feels better, flatus Narrative: doing fine lots of flatus , abd soft , will DC NG Objective Vital Signs - 12hr 06/23/17 06/23/17 06/23/17 04:00 04:30 04:43 Temperature 101.2 F H Pulse Rate 113 H 112 H 80 Pulse Rate [ 113 H From Monitor] Respiratory 15 23 Rate Blood Pressure 93/57 95/57 95/57 O2 Sat by Pulse 96 97 Oximetry 06/23/17 06/23/17 06/23/17 04:45 05:00 05:13 Temperature Pulse Rate 106 H 108 H Pulse Rate [ From Monitor] Respiratory 18 22 26 H Rate Blood Pressure 86/47 86/40 O2 Sat by Pulse 100 Oximetry 06/23/17 06/23/17 06/23/17 05:15 05:27 05:30 Temperature Pulse Rate 110 H 109 H 109 H Pulse Rate [ From Monitor] Respiratory 22 22 Rate Blood Pressure 88/46 99/50 103/54 O2 Sat by Pulse 96 96 Oximetry 06/23/17 06/23/17 06/23/17 05:45 06:00 06:15 Temperature Pulse Rate 110 H 98 H 113 H Pulse Rate [ From Monitor] Respiratory 20 18 22 Rate Blood Pressure 103/58 103/58 117/62 O2 Sat by Pulse 94 95 95 Oximetry 06/23/17 06/23/17 06/23/17 06:30 06:45 07:00 Temperature Pulse Rate 111 H 111 H 109 H Pulse Rate [ From Monitor] Respiratory 22 24 22 Rate Blood Pressure 115/56 112/59 115/52 O2 Sat by Pulse 94 93 95 Oximetry 06/23/17 06/23/17 06/23/17 07:15 07:30 07:45 Temperature Pulse Rate 109 H 109 H 108 H Pulse Rate [ From Monitor] Respiratory 21 20 20 Rate Blood Pressure 110/56 107/47 107/47 O2 Sat by Pulse 95 94 96 Oximetry 06/23/17 06/23/17 06/23/17 07:52 08:00 08:01 Temperature 99.2 F Pulse Rate 108 H Pulse Rate [ 105 H From Monitor] Respiratory 19 19 Rate Blood Pressure 73/34 O2 Sat by Pulse 94 94 Oximetry 06/23/17 06/23/17 06/23/17 08:15 08:30 08:45 Temperature Pulse Rate 107 H 105 H 104 H Pulse Rate [ From Monitor] Respiratory 22 17 18 Rate Blood Pressure 68/35 79/43 95/47 O2 Sat by Pulse 92 94 96 Oximetry 06/23/17 06/23/17 06/23/17 08:55 09:00 09:15 Temperature Pulse Rate 105 H 104 H Pulse Rate [ From Monitor] Respiratory 18 20 Rate Blood Pressure 105/48 118/52 O2 Sat by Pulse 97 97 91 Oximetry 06/23/17 06/23/17 06/23/17 09:30 09:45 10:00 Temperature Pulse Rate 99 H 94 H 96 H Pulse Rate [ From Monitor] Respiratory 19 21 18 Rate Blood Pressure 98/47 98/47 114/54 O2 Sat by Pulse 92 94 Oximetry 06/23/17 06/23/17 06/23/17 10:15 10:30 10:45 Temperature Pulse Rate 98 H 98 H 100 H Pulse Rate [ From Monitor] Respiratory 14 17 16 Rate Blood Pressure 115/55 93/48 101/53 O2 Sat by Pulse 94 89 96 Oximetry 06/23/17 06/23/17 06/23/17 11:00 11:15 11:30 Temperature Pulse Rate 99 H 101 H 102 H Pulse Rate [ From Monitor] Respiratory 15 18 15 Rate Blood Pressure 121/58 135/65 114/47 O2 Sat by Pulse 88 93 Oximetry 06/23/17 06/23/17 06/23/17 11:45 11:47 12:00 Temperature 98.2 F Pulse Rate 103 H 107 H Pulse Rate [ 110 H From Monitor] Respiratory 19 24 Rate Blood Pressure 133/63 125/63 O2 Sat by Pulse 90 94 Oximetry 06/23/17 06/23/17 06/23/17 12:15 12:30 12:45 Temperature Pulse Rate 101 H 103 H 103 H Pulse Rate [ From Monitor] Respiratory 20 22 15 Rate Blood Pressure 125/63 102/56 112/58 O2 Sat by Pulse 92 93 Oximetry 06/23/17 06/23/17 06/23/17 13:00 13:15 13:25 Temperature Pulse Rate 106 H 105 H 104 H Pulse Rate [ From Monitor] Respiratory 22 21 Rate Blood Pressure 104/54 111/58 111/58 O2 Sat by Pulse 92 92 Oximetry 06/23/17 06/23/17 06/23/17 13:30 13:45 14:00 Temperature Pulse Rate 106 H 107 H 104 H Pulse Rate [ From Monitor] Respiratory 22 24 23 Rate Blood Pressure 117/59 107/58 95/53 O2 Sat by Pulse 90 77 L Oximetry 06/23/17 06/23/17 06/23/17 14:15 14:30 14:45 Temperature Pulse Rate 76 109 H 111 H Pulse Rate [ 109 H From Monitor] Respiratory 25 H 21 25 H Rate Blood Pressure 117/51 114/55 98/50 O2 Sat by Pulse 80 L 94 93 Oximetry 06/23/17 06/23/17 14:46 15:01 Temperature Pulse Rate 110 H Pulse Rate [ From Monitor] Respiratory 25 H Rate Blood Pressure 98/50 O2 Sat by Pulse 100 100 Oximetry - Labs 06/23/17 02:11 06/23/17 10:53 Diabetes panel 06/23/17 06/23/17 06/23/17 Range/Units 02:11 08:12 10:53 Sodium 142 (137-145) mmol/L Potassium 5.3 H D (3.6-5.0) mmol/L Chloride 99.1 (98-107) mmol/L Carbon Dioxide 24 (22-30) mmol/L BUN 43 H (9-20) mg/dL Creatinine 9.7 H (0.8-1.5) mg/dL Glucose 46 L 74 L 42 L (75-100) mg/dL Calcium 8.8 (8.4-10.2) mg/dL Calcium panel 06/23/17 Range/Units 02:11 Calcium 8.8 (8.4-10.2) mg/dL Pituitary panel 06/23/17 06/23/17 06/23/17 Range/Units 02:11 08:12 10:53 Sodium 142 (137-145) mmol/L Potassium 5.3 H D (3.6-5.0) mmol/L Chloride 99.1 (98-107) mmol/L Carbon Dioxide 24 (22-30) mmol/L BUN 43 H (9-20) mg/dL Creatinine 9.7 H (0.8-1.5) mg/dL Glucose 46 L 74 L 42 L (75-100) mg/dL Calcium 8.8 (8.4-10.2) mg/dL Adrenal panel 06/23/17 06/23/17 06/23/17 Range/Units 02:11 08:12 10:53 Sodium 142 (137-145) mmol/L Potassium 5.3 H D (3.6-5.0) mmol/L Chloride 99.1 (98-107) mmol/L Carbon Dioxide 24 (22-30) mmol/L BUN 43 H (9-20) mg/dL Creatinine 9.7 H (0.8-1.5) mg/dL Glucose 46 L 74 L 42 L (75-100) mg/dL Calcium 8.8 (8.4-10.2) mg/dL
[2017-06-23] MEDS ORDERED: VERSED IV ONE ×2 (16:00→16:01)
[2017-06-23] MEDS ORDERED: VERSED IV STA (16:00)
[2017-06-23] MEDS ORDERED: SUBLIMAZE IV ONE (16:00)
[2017-06-23 16:04] LABS: ISTAT Base Excess -6; ISTAT HCO3 20.6; ISTAT PCO2 41.5 (35-45); ISTAT PH 7.305 (7.35-7.45); ISTAT PO2 79 (80-105); ISTAT SO2 94; ISTAT TCO2 22
--- NOTE | 2017-06-23 16:26 | Progress Note ---
Assessment and Plan Assessment and plan: Acute hypoxic respiratory failure - Patient is going to be intubated, currently on high flow oxygen - ABG, 7.3 PCO2 40 PaO2 74 bicarbonate 20 Sepsis with hypotension - Patient was given IV fluids but he has a current hypotension - We will going to put central line, we going to put him on pressors Hypoglycemia with confusion, acute metabolic encephalopathy - Patient is on D10 normal saline 75 mL per hour - Accu-Chek every hour and patient is on D50 infusion as needed Severe anemia secondary to GI bleed, S/P total colectomy - was transfused multiple units of blood - Hemoglobin this morning is 7.5 - No bowel movement after the surgery Chest pain - Cardiology consulted End stage renal disease on hemodialysis -Nephrology is consulted -Continue with the hemodialysis DVT prophylaxis - On SCDs because of GI bleed Disposition - Continue ICU care I called his son and sister and get a consent for central line, discussed the management plan and they agreed with the plan Prognosis: Poor The high probability of a clinically significant, sudden or life threatening deterioration of the [GI, CVS, [employer] CLERK, endocrine] system(s) required my full and direct attention, intervention and personal management. The aggregate critical care time was [45] minutes. This time is in addition to time spent performing reported procedures but includes the following: [x] Data Review and interpretation [x] Patient assessment and monitoring of vital signs [x] Documentation [x] Medication orders and management History Interval history: Patient was seen and evaluated this morning, S/P total colectomy, the patient is deteriorating, he become confused, blood pressure and blood glucose dropping down. Hospitalist Physical - Physical exam Narrative exam: Patient is in cardiopulmonary distress. The patient appeared well nourished and normally developed. Vital signs as documented. Head exam is unremarkable. No scleral icterus . Neck is without jugular venous distension, thyromegaly, or carotid bruits. Lungs are clear to auscultation. Cardiac exam reveals regular rate and Rhythm. First and second heart sounds normal. No murmurs, rubs or gallops. Abdominal exam reveals clean dressing on the mid abdomen. Extremities are nonedematous and both femoral and pedal pulses are normal. [employer] CLERK: confused. - Constitutional Vitals: Temp Pulse Resp BP Pulse Ox 99.3 F 110 H 25 H 98/50 100 06/23/17 16:00 06/23/17 15:01 06/23/17 15:01 06/23/17 15:01 06/23/17 15:51 General appearance: Present: no acute distress Results - Labs CBC & Chem 7: 06/23/17 02:11 06/23/17 10:53 Labs: Laboratory Last Values WBC 2.0 K/mm3 (4.5-11.0) L 06/23/17 02:11 RBC 2.55 M/mm3 (3.65-5.03) L 06/23/17 02:11 Hgb 7.5 gm/dl (11.8-15.2) L 06/23/17 02:11 Hct 22.3 % (35.5-45.6) L 06/23/17 02:11 MCV 88 fl (84-94) 06/23/17 02:11 MCH 29 pg (28-32) 06/23/17 02:11 MCHC 34 % (32-34) 06/23/17 02:11 RDW 16.9 % (13.2-15.2) H 06/23/17 02:11 Plt Count 191 K/mm3 (140-440) 06/23/17 02:11 Lymph % (Auto) 12.0 % (13.4-35.0) L 06/19/17 05:30 [place] % (Auto) 8.6 % (0.0-7.3) H 06/19/17 05:30 Eos % (Auto) 0.1 % (0.0-4.3) 06/19/17 05:30 Baso % (Auto) 0.5 % (0.0-1.8) 06/19/17 05:30 Lymph # 1.3 K/mm3 (1.2-5.4) 06/19/17 05:30 [place]offey # 0.9 K/mm3 (0.0-0.8) H 06/19/17 05:30 Eos # 0.0 K/mm3 (0.0-0.4) 06/19/17 05:30 Baso # 0.1 K/mm3 (0.0-0.1) 06/19/17 05:30 Add Manual Diff Complete 06/23/17 02:11 Total Counted 100 06/23/17 02:11 Seg Neutrophils % Fire Extinguisher Mechanic 06/21/17 12:49 Seg Neuts % (Manual) 39.0 % (40.0-70.0) L 06/23/17 02:11 Band Neutrophils % 43.0 % 06/23/17 02:11 Lymphocytes % (Manual) 8.0 % (13.4-35.0) L 06/23/17 02:11 Reactive Lymphs % (Man) 0 % 06/23/17 02:11 Monocytes % (Manual) 7.0 % (0.0-7.3) 06/23/17 02:11 Eosinophils % (Manual) 0 % (0.0-4.3) 06/23/17 02:11 Basophils % (Manual) 0 % (0.0-1.8) 06/23/17 02:11 Metamyelocytes % 3.0 % 06/23/17 02:11 Myelocytes % 0 % 06/23/17 02:11 Promyelocytes % 0 % 06/23/17 02:11 Blast Cells % 0 % 06/23/17 02:11 Nucleated RBC % 1.0 % (0.0-0.9) H 06/23/17 02:11 Seg Neutrophils # 8.3 K/mm3 (1.8-7.7) H 06/19/17 05:30 Seg Neutrophils # Man 0.8 K/mm3 (1.8-7.7) L 06/23/17 02:11 Band Neutrophils # 0.9 K/mm3 06/23/17 02:11 Lymphocytes # (Manual) 0.2 K/mm3 (1.2-5.4) L 06/23/17 02:11 Abs React Lymphs (Man) 0.0 K/mm3 06/23/17 02:11 Monocytes # (Manual) 0.1 K/mm3 (0.0-0.8) 06/23/17 02:11 Eosinophils # (Manual) 0.0 K/mm3 (0.0-0.4) 06/23/17 02:11 Basophils # (Manual) 0.0 K/mm3 (0.0-0.1) 06/23/17 02:11 Metamyelocytes # 0.1 K/mm3 06/23/17 02:11 Myelocytes # 0.0 K/mm3 06/23/17 02:11 Promyelocytes # 0.0 K/mm3 06/23/17 02:11 Blast Cells # 0.0 K/mm3 06/23/17 02:11 WBC Morphology Not Reportable 06/23/17 02:11 Hypersegmented Neuts Not Reportable 06/23/17 02:11 Hyposegmented Neuts Not Reportable 06/23/17 02:11 Hypogranular Neuts Not Reportable 06/23/17 02:11 Smudge Cells Not Reportable 06/23/17 02:11 Toxic Granulation Not Reportable 06/23/17 02:11 Toxic Vacuolation Not Reportable 06/23/17 02:11 Dohle Bodies Not Reportable 06/23/17 02:11 Pelger-Huet Anomaly Not Reportable 06/23/17 02:11 Reji Rods Not Reportable 06/23/17 02:11 Platelet Estimate Consistent w auto 06/23/17 02:11 Clumped Platelets Not Reportable 06/23/17 02:11 Plt Clumps, EDTA Not Reportable 06/23/17 02:11 Large Platelets Not Reportable 06/23/17 02:11 Giant Platelets Not Reportable 06/23/17 02:11 Platelet Satelliting Not Reportable 06/23/17 02:11 Plt Morphology Comment Not Reportable 06/23/17 02:11 RBC Morphology Not Reportable 06/23/17 02:11 Dimorphic RBCs Not Reportable 06/23/17 02:11 Polychromasia Rare 06/23/17 02:11 Hypochromasia Not Reportable 06/23/17 02:11 Poikilocytosis Not Reportable 06/23/17 02:11 Anisocytosis 1+ 06/23/17 02:11 Microcytosis Not Reportable 06/23/17 02:11 Macrocytosis Rare 06/23/17 02:11 Spherocytes Not Reportable 06/23/17 02:11 Pappenheimer Bodies Not Reportable 06/23/17 02:11 Sickle Cells Not Reportable 06/23/17 02:11 Target Cells Not Reportable 06/23/17 02:11 Tear Drop Cells Not Reportable 06/23/17 02:11 Ovalocytes Not Reportable 06/23/17 02:11 Helmet Cells Not Reportable 06/23/17 02:11 [place] Bodies Not Reportable 06/23/17 02:11 [place] Rings Not Reportable 06/23/17 02:11 [place] Cells Not Reportable 06/23/17 02:11 Bite Cells Not Reportable 06/23/17 02:11 Crenated Cell Not Reportable 06/23/17 02:11 Elliptocytes Not Reportable 06/23/17 02:11 Acanthocytes (Spur) Not Reportable 06/23/17 02:11 Rouleaux Not Reportable 06/23/17 02:11 Hemoglobin C Crystals Not Reportable 06/23/17 02:11 Schistocytes Not Reportable 06/23/17 02:11 Malaria parasites Not Reportable 06/23/17 02:11 Ravindra Bodies Not Reportable 06/23/17 02:11 Hem Pathologist Commnt No 06/23/17 02:11 PT 15.2 Sec. (12.2-14.9) H 06/20/17 19:31 INR 1.14 (0.87-1.13) H 06/20/17 19:31 APTT 30.2 Sec. (24.2-36.6) 06/20/17 19:31 POC ABG pH 7.305 (7.35-7.45) L 06/23/17 15:49 POC ABG pCO2 41.5 (35-45) 06/23/17 15:49 POC ABG pO2 79 (80-105) L 06/23/17 15:49 POC ABG HCO3 20.6 06/23/17 15:49 POC ABG Total CO2 22 06/23/17 15:49 POC ABG O2 Sat 94 06/23/17 15:49 POC ABG Base Excess -6 06/23/17 15:49 FiO2 100 % 06/23/17 15:49 Sodium 142 mmol/L (137-145) 06/23/17 02:11 Potassium 5.3 mmol/L (3.6-5.0) H D 06/23/17 02:11 Chloride 99.1 mmol/L (98-107) 06/23/17 02:11 Carbon Dioxide 24 mmol/L (22-30) 06/23/17 02:11 Anion Gap 24 mmol/L 06/23/17 02:11 BUN 43 mg/dL (9-20) H 06/23/17 02:11 Creatinine 9.7 mg/dL (0.8-1.5) H 06/23/17 02:11 Estimated GFR 7 ml/min 06/23/17 02:11 BUN/Creatinine Ratio 4.43 % 06/23/17 02:11 Glucose 42 mg/dL (75-100) L 06/23/17 10:53 POC Glucose 101 (70-105) 06/23/17 12:12 Calcium 8.8 mg/dL (8.4-10.2) 06/23/17 02:11 Phosphorus 4.50 mg/dL (2.5-4.5) 06/20/17 12:20 Total Bilirubin 0.40 mg/dL (0.1-1.2) 06/21/17 12:49 AST 16 units/L (5-40) 06/21/17 12:49 ALT 5 units/L (7-56) L 06/21/17 12:49 Alkaline Phosphatase 40 units/L (35-129) 06/21/17 12:49 Troponin T 0.063 ng/mL (0.00-0.029) H D 06/18/17 18:34 Total Protein 4.9 g/dL (6.3-8.2) L D 06/21/17 12:49 Albumin 2.8 g/dL (3.9-5) L 06/21/17 12:49 Albumin/Globulin Ratio 1.3 % 06/21/17 12:49 Triglycerides 90 mg/dL (2-149) 06/18/17 15:40 Cholesterol 92 mg/dL (50-199) 06/18/17 15:40 LDL Cholesterol Direct 48 mg/dL (50-130) L 06/18/17 15:40 HDL Cholesterol 26 mg/dL (40-59) L 06/18/17 15:40 Cholesterol/HDL Ratio 3.53 % 06/18/17 15:40 Lipase 32 units/L (13-60) 06/17/17 23:10 Blood Type O POSITIVE 06/21/17 06:54 Antibody Screen Negative 06/21/17 06:54 Crossmatch See Detail 06/21/17 06:54
[2017-06-23] MEDS ORDERED: LEVOPHED DRIP 4 MG/NS 250 ML 4 MG/250 ML BAG IV ONE (16:29)
[2017-06-23] MEDS ORDERED: VASELINE LIP THERAPY TP PRN (16:39)
[2017-06-23] MEDS ORDERED: ARTIFICIAL TEARS OPHTH OINT OU PRN (16:39)
--- NOTE | 2017-06-23 16:51 | Operative Report ---
Operative Report Operative Report: EXAM: ULTRASOUND GUIDED PLACEMENT OF CENTRAL VENOUS CATHETER CLINICAL INDICATION: HYPOTENSION REQUIRING PRESSORS DATE: 06/23/2017 PROCEDURE: Following an expiration of the risks, benefits and alternatives; written informed consent was obtained from the patient's next of kin. The procedure was performed at bedside in the ICU. Initial ultrasound evaluation of the left groin demonstrated an occluded left common femoral vein. Initial ultrasound evaluation of the right groin demonstrated a patent right common femoral vein. Patient's right groin was prepped and draped in the usual sterile fashion. 1% lidocaine was used for anesthesia. Under ultrasound guidance, the right common femoral vein was cannulated with a 7 cm 18-gauge needle. A 0.035 guidewire was advanced centrally easily. The needle was removed and following serial dilation, a 6 [place] triple-lumen catheter was advanced over the guidewire centrally. The guidewire was removed. Nonpulsatile blood return from all 3 ports. The catheter was flushed with sterile saline. Catheter was securely fastened of the skin surface using 2-0 silk suture and a sterile dressing applied. The patient tolerated the procedure well. There were no immediate post procedure complications. IMPRESSION: 1) Ultrasound guided placement of central venous catheter via the right common femoral vein, the left common femoral vein is occluded.
[2017-06-23] MEDS ORDERED: NACL 0.9% 500 ML IV SCH (17:00)
--- NOTE | 2017-06-23 17:13 | XRay Report ---
FINAL REPORT PROCEDURE: XR CHEST 1V AP TECHNIQUE: Chest radiograph anteroposterior view. CPT 64826 HISTORY: ETT placement COMPARISON: No prior studies are available for comparison. FINDINGS: Heart: Mildly prominent contour Mediastinum/Vessels: Prominent in tortuous central vessels. Lungs/Pleural space: No infiltrate, effusion, or pneumothorax. Bony thorax: No acute osseous abnormality. Life support devices: Endotracheal tube tip projects 4.3 centimeters superior to the onofre. IMPRESSION: Endotracheal tube tip projects 4.3 centimeters superior to the onofre.
[2017-06-23 17:17] LABS: ISTAT Base Excess -4; ISTAT PCO2 48.7 (35-45); ISTAT PH 7.282 (7.35-7.45); ISTAT PO2 172 (80-105); ISTAT SO2 99; ISTAT TCO2 24
[2017-06-23 17:59] LABS: Hematocrit 21.7 % (35.5-45.6); Mean Corpuscular HGB Conc 32 % (32-34); Mean Corpuscular Hemoglobin 29 pg (28-32); Mean Corpuscular Volume 90 fl (84-94); Platelet Count 114 K/mm3 (140-440); Red Blood Count 2.42 M/mm3 (3.65-5.03); Red Cell Distribution Width 17.6 % (13.2-15.2); White Blood Count 2.7 K/mm3 (4.5-11.0)
[2017-06-23 18:18] LABS: BUN/Creatinine Ratio 5.69; Calcium 8.3 mg/dL (8.4-10.2); Chloride 102.2 mmol/L (98-107); Magnesium 1.6 mg/dL (1.7-2.3); Phosphorous 8.2 mg/dL (2.5-4.5); Potassium 5.5 mmol/L (3.6-5.0)
[2017-06-23] MEDS ORDERED: NACL 0.9% 500 ML 500 ML IV ONE (18:41)
[2017-06-23 19:20] LABS: Basophils % (Manual) 0 % (0.0-1.8); Blastocytes % (Manual) 0 %; Eosinophils % (Manual) 0 % (0.0-4.3)
[2017-06-23 19:21] LABS: Anisocytosis 1+; Macrocytosis Rare; Platelet Estimate Consistent w Auto; Target Cells Few
[2017-06-23 19:22] LABS: Diff Status Complete
[2017-06-23] MEDS: PROTONIX IV SCH ×2 (20:35→21:53)
[2017-06-23] MEDS: LEVOPHED DRIP 4 MG/NS 250 ML 4 MG/250 ML BAG IV SCH (21:57)
[2017-06-24] MEDS: D50W (25GM) Vial IV PRN ×9 (00:27→21:07)
[2017-06-24] MEDS: D10W 1,000 ML IV SCH ×3 (00:36→20:16)
[2017-06-24] MEDS: LEVOPHED DRIP 4 MG/NS 250 ML 4 MG/250 ML BAG IV SCH ×5 (00:37→20:17)
[2017-06-24 01:14] LABS: ISTAT Base Excess -7; ISTAT HCO3 20.3; ISTAT PCO2 46.5 (35-45); ISTAT PH 7.248 (7.35-7.45); ISTAT PO2 72 (80-105); ISTAT SO2 91; ISTAT TCO2 22
[2017-06-24] MEDS: ZOSYN/NS 2.25 GM/50ML 2.25 GM/50 ML BAG IV SCH ×3 (03:00→18:25)
[2017-06-24] MEDS: APRESOLINE IV SCH ×3 (04:17→17:31)
[2017-06-24 05:23] LABS: Hematocrit 21.6 % (35.5-45.6); Hemoglobin 7.1 gm/dl (11.8-15.2); Mean Corpuscular HGB Conc 33 % (32-34); Mean Corpuscular Hemoglobin 30 pg (28-32); Mean Corpuscular Volume 89 fl (84-94); Red Blood Count 2.42 M/mm3 (3.65-5.03); White Blood Count 3.7 K/mm3 (4.5-11.0)
[2017-06-24 05:25] LABS: Platelet Count 100 K/mm3 (140-440)
[2017-06-24] MEDS: CATAPRES PO SCH ×2 (05:35→18:28)
[2017-06-24] MEDS: LOPRESSOR IV SCH ×3 (05:35→17:31)
[2017-06-24 05:47] LABS: BUN/Creatinine Ratio 6.21; Calcium 7.7 mg/dL (8.4-10.2); Chloride 99.9 mmol/L (98-107); Potassium 5.7 mmol/L (3.6-5.0)
[2017-06-24 06:10] LABS: ISTAT Base Excess -5; ISTAT HCO3 20.9; ISTAT PH 7.337 (7.35-7.45); ISTAT PO2 66 (80-105); ISTAT SO2 91; ISTAT TCO2 22
[2017-06-24 07:14] LABS: Basophils % (Manual) 0 % (0.0-1.8); Blastocytes % (Manual) 0 %
[2017-06-24 07:15] LABS: Anisocytosis 1+; Diff Status Complete; Dohle Bodies 1+; Hypochromasia 1+; Macrocytosis Rare; Target Cells Few
--- NOTE | 2017-06-24 07:48 | XRay Report ---
Single view chest: Compared to 06/23/17. History: Sepsis. Findings: Cardiomegaly. Trachea is midline. Endotracheal tube in normal position. Mild pulmonary venous congestion. No consolidation. Minimal left pleural effusion. Impression: Findings as detailed above. No significant interval change.
[2017-06-24 07:53] LABS: Platelet Estimate Appears Decreased
[2017-06-24] MEDS ORDERED: NACL 0.9% 1000 ML 1,000 ML IV SCH (08:00)
--- NOTE | 2017-06-24 09:49 | Progress Note ---
Subjective Principal diagnosis: GI bleed Interval history: Patient was evaluated today for follow-up on multiple renal related issues, Patient has been hypotensive septic respiratory failure currently intubated No family members are at the bedside Even so 24 hours vitals labs noted Current medications: Reviewed Social history:Reviewed Family history: Reviewed HEENT: Early intubated Neck: Supple without JVD Chest: Clear to auscultation occasional basilar crackles posteriorly Heart: Regular rate and rhythm S1 and S2 heard no S3-S4 Abdomen: Soft slightly distended has dressing in place bowel sounds absent Extremity: Dry skin minimal edema Psychiatry: No agitation and aggression noted Assessment and plan End-stage renal disease: patient is currently hemodynamically unstable at this time will like to treat hyperkalemia medically and follow Patient is mildly hyperkalemic ;patient may need to be dialyzed with a lower blood flow if tolerated will discuss with the family, in the meantime I would like to give him albumin 50 g, may benefit from IV steroid if there is no contraindication from infectious disease standpoint At this time patient will need calcium chloride/also would give him small dose of albuterol to correct hyperkalemia and follow-up on the potassium Lactic acidosis severe/ likely due to abdominal sepsis,needs monitoring and close follow-up Admitted with GI bleed/status post surgery GI bleeding status post GI follow-up endoscopy Hypoglycemia currently on D10 drip overall his prognosis is very poor mortality risk is very high Discussed with family at the bedside Objective - Vital Signs Vital signs: Vital Signs - 12hr 06/23/17 06/23/17 06/23/17 22:00 22:07 22:15 Temperature Pulse Rate 104 H 108 H 112 H Pulse Rate [ From Monitor] Pulse Rate [ Right Dorsalis Pedis] Respiratory 18 19 Rate Blood Pressure 107/55 110/52 O2 Sat by Pulse 91 95 Oximetry 06/23/17 06/23/17 06/23/17 22:30 22:45 23:00 Temperature Pulse Rate 105 H 105 H 113 H Pulse Rate [ From Monitor] Pulse Rate [ Right Dorsalis Pedis] Respiratory 17 17 20 Rate Blood Pressure 97/46 118/34 112/62 O2 Sat by Pulse 96 97 Oximetry 06/23/17 06/23/17 06/23/17 23:15 23:18 23:31 Temperature Pulse Rate 106 H 99 H 111 H Pulse Rate [ From Monitor] Pulse Rate [ Right Dorsalis Pedis] Respiratory 26 H 21 Rate Blood Pressure 112/62 103/56 86/51 O2 Sat by Pulse 77 L 99 80 L Oximetry 06/23/17 06/24/17 06/24/17 23:45 00:00 00:15 Temperature 97.9 F Pulse Rate 108 H 104 H 104 H Pulse Rate [ 104 H From Monitor] Pulse Rate [ 104 H Right Dorsalis Pedis] Respiratory 21 22 22 Rate Blood Pressure 92/42 112/40 88/35 O2 Sat by Pulse 78 L 87 100 Oximetry 06/24/17 06/24/17 06/24/17 00:31 00:45 01:01 Temperature Pulse Rate 114 H 109 H 115 H Pulse Rate [ From Monitor] Pulse Rate [ Right Dorsalis Pedis] Respiratory 20 21 20 Rate Blood Pressure 121/67 108/39 120/43 O2 Sat by Pulse Oximetry 06/24/17 06/24/17 06/24/17 01:15 01:30 01:45 Temperature Pulse Rate 116 H 117 H 123 H Pulse Rate [ From Monitor] Pulse Rate [ Right Dorsalis Pedis] Respiratory 20 21 22 Rate Blood Pressure 122/45 113/53 109/42 O2 Sat by Pulse Oximetry 06/24/17 06/24/17 06/24/17 02:00 02:15 02:30 Temperature Pulse Rate 113 H 120 H 117 H Pulse Rate [ From Monitor] Pulse Rate [ Right Dorsalis Pedis] Respiratory 20 24 20 Rate Blood Pressure 131/50 112/77 116/57 O2 Sat by Pulse 78 L Oximetry 06/24/17 06/24/17 06/24/17 02:45 03:00 03:15 Temperature Pulse Rate 121 H 119 H 119 H Pulse Rate [ From Monitor] Pulse Rate [ Right Dorsalis Pedis] Respiratory 22 21 23 Rate Blood Pressure 116/57 109/45 99/47 O2 Sat by Pulse 84 91 Oximetry 06/24/17 06/24/17 06/24/17 03:29 03:30 03:44 Temperature Pulse Rate 102 H 121 H 121 H Pulse Rate [ From Monitor] Pulse Rate [ Right Dorsalis Pedis] Respiratory 22 Rate Blood Pressure 105/57 120/48 O2 Sat by Pulse 94 86 Oximetry 06/24/17 06/24/17 06/24/17 03:45 04:00 04:01 Temperature 98.3 F Pulse Rate 119 H 118 H Pulse Rate [ From Monitor] Pulse Rate [ Right Dorsalis Pedis] Respiratory 23 23 Rate Blood Pressure 128/50 92/47 O2 Sat by Pulse 92 96 Oximetry 06/24/17 06/24/17 06/24/17 04:15 04:30 04:45 Temperature Pulse Rate 116 H 117 H 122 H Pulse Rate [ 116 H From Monitor] Pulse Rate [ Right Dorsalis Pedis] Respiratory 20 21 25 H Rate Blood Pressure 92/47 113/48 97/52 O2 Sat by Pulse 99 96 95 Oximetry 06/24/17 06/24/17 06/24/17 05:00 05:15 05:30 Temperature Pulse Rate 120 H 123 H 119 H Pulse Rate [ From Monitor] Pulse Rate [ Right Dorsalis Pedis] Respiratory 22 25 H 25 H Rate Blood Pressure 111/57 111/57 112/51 O2 Sat by Pulse 96 93 97 Oximetry 06/24/17 06/24/17 06/24/17 05:45 06:00 06:15 Temperature Pulse Rate 117 H 119 H 116 H Pulse Rate [ From Monitor] Pulse Rate [ Right Dorsalis Pedis] Respiratory 22 25 H 22 Rate Blood Pressure 112/59 101/57 113/53 O2 Sat by Pulse 96 96 98 Oximetry 06/24/17 06/24/17 06/24/17 06:17 06:30 06:45 Temperature Pulse Rate 120 H 120 H 120 H Pulse Rate [ From Monitor] Pulse Rate [ Right Dorsalis Pedis] Respiratory 25 H 24 Rate Blood Pressure 112/59 120/51 110/53 O2 Sat by Pulse 93 98 98 Oximetry 06/24/17 06/24/17 06/24/17 07:00 07:15 07:30 Temperature Pulse Rate 116 H 119 H 122 H Pulse Rate [ From Monitor] Pulse Rate [ Right Dorsalis Pedis] Respiratory 22 25 H 25 H Rate Blood Pressure 110/53 118/61 107/58 O2 Sat by Pulse 99 99 98 Oximetry 06/24/17 06/24/17 06/24/17 07:45 08:00 08:11 Temperature 99.9 F H Pulse Rate 120 H 106 H 116 H Pulse Rate [ 113 H From Monitor] Pulse Rate [ Right Dorsalis Pedis] Respiratory 26 H 23 Rate Blood Pressure 97/55 92/50 97/52 O2 Sat by Pulse 99 95 97 Oximetry - Lab 06/24/17 13:00 06/24/17 13:00 Most recent lab results Calcium 7.7 mg/dL (8.4-10.2) L 06/24/17 05:05 Phosphorus 8.20 mg/dL (2.5-4.5) H 06/23/17 17:40 Magnesium 1.60 mg/dL (1.7-2.3) L 06/23/17 17:40
--- NOTE | 2017-06-24 09:56 | Progress Note ---
Assessment and Plan Acute GI bleed s/p transfusion of PRBCs s/p colectomy and iterminal ileum-rectal anastomosis. AMS Sepsis Gram negative rods bacteremia ESRD on HD Hypoglycemia Acute respiratory failure intubated on the vent Hypertension now hypotensive on pressors Fever Tobacco abuse Chest pain Reflex sinus tachycardia Conservative cardiac management. Subjective Date of service: 06/24/17 Principal diagnosis: GI bleed Interval history: Patient is now intubated and sedated, on mechanical ventilation and on pressors for support. Objective Vital Signs Temp Pulse Pulse Pulse Resp Resp BP 06/24/17 08:11 116 H 97/52 06/24/17 08:00 99.9 F H 106 H 113 H 23 92/50 06/24/17 07:45 120 H 26 H 97/55 06/24/17 07:30 122 H 25 H 107/58 06/24/17 07:15 119 H 25 H 118/61 06/24/17 07:00 116 H 22 110/53 06/24/17 06:45 120 H 24 110/53 06/24/17 06:30 120 H 25 H 120/51 06/24/17 06:17 120 H 112/59 06/24/17 06:15 116 H 22 113/53 06/24/17 06:00 119 H 25 H 101/57 06/24/17 05:45 117 H 22 112/59 06/24/17 05:30 119 H 25 H 112/51 06/24/17 05:15 123 H 25 H 111/57 06/24/17 05:00 120 H 22 111/57 06/24/17 04:45 122 H 25 H 97/52 06/24/17 04:30 117 H 21 113/48 06/24/17 04:15 116 H 116 H 20 92/47 06/24/17 04:01 118 H 23 92/47 06/24/17 04:00 98.3 F 06/24/17 03:45 119 H 23 128/50 06/24/17 03:44 121 H 06/24/17 03:30 121 H 22 120/48 06/24/17 03:29 102 H 105/57 06/24/17 03:15 119 H 23 99/47 06/24/17 03:00 119 H 21 109/45 06/24/17 02:45 121 H 22 116/57 06/24/17 02:30 117 H 20 116/57 06/24/17 02:15 120 H 24 112/77 06/24/17 02:00 113 H 20 131/50 06/24/17 01:45 123 H 22 109/42 06/24/17 01:30 117 H 21 113/53 06/24/17 01:15 116 H 20 122/45 06/24/17 01:01 115 H 20 120/43 06/24/17 00:45 109 H 21 108/39 06/24/17 00:31 114 H 20 121/67 06/24/17 00:15 104 H 22 88/35 06/24/17 00:00 97.9 F 104 H 104 H 104 H 22 112/40 06/23/17 23:45 108 H 21 92/42 06/23/17 23:31 111 H 21 86/51 06/23/17 23:18 99 H 103/56 06/23/17 23:15 106 H 26 H 112/62 06/23/17 23:00 113 H 20 112/62 06/23/17 22:45 105 H 17 118/34 06/23/17 22:30 105 H 17 97/46 06/23/17 22:15 112 H 19 110/52 06/23/17 22:07 108 H 06/23/17 22:00 104 H 18 107/55 06/23/17 21:45 104 H 17 120/46 06/23/17 21:30 106 H 16 113/55 06/23/17 21:15 104 H 16 116/60 06/23/17 21:00 97.8 F 106 H 16 115/52 06/23/17 20:45 104 H 15 100/52 06/23/17 20:31 107 H 104/57 06/23/17 20:30 105 H 105 H 16 16 93/42 06/23/17 20:15 107 H 16 131/65 06/23/17 20:01 108 H 16 130/68 06/23/17 19:45 104 H 15 86/51 06/23/17 19:30 108 H 18 86/51 06/23/17 19:15 107 H 16 96/51 06/23/17 19:00 107 H 16 102/50 06/23/17 18:45 107 H 15 104/46 06/23/17 18:30 107 H 16 111/38 06/23/17 18:15 108 H 16 98/30 06/23/17 18:01 109 H 16 98/30 06/23/17 18:00 103 H 16 06/23/17 17:45 109 H 18 113/65 06/23/17 17:30 110 H 16 97/46 06/23/17 17:15 109 H 17 114/47 06/23/17 17:00 108 H 18 111/45 06/23/17 16:45 101 H 15 111/40 06/23/17 16:30 104 H 16 86/34 06/23/17 16:15 99 H 23 69/35 06/23/17 16:10 100 H 75/40 06/23/17 16:01 104 H 22 98/47 06/23/17 16:00 99.3 F 93 H 108 H 16 06/23/17 15:51 06/23/17 15:45 105 H 23 85/53 06/23/17 15:31 107 H 23 98/47 06/23/17 15:15 110 H 22 98/47 06/23/17 15:01 110 H 25 H 98/50 06/23/17 14:46 06/23/17 14:45 111 H 25 H 98/50 06/23/17 14:30 109 H 109 H 21 114/55 06/23/17 14:15 76 25 H 117/51 06/23/17 14:00 104 H 23 95/53 06/23/17 13:45 107 H 24 107/58 06/23/17 13:30 106 H 22 117/59 06/23/17 13:25 104 H 111/58 06/23/17 13:15 105 H 21 111/58 06/23/17 13:00 106 H 22 104/54 06/23/17 12:45 103 H 15 112/58 06/23/17 12:30 103 H 22 102/56 06/23/17 12:15 101 H 20 125/63 06/23/17 12:00 107 H 110 H 24 125/63 06/23/17 11:47 98.2 F 06/23/17 11:45 103 H 19 133/63 06/23/17 11:30 102 H 15 114/47 06/23/17 11:15 101 H 18 135/65 06/23/17 11:00 99 H 15 121/58 06/23/17 10:45 100 H 16 101/53 06/23/17 10:30 98 H 17 93/48 06/23/17 10:15 98 H 14 115/55 06/23/17 10:00 96 H 18 114/54 Pulse Ox 06/24/17 08:11 97 06/24/17 08:00 95 06/24/17 07:45 99 06/24/17 07:30 98 06/24/17 07:15 99 06/24/17 07:00 99 06/24/17 06:45 98 06/24/17 06:30 98 06/24/17 06:17 93 06/24/17 06:15 98 06/24/17 06:00 96 06/24/17 05:45 96 06/24/17 05:30 97 06/24/17 05:15 93 06/24/17 05:00 96 06/24/17 04:45 95 06/24/17 04:30 96 06/24/17 04:15 99 06/24/17 04:01 96 06/24/17 04:00 06/24/17 03:45 92 06/24/17 03:44 06/24/17 03:30 86 06/24/17 03:29 94 06/24/17 03:15 91 06/24/17 03:00 84 06/24/17 02:45 06/24/17 02:30 78 L 06/24/17 02:15 06/24/17 02:00 06/24/17 01:45 06/24/17 01:30 06/24/17 01:15 06/24/17 01:01 06/24/17 00:45 06/24/17 00:31 06/24/17 00:15 100 06/24/17 00:00 87 06/23/17 23:45 78 L 06/23/17 23:31 80 L 06/23/17 23:18 99 06/23/17 23:15 77 L 06/23/17 23:00 06/23/17 22:45 97 06/23/17 22:30 96 06/23/17 22:15 95 06/23/17 22:07 06/23/17 22:00 91 06/23/17 21:45 96 06/23/17 21:30 98 06/23/17 21:15 98 06/23/17 21:00 97 06/23/17 20:45 97 06/23/17 20:31 100 06/23/17 20:30 95 06/23/17 20:15 89 06/23/17 20:01 71 L 06/23/17 19:45 100 06/23/17 19:30 99 06/23/17 19:15 98 06/23/17 19:00 100 06/23/17 18:45 100 06/23/17 18:30 98 06/23/17 18:15 100 06/23/17 18:01 06/23/17 18:00 98 06/23/17 17:45 100 06/23/17 17:30 96 06/23/17 17:15 98 06/23/17 17:00 100 06/23/17 16:45 100 06/23/17 16:30 100 06/23/17 16:15 76 L 06/23/17 16:10 100 06/23/17 16:01 95 06/23/17 16:00 100 06/23/17 15:51 100 06/23/17 15:45 100 06/23/17 15:31 100 06/23/17 15:15 06/23/17 15:01 100 06/23/17 14:46 100 06/23/17 14:45 93 06/23/17 14:30 94 06/23/17 14:15 80 L 06/23/17 14:00 77 L 06/23/17 13:45 06/23/17 13:30 90 06/23/17 13:25 06/23/17 13:15 92 06/23/17 13:00 92 06/23/17 12:45 06/23/17 12:30 93 06/23/17 12:15 92 06/23/17 12:00 94 06/23/17 11:47 06/23/17 11:45 90 06/23/17 11:30 93 06/23/17 11:15 88 06/23/17 11:00 06/23/17 10:45 96 06/23/17 10:30 89 06/23/17 10:15 94 06/23/17 10:00 94 - Physical Examination General: Other (intubated on the vent) Cardiac: Positive: Tachycardia - Labs and Meds CBC 06/23/17 06/24/17 Range/Units 17:40 05:05 WBC 2.7 L 3.7 L (4.5-11.0) K/mm3 RBC 2.42 L 2.42 L (3.65-5.03) M/mm3 Hgb 7.0 L 7.1 L (11.8-15.2) gm/dl Hct 21.7 L 21.6 L (35.5-45.6) % Plt Count 114 L 100 L (140-440) K/mm3 Comprehensive Metabolic Panel 06/23/17 06/23/17 06/24/17 Range/Units 10:53 17:40 05:05 Sodium 144 141 (137-145) mmol/L Potassium 5.5 H 5.7 H (3.6-5.0) mmol/L Chloride 102.2 99.9 (98-107) mmol/L Carbon Dioxide 22 21 L (22-30) mmol/L BUN 53 H 59 H (9-20) mg/dL Creatinine 9.3 H 9.5 H (0.8-1.5) mg/dL Glucose 42 L 47 L 48 L (75-100) mg/dL Calcium 8.3 L 7.7 L (8.4-10.2) mg/dL
[2017-06-24] MEDS ORDERED: PROVENTIL IH ONE (10:00)
[2017-06-24] MEDS ORDERED: ALBURX 25% (ALBUMIN) IV ONE (10:00)
[2017-06-24] MEDS: PROTONIX IV SCH ×2 (10:53→21:08)
[2017-06-24] MEDS ORDERED: CALCIUM CHLORIDE 1,000 MG in NACL 0.9% 100 ML IV ONE (11:00)
--- NOTE | 2017-06-24 11:43 | Consultation ---
History of Present Illness - Reason for Consult Consult date: 06/24/17 GNR bacteremia Requesting physician: CYNDI AKHTAR - History of Present Illness This is a 66 year-old male with history of ESRD on HD via AVF, hypertension who lives in [place] and came to [place] to visit his mother; admitted on 2016 due to 3-day history of nausea, non-bloody vomiting and bloody stools. Patient is currrently intubated and sedated. History taken from family members. Patient was also complaining of chest pain. BP 173/96 In the ED, temperature was 98.5, HR 97, BP 173/96, WBC 5K, Hg 6.4, creat 6.8, CXR neg. Patient underwent a CTA showing mild diverticulitis and a possible colonic mass, also showed bilateral pleural effusions and polycystic kidneys. Patient was evaluated by GI med. GI nuclear scan showed uptake on LUQ. Patient was taken to the OR on 06/21 underwent subtotal colectomy for diverticular bleeding. On 06/23 patient became septic with temp 101.2, hypotension, neutropenia at 2K and bandemia at 40%. Microbiology: Blood cultures: 06/23 GNR 2 of 4 bottles Urine cultures: Respiratory cultures: Sp 06/23 neg Wound cultures: Stool cultures: Current Antimicrobials: 06/23 Zosyn 06/23 Vancomycin Previous Antimicrobials: Past History Past Medical History: ESRD (on HD), hyperthyroidism Past Surgical History: Other (prostate CA) Social history: lives with family, smoking. denies: alcohol abuse Family history: hypertension Medications and Allergies Allergies Allergy/AdvReac Type Severity Reaction Status Date / Time No Known Allergies Allergy Unverified 06/17/17 22:41 Home Medications Medication Instructions Recorded Confirmed Last Taken Type AtorvaSTATin [Lipitor] 10 mg PO QHS 06/18/17 06/18/17 06/17/17 History Carvedilol [Coreg] 12.5 mg PO BID 06/18/17 06/18/17 06/17/17 History Cinacalcet HCl [Sensipar] 90 mg PO DAILY 06/18/17 06/18/17 06/17/17 History Clonidine HCl [Catapres] 0.3 mg PO TID 06/18/17 06/18/17 06/17/17 History Dexlansoprazole [Dexilant] 60 mg PO DAILY 06/18/17 06/18/17 06/17/17 History Fluticasone [Flonase] 1 spray NS QDAY 06/18/17 06/18/17 06/17/17 History Folic Acid/Vit B Comp W-C [Renal 1 cap PO QDAY 06/18/17 06/18/17 06/17/17 History Caps] Hydralazine HCl [Apresoline TAB] 50 mg PO BID 06/18/17 06/18/17 06/17/17 History Valsartan [Diovan] 320 mg PO QDAY 06/18/17 06/18/17 06/17/17 History Zolpidem [Ambien] 10 mg PO QHS 06/18/17 06/18/17 06/17/17 History amLODIPine [Norvasc] 10 mg PO DAILY 06/18/17 06/18/17 06/17/17 History Active Meds: Active Medications Acetaminophen (Tylenol) 650 mg OH Q4H PRN PRN Reason: Fever Last Admin: 06/23/17 05:13 Dose: 650 mg Clonidine HCl (Catapres) 0.1 mg PO Q8HR ZAHIDA Last Admin: 06/24/17 05:35 Dose: Not Given Dextrose (D50w (25gm)) 25 gm IV PRN PRN PRN Reason: Hypoglycemia Last Admin: 06/24/17 09:58 Dose: 25 gm Epoetin Roman (Epogen) 20,000 unit IV BROWN PRN PRN Reason: hemodialysis Last Admin: 06/21/17 15:50 Dose: 20,000 unit Hydralazine HCl (Apresoline) 10 mg IV Q6H ZAHIDA Last Admin: 06/24/17 04:17 Dose: Not Given Hydrocortisone Sodium Succinate (Solu-Cortef) 50 mg IV Q6HR [facility]AHIDA Hydrophilic Ointment (Vaseline Lip Therapy) 1 applic TP DIRECT PRN PRN Reason: Dry Lips Last Admin: 06/22/17 12:14 Dose: 1 applic Hydrophilic Ointment (Vaseline Lip Therapy) 1 applic TP Q2HR PRN PRN Reason: Dry Lips Sodium Chloride (Nacl 0.9%) 100 mls @ 999 mls/hr IV BROWN PRN PRN Reason: Hypotension Dextrose (D10w) 1,000 mls @ 150 mls/hr IV DIRECT ZAHIDA Last Infusion: 06/24/17 01:00 Dose: 75 mls/hr Piperacillin Sod/Tazobactam Sod (Zosyn/Ns 2.25 Gm/50ml) 2.25 gm in 50 mls @ 100 mls/hr IV Q8H [facility] Last Admin: 06/24/17 11:18 Dose: 100 mls/hr Norepinephrine (Levophed Drip 4 Mg/Ns 250 Ml) 4 mg in 250 mls @ 7.5 mls/hr IV TITR ZAHIDA; 2 MCG/MIN PRN Reason: Protocol Last Admin: 06/24/17 08:27 Dose: 16 mcg/min, 60 mls/hr Thiamine HCl 200 mg/ Sodium (Chloride) 52 mls @ 100 mls/hr IV BID [facility] Stop: 06/27/17 22:32 Ascorbic Acid 1,500 mg/ Sodium (Chloride) 53 mls @ 50 mls/30 min IV Q6HR [facility] Stop: 06/28/17 06:32 Metoprolol Tartrate (Lopressor) 2.5 mg IV Q6HR [facility] Last Admin: 06/24/17 11:19 Dose: Not Given Morphine Sulfate (Morphine) 2 mg IV Q4H PRN PRN Reason: Pain, Moderate (4-6) Last Admin: 06/22/17 22:48 Dose: 2 mg Multi-Ingred Cream/Lotion/Oil/Oint (Artificial Tears Ophth Oint) 1 applic OU Q4HR PRN PRN Reason: Dry Eye(s) Nitroglycerin (Nitrostat) 0.4 mg SL .Q5MIN PRN PRN Reason: Chest Pain Ondansetron HCl (Zofran) 4 mg IV Q8H PRN PRN Reason: Nausea And Vomiting Last Admin: 06/21/17 05:16 Dose: 4 mg Pantoprazole Sodium (Protonix) 40 mg IV BID [facility] Last Admin: 06/24/17 10:53 Dose: 40 mg Sodium Chloride (Nacl 0.9% 500 Ml) 1 ml IV DIRECT [facility]AHIDA Vancomycin HCl (Vancomycin Pharmacy To Dose) 1 each IV PKCONSULT ZAHIDA PRN Reason: Protocol Physical Examination - Physical Exam Narrative exam: General appearance: sedated on the vent in NAD Eyes: anicteric sclerae, moist conjunctivae; no lid-lag; PERRLA HENT: Atraumatic; oropharynx limited + ETT Neck: Trachea midline; supple, no thyromegaly or lymphadenopathy Lungs: CTA CV: RRR, no murmurs Abdomen: Soft, midline surgical wound with surgical dressings Extremities: peripheral edema or extremity lymphadenopathy Skin: + left arm AVF with a thrill. Skin Normal temperature, turgor and texture ; no rash, ulcers or subcutaneous nodules Psych: sedated. Neuro: sedated Lines: right fem TLC placed 06/23 - Constitutional Vitals: Vital Signs Temp Pulse Resp BP Pulse Ox 99.9 F H 115 H 27 H 97/48 96 06/24/17 08:00 06/24/17 11:19 06/24/17 10:45 06/24/17 11:19 06/24/17 10:45 Temperature -Last 24 Hours Temperature 99.9 F Temperature 98.3 F Temperature 97.9 F Temperature 97.8 F Temperature 99.3 F Temperature 98.2 F Results - Labs CBC & Chem 7: 06/24/17 05:05 06/24/17 05:05 Labs: Abnormal lab results 06/21/17 06/23/17 06/23/17 Range/Units 06:54 09:21 11:16 WBC (4.5-11.0) K/mm3 RBC (3.65-5.03) M/mm3 Hgb (11.8-15.2) gm/dl Hct (35.5-45.6) % RDW (13.2-15.2) % Plt Count (140-440) K/mm3 Seg Neuts % (Manual) (40.0-70.0) % Lymphocytes % (Manual) (13.4-35.0) % Monocytes % (Manual) (0.0-7.3) % Nucleated RBC % (0.0-0.9) % Seg Neutrophils # Man (1.8-7.7) K/mm3 Lymphocytes # (Manual) (1.2-5.4) K/mm3 POC ABG pH (7.35-7.45) POC ABG pCO2 (35-45) POC ABG pO2 (80-105) Potassium (3.6-5.0) mmol/L Carbon Dioxide (22-30) mmol/L BUN (9-20) mg/dL Creatinine (0.8-1.5) mg/dL Glucose (75-100) mg/dL POC Glucose < 40 L 51 L (70-105) Lactic Acid (0.7-2.0) mmol/L Calcium (8.4-10.2) mg/dL Phosphorus (2.5-4.5) mg/dL Magnesium (1.7-2.3) mg/dL Troponin T (0.00-0.029) ng/mL Crossmatch See Detail 06/23/17 06/23/17 06/23/17 Range/Units 13:12 13:57 15:15 WBC (4.5-11.0) K/mm3 RBC (3.65-5.03) M/mm3 Hgb (11.8-15.2) gm/dl Hct (35.5-45.6) % RDW (13.2-15.2) % Plt Count (140-440) K/mm3 Seg Neuts % (Manual) (40.0-70.0) % Lymphocytes % (Manual) (13.4-35.0) % Monocytes % (Manual) (0.0-7.3) % Nucleated RBC % (0.0-0.9) % Seg Neutrophils # Man (1.8-7.7) K/mm3 Lymphocytes # (Manual) (1.2-5.4) K/mm3 POC ABG pH (7.35-7.45) POC ABG pCO2 (35-45) POC ABG pO2 (80-105) Potassium (3.6-5.0) mmol/L Carbon Dioxide (22-30) mmol/L BUN (9-20) mg/dL Creatinine (0.8-1.5) mg/dL Glucose (75-100) mg/dL POC Glucose 55 L 52 L 63 L (70-105) Lactic Acid (0.7-2.0) mmol/L Calcium (8.4-10.2) mg/dL Phosphorus (2.5-4.5) mg/dL Magnesium (1.7-2.3) mg/dL Troponin T (0.00-0.029) ng/mL Crossmatch 06/23/17 06/23/17 06/23/17 Range/Units 15:49 16:26 16:57 WBC (4.5-11.0) K/mm3 RBC (3.65-5.03) M/mm3 Hgb (11.8-15.2) gm/dl Hct (35.5-45.6) % RDW (13.2-15.2) % Plt Count (140-440) K/mm3 Seg Neuts % (Manual) (40.0-70.0) % Lymphocytes % (Manual) (13.4-35.0) % Monocytes % (Manual) (0.0-7.3) % Nucleated RBC % (0.0-0.9) % Seg Neutrophils # Man (1.8-7.7) K/mm3 Lymphocytes # (Manual) (1.2-5.4) K/mm3 POC ABG pH 7.305 L (7.35-7.45) POC ABG pCO2 (35-45) POC ABG pO2 79 L (80-105) Potassium (3.6-5.0) mmol/L Carbon Dioxide (22-30) mmol/L BUN (9-20) mg/dL Creatinine (0.8-1.5) mg/dL Glucose (75-100) mg/dL POC Glucose 60 L 111 H (70-105) Lactic Acid (0.7-2.0) mmol/L Calcium (8.4-10.2) mg/dL Phosphorus (2.5-4.5) mg/dL Magnesium (1.7-2.3) mg/dL Troponin T (0.00-0.029) ng/mL Crossmatch 06/23/17 06/23/17 06/23/17 Range/Units 17:09 17:40 17:40 WBC 2.7 L (4.5-11.0) K/mm3 RBC 2.42 L (3.65-5.03) M/mm3 Hgb 7.0 L (11.8-15.2) gm/dl Hct 21.7 L (35.5-45.6) % RDW 17.6 H (13.2-15.2) % Plt Count 114 L (140-440) K/mm3 Seg Neuts % (Manual) 83.0 H (40.0-70.0) % Lymphocytes % (Manual) 7.0 L (13.4-35.0) % Monocytes % (Manual) 9.0 H (0.0-7.3) % Nucleated RBC % (0.0-0.9) % Seg Neutrophils # Man (1.8-7.7) K/mm3 Lymphocytes # (Manual) 0.2 L (1.2-5.4) K/mm3 POC ABG pH 7.282 L (7.35-7.45) POC ABG pCO2 48.7 H (35-45) POC ABG pO2 172 H (80-105) Potassium (3.6-5.0) mmol/L Carbon Dioxide (22-30) mmol/L BUN (9-20) mg/dL Creatinine (0.8-1.5) mg/dL Glucose (75-100) mg/dL POC Glucose (70-105) Lactic Acid 5.30 H* (0.7-2.0) mmol/L Calcium (8.4-10.2) mg/dL Phosphorus (2.5-4.5) mg/dL Magnesium (1.7-2.3) mg/dL Troponin T (0.00-0.029) ng/mL Crossmatch 06/23/17 06/23/17 06/23/17 Range/Units 17:40 17:47 19:28 WBC (4.5-11.0) K/mm3 RBC (3.65-5.03) M/mm3 Hgb (11.8-15.2) gm/dl Hct (35.5-45.6) % RDW (13.2-15.2) % Plt Count (140-440) K/mm3 Seg Neuts % (Manual) (40.0-70.0) % Lymphocytes % (Manual) (13.4-35.0) % Monocytes % (Manual) (0.0-7.3) % Nucleated RBC % (0.0-0.9) % Seg Neutrophils # Man (1.8-7.7) K/mm3 Lymphocytes # (Manual) (1.2-5.4) K/mm3 POC ABG pH (7.35-7.45) POC ABG pCO2 (35-45) POC ABG pO2 (80-105) Potassium 5.5 H (3.6-5.0) mmol/L Carbon Dioxide (22-30) mmol/L BUN 53 H (9-20) mg/dL Creatinine 9.3 H (0.8-1.5) mg/dL Glucose 47 L (75-100) mg/dL POC Glucose 61 L 52 L (70-105) Lactic Acid (0.7-2.0) mmol/L Calcium 8.3 L (8.4-10.2) mg/dL Phosphorus 8.20 H (2.5-4.5) mg/dL Magnesium 1.60 L (1.7-2.3) mg/dL Troponin T 0.272 H* D (0.00-0.029) ng/mL Crossmatch 06/23/17 06/23/17 06/23/17 Range/Units 21:15 22:12 23:25 WBC (4.5-11.0) K/mm3 RBC (3.65-5.03) M/mm3 Hgb (11.8-15.2) gm/dl Hct (35.5-45.6) % RDW (13.2-15.2) % Plt Count (140-440) K/mm3 Seg Neuts % (Manual) (40.0-70.0) % Lymphocytes % (Manual) (13.4-35.0) % Monocytes % (Manual) (0.0-7.3) % Nucleated RBC % (0.0-0.9) % Seg Neutrophils # Man (1.8-7.7) K/mm3 Lymphocytes # (Manual) (1.2-5.4) K/mm3 POC ABG pH (7.35-7.45) POC ABG pCO2 (35-45) POC ABG pO2 (80-105) Potassium (3.6-5.0) mmol/L Carbon Dioxide (22-30) mmol/L BUN (9-20) mg/dL Creatinine (0.8-1.5) mg/dL Glucose (75-100) mg/dL POC Glucose 61 L 109 H 48 L (70-105) Lactic Acid (0.7-2.0) mmol/L Calcium (8.4-10.2) mg/dL Phosphorus (2.5-4.5) mg/dL Magnesium (1.7-2.3) mg/dL Troponin T (0.00-0.029) ng/mL Crossmatch 06/24/17 06/24/17 06/24/17 Range/Units 00:41 00:42 01:04 WBC (4.5-11.0) K/mm3 RBC (3.65-5.03) M/mm3 Hgb (11.8-15.2) gm/dl Hct (35.5-45.6) % RDW (13.2-15.2) % Plt Count (140-440) K/mm3 Seg Neuts % (Manual) (40.0-70.0) % Lymphocytes % (Manual) (13.4-35.0) % Monocytes % (Manual) (0.0-7.3) % Nucleated RBC % (0.0-0.9) % Seg Neutrophils # Man (1.8-7.7) K/mm3 Lymphocytes # (Manual) (1.2-5.4) K/mm3 POC ABG pH 7.248 L (7.35-7.45) POC ABG pCO2 46.5 H (35-45) POC ABG pO2 72 L (80-105) Potassium (3.6-5.0) mmol/L Carbon Dioxide (22-30) mmol/L BUN (9-20) mg/dL Creatinine (0.8-1.5) mg/dL Glucose (75-100) mg/dL POC Glucose 132 H (70-105) Lactic Acid 5.80 H* (0.7-2.0) mmol/L Calcium (8.4-10.2) mg/dL Phosphorus (2.5-4.5) mg/dL Magnesium (1.7-2.3) mg/dL Troponin T (0.00-0.029) ng/mL Crossmatch 06/24/17 06/24/17 06/24/17 Range/Units 02:13 04:07 05:05 WBC (4.5-11.0) K/mm3 RBC (3.65-5.03) M/mm3 Hgb (11.8-15.2) gm/dl Hct (35.5-45.6) % RDW (13.2-15.2) % Plt Count (140-440) K/mm3 Seg Neuts % (Manual) (40.0-70.0) % Lymphocytes % (Manual) (13.4-35.0) % Monocytes % (Manual) (0.0-7.3) % Nucleated RBC % (0.0-0.9) % Seg Neutrophils # Man (1.8-7.7) K/mm3 Lymphocytes # (Manual) (1.2-5.4) K/mm3 POC ABG pH (7.35-7.45) POC ABG pCO2 (35-45) POC ABG pO2 (80-105) Potassium (3.6-5.0) mmol/L Carbon Dioxide (22-30) mmol/L BUN (9-20) mg/dL Creatinine (0.8-1.5) mg/dL Glucose (75-100) mg/dL POC Glucose < 40 L < 40 L (70-105) Lactic Acid 4.50 H* (0.7-2.0) mmol/L Calcium (8.4-10.2) mg/dL Phosphorus (2.5-4.5) mg/dL Magnesium (1.7-2.3) mg/dL Troponin T (0.00-0.029) ng/mL Crossmatch 06/24/17 06/24/17 06/24/17 Range/Units 05:05 05:05 05:58 WBC 3.7 L (4.5-11.0) K/mm3 RBC 2.42 L (3.65-5.03) M/mm3 Hgb 7.1 L (11.8-15.2) gm/dl Hct 21.6 L (35.5-45.6) % RDW 17.0 H (13.2-15.2) % Plt Count 100 L (140-440) K/mm3 Seg Neuts % (Manual) 15.0 L (40.0-70.0) % Lymphocytes % (Manual) 8.0 L (13.4-35.0) % Monocytes % (Manual) 15.0 H (0.0-7.3) % Nucleated RBC % 2.0 H (0.0-0.9) % Seg Neutrophils # Man 0.6 L (1.8-7.7) K/mm3 Lymphocytes # (Manual) 0.3 L (1.2-5.4) K/mm3 POC ABG pH (7.35-7.45) POC ABG pCO2 (35-45) POC ABG pO2 (80-105) Potassium 5.7 H (3.6-5.0) mmol/L Carbon Dioxide 21 L (22-30) mmol/L BUN 59 H (9-20) mg/dL Creatinine 9.5 H (0.8-1.5) mg/dL Glucose 48 L (75-100) mg/dL POC Glucose 40 L (70-105) Lactic Acid (0.7-2.0) mmol/L Calcium 7.7 L (8.4-10.2) mg/dL Phosphorus (2.5-4.5) mg/dL Magnesium (1.7-2.3) mg/dL Troponin T (0.00-0.029) ng/mL Crossmatch 06/24/17 Range/Units 06:00 WBC (4.5-11.0) K/mm3 RBC (3.65-5.03) M/mm3 Hgb (11.8-15.2) gm/dl Hct (35.5-45.6) % RDW (13.2-15.2) % Plt Count (140-440) K/mm3 Seg Neuts % (Manual) (40.0-70.0) % Lymphocytes % (Manual) (13.4-35.0) % Monocytes % (Manual) (0.0-7.3) % Nucleated RBC % (0.0-0.9) % Seg Neutrophils # Man (1.8-7.7) K/mm3 Lymphocytes # (Manual) (1.2-5.4) K/mm3 POC ABG pH 7.337 L (7.35-7.45) POC ABG pCO2 (35-45) POC ABG pO2 66 L (80-105) Potassium (3.6-5.0) mmol/L Carbon Dioxide (22-30) mmol/L BUN (9-20) mg/dL Creatinine (0.8-1.5) mg/dL Glucose (75-100) mg/dL POC Glucose (70-105) Lactic Acid (0.7-2.0) mmol/L Calcium (8.4-10.2) mg/dL Phosphorus (2.5-4.5) mg/dL Magnesium (1.7-2.3) mg/dL Troponin T (0.00-0.029) ng/mL Crossmatch - Imaging and Cardiology Chest x-ray: report reviewed CT scan - abdomen: report reviewed Assessment and Plan Assessment: 1) Severe sepsis with septic shock: Not present on admission, manifested by fever, neutropenia, bandemia and hypotension. Etiology: GNR bacteremia 2) GNR bacteremia: from extensive diverticular disease with diverticulitis and severe diverticular bleed -S/P subtotal colectomy on 06/21 -Blood cultures positive on 06/23 for GNR 3) Respiratory failure 4) Persistent hypoglycemia 5) Tobacco abuse 6) ESRD on HD via AVF Plan: -follow-up blood cultures -recheck blood cultures on 06/25 fro clearance -obtain C-reactive protein (CRP) -continue vancomycin and zosyn IV for now -add fluconazole for now until blood cx negative for hali -if not better in 24h consider abdominal CT r/o leak, abscess -f/u colon path -discussed with Dr Chamberlain, patient's family and ICU staff Thank you Dr Chamberlain for your consultation, will follow up with you. Willow Bo MD Infectious Diseases Specialist [facility] [phone] O [phone]
--- NOTE | 2017-06-24 11:45 | Progress Note ---
Assessment and Plan Acute respiratory failure. Intubated in view of impending deterioration. Severe Septic shock. Been stabilized after IV fluids,pressors . ABX TX ongoing. G- growth on B/C Persistent hypogycemia. Likely due to the above,ongoing severe sepsis,inmune and adrenal response AMS. Secondary to the above. Upper GI bleeding. H&H stable Status post hemicolectomy End-stage renal disease Recommendations: Continue IVF's and pressors. Keep MAP > 60-65 Nephrology following for HD need and K+ management The patient already has received antibiotics ,but still very sick: - ID reviewing ABX and cultures,will follow recommendations - In view of severity of clinical picture, will add Solu-cortef/Thiamine/Asc acid; which recently as been reported to decrease mortality in this scenario. Will order cortisol level first, but doubt it will be available on time for TX review Protective ventilation discussed with RT,currently Vt 7 cc/kg PBW, PEEP to 8. Monitor serum lactate Continue serial H&H next 24 hours Discussed with family and staff. Critical care time was 35 minutes of face-to- face evaluation coordination of care Subjective Principal diagnosis: GI bleed Interval history: Slightly confused this morning. He denies any chest pain or shortness of breath at this time. Family at the bedside. Noted with hypotension earlier, now completing fluid bolus Objective Vital Signs - 12hr 06/23/17 06/24/17 06/24/17 23:45 00:00 00:15 Temperature 97.9 F Pulse Rate 108 H 104 H 104 H Pulse Rate [ 104 H From Monitor] Pulse Rate [ 104 H Right Dorsalis Pedis] Respiratory 21 22 22 Rate Blood Pressure 92/42 112/40 88/35 O2 Sat by Pulse 78 L 87 100 Oximetry 06/24/17 06/24/17 06/24/17 00:31 00:45 01:01 Temperature Pulse Rate 114 H 109 H 115 H Pulse Rate [ From Monitor] Pulse Rate [ Right Dorsalis Pedis] Respiratory 20 21 20 Rate Blood Pressure 121/67 108/39 120/43 O2 Sat by Pulse Oximetry 06/24/17 06/24/17 06/24/17 01:15 01:30 01:45 Temperature Pulse Rate 116 H 117 H 123 H Pulse Rate [ From Monitor] Pulse Rate [ Right Dorsalis Pedis] Respiratory 20 21 22 Rate Blood Pressure 122/45 113/53 109/42 O2 Sat by Pulse Oximetry 06/24/17 06/24/17 06/24/17 02:00 02:15 02:30 Temperature Pulse Rate 113 H 120 H 117 H Pulse Rate [ From Monitor] Pulse Rate [ Right Dorsalis Pedis] Respiratory 20 24 20 Rate Blood Pressure 131/50 112/77 116/57 O2 Sat by Pulse 78 L Oximetry 06/24/17 06/24/17 06/24/17 02:45 03:00 03:15 Temperature Pulse Rate 121 H 119 H 119 H Pulse Rate [ From Monitor] Pulse Rate [ Right Dorsalis Pedis] Respiratory 22 21 23 Rate Blood Pressure 116/57 109/45 99/47 O2 Sat by Pulse 84 91 Oximetry 06/24/17 06/24/17 06/24/17 03:29 03:30 03:44 Temperature Pulse Rate 102 H 121 H 121 H Pulse Rate [ From Monitor] Pulse Rate [ Right Dorsalis Pedis] Respiratory 22 Rate Blood Pressure 105/57 120/48 O2 Sat by Pulse 94 86 Oximetry 06/24/17 06/24/17 06/24/17 03:45 04:00 04:01 Temperature 98.3 F Pulse Rate 119 H 118 H Pulse Rate [ From Monitor] Pulse Rate [ Right Dorsalis Pedis] Respiratory 23 23 Rate Blood Pressure 128/50 92/47 O2 Sat by Pulse 92 96 Oximetry 06/24/17 06/24/17 06/24/17 04:15 04:30 04:45 Temperature Pulse Rate 116 H 117 H 122 H Pulse Rate [ 116 H From Monitor] Pulse Rate [ Right Dorsalis Pedis] Respiratory 20 21 25 H Rate Blood Pressure 92/47 113/48 97/52 O2 Sat by Pulse 99 96 95 Oximetry 06/24/17 06/24/17 06/24/17 05:00 05:15 05:30 Temperature Pulse Rate 120 H 123 H 119 H Pulse Rate [ From Monitor] Pulse Rate [ Right Dorsalis Pedis] Respiratory 22 25 H 25 H Rate Blood Pressure 111/57 111/57 112/51 O2 Sat by Pulse 96 93 97 Oximetry 06/24/17 06/24/17 06/24/17 05:45 06:00 06:15 Temperature Pulse Rate 117 H 119 H 116 H Pulse Rate [ From Monitor] Pulse Rate [ Right Dorsalis Pedis] Respiratory 22 25 H 22 Rate Blood Pressure 112/59 101/57 113/53 O2 Sat by Pulse 96 96 98 Oximetry 06/24/17 06/24/17 06/24/17 06:17 06:30 06:45 Temperature Pulse Rate 120 H 120 H 120 H Pulse Rate [ From Monitor] Pulse Rate [ Right Dorsalis Pedis] Respiratory 25 H 24 Rate Blood Pressure 112/59 120/51 110/53 O2 Sat by Pulse 93 98 98 Oximetry 06/24/17 06/24/17 06/24/17 07:00 07:15 07:30 Temperature Pulse Rate 116 H 119 H 122 H Pulse Rate [ From Monitor] Pulse Rate [ Right Dorsalis Pedis] Respiratory 22 25 H 25 H Rate Blood Pressure 110/53 118/61 107/58 O2 Sat by Pulse 99 99 98 Oximetry 06/24/17 06/24/17 06/24/17 07:45 08:00 08:11 Temperature 99.9 F H Pulse Rate 120 H 106 H 116 H Pulse Rate [ 113 H From Monitor] Pulse Rate [ Right Dorsalis Pedis] Respiratory 26 H 23 Rate Blood Pressure 97/55 92/50 97/52 O2 Sat by Pulse 99 95 97 Oximetry 06/24/17 06/24/17 06/24/17 08:15 08:30 08:45 Temperature Pulse Rate 115 H 118 H 118 H Pulse Rate [ From Monitor] Pulse Rate [ Right Dorsalis Pedis] Respiratory 26 H 25 H 26 H Rate Blood Pressure 97/52 104/56 103/59 O2 Sat by Pulse 97 97 98 Oximetry 06/24/17 06/24/17 06/24/17 09:00 09:15 09:30 Temperature Pulse Rate 117 H 120 H 117 H Pulse Rate [ From Monitor] Pulse Rate [ Right Dorsalis Pedis] Respiratory 22 26 H 24 Rate Blood Pressure 120/58 111/59 105/54 O2 Sat by Pulse 100 99 99 Oximetry 06/24/17 06/24/17 06/24/17 09:45 10:00 10:15 Temperature Pulse Rate 118 H 116 H 115 H Pulse Rate [ From Monitor] Pulse Rate [ Right Dorsalis Pedis] Respiratory 25 H 23 24 Rate Blood Pressure 93/47 112/56 106/56 O2 Sat by Pulse 99 98 98 Oximetry 06/24/17 06/24/17 06/24/17 10:30 10:41 10:45 Temperature Pulse Rate 114 H 112 H 112 H Pulse Rate [ From Monitor] Pulse Rate [ Right Dorsalis Pedis] Respiratory 24 27 H Rate Blood Pressure 98/46 98/46 95/48 O2 Sat by Pulse 97 97 96 Oximetry 06/24/17 11:19 Temperature Pulse Rate 115 H Pulse Rate [ From Monitor] Pulse Rate [ Right Dorsalis Pedis] Respiratory Rate Blood Pressure 97/48 O2 Sat by Pulse Oximetry Constitutional: no acute distress, other (sedated intubated) Eyes: non-icteric ENT: other (ETT @ 24) Effort: no acute distress Ascultation: Bilateral: clear, diminished breath sounds, rhonchi (sporadic) Cardiovascular: regular rate and rhythm, other (tachycardic) Gastrointestinal: absent bowel sounds, tender, non-distended, other (wound covered,no oozing) Integumentary: normal Extremities: no cyanosis, no edema Neurologic: non-focal exam, pupils equal and round, CN II-XII normal, unable to assess, other (RASS -2) Psychiatric: mood appropriate CBC and BMP: 06/24/17 05:05 06/24/17 05:05 ABG, PT/INR, D-dimer: ABG POC ABG pH 7.337 (7.35-7.45) L 06/24/17 06:00 POC ABG pCO2 39.0 (35-45) 06/24/17 06:00 POC ABG pO2 66 (80-105) L 06/24/17 06:00 POC ABG HCO3 20.9 06/24/17 06:00 POC ABG Total CO2 22 06/24/17 06:00 POC ABG O2 Sat 91 06/24/17 06:00 PT/INR, D-dimer PT 15.2 Sec. (12.2-14.9) H 06/20/17 19:31 INR 1.14 (0.87-1.13) H 06/20/17 19:31 Abnormal lab findings: Abnormal Labs 06/18/17 06/18/17 06/18/17 15:40 18:34 18:34 WBC RBC Hgb 7.1 L Hct 20.8 L MCV RDW Plt Count Lymph % (Auto) Park % (Auto) Park # Seg Neutrophils % Seg Neuts % (Manual) Lymphocytes % (Manual) Monocytes % (Manual) Nucleated RBC % Seg Neutrophils # Seg Neutrophils # Man Lymphocytes # (Manual) PT INR POC ABG pH POC ABG pCO2 POC ABG pO2 Potassium Chloride Carbon Dioxide BUN Creatinine Glucose POC Glucose Lactic Acid Calcium Phosphorus Magnesium ALT Troponin T 0.046 H D 0.063 H D Total Protein Albumin LDL Cholesterol Direct 48 L HDL Cholesterol 26 L Crossmatch 06/19/17 06/19/17 06/19/17 05:30 05:30 07:21 WBC RBC 2.10 L Hgb 6.0 L 5.3 L* Hct 17.4 L* 15.5 L* MCV 83 L RDW 17.2 H Plt Count Lymph % (Auto) 12.0 L Park % (Auto) 8.6 H Park # 0.9 H Seg Neutrophils % 78.8 H Seg Neuts % (Manual) Lymphocytes % (Manual) Monocytes % (Manual) Nucleated RBC % Seg Neutrophils # 8.3 H Seg Neutrophils # Man Lymphocytes # (Manual) PT INR POC ABG pH POC ABG pCO2 POC ABG pO2 Potassium 5.4 H Chloride Carbon Dioxide BUN 33 H Creatinine 7.6 H Glucose POC Glucose Lactic Acid Calcium Phosphorus Magnesium ALT Troponin T Total Protein Albumin LDL Cholesterol Direct HDL Cholesterol Crossmatch 06/19/17 06/20/17 06/20/17 08:17 00:24 03:57 WBC RBC Hgb 5.2 L* 6.9 L 6.6 L Hct 15.5 L* 20.8 L 19.3 L* MCV RDW Plt Count Lymph % (Auto) Park % (Auto) Park # Seg Neutrophils % Seg Neuts % (Manual) Lymphocytes % (Manual) Monocytes % (Manual) Nucleated RBC % Seg Neutrophils # Seg Neutrophils # Man Lymphocytes # (Manual) PT INR POC ABG pH POC ABG pCO2 POC ABG pO2 Potassium Chloride Carbon Dioxide BUN Creatinine Glucose POC Glucose Lactic Acid Calcium Phosphorus Magnesium ALT Troponin T Total Protein Albumin LDL Cholesterol Direct HDL Cholesterol Crossmatch 06/20/17 06/20/17 06/20/17 12:16 12:16 19:31 WBC RBC Hgb 7.2 L 7.2 L Hct 21.4 L 21.7 L MCV RDW Plt Count Lymph % (Auto) Park % (Auto) Park # Seg Neutrophils % Seg Neuts % (Manual) Lymphocytes % (Manual) Monocytes % (Manual) Nucleated RBC % Seg Neutrophils # Seg Neutrophils # Man Lymphocytes # (Manual) PT INR POC ABG pH POC ABG pCO2 POC ABG pO2 Potassium Chloride 96.7 L Carbon Dioxide BUN 31 H Creatinine 6.8 H Glucose POC Glucose Lactic Acid Calcium Phosphorus Magnesium ALT Troponin T Total Protein Albumin LDL Cholesterol Direct HDL Cholesterol Crossmatch 06/20/17 06/21/17 06/21/17 19:31 01:10 03:57 WBC RBC Hgb 6.3 L 6.1 L Hct 18.4 L* 18.2 L* MCV RDW Plt Count Lymph % (Auto) Park % (Auto) Park # Seg Neutrophils % Seg Neuts % (Manual) Lymphocytes % (Manual) Monocytes % (Manual) Nucleated RBC % Seg Neutrophils # Seg Neutrophils # Man Lymphocytes # (Manual) PT 15.2 H INR 1.14 H POC ABG pH POC ABG pCO2 POC ABG pO2 Potassium Chloride Carbon Dioxide BUN Creatinine Glucose POC Glucose Lactic Acid Calcium Phosphorus Magnesium ALT Troponin T Total Protein Albumin LDL Cholesterol Direct HDL Cholesterol Crossmatch 06/21/17 06/21/17 06/21/17 06:54 12:49 12:49 WBC 13.8 H RBC 2.52 L Hgb 7.3 L Hct 21.9 L MCV RDW 16.2 H Plt Count Lymph % (Auto) Park % (Auto) Park # Seg Neutrophils % Seg Neuts % (Manual) Lymphocytes % (Manual) 4.0 L Monocytes % (Manual) Nucleated RBC % Seg Neutrophils # Seg Neutrophils # Man 12.6 H Lymphocytes # (Manual) 0.6 L PT INR POC ABG pH POC ABG pCO2 POC ABG pO2 Potassium Chloride Carbon Dioxide BUN 42 H Creatinine 9.8 H Glucose 64 L POC Glucose Lactic Acid Calcium 8.2 L Phosphorus Magnesium ALT 5 L Troponin T Total Protein 4.9 L D Albumin 2.8 L LDL Cholesterol Direct HDL Cholesterol Crossmatch See Detail 06/21/17 06/22/17 06/22/17 18:28 00:33 05:12 WBC RBC Hgb 7.1 L 7.2 L Hct 21.2 L 21.7 L MCV RDW Plt Count Lymph % (Auto) Park % (Auto) Park # Seg Neutrophils % Seg Neuts % (Manual) Lymphocytes % (Manual) Monocytes % (Manual) Nucleated RBC % Seg Neutrophils # Seg Neutrophils # Man Lymphocytes # (Manual) PT INR POC ABG pH POC ABG pCO2 POC ABG pO2 Potassium Chloride Carbon Dioxide BUN Creatinine Glucose POC Glucose 69 L Lactic Acid Calcium Phosphorus Magnesium ALT Troponin T Total Protein Albumin LDL Cholesterol Direct HDL Cholesterol Crossmatch 06/22/17 06/22/17 06/22/17 07:23 07:53 11:37 WBC 3.1 L RBC 2.65 L Hgb 7.7 L Hct 23.3 L MCV RDW 15.7 H Plt Count Lymph % (Auto) Park % (Auto) Park # Seg Neutrophils % Seg Neuts % (Manual) Lymphocytes % (Manual) Monocytes % (Manual) Nucleated RBC % Seg Neutrophils # Seg Neutrophils # Man Lymphocytes # (Manual) PT INR POC ABG pH POC ABG pCO2 POC ABG pO2 Potassium Chloride Carbon Dioxide BUN 27 H Creatinine 7.9 H Glucose 57 L POC Glucose 62 L Lactic Acid Calcium 8.3 L Phosphorus Magnesium ALT Troponin T Total Protein Albumin LDL Cholesterol Direct HDL Cholesterol Crossmatch 06/22/17 06/22/17 06/23/17 16:41 18:13 00:27 WBC RBC Hgb Hct MCV RDW Plt Count Lymph % (Auto) Park % (Auto) Park # Seg Neutrophils % Seg Neuts % (Manual) Lymphocytes % (Manual) Monocytes % (Manual) Nucleated RBC % Seg Neutrophils # Seg Neutrophils # Man Lymphocytes # (Manual) PT INR POC ABG pH POC ABG pCO2 POC ABG pO2 Potassium Chloride Carbon Dioxide BUN Creatinine Glucose POC Glucose 57 L 156 H 64 L Lactic Acid Calcium Phosphorus Magnesium ALT Troponin T Total Protein Albumin LDL Cholesterol Direct HDL Cholesterol Crossmatch 06/23/17 06/23/17 06/23/17 02:11 02:11 04:28 WBC 2.0 L RBC 2.55 L Hgb 7.5 L Hct 22.3 L MCV RDW 16.9 H Plt Count Lymph % (Auto) Park % (Auto) Park # Seg Neutrophils % Seg Neuts % (Manual) 39.0 L Lymphocytes % (Manual) 8.0 L Monocytes % (Manual) Nucleated RBC % 1.0 H Seg Neutrophils # Seg Neutrophils # Man 0.8 L Lymphocytes # (Manual) 0.2 L PT INR POC ABG pH POC ABG pCO2 POC ABG pO2 Potassium 5.3 H D Chloride Carbon Dioxide BUN 43 H Creatinine 9.7 H Glucose 46 L POC Glucose 48 L Lactic Acid Calcium Phosphorus Magnesium ALT Troponin T Total Protein Albumin LDL Cholesterol Direct HDL Cholesterol Crossmatch 06/23/17 06/23/17 06/23/17 07:51 08:12 09:21 WBC RBC Hgb Hct MCV RDW Plt Count Lymph % (Auto) Park % (Auto) Park # Seg Neutrophils % Seg Neuts % (Manual) Lymphocytes % (Manual) Monocytes % (Manual) Nucleated RBC % Seg Neutrophils # Seg Neutrophils # Man Lymphocytes # (Manual) PT INR POC ABG pH POC ABG pCO2 POC ABG pO2 Potassium Chloride Carbon Dioxide BUN Creatinine Glucose 74 L POC Glucose < 40 L < 40 L Lactic Acid Calcium Phosphorus Magnesium ALT Troponin T Total Protein Albumin LDL Cholesterol Direct HDL Cholesterol Crossmatch 06/23/17 06/23/17 06/23/17 10:53 11:16 13:12 WBC RBC Hgb Hct MCV RDW Plt Count Lymph % (Auto) Park % (Auto) Park # Seg Neutrophils % Seg Neuts % (Manual) Lymphocytes % (Manual) Monocytes % (Manual) Nucleated RBC % Seg Neutrophils # Seg Neutrophils # Man Lymphocytes # (Manual) PT INR POC ABG pH POC ABG pCO2 POC ABG pO2 Potassium Chloride Carbon Dioxide BUN Creatinine Glucose 42 L POC Glucose 51 L 55 L Lactic Acid Calcium Phosphorus Magnesium ALT Troponin T Total Protein Albumin LDL Cholesterol Direct HDL Cholesterol Crossmatch 06/23/17 06/23/17 06/23/17 13:57 15:15 15:49 WBC RBC Hgb Hct MCV RDW Plt Count Lymph % (Auto) Park % (Auto) Park # Seg Neutrophils % Seg Neuts % (Manual) Lymphocytes % (Manual) Monocytes % (Manual) Nucleated RBC % Seg Neutrophils # Seg Neutrophils # Man Lymphocytes # (Manual) PT INR POC ABG pH 7.305 L POC ABG pCO2 POC ABG pO2 79 L Potassium Chloride Carbon Dioxide BUN Creatinine Glucose POC Glucose 52 L 63 L Lactic Acid Calcium Phosphorus Magnesium ALT Troponin T Total Protein Albumin LDL Cholesterol Direct HDL Cholesterol Crossmatch 06/23/17 06/23/17 06/23/17 16:26 16:57 17:09 WBC RBC Hgb Hct MCV RDW Plt Count Lymph % (Auto) Park % (Auto) Park # Seg Neutrophils % Seg Neuts % (Manual) Lymphocytes % (Manual) Monocytes % (Manual) Nucleated RBC % Seg Neutrophils # Seg Neutrophils # Man Lymphocytes # (Manual) PT INR POC ABG pH 7.282 L POC ABG pCO2 48.7 H POC ABG pO2 172 H Potassium Chloride Carbon Dioxide BUN Creatinine Glucose POC Glucose 60 L 111 H Lactic Acid Calcium Phosphorus Magnesium ALT Troponin T Total Protein Albumin LDL Cholesterol Direct HDL Cholesterol Crossmatch 06/23/17 06/23/17 06/23/17 17:40 17:40 17:40 WBC 2.7 L RBC 2.42 L Hgb 7.0 L Hct 21.7 L MCV RDW 17.6 H Plt Count 114 L Lymph % (Auto) Park % (Auto) Park # Seg Neutrophils % Seg Neuts % (Manual) 83.0 H Lymphocytes % (Manual) 7.0 L Monocytes % (Manual) 9.0 H Nucleated RBC % Seg Neutrophils # Seg Neutrophils # Man Lymphocytes # (Manual) 0.2 L PT INR POC ABG pH POC ABG pCO2 POC ABG pO2 Potassium 5.5 H Chloride Carbon Dioxide BUN 53 H Creatinine 9.3 H Glucose 47 L POC Glucose Lactic Acid 5.30 H* Calcium 8.3 L Phosphorus 8.20 H Magnesium 1.60 L ALT Troponin T 0.272 H* D Total Protein Albumin LDL Cholesterol Direct HDL Cholesterol Crossmatch 06/23/17 06/23/17 06/23/17 17:47 19:28 21:15 WBC RBC Hgb Hct MCV RDW Plt Count Lymph % (Auto) Park % (Auto) Park # Seg Neutrophils % Seg Neuts % (Manual) Lymphocytes % (Manual) Monocytes % (Manual) Nucleated RBC % Seg Neutrophils # Seg Neutrophils # Man Lymphocytes # (Manual) PT INR POC ABG pH POC ABG pCO2 POC ABG pO2 Potassium Chloride Carbon Dioxide BUN Creatinine Glucose POC Glucose 61 L 52 L 61 L Lactic Acid Calcium Phosphorus Magnesium ALT Troponin T Total Protein Albumin LDL Cholesterol Direct HDL Cholesterol Crossmatch 06/23/17 06/23/17 06/24/17 22:12 23:25 00:41 WBC RBC Hgb Hct MCV RDW Plt Count Lymph % (Auto) Park % (Auto) Park # Seg Neutrophils % Seg Neuts % (Manual) Lymphocytes % (Manual) Monocytes % (Manual) Nucleated RBC % Seg Neutrophils # Seg Neutrophils # Man Lymphocytes # (Manual) PT INR POC ABG pH POC ABG pCO2 POC ABG pO2 Potassium Chloride Carbon Dioxide BUN Creatinine Glucose POC Glucose 109 H 48 L Lactic Acid 5.80 H* Calcium Phosphorus Magnesium ALT Troponin T Total Protein Albumin LDL Cholesterol Direct HDL Cholesterol Crossmatch 06/24/17 06/24/17 06/24/17 00:42 01:04 02:13 WBC RBC Hgb Hct MCV RDW Plt Count Lymph % (Auto) Park % (Auto) Park # Seg Neutrophils % Seg Neuts % (Manual) Lymphocytes % (Manual) Monocytes % (Manual) Nucleated RBC % Seg Neutrophils # Seg Neutrophils # Man Lymphocytes # (Manual) PT INR POC ABG pH 7.248 L POC ABG pCO2 46.5 H POC ABG pO2 72 L Potassium Chloride Carbon Dioxide BUN Creatinine Glucose POC Glucose 132 H < 40 L Lactic Acid Calcium Phosphorus Magnesium ALT Troponin T Total Protein Albumin LDL Cholesterol Direct HDL Cholesterol Crossmatch 06/24/17 06/24/17 06/24/17 04:07 05:05 05:05 WBC 3.7 L RBC 2.42 L Hgb 7.1 L Hct 21.6 L MCV RDW 17.0 H Plt Count 100 L Lymph % (Auto) Park % (Auto) Park # Seg Neutrophils % Seg Neuts % (Manual) 15.0 L Lymphocytes % (Manual) 8.0 L Monocytes % (Manual) 15.0 H Nucleated RBC % 2.0 H Seg Neutrophils # Seg Neutrophils # Man 0.6 L Lymphocytes # (Manual) 0.3 L PT INR POC ABG pH POC ABG pCO2 POC ABG pO2 Potassium Chloride Carbon Dioxide BUN Creatinine Glucose POC Glucose < 40 L Lactic Acid 4.50 H* Calcium Phosphorus Magnesium ALT Troponin T Total Protein Albumin LDL Cholesterol Direct HDL Cholesterol Crossmatch 06/24/17 06/24/17 06/24/17 05:05 05:58 06:00 WBC RBC Hgb Hct MCV RDW Plt Count Lymph % (Auto) Park % (Auto) Park # Seg Neutrophils % Seg Neuts % (Manual) Lymphocytes % (Manual) Monocytes % (Manual) Nucleated RBC % Seg Neutrophils # Seg Neutrophils # Man Lymphocytes # (Manual) PT INR POC ABG pH 7.337 L POC ABG pCO2 POC ABG pO2 66 L Potassium 5.7 H Chloride Carbon Dioxide 21 L BUN 59 H Creatinine 9.5 H Glucose 48 L POC Glucose 40 L Lactic Acid Calcium 7.7 L Phosphorus Magnesium ALT Troponin T Total Protein Albumin LDL Cholesterol Direct HDL Cholesterol Crossmatch
[2017-06-24] MEDS: VITAMIN B-1 200 MG in NACL 0.9% 50 ML IV SCH ×2 (12:02→21:07)
[2017-06-24] MEDS: ASCORBIC ACID 1,500 MG in NACL 0.9% 50 ML IV SCH ×2 (12:02→17:47)
[2017-06-24] MEDS: DIFLUCAN 200 MG/100 ML BAG IV SCH (12:52)
[2017-06-24 13:32] LABS: BUN/Creatinine Ratio 6.66; Calcium 7.7 mg/dL (8.4-10.2); Chloride 95.6 mmol/L (98-107)
[2017-06-24 13:52] LABS: Hematocrit 20.7 % (35.5-45.6); Hemoglobin 6.6 gm/dl (11.8-15.2)
[2017-06-24] MEDS ORDERED: NACL 0.9% 500 ML 500 ML IV SCH (14:13)
[2017-06-24 14:44] LABS: Potassium 6.3 mmol/L (3.6-5.0)
--- NOTE | 2017-06-24 15:09 | Progress Note ---
Subjective Narrative: kept entubated responsive , concern about pneumonia , malnutrition , Albumin 1.5 , Dr Kern handling medical problems . will need TPN . Objective Vital Signs - 12hr 06/24/17 06/24/17 06/24/17 03:15 03:29 03:30 Temperature Pulse Rate 119 H 102 H 121 H Pulse Rate [ Anterior Bilateral] Pulse Rate [ From Monitor] Respiratory 23 22 Rate Respiratory Rate [Abdomen] Respiratory Rate [Anterior Bilateral] Blood Pressure 99/47 105/57 120/48 O2 Sat by Pulse 91 94 86 Oximetry 06/24/17 06/24/17 06/24/17 03:44 03:45 04:00 Temperature 98.3 F Pulse Rate 121 H 119 H Pulse Rate [ Anterior Bilateral] Pulse Rate [ From Monitor] Respiratory 23 Rate Respiratory Rate [Abdomen] Respiratory Rate [Anterior Bilateral] Blood Pressure 128/50 O2 Sat by Pulse 92 Oximetry 06/24/17 06/24/17 06/24/17 04:01 04:15 04:30 Temperature Pulse Rate 118 H 116 H 117 H Pulse Rate [ Anterior Bilateral] Pulse Rate [ 116 H From Monitor] Respiratory 23 20 21 Rate Respiratory Rate [Abdomen] Respiratory Rate [Anterior Bilateral] Blood Pressure 92/47 92/47 113/48 O2 Sat by Pulse 96 99 96 Oximetry 06/24/17 06/24/17 06/24/17 04:45 05:00 05:15 Temperature Pulse Rate 122 H 120 H 123 H Pulse Rate [ Anterior Bilateral] Pulse Rate [ From Monitor] Respiratory 25 H 22 25 H Rate Respiratory Rate [Abdomen] Respiratory Rate [Anterior Bilateral] Blood Pressure 97/52 111/57 111/57 O2 Sat by Pulse 95 96 93 Oximetry 06/24/17 06/24/17 06/24/17 05:30 05:45 06:00 Temperature Pulse Rate 119 H 117 H 119 H Pulse Rate [ Anterior Bilateral] Pulse Rate [ From Monitor] Respiratory 25 H 22 25 H Rate Respiratory Rate [Abdomen] Respiratory Rate [Anterior Bilateral] Blood Pressure 112/51 112/59 101/57 O2 Sat by Pulse 97 96 96 Oximetry 06/24/17 06/24/17 06/24/17 06:15 06:17 06:30 Temperature Pulse Rate 116 H 120 H 120 H Pulse Rate [ Anterior Bilateral] Pulse Rate [ From Monitor] Respiratory 22 25 H Rate Respiratory Rate [Abdomen] Respiratory Rate [Anterior Bilateral] Blood Pressure 113/53 112/59 120/51 O2 Sat by Pulse 98 93 98 Oximetry 06/24/17 06/24/17 06/24/17 06:45 07:00 07:15 Temperature Pulse Rate 120 H 116 H 119 H Pulse Rate [ Anterior Bilateral] Pulse Rate [ From Monitor] Respiratory 24 22 25 H Rate Respiratory Rate [Abdomen] Respiratory Rate [Anterior Bilateral] Blood Pressure 110/53 110/53 118/61 O2 Sat by Pulse 98 99 99 Oximetry 06/24/17 06/24/17 06/24/17 07:30 07:45 08:00 Temperature 99.9 F H Pulse Rate 122 H 120 H 106 H Pulse Rate [ Anterior Bilateral] Pulse Rate [ 113 H From Monitor] Respiratory 25 H 26 H 23 Rate Respiratory Rate [Abdomen] Respiratory Rate [Anterior Bilateral] Blood Pressure 107/58 97/55 92/50 O2 Sat by Pulse 98 99 95 Oximetry 06/24/17 06/24/17 06/24/17 08:11 08:15 08:30 Temperature Pulse Rate 116 H 115 H 118 H Pulse Rate [ Anterior Bilateral] Pulse Rate [ From Monitor] Respiratory 26 H 25 H Rate Respiratory Rate [Abdomen] Respiratory Rate [Anterior Bilateral] Blood Pressure 97/52 97/52 104/56 O2 Sat by Pulse 97 97 97 Oximetry 06/24/17 06/24/17 06/24/17 08:45 09:00 09:15 Temperature Pulse Rate 118 H 117 H 120 H Pulse Rate [ Anterior Bilateral] Pulse Rate [ From Monitor] Respiratory 26 H 22 26 H Rate Respiratory Rate [Abdomen] Respiratory Rate [Anterior Bilateral] Blood Pressure 103/59 120/58 111/59 O2 Sat by Pulse 98 100 99 Oximetry 06/24/17 06/24/17 06/24/17 09:30 09:45 10:00 Temperature Pulse Rate 117 H 118 H 116 H Pulse Rate [ Anterior Bilateral] Pulse Rate [ From Monitor] Respiratory 24 25 H 23 Rate Respiratory 25 H Rate [Abdomen] Respiratory Rate [Anterior Bilateral] Blood Pressure 105/54 93/47 112/56 O2 Sat by Pulse 99 99 98 Oximetry 06/24/17 06/24/17 06/24/17 10:15 10:30 10:41 Temperature Pulse Rate 115 H 114 H 112 H Pulse Rate [ Anterior Bilateral] Pulse Rate [ From Monitor] Respiratory 24 24 Rate Respiratory Rate [Abdomen] Respiratory Rate [Anterior Bilateral] Blood Pressure 106/56 98/46 98/46 O2 Sat by Pulse 98 97 97 Oximetry 06/24/17 06/24/17 06/24/17 10:45 11:00 11:15 Temperature Pulse Rate 112 H 111 H 114 H Pulse Rate [ Anterior Bilateral] Pulse Rate [ From Monitor] Respiratory 27 H 27 H 27 H Rate Respiratory Rate [Abdomen] Respiratory Rate [Anterior Bilateral] Blood Pressure 95/48 97/48 103/47 O2 Sat by Pulse 96 97 99 Oximetry 06/24/17 06/24/17 06/24/17 11:19 11:20 11:30 Temperature Pulse Rate 115 H 113 H Pulse Rate [ 116 H Anterior Bilateral] Pulse Rate [ From Monitor] Respiratory 27 H Rate Respiratory Rate [Abdomen] Respiratory 26 H Rate [Anterior Bilateral] Blood Pressure 97/48 97/51 O2 Sat by Pulse 94 Oximetry 06/24/17 06/24/17 06/24/17 11:45 11:46 12:00 Temperature 98.6 F Pulse Rate 112 H 114 H Pulse Rate [ 118 H Anterior Bilateral] Pulse Rate [ From Monitor] Respiratory 28 H 26 H Rate Respiratory Rate [Abdomen] Respiratory 26 H Rate [Anterior Bilateral] Blood Pressure 92/49 88/55 O2 Sat by Pulse 99 98 Oximetry 06/24/17 06/24/17 06/24/17 12:15 12:30 12:45 Temperature Pulse Rate 106 H 115 H 115 H Pulse Rate [ Anterior Bilateral] Pulse Rate [ From Monitor] Respiratory 28 H 24 25 H Rate Respiratory Rate [Abdomen] Respiratory Rate [Anterior Bilateral] Blood Pressure 77/44 124/60 118/54 O2 Sat by Pulse 98 100 99 Oximetry 06/24/17 06/24/17 06/24/17 13:00 13:15 13:30 Temperature Pulse Rate 112 H 99 H 114 H Pulse Rate [ Anterior Bilateral] Pulse Rate [ From Monitor] Respiratory 24 27 H 27 H Rate Respiratory Rate [Abdomen] Respiratory Rate [Anterior Bilateral] Blood Pressure 110/53 107/49 101/52 O2 Sat by Pulse 98 97 96 Oximetry 06/24/17 06/24/17 13:45 14:00 Temperature Pulse Rate 112 H 108 H Pulse Rate [ Anterior Bilateral] Pulse Rate [ From Monitor] Respiratory 28 H 28 H Rate Respiratory Rate [Abdomen] Respiratory Rate [Anterior Bilateral] Blood Pressure 101/53 111/49 O2 Sat by Pulse 96 96 Oximetry - Labs 06/24/17 13:00 06/24/17 13:00 Diabetes panel 06/23/17 06/24/17 06/24/17 Range/Units 17:40 05:05 13:00 Sodium 144 141 135 L (137-145) mmol/L Potassium 5.5 H 5.7 H 6.3 H* (3.6-5.0) mmol/L Chloride 102.2 99.9 95.6 L (98-107) mmol/L Carbon Dioxide 22 21 L 17 L (22-30) mmol/L BUN 53 H 59 H 60 H (9-20) mg/dL Creatinine 9.3 H 9.5 H 9.0 H (0.8-1.5) mg/dL Glucose 47 L 48 L 174 H (75-100) mg/dL Calcium 8.3 L 7.7 L 7.7 L (8.4-10.2) mg/dL Calcium panel 06/23/17 06/24/17 06/24/17 Range/Units 17:40 05:05 13:00 Calcium 8.3 L 7.7 L 7.7 L (8.4-10.2) mg/dL Phosphorus 8.20 H (2.5-4.5) mg/dL Pituitary panel 06/23/17 06/24/17 06/24/17 Range/Units 17:40 05:05 13:00 Sodium 144 141 135 L (137-145) mmol/L Potassium 5.5 H 5.7 H 6.3 H* (3.6-5.0) mmol/L Chloride 102.2 99.9 95.6 L (98-107) mmol/L Carbon Dioxide 22 21 L 17 L (22-30) mmol/L BUN 53 H 59 H 60 H (9-20) mg/dL Creatinine 9.3 H 9.5 H 9.0 H (0.8-1.5) mg/dL Glucose 47 L 48 L 174 H (75-100) mg/dL Calcium 8.3 L 7.7 L 7.7 L (8.4-10.2) mg/dL Adrenal panel 06/23/17 06/24/17 06/24/17 Range/Units 17:40 05:05 13:00 Sodium 144 141 135 L (137-145) mmol/L Potassium 5.5 H 5.7 H 6.3 H* (3.6-5.0) mmol/L Chloride 102.2 99.9 95.6 L (98-107) mmol/L Carbon Dioxide 22 21 L 17 L (22-30) mmol/L BUN 53 H 59 H 60 H (9-20) mg/dL Creatinine 9.3 H 9.5 H 9.0 H (0.8-1.5) mg/dL Glucose 47 L 48 L 174 H (75-100) mg/dL Calcium 8.3 L 7.7 L 7.7 L (8.4-10.2) mg/dL
--- NOTE | 2017-06-24 17:32 | Progress Note ---
Assessment and Plan Assessment and plan: Patient is 66 years old male with past medical history of hypertension and end stage renal disease and is on hemodialysis who presents to the with 3 days of worsening bloody stools . Just over 3 days ago the patient was at his normal baseline state of health. Patient noticed black stools on 06/15/2017 and Called his Welding Manager in [facility] and instructed him to visit the nearest emergency department if continue to have bloody stools. Patient on 06/17/17 he had a toilet full of bloody loose stools. Patient had the same problem years ago. Patient also complaining chest pain on the epigastric area. Ritchey states that the pain began this morning and consisted of a sharp pain that lasted around 30 seconds, followed by constant a dull pain. He describes the quality as a chest tightness/pressure without radiation to the shoulder, arm, back, or jaw. He denies nausea, vomiting and shortness of breath. He denies fever, wt loss, SOB, dizziness, hematemesis, diarrhea, constipation, or hematochezia. Was also noted to have elevated blood pressure No hx of liver disease. No NSAID use. No ETOH abuse. Patient current daily smoker. Major status in the ED were concerning for mild diverticulitis with possible colonic mass and bilateral pleural effusion and also polycystic kidney disease. Patient did proceed to have that GI nuclear scan which showed an uptake of the left upper quadrant patient was taken to the OR on 819 and underwent a subtotal colectomy FOR diverticular bleeding. Because septic on 821 with a temperature of 101.2 with neutropenia and bandemia 40%. Cultures growing gram-negative rods Acute hypoxic respiratory failure - Intubated 06/23 remains on mechanical ventilation - ABG, 7.3 PCO2 40 PaO2 74 bicarbonate 20 Severe Sepsis with GNR bactermia- Not present on admission - Patient was treated IV fluids and started on Pressors - cvp LINE on the right femoral region -Fluconazole per ID -Continue Vancomycin and Zosyn Septic shock -As noted above. -Corticol level pending Diverticular Bleed s/p subtotal colectomy -Repeat CT to r/o leak and absces Severe Anemia -Transfuse to keep H/H ABOVE 7 - s/p Subtotal Colectomy for extensive diverticular bleed with diverticulitis Severe Hyperkalemia -Nephrology following -BICARB, CALCIUM, KAYXALATE FOR CORRECTION -MONITOR RENAL FUNCTION Hypoglycemia with confusion, acute metabolic encephalopathy - Patient is on D10 normal saline increase to 150cc per hour -Start on Tube feed - Accu-Chek every hour and patient is on D50 infusion as needed Severe anemia secondary to GI bleed, S/P total colectomy - was transfused multiple units of blood - Hemoglobin this morning is 7.5 - No bowel movement after the surgery Tobacco abuse- counselling when awake Lactic acidosis Toxic Encephalopathy -Likely secondary to sepsis Chest pain - Cardiology consulted End stage renal disease on hemodialysis -Nephrology Following -Continue with the hemodialysis DVT prophylaxis - On SCDs because of GI bleed Disposition - Continue ICU care Prognosis: Poor, FAMILY AWARE The high probability of a clinically significant, sudden or life threatening deterioration of the [GI, CVS, ID, RAG WASHER, endocrine] system(s) required my full and direct attention, intervention and personal management. The aggregate critical care time was [35] minutes. This time is in addition to time spent performing reported procedures but includes the following: [x] Data Review and interpretation [x] Patient assessment and monitoring of vital signs [x] Documentation History Interval history: Patient seen and examined this morning remains sedated and intubated per nursing staff patient with decrease in all blood sugar levels. FEBRILE yesterday Hospitalist Physical - Physical exam Narrative exam: VITAL SIGNS: Reviewed. GENERAL: The patient sedated and intubated. Vital signs as documented. HEAD: No signs of head trauma. EYES: Pupils are equal. EARS: Hearing grossly intact. MOUTH: Oropharynx is normal. NECK: No adenopathy, no JVD. CHEST: Chest with clear breath sounds bilaterally. No wheezes, rales, or rhonchi. CARDIAC: Regular rate and rhythm. S1 and S2, without murmurs, gallops, or rubs. VASCULAR: No Edema. Peripheral pulses normal and equal in all extremities. ABDOMEN: Soft, midline surgical wound with dressing, no overt driange noted. Bowel Sounds hypoactive. MUSCULOSKELETAL: Good range of motion of all major joints. Extremities without clubbing, cyanosis or edema. NEUROLOGIC EXAM: Alert and oriented x 3. No focal sensory or strength deficits. Speech normal. Follows commands. PSYCHIATRIC: Mood normal. SKIN: Right fem line placed. - Constitutional Vitals: Temp Pulse Resp BP Pulse Ox 99.4 F 109 H 27 H 103/50 97 06/24/17 17:29 06/24/17 17:29 06/24/17 17:29 06/24/17 17:29 06/24/17 17:29 General appearance: Present: no acute distress Results - Labs CBC & Chem 7: 06/24/17 13:00 06/24/17 13:00 Labs: Laboratory Last Values WBC 3.7 K/mm3 (4.5-11.0) L 06/24/17 05:05 RBC 2.42 M/mm3 (3.65-5.03) L 06/24/17 05:05 Hgb 6.6 gm/dl (11.8-15.2) L 06/24/17 13:00 Hct 20.7 % (35.5-45.6) L 06/24/17 13:00 MCV 89 fl (84-94) 06/24/17 05:05 MCH 30 pg (28-32) 06/24/17 05:05 MCHC 33 % (32-34) 06/24/17 05:05 RDW 17.0 % (13.2-15.2) H 06/24/17 05:05 Plt Count 100 K/mm3 (140-440) L 06/24/17 05:05 Lymph % (Auto) 12.0 % (13.4-35.0) L 06/19/17 05:30 [place] % (Auto) 8.6 % (0.0-7.3) H 06/19/17 05:30 Eos % (Auto) 0.1 % (0.0-4.3) 06/19/17 05:30 Baso % (Auto) 0.5 % (0.0-1.8) 06/19/17 05:30 Lymph # 1.3 K/mm3 (1.2-5.4) 06/19/17 05:30 [place] # 0.9 K/mm3 (0.0-0.8) H 06/19/17 05:30 Eos # 0.0 K/mm3 (0.0-0.4) 06/19/17 05:30 Baso # 0.1 K/mm3 (0.0-0.1) 06/19/17 05:30 Add Manual Diff Complete 06/24/17 05:05 Total Counted 100 06/24/17 05:05 Seg Neutrophils % Generation Manager 06/21/17 12:49 Seg Neuts % (Manual) 15.0 % (40.0-70.0) L 06/24/17 05:05 Band Neutrophils % 55.0 % 06/24/17 05:05 Lymphocytes % (Manual) 8.0 % (13.4-35.0) L 06/24/17 05:05 Reactive Lymphs % (Man) 0 % 06/24/17 05:05 Monocytes % (Manual) 15.0 % (0.0-7.3) H 06/24/17 05:05 Eosinophils % (Manual) 4.0 % (0.0-4.3) 06/24/17 05:05 Basophils % (Manual) 0 % (0.0-1.8) 06/24/17 05:05 Metamyelocytes % 3.0 % 06/24/17 05:05 Myelocytes % 0 % 06/24/17 05:05 Promyelocytes % 0 % 06/24/17 05:05 Blast Cells % 0 % 06/24/17 05:05 Nucleated RBC % 2.0 % (0.0-0.9) H 06/24/17 05:05 Seg Neutrophils # 8.3 K/mm3 (1.8-7.7) H 06/19/17 05:30 Seg Neutrophils # Man 0.6 K/mm3 (1.8-7.7) L 06/24/17 05:05 Band Neutrophils # 2.0 K/mm3 06/24/17 05:05 Lymphocytes # (Manual) 0.3 K/mm3 (1.2-5.4) L 06/24/17 05:05 Abs React Lymphs (Man) 0.0 K/mm3 06/24/17 05:05 Monocytes # (Manual) 0.6 K/mm3 (0.0-0.8) 06/24/17 05:05 Eosinophils # (Manual) 0.1 K/mm3 (0.0-0.4) 06/24/17 05:05 Basophils # (Manual) 0.0 K/mm3 (0.0-0.1) 06/24/17 05:05 Metamyelocytes # 0.1 K/mm3 06/24/17 05:05 Myelocytes # 0.0 K/mm3 06/24/17 05:05 Promyelocytes # 0.0 K/mm3 06/24/17 05:05 Blast Cells # 0.0 K/mm3 06/24/17 05:05 WBC Morphology Not Reportable 06/24/17 05:05 Hypersegmented Neuts Not Reportable 06/24/17 05:05 Hyposegmented Neuts Not Reportable 06/24/17 05:05 Hypogranular Neuts Not Reportable 06/24/17 05:05 Smudge Cells Not Reportable 06/24/17 05:05 Toxic Granulation Not Reportable 06/24/17 05:05 Toxic Vacuolation Not Reportable 06/24/17 05:05 Dohle Bodies 1+ 06/24/17 05:05 Pelger-Huet Anomaly Not Reportable 06/24/17 05:05 Reji Rods Not Reportable 06/24/17 05:05 Platelet Estimate Appears decreased 06/24/17 05:05 Clumped Platelets Not Reportable 06/24/17 05:05 Plt Clumps, EDTA Not Reportable 06/24/17 05:05 Large Platelets Not Reportable 06/24/17 05:05 Giant Platelets Not Reportable 06/24/17 05:05 Platelet Satelliting Not Reportable 06/24/17 05:05 Plt Morphology Comment Not Reportable 06/24/17 05:05 RBC Morphology Not Reportable 06/24/17 05:05 Dimorphic RBCs Not Reportable 06/24/17 05:05 Polychromasia Not Reportable 06/24/17 05:05 Hypochromasia 1+ 06/24/17 05:05 Poikilocytosis Not Reportable 06/24/17 05:05 Anisocytosis 1+ 06/24/17 05:05 Microcytosis Not Reportable 06/24/17 05:05 Macrocytosis Rare 06/24/17 05:05 Spherocytes Not Reportable 06/24/17 05:05 Pappenheimer Bodies Not Reportable 06/24/17 05:05 Sickle Cells Not Reportable 06/24/17 05:05 Target Cells Few 06/24/17 05:05 Tear Drop Cells Not Reportable 06/24/17 05:05 Ovalocytes Not Reportable 06/24/17 05:05 Helmet Cells Not Reportable 06/24/17 05:05 [place] Bodies Not Reportable 06/24/17 05:05 Zoe Rings Not Reportable 06/24/17 05:05 Nicole Cells Not Reportable 06/24/17 05:05 Bite Cells Not Reportable 06/24/17 05:05 Crenated Cell Not Reportable 06/24/17 05:05 Elliptocytes Not Reportable 06/24/17 05:05 Acanthocytes (Spur) Not Reportable 06/24/17 05:05 Rouleaux Not Reportable 06/24/17 05:05 Hemoglobin C Crystals Not Reportable 06/24/17 05:05 Schistocytes Not Reportable 06/24/17 05:05 Malaria parasites Not Reportable 06/24/17 05:05 Ravindra Bodies Not Reportable 06/24/17 05:05 Hem Pathologist Commnt No 06/24/17 05:05 PT 15.2 Sec. (12.2-14.9) H 06/20/17 19:31 INR 1.14 (0.87-1.13) H 06/20/17 19:31 APTT 30.2 Sec. (24.2-36.6) 06/20/17 19:31 POC ABG pH 7.337 (7.35-7.45) L 06/24/17 06:00 POC ABG pCO2 39.0 (35-45) 06/24/17 06:00 POC ABG pO2 66 (80-105) L 06/24/17 06:00 POC ABG HCO3 20.9 06/24/17 06:00 POC ABG Total CO2 22 06/24/17 06:00 POC ABG O2 Sat 91 06/24/17 06:00 POC ABG Base Excess -5 06/24/17 06:00 FiO2 80 % 06/24/17 06:00 Sodium 135 mmol/L (137-145) L 06/24/17 13:00 Potassium 6.3 mmol/L (3.6-5.0) H* 06/24/17 13:00 Chloride 95.6 mmol/L (98-107) L 06/24/17 13:00 Carbon Dioxide 17 mmol/L (22-30) L 06/24/17 13:00 Anion Gap 29 mmol/L 06/24/17 13:00 BUN 60 mg/dL (9-20) H 06/24/17 13:00 Creatinine 9.0 mg/dL (0.8-1.5) H 06/24/17 13:00 Estimated GFR 7 ml/min 06/24/17 13:00 BUN/Creatinine Ratio 6.66 % 06/24/17 13:00 Glucose 174 mg/dL (75-100) H 06/24/17 13:00 POC Glucose 72 (70-105) 06/24/17 06:51 Lactic Acid 6.20 mmol/L (0.7-2.0) H* 06/24/17 12:00 Calcium 7.7 mg/dL (8.4-10.2) L 06/24/17 13:00 Phosphorus 8.20 mg/dL (2.5-4.5) H 06/23/17 17:40 Magnesium 1.60 mg/dL (1.7-2.3) L 06/23/17 17:40 Total Bilirubin 0.40 mg/dL (0.1-1.2) 06/21/17 12:49 AST 16 units/L (5-40) 06/21/17 12:49 ALT 5 units/L (7-56) L 06/21/17 12:49 Alkaline Phosphatase 40 units/L (35-129) 06/21/17 12:49 Troponin T 0.272 ng/mL (0.00-0.029) H* D 06/23/17 17:40 C-Reactive Protein 29.60 mg/dL (0.00-1.30) H 06/24/17 12:00 Total Protein 4.9 g/dL (6.3-8.2) L D 06/21/17 12:49 Albumin 2.8 g/dL (3.9-5) L 06/21/17 12:49 Albumin/Globulin Ratio 1.3 % 06/21/17 12:49 Triglycerides 90 mg/dL (2-149) 06/18/17 15:40 Cholesterol 92 mg/dL (50-199) 06/18/17 15:40 LDL Cholesterol Direct 48 mg/dL (50-130) L 06/18/17 15:40 HDL Cholesterol 26 mg/dL (40-59) L 06/18/17 15:40 Cholesterol/HDL Ratio 3.53 % 06/18/17 15:40 Lipase 32 units/L (13-60) 06/17/17 23:10 Blood Type O POSITIVE 06/24/17 16:15 Antibody Screen Negative 06/24/17 16:15 Crossmatch See Detail 06/24/17 16:15 - Imaging and Cardiology Chest x-ray: image reviewed (minimal left pleural effusion)
[2017-06-24] MEDS ORDERED: KIONEX PR ONE (19:00)
--- NOTE | 2017-06-24 20:19 | Event Note ---
called and discussed with ICU nurse potassium is 6.3 patient is currently on FiO2 70% discussed with patient's nurse Patient is currently on vasopressor blood pressure elaine he is running around 100 systolic Patient may need hemodialysis with higher dialysate sodium, cooler dialysis albumin support to correct hypokalemia and tolerated I have left a message with patient's sister at [phone] called me to discuss about options as patient is doing poorly overall
--- NOTE | 2017-06-24 21:55 | Event Note ---
had a detailed discussion with patient's sister and the power of [place] attorney whom I called at [phone] Explained her about patient's critical situation with hyperkalemia relatively stable on vasopressors He is not a candidate for Kayexalate therapy also hypoglycemic so would not give him dextrose and insulin Patient has already received albuterol and calcium earlier today At this time if we do not dialyze him he may from hyperkalemia If we dialyze him there is always a risk for hemodynamic instability and Which is very high probability After discussing all the options with the patient's sister and the power of [place] attorney she has decided to proceed with renal replacement therapy We will dialyze him gently if he tolerates well fine if he does not then we'll discontinue the dialysis Patient's power of [place] attorney was also made aware that patient can become unstable in dialysis and during the process as well, she does understand the risk and benefit and is willing to proceed with hemodialysis at this time All questions were answered regarding patient's overall very poor health We'll continue to follow and make recommendation from renal standpoint I have also communicated this to the ICU nurse to call the dialysis nurse for stat dialysis
[2017-06-24] MEDS ORDERED: NACL 0.9% 100 ML IV PRN (21:56)
[2017-06-24 23:08] LABS: BUN/Creatinine Ratio 6.88; Calcium 7.4 mg/dL (8.4-10.2); Chloride 94.5 mmol/L (98-107)
[2017-06-24 23:12] LABS: Potassium 6.9 mmol/L (3.6-5.0)
[2017-06-25] MEDS: ASCORBIC ACID 1,500 MG in NACL 0.9% 50 ML IV SCH ×4 (00:20→17:28)
[2017-06-25] MEDS: LEVOPHED DRIP 4 MG/NS 250 ML 4 MG/250 ML BAG IV SCH ×6 (00:20→20:27)
[2017-06-25] MEDS ORDERED: NACL 0.9% 1000 ML 2,000 ML ONE (00:26)
[2017-06-25 00:54] LABS: Hematocrit 23.3 % (35.5-45.6); Hemoglobin 7.7 gm/dl (11.8-15.2); Mean Corpuscular HGB Conc 33 % (32-34); Mean Corpuscular Hemoglobin 30 pg (28-32); Mean Corpuscular Volume 90 fl (84-94); Red Blood Count 2.59 M/mm3 (3.65-5.03); Red Cell Distribution Width 16.9 % (13.2-15.2); White Blood Count 10.2 K/mm3 (4.5-11.0)
[2017-06-25] MEDS: D50W (25GM) Vial IV PRN ×3 (01:35→08:07)
[2017-06-25] MEDS: ZOSYN/NS 2.25 GM/50ML 2.25 GM/50 ML BAG IV SCH (02:09)
[2017-06-25 02:23] LABS: Anisocytosis 1+; Basophils % (Manual) 0 % (0.0-1.8); Blastocytes % (Manual) 0 %; Eosinophils % (Manual) 0 % (0.0-4.3)
[2017-06-25 02:24] LABS: Diff Status Complete; Hypochromasia Few; Platelet Estimate Consistent w Auto
[2017-06-25 02:25] LABS: Platelet Count 24 K/mm3 (140-440)
[2017-06-25] MEDS: D10W 1,000 ML IV SCH ×3 (02:38→16:19)
[2017-06-25] MEDS ORDERED: NACL 0.9% 500 ML 500 ML IV ONE (03:16)
[2017-06-25] MEDS: APRESOLINE IV SCH (04:59)
[2017-06-25] MEDS: CATAPRES PO SCH ×2 (04:59→05:36)
[2017-06-25] MEDS: LOPRESSOR IV SCH ×2 (04:59→06:39)
[2017-06-25 06:13] LABS: ISTAT Base Excess -6; ISTAT HCO3 21.7; ISTAT PCO2 49.9 (35-45); ISTAT PH 7.246 (7.35-7.45); ISTAT PO2 77 (80-105); ISTAT SO2 93; ISTAT TCO2 23
[2017-06-25 06:36] LABS: BUN/Creatinine Ratio 6.42; Chloride 96.4 mmol/L (98-107); Potassium 5.4 mmol/L (3.6-5.0)
--- NOTE | 2017-06-25 07:17 | XRay Report ---
AP CHEST: HISTORY: Followup respiratory failure Compared to 06/24/17. The endotracheal tube remains in good position. Partial atelectasis has developed at the right lung base. The remainder of the lungs are clear. Borderline to mild cardiomegaly and ectatic aorta are stable. IMPRESSION: Partial atelectasis has developed at the right lung base, otherwise, no change since yesterday's exam.
[2017-06-25 08:14] LABS: Hematocrit 25.2 % (35.5-45.6); Hemoglobin 8.2 gm/dl (11.8-15.2); Mean Corpuscular HGB Conc 33 % (32-34); Mean Corpuscular Hemoglobin 29 pg (28-32); Mean Corpuscular Volume 90 fl (84-94); Red Blood Count 2.79 M/mm3 (3.65-5.03); Red Cell Distribution Width 17.4 % (13.2-15.2); White Blood Count 15.2 K/mm3 (4.5-11.0)
--- NOTE | 2017-06-25 08:28 | Progress Note ---
Assessment and Plan Acute respiratory failure. Intubated in view of impending deterioration. Severe Septic shock. Been stabilized after IV fluids,pressors . ABX TX ongoing. G- growth on B/C Persistent hypogycemia. Likely due to the above,ongoing severe sepsis,[place] and adrenal response AMS. Secondary to the above. Upper GI bleeding. H&H stable Status post hemicolectomy End-stage renal disease Recommendations: Transfuse platelets and whole if level is over 20,000 Discussed lab monitoring issues with staff Wean pressors keep MAP over 65 Continue antibiotics and check cultures. Case also discussed with Dr. Naqvi from [facility] Continue monitoring blood sugars Hemodialysis on potassium intervention per nephrology. He seems to have tolerated HD last night Increase PEEP to 10, increased respiratory rate to 26 for acidosis and FiO2 level Follow-up ABGs Hematology consult Ulcerations some point and recheck neurological status. Discussed with staff. No family available case discussion Critical care time was 35 minutes of [id number] evaluation coordination of care Subjective Date of service: 06/25/17 Principal diagnosis: septic shock, respiratory failure, end-stage renal disease GI bleed Interval history: Sedated and intubated Objective Vital Signs - 12hr 06/24/17 06/24/17 06/24/17 20:30 20:45 21:00 Temperature Pulse Rate 106 H 105 H 106 H Pulse Rate [ From Monitor] Respiratory 25 H 25 H 25 H Rate Blood Pressure 108/50 116/56 117/59 O2 Sat by Pulse 98 98 98 Oximetry O2 Sat by Pulse Oximetry [ Anterior Bilateral] 06/24/17 06/24/17 06/24/17 21:15 21:30 21:45 Temperature Pulse Rate 109 H 108 H 107 H Pulse Rate [ From Monitor] Respiratory 23 24 22 Rate Blood Pressure 116/55 128/50 114/52 O2 Sat by Pulse 98 98 99 Oximetry O2 Sat by Pulse Oximetry [ Anterior Bilateral] 06/24/17 06/24/17 06/24/17 22:00 22:11 22:21 Temperature Pulse Rate 106 H 105 H 130 H Pulse Rate [ From Monitor] Respiratory 24 25 H 26 H Rate Blood Pressure 116/52 116/52 96/47 O2 Sat by Pulse 98 98 97 Oximetry O2 Sat by Pulse Oximetry [ Anterior Bilateral] 06/24/17 06/24/17 06/24/17 22:30 22:41 22:51 Temperature Pulse Rate 128 H 134 H 127 H Pulse Rate [ From Monitor] Respiratory 25 H 25 H 25 H Rate Blood Pressure 104/54 104/54 108/57 O2 Sat by Pulse 97 97 98 Oximetry O2 Sat by Pulse Oximetry [ Anterior Bilateral] 06/24/17 06/24/17 06/24/17 23:00 23:10 23:11 Temperature Pulse Rate 124 H 126 H 122 H Pulse Rate [ From Monitor] Respiratory 25 H 24 Rate Blood Pressure 94/55 94/55 94/55 O2 Sat by Pulse 97 97 98 Oximetry O2 Sat by Pulse Oximetry [ Anterior Bilateral] 06/24/17 06/24/17 06/24/17 23:21 23:26 23:30 Temperature 98.5 F Pulse Rate 137 H 132 H 123 H Pulse Rate [ From Monitor] Respiratory 25 H 20 24 Rate Blood Pressure 108/57 124/58 110/54 O2 Sat by Pulse 98 100 98 Oximetry O2 Sat by Pulse Oximetry [ Anterior Bilateral] 06/24/17 06/25/17 06/25/17 23:45 00:00 00:15 Temperature 98.8 F Pulse Rate 132 H 140 H 136 H Pulse Rate [ 126 H From Monitor] Respiratory 24 22 24 Rate Blood Pressure 109/57 98/50 122/67 O2 Sat by Pulse 99 98 100 Oximetry O2 Sat by Pulse Oximetry [ Anterior Bilateral] 06/25/17 06/25/17 06/25/17 00:20 00:30 00:45 Temperature Pulse Rate 136 H 141 H 135 H Pulse Rate [ From Monitor] Respiratory 23 21 Rate Blood Pressure 122/67 113/55 116/60 O2 Sat by Pulse 100 100 Oximetry O2 Sat by Pulse Oximetry [ Anterior Bilateral] 06/25/17 06/25/17 06/25/17 01:00 01:13 01:15 Temperature 97.9 F Pulse Rate 134 H 136 H 143 H Pulse Rate [ From Monitor] Respiratory 24 24 23 Rate Blood Pressure 107/47 122/67 109/49 O2 Sat by Pulse 99 100 Oximetry O2 Sat by Pulse 100 Oximetry [ Anterior Bilateral] 06/25/17 06/25/17 06/25/17 01:30 01:31 01:36 Temperature Pulse Rate 147 H 157 H 137 H Pulse Rate [ From Monitor] Respiratory 23 Rate Blood Pressure 98/46 98/46 98/46 O2 Sat by Pulse 100 100 Oximetry O2 Sat by Pulse Oximetry [ Anterior Bilateral] 06/25/17 06/25/17 06/25/17 01:45 02:00 02:15 Temperature Pulse Rate 139 H 152 H 145 H Pulse Rate [ From Monitor] Respiratory 22 22 28 H Rate Blood Pressure 105/57 115/55 111/60 O2 Sat by Pulse 99 99 100 Oximetry O2 Sat by Pulse Oximetry [ Anterior Bilateral] 06/25/17 06/25/17 06/25/17 02:30 02:31 02:45 Temperature Pulse Rate 146 H 145 H 150 H Pulse Rate [ From Monitor] Respiratory 22 22 Rate Blood Pressure 105/51 105/51 94/54 O2 Sat by Pulse 99 99 Oximetry O2 Sat by Pulse Oximetry [ Anterior Bilateral] 06/25/17 06/25/17 06/25/17 03:00 03:15 03:30 Temperature 97.3 F L Pulse Rate 139 H 134 H 144 H Pulse Rate [ From Monitor] Respiratory 22 21 23 Rate Blood Pressure 86/46 82/55 81/48 O2 Sat by Pulse 99 100 99 Oximetry O2 Sat by Pulse Oximetry [ Anterior Bilateral] 06/25/17 06/25/17 06/25/17 03:45 04:00 04:01 Temperature 98.4 F Pulse Rate 141 H 158 H Pulse Rate [ 146 H From Monitor] Respiratory 23 26 H 22 Rate Blood Pressure 79/55 86/56 O2 Sat by Pulse 98 99 Oximetry O2 Sat by Pulse Oximetry [ Anterior Bilateral] 06/25/17 06/25/17 06/25/17 04:15 04:30 04:45 Temperature Pulse Rate 165 H 147 H 142 H Pulse Rate [ From Monitor] Respiratory 22 21 20 Rate Blood Pressure 86/56 131/78 121/65 O2 Sat by Pulse 99 100 97 Oximetry O2 Sat by Pulse Oximetry [ Anterior Bilateral] 06/25/17 06/25/17 06/25/17 05:01 05:09 05:15 Temperature Pulse Rate 147 H 133 H 146 H Pulse Rate [ From Monitor] Respiratory 20 20 Rate Blood Pressure 123/67 134/62 O2 Sat by Pulse 99 99 Oximetry O2 Sat by Pulse Oximetry [ Anterior Bilateral] 06/25/17 06/25/17 06/25/17 05:30 05:36 05:45 Temperature Pulse Rate 139 H 136 H 141 H Pulse Rate [ From Monitor] Respiratory 20 20 Rate Blood Pressure 126/65 132/63 O2 Sat by Pulse 99 99 Oximetry O2 Sat by Pulse Oximetry [ Anterior Bilateral] 06/25/17 06/25/17 06/25/17 05:46 06:00 06:15 Temperature Pulse Rate 134 H 149 H 141 H Pulse Rate [ From Monitor] Respiratory 19 19 Rate Blood Pressure 126/66 147/57 127/63 O2 Sat by Pulse 98 99 99 Oximetry O2 Sat by Pulse Oximetry [ Anterior Bilateral] 06/25/17 06/25/17 06/25/17 06:30 06:45 07:00 Temperature Pulse Rate 138 H 141 H 136 H Pulse Rate [ From Monitor] Respiratory 20 21 21 Rate Blood Pressure 144/47 122/59 131/57 O2 Sat by Pulse 99 99 100 Oximetry O2 Sat by Pulse Oximetry [ Anterior Bilateral] 06/25/17 08:00 Temperature 97.5 F L Pulse Rate Pulse Rate [ From Monitor] Respiratory Rate Blood Pressure O2 Sat by Pulse Oximetry O2 Sat by Pulse Oximetry [ Anterior Bilateral] Constitutional: no acute distress, other (sedated intubated) Eyes: non-icteric ENT: other (ETT @ 24) Neck: JVD Effort: no acute distress Ascultation: Bilateral: clear, diminished breath sounds, rhonchi (sporadic) Cardiovascular: regular rate and rhythm, other (tachycardic) Gastrointestinal: absent bowel sounds, tender, non-distended, other Integumentary: normal Extremities: no cyanosis, no edema Neurologic: pupils equal and round, CN II-XII normal, unable to assess, other ( RASS -3) Psychiatric: mood appropriate CBC and BMP: 06/25/17 07:47 06/25/17 04:40 ABG, PT/INR, D-dimer: ABG POC ABG pH 7.246 (7.35-7.45) L 06/25/17 06:05 POC ABG pCO2 49.9 (35-45) H 06/25/17 06:05 POC ABG pO2 77 (80-105) L 06/25/17 06:05 POC ABG HCO3 21.7 06/25/17 06:05 POC ABG Total CO2 23 06/25/17 06:05 POC ABG O2 Sat 93 06/25/17 06:05 PT/INR, D-dimer PT 15.2 Sec. (12.2-14.9) H 06/20/17 19:31 INR 1.14 (0.87-1.13) H 06/20/17 19:31 Abnormal lab findings: Abnormal Labs 06/18/17 06/18/17 06/18/17 15:40 18:34 18:34 WBC RBC Hgb 7.1 L Hct 20.8 L MCV RDW Plt Count Lymph % (Auto) [place] % (Auto) [place] # Seg Neutrophils % Seg Neuts % (Manual) Lymphocytes % (Manual) Monocytes % (Manual) Nucleated RBC % Seg Neutrophils # Seg Neutrophils # Man Lymphocytes # (Manual) PT INR POC ABG pH POC ABG pCO2 POC ABG pO2 Sodium Potassium Chloride Carbon Dioxide BUN Creatinine Glucose POC Glucose Lactic Acid Calcium Phosphorus Magnesium ALT Troponin T 0.046 H D 0.063 H D C-Reactive Protein Total Protein Albumin LDL Cholesterol Direct 48 L HDL Cholesterol 26 L Crossmatch 06/19/17 06/19/17 06/19/17 05:30 05:30 07:21 WBC RBC 2.10 L Hgb 6.0 L 5.3 L* Hct 17.4 L* 15.5 L* MCV 83 L RDW 17.2 H Plt Count Lymph % (Auto) 12.0 L [place] % (Auto) 8.6 H [place] # 0.9 H Seg Neutrophils % 78.8 H Seg Neuts % (Manual) Lymphocytes % (Manual) Monocytes % (Manual) Nucleated RBC % Seg Neutrophils # 8.3 H Seg Neutrophils # Man Lymphocytes # (Manual) PT INR POC ABG pH POC ABG pCO2 POC ABG pO2 Sodium Potassium 5.4 H Chloride Carbon Dioxide BUN 33 H Creatinine 7.6 H Glucose POC Glucose Lactic Acid Calcium Phosphorus Magnesium ALT Troponin T C-Reactive Protein Total Protein Albumin LDL Cholesterol Direct HDL Cholesterol Crossmatch 06/19/17 06/20/17 06/20/17 08:17 00:24 03:57 WBC RBC Hgb 5.2 L* 6.9 L 6.6 L Hct 15.5 L* 20.8 L 19.3 L* MCV RDW Plt Count Lymph % (Auto) [place] % (Auto) [place] # Seg Neutrophils % Seg Neuts % (Manual) Lymphocytes % (Manual) Monocytes % (Manual) Nucleated RBC % Seg Neutrophils # Seg Neutrophils # Man Lymphocytes # (Manual) PT INR POC ABG pH POC ABG pCO2 POC ABG pO2 Sodium Potassium Chloride Carbon Dioxide BUN Creatinine Glucose POC Glucose Lactic Acid Calcium Phosphorus Magnesium ALT Troponin T C-Reactive Protein Total Protein Albumin LDL Cholesterol Direct HDL Cholesterol Crossmatch 06/20/17 06/20/17 06/20/17 12:16 12:16 19:31 WBC RBC Hgb 7.2 L 7.2 L Hct 21.4 L 21.7 L MCV RDW Plt Count Lymph % (Auto) [place] % (Auto) [place] # Seg Neutrophils % Seg Neuts % (Manual) Lymphocytes % (Manual) Monocytes % (Manual) Nucleated RBC % Seg Neutrophils # Seg Neutrophils # Man Lymphocytes # (Manual) PT INR POC ABG pH POC ABG pCO2 POC ABG pO2 Sodium Potassium Chloride 96.7 L Carbon Dioxide BUN 31 H Creatinine 6.8 H Glucose POC Glucose Lactic Acid Calcium Phosphorus Magnesium ALT Troponin T C-Reactive Protein Total Protein Albumin LDL Cholesterol Direct HDL Cholesterol Crossmatch 06/20/17 06/21/17 06/21/17 19:31 01:10 03:57 WBC RBC Hgb 6.3 L 6.1 L Hct 18.4 L* 18.2 L* MCV RDW Plt Count Lymph % (Auto) [place] % (Auto) [place] # Seg Neutrophils % Seg Neuts % (Manual) Lymphocytes % (Manual) Monocytes % (Manual) Nucleated RBC % Seg Neutrophils # Seg Neutrophils # Man Lymphocytes # (Manual) PT 15.2 H INR 1.14 H POC ABG pH POC ABG pCO2 POC ABG pO2 Sodium Potassium Chloride Carbon Dioxide BUN Creatinine Glucose POC Glucose Lactic Acid Calcium Phosphorus Magnesium ALT Troponin T C-Reactive Protein Total Protein Albumin LDL Cholesterol Direct HDL Cholesterol Crossmatch 06/21/17 06/21/17 06/21/17 06:54 12:49 12:49 WBC 13.8 H RBC 2.52 L Hgb 7.3 L Hct 21.9 L MCV RDW 16.2 H Plt Count Lymph % (Auto) [place] % (Auto) [place] # Seg Neutrophils % Seg Neuts % (Manual) Lymphocytes % (Manual) 4.0 L Monocytes % (Manual) Nucleated RBC % Seg Neutrophils # Seg Neutrophils # Man 12.6 H Lymphocytes # (Manual) 0.6 L PT INR POC ABG pH POC ABG pCO2 POC ABG pO2 Sodium Potassium Chloride Carbon Dioxide BUN 42 H Creatinine 9.8 H Glucose 64 L POC Glucose Lactic Acid Calcium 8.2 L Phosphorus Magnesium ALT 5 L Troponin T C-Reactive Protein Total Protein 4.9 L D Albumin 2.8 L LDL Cholesterol Direct HDL Cholesterol Crossmatch See Detail 06/21/17 06/22/17 06/22/17 18:28 00:33 05:12 WBC RBC Hgb 7.1 L 7.2 L Hct 21.2 L 21.7 L MCV RDW Plt Count Lymph % (Auto) [place] % (Auto) [place] # Seg Neutrophils % Seg Neuts % (Manual) Lymphocytes % (Manual) Monocytes % (Manual) Nucleated RBC % Seg Neutrophils # Seg Neutrophils # Man Lymphocytes # (Manual) PT INR POC ABG pH POC ABG pCO2 POC ABG pO2 Sodium Potassium Chloride Carbon Dioxide BUN Creatinine Glucose POC Glucose 69 L Lactic Acid Calcium Phosphorus Magnesium ALT Troponin T C-Reactive Protein Total Protein Albumin LDL Cholesterol Direct HDL Cholesterol Crossmatch 06/22/17 06/22/17 06/22/17 07:23 07:53 11:37 WBC 3.1 L RBC 2.65 L Hgb 7.7 L Hct 23.3 L MCV RDW 15.7 H Plt Count Lymph % (Auto) [place] % (Auto) [place] # Seg Neutrophils % Seg Neuts % (Manual) Lymphocytes % (Manual) Monocytes % (Manual) Nucleated RBC % Seg Neutrophils # Seg Neutrophils # Man Lymphocytes # (Manual) PT INR POC ABG pH POC ABG pCO2 POC ABG pO2 Sodium Potassium Chloride Carbon Dioxide BUN 27 H Creatinine 7.9 H Glucose 57 L POC Glucose 62 L Lactic Acid Calcium 8.3 L Phosphorus Magnesium ALT Troponin T C-Reactive Protein Total Protein Albumin LDL Cholesterol Direct HDL Cholesterol Crossmatch 06/22/17 06/22/17 06/23/17 16:41 18:13 00:27 WBC RBC Hgb Hct MCV RDW Plt Count Lymph % (Auto) [place] % (Auto) [place] # Seg Neutrophils % Seg Neuts % (Manual) Lymphocytes % (Manual) Monocytes % (Manual) Nucleated RBC % Seg Neutrophils # Seg Neutrophils # Man Lymphocytes # (Manual) PT INR POC ABG pH POC ABG pCO2 POC ABG pO2 Sodium Potassium Chloride Carbon Dioxide BUN Creatinine Glucose POC Glucose 57 L 156 H 64 L Lactic Acid Calcium Phosphorus Magnesium ALT Troponin T C-Reactive Protein Total Protein Albumin LDL Cholesterol Direct HDL Cholesterol Crossmatch 06/23/17 06/23/17 06/23/17 02:11 02:11 04:28 WBC 2.0 L RBC 2.55 L Hgb 7.5 L Hct 22.3 L MCV RDW 16.9 H Plt Count Lymph % (Auto) [place] % (Auto) [place] # Seg Neutrophils % Seg Neuts % (Manual) 39.0 L Lymphocytes % (Manual) 8.0 L Monocytes % (Manual) Nucleated RBC % 1.0 H Seg Neutrophils # Seg Neutrophils # Man 0.8 L Lymphocytes # (Manual) 0.2 L PT INR POC ABG pH POC ABG pCO2 POC ABG pO2 Sodium Potassium 5.3 H D Chloride Carbon Dioxide BUN 43 H Creatinine 9.7 H Glucose 46 L POC Glucose 48 L Lactic Acid Calcium Phosphorus Magnesium ALT Troponin T C-Reactive Protein Total Protein Albumin LDL Cholesterol Direct HDL Cholesterol Crossmatch 06/23/17 06/23/17 06/23/17 07:51 08:12 09:21 WBC RBC Hgb Hct MCV RDW Plt Count Lymph % (Auto) [place] % (Auto) [place] # Seg Neutrophils % Seg Neuts % (Manual) Lymphocytes % (Manual) Monocytes % (Manual) Nucleated RBC % Seg Neutrophils # Seg Neutrophils # Man Lymphocytes # (Manual) PT INR POC ABG pH POC ABG pCO2 POC ABG pO2 Sodium Potassium Chloride Carbon Dioxide BUN Creatinine Glucose 74 L POC Glucose < 40 L < 40 L Lactic Acid Calcium Phosphorus Magnesium ALT Troponin T C-Reactive Protein Total Protein Albumin LDL Cholesterol Direct HDL Cholesterol Crossmatch 06/23/17 06/23/17 06/23/17 10:53 11:16 13:12 WBC RBC Hgb Hct MCV RDW Plt Count Lymph % (Auto) [place] % (Auto) [place] # Seg Neutrophils % Seg Neuts % (Manual) Lymphocytes % (Manual) Monocytes % (Manual) Nucleated RBC % Seg Neutrophils # Seg Neutrophils # Man Lymphocytes # (Manual) PT INR POC ABG pH POC ABG pCO2 POC ABG pO2 Sodium Potassium Chloride Carbon Dioxide BUN Creatinine Glucose 42 L POC Glucose 51 L 55 L Lactic Acid Calcium Phosphorus Magnesium ALT Troponin T C-Reactive Protein Total Protein Albumin LDL Cholesterol Direct HDL Cholesterol Crossmatch 06/23/17 06/23/17 06/23/17 13:57 15:15 15:49 WBC RBC Hgb Hct MCV RDW Plt Count Lymph % (Auto) [place] % (Auto) [place] # Seg Neutrophils % Seg Neuts % (Manual) Lymphocytes % (Manual) Monocytes % (Manual) Nucleated RBC % Seg Neutrophils # Seg Neutrophils # Man Lymphocytes # (Manual) PT INR POC ABG pH 7.305 L POC ABG pCO2 POC ABG pO2 79 L Sodium Potassium Chloride Carbon Dioxide BUN Creatinine Glucose POC Glucose 52 L 63 L Lactic Acid Calcium Phosphorus Magnesium ALT Troponin T C-Reactive Protein Total Protein Albumin LDL Cholesterol Direct HDL Cholesterol Crossmatch 06/23/17 06/23/17 06/23/17 16:26 16:57 17:09 WBC RBC Hgb Hct MCV RDW Plt Count Lymph % (Auto) [place] % (Auto) [place] # Seg Neutrophils % Seg Neuts % (Manual) Lymphocytes % (Manual) Monocytes % (Manual) Nucleated RBC % Seg Neutrophils # Seg Neutrophils # Man Lymphocytes # (Manual) PT INR POC ABG pH 7.282 L POC ABG pCO2 48.7 H POC ABG pO2 172 H Sodium Potassium Chloride Carbon Dioxide BUN Creatinine Glucose POC Glucose 60 L 111 H Lactic Acid Calcium Phosphorus Magnesium ALT Troponin T C-Reactive Protein Total Protein Albumin LDL Cholesterol Direct HDL Cholesterol Crossmatch 06/23/17 06/23/17 06/23/17 17:40 17:40 17:40 WBC 2.7 L RBC 2.42 L Hgb 7.0 L Hct 21.7 L MCV RDW 17.6 H Plt Count 114 L Lymph % (Auto) [place] % (Auto) [place] # Seg Neutrophils % Seg Neuts % (Manual) 83.0 H Lymphocytes % (Manual) 7.0 L Monocytes % (Manual) 9.0 H Nucleated RBC % Seg Neutrophils # Seg Neutrophils # Man Lymphocytes # (Manual) 0.2 L PT INR POC ABG pH POC ABG pCO2 POC ABG pO2 Sodium Potassium 5.5 H Chloride Carbon Dioxide BUN 53 H Creatinine 9.3 H Glucose 47 L POC Glucose Lactic Acid 5.30 H* Calcium 8.3 L Phosphorus 8.20 H Magnesium 1.60 L ALT Troponin T 0.272 H* D C-Reactive Protein Total Protein Albumin LDL Cholesterol Direct HDL Cholesterol Crossmatch 06/23/17 06/23/17 06/23/17 17:47 19:28 21:15 WBC RBC Hgb Hct MCV RDW Plt Count Lymph % (Auto) [place] % (Auto) [place] # Seg Neutrophils % Seg Neuts % (Manual) Lymphocytes % (Manual) Monocytes % (Manual) Nucleated RBC % Seg Neutrophils # Seg Neutrophils # Man Lymphocytes # (Manual) PT INR POC ABG pH POC ABG pCO2 POC ABG pO2 Sodium Potassium Chloride Carbon Dioxide BUN Creatinine Glucose POC Glucose 61 L 52 L 61 L Lactic Acid Calcium Phosphorus Magnesium ALT Troponin T C-Reactive Protein Total Protein Albumin LDL Cholesterol Direct HDL Cholesterol Crossmatch 06/23/17 06/23/17 06/24/17 22:12 23:25 00:41 WBC RBC Hgb Hct MCV RDW Plt Count Lymph % (Auto) [place] % (Auto) [place] # Seg Neutrophils % Seg Neuts % (Manual) Lymphocytes % (Manual) Monocytes % (Manual) Nucleated RBC % Seg Neutrophils # Seg Neutrophils # Man Lymphocytes # (Manual) PT INR POC ABG pH POC ABG pCO2 POC ABG pO2 Sodium Potassium Chloride Carbon Dioxide BUN Creatinine Glucose POC Glucose 109 H 48 L Lactic Acid 5.80 H* Calcium Phosphorus Magnesium ALT Troponin T C-Reactive Protein Total Protein Albumin LDL Cholesterol Direct HDL Cholesterol Crossmatch 06/24/17 06/24/17 06/24/17 00:42 01:04 02:13 WBC RBC Hgb Hct MCV RDW Plt Count Lymph % (Auto) [place] % (Auto) [place] # Seg Neutrophils % Seg Neuts % (Manual) Lymphocytes % (Manual) Monocytes % (Manual) Nucleated RBC % Seg Neutrophils # Seg Neutrophils # Man Lymphocytes # (Manual) PT INR POC ABG pH 7.248 L POC ABG pCO2 46.5 H POC ABG pO2 72 L Sodium Potassium Chloride Carbon Dioxide BUN Creatinine Glucose POC Glucose 132 H < 40 L Lactic Acid Calcium Phosphorus Magnesium ALT Troponin T C-Reactive Protein Total Protein Albumin LDL Cholesterol Direct HDL Cholesterol Crossmatch 06/24/17 06/24/17 06/24/17 04:07 05:05 05:05 WBC 3.7 L RBC 2.42 L Hgb 7.1 L Hct 21.6 L MCV RDW 17.0 H Plt Count 100 L Lymph % (Auto) [place] % (Auto) [place] # Seg Neutrophils % Seg Neuts % (Manual) 15.0 L Lymphocytes % (Manual) 8.0 L Monocytes % (Manual) 15.0 H Nucleated RBC % 2.0 H Seg Neutrophils # Seg Neutrophils # Man 0.6 L Lymphocytes # (Manual) 0.3 L PT INR POC ABG pH POC ABG pCO2 POC ABG pO2 Sodium Potassium Chloride Carbon Dioxide BUN Creatinine Glucose POC Glucose < 40 L Lactic Acid 4.50 H* Calcium Phosphorus Magnesium ALT Troponin T C-Reactive Protein Total Protein Albumin LDL Cholesterol Direct HDL Cholesterol Crossmatch 06/24/17 06/24/17 06/24/17 05:05 05:58 06:00 WBC RBC Hgb Hct MCV RDW Plt Count Lymph % (Auto) [place] % (Auto) [place] # Seg Neutrophils % Seg Neuts % (Manual) Lymphocytes % (Manual) Monocytes % (Manual) Nucleated RBC % Seg Neutrophils # Seg Neutrophils # Man Lymphocytes # (Manual) PT INR POC ABG pH 7.337 L POC ABG pCO2 POC ABG pO2 66 L Sodium Potassium 5.7 H Chloride Carbon Dioxide 21 L BUN 59 H Creatinine 9.5 H Glucose 48 L POC Glucose 40 L Lactic Acid Calcium 7.7 L Phosphorus Magnesium ALT Troponin T C-Reactive Protein Total Protein Albumin LDL Cholesterol Direct HDL Cholesterol Crossmatch 06/24/17 06/24/17 06/24/17 07:47 08:38 08:44 WBC RBC Hgb Hct MCV RDW Plt Count Lymph % (Auto) [place] % (Auto) [place] # Seg Neutrophils % Seg Neuts % (Manual) Lymphocytes % (Manual) Monocytes % (Manual) Nucleated RBC % Seg Neutrophils # Seg Neutrophils # Man Lymphocytes # (Manual) PT INR POC ABG pH POC ABG pCO2 POC ABG pO2 Sodium Potassium Chloride Carbon Dioxide BUN Creatinine Glucose POC Glucose 106 H 53 L 52 L Lactic Acid Calcium Phosphorus Magnesium ALT Troponin T C-Reactive Protein Total Protein Albumin LDL Cholesterol Direct HDL Cholesterol Crossmatch 06/24/17 06/24/17 06/24/17 10:38 11:05 12:00 WBC RBC Hgb Hct MCV RDW Plt Count Lymph % (Auto) [place] % (Auto) [place] # Seg Neutrophils % Seg Neuts % (Manual) Lymphocytes % (Manual) Monocytes % (Manual) Nucleated RBC % Seg Neutrophils # Seg Neutrophils # Man Lymphocytes # (Manual) PT INR POC ABG pH POC ABG pCO2 POC ABG pO2 Sodium Potassium Chloride Carbon Dioxide BUN Creatinine Glucose POC Glucose 129 H 106 H Lactic Acid 6.20 H* Calcium Phosphorus Magnesium ALT Troponin T C-Reactive Protein Total Protein Albumin LDL Cholesterol Direct HDL Cholesterol Crossmatch 06/24/17 06/24/17 06/24/17 12:00 12:38 13:00 WBC RBC Hgb Hct MCV RDW Plt Count Lymph % (Auto) [place] % (Auto) [place] # Seg Neutrophils % Seg Neuts % (Manual) Lymphocytes % (Manual) Monocytes % (Manual) Nucleated RBC % Seg Neutrophils # Seg Neutrophils # Man Lymphocytes # (Manual) PT INR POC ABG pH POC ABG pCO2 POC ABG pO2 Sodium 135 L Potassium 6.3 H* Chloride 95.6 L Carbon Dioxide 17 L BUN 60 H Creatinine 9.0 H Glucose 174 H POC Glucose 116 H Lactic Acid Calcium 7.7 L Phosphorus Magnesium ALT Troponin T C-Reactive Protein 29.60 H Total Protein Albumin LDL Cholesterol Direct HDL Cholesterol Crossmatch 06/24/17 06/24/17 06/24/17 13:00 15:08 16:10 WBC RBC Hgb 6.6 L Hct 20.7 L MCV RDW Plt Count Lymph % (Auto) [place] % (Auto) [place] # Seg Neutrophils % Seg Neuts % (Manual) Lymphocytes % (Manual) Monocytes % (Manual) Nucleated RBC % Seg Neutrophils # Seg Neutrophils # Man Lymphocytes # (Manual) PT INR POC ABG pH POC ABG pCO2 POC ABG pO2 Sodium Potassium Chloride Carbon Dioxide BUN Creatinine Glucose POC Glucose 53 L 126 H Lactic Acid Calcium Phosphorus Magnesium ALT Troponin T C-Reactive Protein Total Protein Albumin LDL Cholesterol Direct HDL Cholesterol Crossmatch 06/24/17 06/24/17 06/24/17 16:15 18:31 18:56 WBC RBC Hgb Hct MCV RDW Plt Count Lymph % (Auto) [place] % (Auto) [place] # Seg Neutrophils % Seg Neuts % (Manual) Lymphocytes % (Manual) Monocytes % (Manual) Nucleated RBC % Seg Neutrophils # Seg Neutrophils # Man Lymphocytes # (Manual) PT INR POC ABG pH POC ABG pCO2 POC ABG pO2 Sodium Potassium Chloride Carbon Dioxide BUN Creatinine Glucose POC Glucose 45 L 142 H Lactic Acid Calcium Phosphorus Magnesium ALT Troponin T C-Reactive Protein Total Protein Albumin LDL Cholesterol Direct HDL Cholesterol Crossmatch See Detail 06/24/17 06/24/17 06/24/17 21:02 21:38 22:00 WBC RBC Hgb Hct MCV RDW Plt Count Lymph % (Auto) [place] % (Auto) [place] # Seg Neutrophils % Seg Neuts % (Manual) Lymphocytes % (Manual) Monocytes % (Manual) Nucleated RBC % Seg Neutrophils # Seg Neutrophils # Man Lymphocytes # (Manual) PT INR POC ABG pH POC ABG pCO2 POC ABG pO2 Sodium 132 L Potassium 6.9 H* Chloride 94.5 L Carbon Dioxide 15 L BUN 64 H Creatinine 9.3 H Glucose 125 H POC Glucose 69 L 169 H Lactic Acid Calcium 7.4 L Phosphorus Magnesium ALT Troponin T C-Reactive Protein Total Protein Albumin LDL Cholesterol Direct HDL Cholesterol Crossmatch 06/24/17 06/24/17 06/25/17 22:10 22:56 00:25 WBC RBC 2.59 L Hgb 7.7 L Hct 23.3 L MCV RDW 16.9 H Plt Count 24 L Lymph % (Auto) [place] % (Auto) [place] # Seg Neutrophils % Seg Neuts % (Manual) Lymphocytes % (Manual) 11.0 L Monocytes % (Manual) Nucleated RBC % 3.0 H Seg Neutrophils # Seg Neutrophils # Man Lymphocytes # (Manual) 1.1 L PT INR POC ABG pH POC ABG pCO2 POC ABG pO2 Sodium Potassium Chloride Carbon Dioxide BUN Creatinine Glucose POC Glucose 138 H 109 H Lactic Acid Calcium Phosphorus Magnesium ALT Troponin T C-Reactive Protein Total Protein Albumin LDL Cholesterol Direct HDL Cholesterol Crossmatch 06/25/17 06/25/17 06/25/17 01:44 02:12 02:35 WBC RBC Hgb Hct MCV RDW Plt Count Lymph % (Auto) [place] % (Auto) [place] # Seg Neutrophils % Seg Neuts % (Manual) Lymphocytes % (Manual) Monocytes % (Manual) Nucleated RBC % Seg Neutrophils # Seg Neutrophils # Man Lymphocytes # (Manual) PT INR POC ABG pH POC ABG pCO2 POC ABG pO2 Sodium Potassium Chloride Carbon Dioxide BUN Creatinine Glucose POC Glucose 65 L 47 L 229 H Lactic Acid Calcium Phosphorus Magnesium ALT Troponin T C-Reactive Protein Total Protein Albumin LDL Cholesterol Direct HDL Cholesterol Crossmatch 06/25/17 06/25/17 06/25/17 03:04 04:00 04:40 WBC RBC Hgb Hct MCV RDW Plt Count Lymph % (Auto) [place] % (Auto) Independence # Seg Neutrophils % Seg Neuts % (Manual) Lymphocytes % (Manual) Monocytes % (Manual) Nucleated RBC % Seg Neutrophils # Seg Neutrophils # Man Lymphocytes # (Manual) PT INR POC ABG pH POC ABG pCO2 POC ABG pO2 Sodium 135 L Potassium 5.4 H D Chloride 96.4 L Carbon Dioxide 21 L BUN 36 H Creatinine 5.6 H Glucose 107 H POC Glucose 180 H 157 H Lactic Acid Calcium 8.0 L Phosphorus Magnesium ALT Troponin T C-Reactive Protein Total Protein Albumin LDL Cholesterol Direct HDL Cholesterol Crossmatch 06/25/17 06/25/17 06:05 07:47 WBC 15.2 H RBC 2.79 L Hgb 8.2 L Hct 25.2 L MCV RDW 17.4 H Plt Count Lymph % (Auto) [place] % (Auto) Independence # Seg Neutrophils % Seg Neuts % (Manual) Lymphocytes % (Manual) Monocytes % (Manual) Nucleated RBC % Seg Neutrophils # Seg Neutrophils # Man Lymphocytes # (Manual) PT INR POC ABG pH 7.246 L POC ABG pCO2 49.9 H POC ABG pO2 77 L Sodium Potassium Chloride Carbon Dioxide BUN Creatinine Glucose POC Glucose Lactic Acid Calcium Phosphorus Magnesium ALT Troponin T C-Reactive Protein Total Protein Albumin LDL Cholesterol Direct HDL Cholesterol Crossmatch
[2017-06-25 08:41] LABS: Platelet Count 15 K/mm3 (140-440)
[2017-06-25] MEDS: DIFLUCAN 200 MG/100 ML BAG IV SCH (09:06)
[2017-06-25] MEDS: VITAMIN B-1 200 MG in NACL 0.9% 50 ML IV SCH ×2 (09:10→21:31)
[2017-06-25] MEDS: PROTONIX IV SCH ×2 (09:47→21:26)
[2017-06-25] MEDS ORDERED: MERREM 1,000 MG in NACL 0.9% 100 ML IV SCH (10:00)
[2017-06-25 11:00] LABS: Hematocrit 21.6 % (35.5-45.6); Hemoglobin 6.9 gm/dl (11.8-15.2); Mean Corpuscular HGB Conc 32 % (32-34); Mean Corpuscular Hemoglobin 29 pg (28-32); Mean Corpuscular Volume 91 fl (84-94); Red Blood Count 2.38 M/mm3 (3.65-5.03); Red Cell Distribution Width 17.3 % (13.2-15.2); White Blood Count 13.4 K/mm3 (4.5-11.0)
[2017-06-25 11:12] LABS: INR 3.74 (0.87-1.13)
[2017-06-25 11:21] LABS: Platelet Count 48 K/mm3 (140-440)
--- NOTE | 2017-06-25 11:57 | Progress Note ---
Assessment and Plan Assessment: 1) Severe sepsis with septic shock: worsening now severe anemia/thombocytopenia/ coagulopathy ? DIC and persistent hypoglycemia. Still on levophed at 16. Etiology: GNR bacteremia -CRP=29 -Lactate=6.2 2) GNR bacteremia: from extensive diverticular disease with diverticulitis and severe diverticular bleed -S/P subtotal colectomy on 06/21 -Blood cultures positive on 06/23 for GNR 3) Respiratory failure 4) Persistent hypoglycemia 5) Tobacco abuse 6) ESRD on HD via AVF Plan: -recheck abdominal CT w/o contract today to r/o leak, abscess -repeat blood cultures today -check procalcitonin -trend lactate -continue vancomycin renally dosed -stop zosyn IV for now -start meropenem renally dosed -continue fluconazole for now until blood cx negative for hali -f/u colon path -discussed with Dr Chamberlain, pharmacy and ICU staff Thank you Dr Chamberlain for your consultation, will follow up with you. Willow Bo MD Infectious Diseases Specialist [facility] ([facility] [phone] O [phone] Subjective Date of service: 06/25/17 Principal diagnosis: septic shock, respiratory failure, end-stage renal disease GI bleed Interval history: Patient remains critically ill sedated, afebrile, still hypoglycemic, urgent HD overnight, received PRBCs and platelets overnight, dropped Hg to 6.6, plat to 15. Remains on mechanical ventilation via ETT. Microbiology: Blood cultures: 06/23 GNR 2 of 4 bottles Urine cultures: Respiratory cultures: Sp 06/23 neg Wound cultures: Stool cultures: Current Antimicrobials: 06/23 Zosyn 06/23 Vancomycin 06/24 Fluconazole Previous Antimicrobials: Objective - Exam Narrative Exam: General appearance: sedated on the vent in NAD Eyes: anicteric sclerae, moist conjunctivae; no lid-lag; PERRLA HENT: Atraumatic; oropharynx limited + ETT Neck: Trachea midline; supple, no thyromegaly or lymphadenopathy Lungs: CTA CV: RRR, no murmurs Abdomen: Soft, midline surgical wound with surgical dressings Extremities: peripheral edema or extremity lymphadenopathy Skin: + left arm AVF with a thrill. Skin Normal temperature, turgor and texture ; no rash, ulcers or subcutaneous nodules Psych: sedated. Neuro: sedated Lines: right fem TLC placed 06/23 - Constitutional Vitals: Vital Signs Temp Pulse Resp BP Pulse Ox 97.5 F L 131 H 26 H 94/58 100 06/25/17 08:00 06/25/17 10:30 06/25/17 10:15 06/25/17 10:30 06/25/17 10:30 Temperature -Last 24 Hours Temperature 97.5 F Temperature 98.4 F Temperature 97.3 F Temperature 97.9 F Temperature 98.8 F Temperature 98.9 F Temperature 98.5 F Temperature 99.0 F Temperature 98.9 F Temperature 99.4 F Temperature 99.4 F Temperature 98.6 F - Labs CBC & Chem 7: 06/25/17 10:15 06/25/17 04:40 Labs: Abnormal lab results 06/24/17 06/24/17 06/24/17 Range/Units 07:47 08:38 08:44 WBC (4.5-11.0) K/mm3 RBC (3.65-5.03) M/mm3 Hgb (11.8-15.2) gm/dl Hct (35.5-45.6) % RDW (13.2-15.2) % Plt Count (140-440) K/mm3 Lymphocytes % (Manual) (13.4-35.0) % Nucleated RBC % (0.0-0.9) % Lymphocytes # (Manual) (1.2-5.4) K/mm3 PT (12.2-14.9) Sec. INR (0.87-1.13) POC ABG pH (7.35-7.45) POC ABG pCO2 (35-45) POC ABG pO2 (80-105) Sodium (137-145) mmol/L Potassium (3.6-5.0) mmol/L Chloride (98-107) mmol/L Carbon Dioxide (22-30) mmol/L BUN (9-20) mg/dL Creatinine (0.8-1.5) mg/dL Glucose (75-100) mg/dL POC Glucose 106 H 53 L 52 L (70-105) Lactic Acid (0.7-2.0) mmol/L Calcium (8.4-10.2) mg/dL C-Reactive Protein (0.00-1.30) mg/dL Crossmatch 06/24/17 06/24/17 06/24/17 Range/Units 10:38 11:05 12:00 WBC (4.5-11.0) K/mm3 RBC (3.65-5.03) M/mm3 Hgb (11.8-15.2) gm/dl Hct (35.5-45.6) % RDW (13.2-15.2) % Plt Count (140-440) K/mm3 Lymphocytes % (Manual) (13.4-35.0) % Nucleated RBC % (0.0-0.9) % Lymphocytes # (Manual) (1.2-5.4) K/mm3 PT (12.2-14.9) Sec. INR (0.87-1.13) POC ABG pH (7.35-7.45) POC ABG pCO2 (35-45) POC ABG pO2 (80-105) Sodium (137-145) mmol/L Potassium (3.6-5.0) mmol/L Chloride (98-107) mmol/L Carbon Dioxide (22-30) mmol/L BUN (9-20) mg/dL Creatinine (0.8-1.5) mg/dL Glucose (75-100) mg/dL POC Glucose 129 H 106 H (70-105) Lactic Acid 6.20 H* (0.7-2.0) mmol/L Calcium (8.4-10.2) mg/dL C-Reactive Protein (0.00-1.30) mg/dL Crossmatch 06/24/17 06/24/17 06/24/17 Range/Units 12:00 12:38 13:00 WBC (4.5-11.0) K/mm3 RBC (3.65-5.03) M/mm3 Hgb (11.8-15.2) gm/dl Hct (35.5-45.6) % RDW (13.2-15.2) % Plt Count (140-440) K/mm3 Lymphocytes % (Manual) (13.4-35.0) % Nucleated RBC % (0.0-0.9) % Lymphocytes # (Manual) (1.2-5.4) K/mm3 PT (12.2-14.9) Sec. INR (0.87-1.13) POC ABG pH (7.35-7.45) POC ABG pCO2 (35-45) POC ABG pO2 (80-105) Sodium 135 L (137-145) mmol/L Potassium 6.3 H* (3.6-5.0) mmol/L Chloride 95.6 L (98-107) mmol/L Carbon Dioxide 17 L (22-30) mmol/L BUN 60 H (9-20) mg/dL Creatinine 9.0 H (0.8-1.5) mg/dL Glucose 174 H (75-100) mg/dL POC Glucose 116 H (70-105) Lactic Acid (0.7-2.0) mmol/L Calcium 7.7 L (8.4-10.2) mg/dL C-Reactive Protein 29.60 H (0.00-1.30) mg/dL Crossmatch 06/24/17 06/24/17 06/24/17 Range/Units 13:00 15:08 16:10 WBC (4.5-11.0) K/mm3 RBC (3.65-5.03) M/mm3 Hgb 6.6 L (11.8-15.2) gm/dl Hct 20.7 L (35.5-45.6) % RDW (13.2-15.2) % Plt Count (140-440) K/mm3 Lymphocytes % (Manual) (13.4-35.0) % Nucleated RBC % (0.0-0.9) % Lymphocytes # (Manual) (1.2-5.4) K/mm3 PT (12.2-14.9) Sec. INR (0.87-1.13) POC ABG pH (7.35-7.45) POC ABG pCO2 (35-45) POC ABG pO2 (80-105) Sodium (137-145) mmol/L Potassium (3.6-5.0) mmol/L Chloride (98-107) mmol/L Carbon Dioxide (22-30) mmol/L BUN (9-20) mg/dL Creatinine (0.8-1.5) mg/dL Glucose (75-100) mg/dL POC Glucose 53 L 126 H (70-105) Lactic Acid (0.7-2.0) mmol/L Calcium (8.4-10.2) mg/dL C-Reactive Protein (0.00-1.30) mg/dL Crossmatch 06/24/17 06/24/17 06/24/17 Range/Units 16:15 18:31 18:56 WBC (4.5-11.0) K/mm3 RBC (3.65-5.03) M/mm3 Hgb (11.8-15.2) gm/dl Hct (35.5-45.6) % RDW (13.2-15.2) % Plt Count (140-440) K/mm3 Lymphocytes % (Manual) (13.4-35.0) % Nucleated RBC % (0.0-0.9) % Lymphocytes # (Manual) (1.2-5.4) K/mm3 PT (12.2-14.9) Sec. INR (0.87-1.13) POC ABG pH (7.35-7.45) POC ABG pCO2 (35-45) POC ABG pO2 (80-105) Sodium (137-145) mmol/L Potassium (3.6-5.0) mmol/L Chloride (98-107) mmol/L Carbon Dioxide (22-30) mmol/L BUN (9-20) mg/dL Creatinine (0.8-1.5) mg/dL Glucose (75-100) mg/dL POC Glucose 45 L 142 H (70-105) Lactic Acid (0.7-2.0) mmol/L Calcium (8.4-10.2) mg/dL C-Reactive Protein (0.00-1.30) mg/dL Crossmatch See Detail 06/24/17 06/24/17 06/24/17 Range/Units 21:02 21:38 22:00 WBC (4.5-11.0) K/mm3 RBC (3.65-5.03) M/mm3 Hgb (11.8-15.2) gm/dl Hct (35.5-45.6) % RDW (13.2-15.2) % Plt Count (140-440) K/mm3 Lymphocytes % (Manual) (13.4-35.0) % Nucleated RBC % (0.0-0.9) % Lymphocytes # (Manual) (1.2-5.4) K/mm3 PT (12.2-14.9) Sec. INR (0.87-1.13) POC ABG pH (7.35-7.45) POC ABG pCO2 (35-45) POC ABG pO2 (80-105) Sodium 132 L (137-145) mmol/L Potassium 6.9 H* (3.6-5.0) mmol/L Chloride 94.5 L (98-107) mmol/L Carbon Dioxide 15 L (22-30) mmol/L BUN 64 H (9-20) mg/dL Creatinine 9.3 H (0.8-1.5) mg/dL Glucose 125 H (75-100) mg/dL POC Glucose 69 L 169 H (70-105) Lactic Acid (0.7-2.0) mmol/L Calcium 7.4 L (8.4-10.2) mg/dL C-Reactive Protein (0.00-1.30) mg/dL Crossmatch 06/24/17 06/24/17 06/25/17 Range/Units 22:10 22:56 00:25 WBC (4.5-11.0) K/mm3 RBC 2.59 L (3.65-5.03) M/mm3 Hgb 7.7 L (11.8-15.2) gm/dl Hct 23.3 L (35.5-45.6) % RDW 16.9 H (13.2-15.2) % Plt Count 24 L (140-440) K/mm3 Lymphocytes % (Manual) 11.0 L (13.4-35.0) % Nucleated RBC % 3.0 H (0.0-0.9) % Lymphocytes # (Manual) 1.1 L (1.2-5.4) K/mm3 PT (12.2-14.9) Sec. INR (0.87-1.13) POC ABG pH (7.35-7.45) POC ABG pCO2 (35-45) POC ABG pO2 (80-105) Sodium (137-145) mmol/L Potassium (3.6-5.0) mmol/L Chloride (98-107) mmol/L Carbon Dioxide (22-30) mmol/L BUN (9-20) mg/dL Creatinine (0.8-1.5) mg/dL Glucose (75-100) mg/dL POC Glucose 138 H 109 H (70-105) Lactic Acid (0.7-2.0) mmol/L Calcium (8.4-10.2) mg/dL C-Reactive Protein (0.00-1.30) mg/dL Crossmatch 06/25/17 06/25/17 06/25/17 Range/Units 01:44 02:12 02:35 WBC (4.5-11.0) K/mm3 RBC (3.65-5.03) M/mm3 Hgb (11.8-15.2) gm/dl Hct (35.5-45.6) % RDW (13.2-15.2) % Plt Count (140-440) K/mm3 Lymphocytes % (Manual) (13.4-35.0) % Nucleated RBC % (0.0-0.9) % Lymphocytes # (Manual) (1.2-5.4) K/mm3 PT (12.2-14.9) Sec. INR (0.87-1.13) POC ABG pH (7.35-7.45) POC ABG pCO2 (35-45) POC ABG pO2 (80-105) Sodium (137-145) mmol/L Potassium (3.6-5.0) mmol/L Chloride (98-107) mmol/L Carbon Dioxide (22-30) mmol/L BUN (9-20) mg/dL Creatinine (0.8-1.5) mg/dL Glucose (75-100) mg/dL POC Glucose 65 L 47 L 229 H (70-105) Lactic Acid (0.7-2.0) mmol/L Calcium (8.4-10.2) mg/dL C-Reactive Protein (0.00-1.30) mg/dL Crossmatch 06/25/17 06/25/17 06/25/17 Range/Units 03:04 04:00 04:40 WBC (4.5-11.0) K/mm3 RBC (3.65-5.03) M/mm3 Hgb (11.8-15.2) gm/dl Hct (35.5-45.6) % RDW (13.2-15.2) % Plt Count (140-440) K/mm3 Lymphocytes % (Manual) (13.4-35.0) % Nucleated RBC % (0.0-0.9) % Lymphocytes # (Manual) (1.2-5.4) K/mm3 PT (12.2-14.9) Sec. INR (0.87-1.13) POC ABG pH (7.35-7.45) POC ABG pCO2 (35-45) POC ABG pO2 (80-105) Sodium 135 L (137-145) mmol/L Potassium 5.4 H D (3.6-5.0) mmol/L Chloride 96.4 L (98-107) mmol/L Carbon Dioxide 21 L (22-30) mmol/L BUN 36 H (9-20) mg/dL Creatinine 5.6 H (0.8-1.5) mg/dL Glucose 107 H (75-100) mg/dL POC Glucose 180 H 157 H (70-105) Lactic Acid (0.7-2.0) mmol/L Calcium 8.0 L (8.4-10.2) mg/dL C-Reactive Protein (0.00-1.30) mg/dL Crossmatch 06/25/17 06/25/17 06/25/17 Range/Units 06:05 07:47 10:00 WBC 15.2 H (4.5-11.0) K/mm3 RBC 2.79 L (3.65-5.03) M/mm3 Hgb 8.2 L (11.8-15.2) gm/dl Hct 25.2 L (35.5-45.6) % RDW 17.4 H (13.2-15.2) % Plt Count 15 L* (140-440) K/mm3 Lymphocytes % (Manual) (13.4-35.0) % Nucleated RBC % (0.0-0.9) % Lymphocytes # (Manual) (1.2-5.4) K/mm3 PT (12.2-14.9) Sec. INR (0.87-1.13) POC ABG pH 7.246 L (7.35-7.45) POC ABG pCO2 49.9 H (35-45) POC ABG pO2 77 L (80-105) Sodium (137-145) mmol/L Potassium (3.6-5.0) mmol/L Chloride (98-107) mmol/L Carbon Dioxide (22-30) mmol/L BUN (9-20) mg/dL Creatinine (0.8-1.5) mg/dL Glucose (75-100) mg/dL POC Glucose 144 H (70-105) Lactic Acid (0.7-2.0) mmol/L Calcium (8.4-10.2) mg/dL C-Reactive Protein (0.00-1.30) mg/dL Crossmatch 06/25/17 06/25/17 Range/Units 10:15 10:15 WBC 13.4 H (4.5-11.0) K/mm3 RBC 2.38 L (3.65-5.03) M/mm3 Hgb 6.9 L (11.8-15.2) gm/dl Hct 21.6 L (35.5-45.6) % RDW 17.3 H (13.2-15.2) % Plt Count 48 L D (140-440) K/mm3 Lymphocytes % (Manual) (13.4-35.0) % Nucleated RBC % (0.0-0.9) % Lymphocytes # (Manual) (1.2-5.4) K/mm3 PT 39.0 H (12.2-14.9) Sec. INR 3.74 H (0.87-1.13) POC ABG pH (7.35-7.45) POC ABG pCO2 (35-45) POC ABG pO2 (80-105) Sodium (137-145) mmol/L Potassium (3.6-5.0) mmol/L Chloride (98-107) mmol/L Carbon Dioxide (22-30) mmol/L BUN (9-20) mg/dL Creatinine (0.8-1.5) mg/dL Glucose (75-100) mg/dL POC Glucose (70-105) Lactic Acid (0.7-2.0) mmol/L Calcium (8.4-10.2) mg/dL C-Reactive Protein (0.00-1.30) mg/dL Crossmatch
--- NOTE | 2017-06-25 12:57 | Progress Note ---
Assessment and Plan Acute GI bleed s/p transfusion of PRBCs s/p colectomy and iterminal ileum-rectal anastomosis. AMS Sepsis Gram negative rods bacteremia ESRD on HD Hypoglycemia Acute respiratory failure intubated on the vent Hypertension now hypotensive on pressors Fever Tobacco abuse Chest pain Atrial fibrillation with RVR Echocardiogram shows hyperdynamic left ventricle systolic function, ejection fraction 65%. Subjective Date of service: 06/25/17 Principal diagnosis: septic shock, respiratory failure, end-stage renal disease GI bleed Interval history: remains intubated and sedated, on mechanical ventilation. On pressors for support. Afib with RVR on telemetry noted. Objective Vital Signs Temp Pulse Pulse Resp Resp BP Pulse Ox 06/25/17 12:00 97.5 F L 06/25/17 11:45 128 H 26 H 99/57 98 06/25/17 11:31 124 H 26 H 94/58 98 06/25/17 11:15 125 H 26 H 94/58 100 06/25/17 11:00 126 H 26 H 111/54 98 06/25/17 10:45 122 H 27 H 101/54 98 06/25/17 10:30 130 H 26 H 99/51 96 06/25/17 10:15 116 H 26 H 112/51 97 06/25/17 10:00 117 H 26 H 20 114/47 95 06/25/17 09:45 131 H 26 H 104/44 93 06/25/17 09:30 136 H 26 H 100/50 95 06/25/17 09:15 128 H 26 H 112/43 96 06/25/17 09:01 126 H 27 H 107/48 98 06/25/17 08:45 127 H 20 108/50 100 06/25/17 08:30 127 H 20 132/58 100 06/25/17 08:15 127 H 20 124/58 100 06/25/17 08:00 97.5 F L 130 H 122 H 20 122/56 100 06/25/17 07:45 135 H 22 124/55 99 06/25/17 07:30 134 H 20 131/49 99 06/25/17 07:15 148 H 20 124/55 100 06/25/17 07:00 136 H 21 131/57 100 06/25/17 06:45 141 H 21 122/59 99 06/25/17 06:30 138 H 20 144/47 99 06/25/17 06:15 141 H 19 127/63 99 06/25/17 06:00 149 H 19 147/57 99 06/25/17 05:46 134 H 126/66 98 06/25/17 05:45 141 H 20 132/63 99 06/25/17 05:36 136 H 06/25/17 05:30 139 H 20 126/65 99 06/25/17 05:15 146 H 20 134/62 99 06/25/17 05:09 133 H 06/25/17 05:01 147 H 20 123/67 99 06/25/17 04:45 142 H 20 121/65 97 06/25/17 04:30 147 H 21 131/78 100 06/25/17 04:15 165 H 22 86/56 99 06/25/17 04:01 158 H 22 86/56 99 06/25/17 04:00 98.4 F 146 H 26 H 06/25/17 03:45 141 H 23 79/55 98 06/25/17 03:30 144 H 23 81/48 99 06/25/17 03:15 134 H 21 82/55 100 06/25/17 03:00 97.3 F L 139 H 22 86/46 99 06/25/17 02:45 150 H 22 94/54 99 06/25/17 02:31 145 H 22 105/51 99 06/25/17 02:30 146 H 105/51 06/25/17 02:15 145 H 28 H 111/60 100 06/25/17 02:00 152 H 22 115/55 99 06/25/17 01:45 139 H 22 105/57 99 06/25/17 01:36 137 H 98/46 100 06/25/17 01:31 157 H 23 98/46 100 06/25/17 01:30 147 H 98/46 06/25/17 01:15 143 H 23 109/49 100 06/25/17 01:13 97.9 F 136 H 24 122/67 06/25/17 01:00 134 H 24 107/47 99 06/25/17 00:45 135 H 21 116/60 100 06/25/17 00:30 141 H 23 113/55 100 06/25/17 00:20 136 H 122/67 06/25/17 00:15 136 H 24 122/67 100 06/25/17 00:00 98.8 F 140 H 126 H 22 98/50 98 06/24/17 23:45 132 H 24 109/57 99 06/24/17 23:30 123 H 24 110/54 98 06/24/17 23:26 98.9 F 128 H 20 132/58 100 06/24/17 23:21 137 H 25 H 108/57 98 06/24/17 23:11 122 H 24 94/55 98 06/24/17 23:10 126 H 94/55 97 06/24/17 23:00 124 H 25 H 94/55 97 06/24/17 22:51 127 H 25 H 108/57 98 06/24/17 22:41 134 H 25 H 104/54 97 06/24/17 22:30 128 H 25 H 104/54 97 06/24/17 22:21 130 H 26 H 96/47 97 06/24/17 22:11 105 H 25 H 116/52 98 06/24/17 22:00 106 H 24 116/52 98 06/24/17 21:45 107 H 22 114/52 99 06/24/17 21:30 108 H 24 128/50 98 06/24/17 21:15 109 H 23 116/55 98 06/24/17 21:00 106 H 25 H 117/59 98 06/24/17 20:45 105 H 25 H 116/56 98 06/24/17 20:30 106 H 25 H 108/50 98 06/24/17 20:28 106 H 114/52 100 06/24/17 20:15 105 H 27 H 114/52 98 06/24/17 20:00 107 H 116 H 26 H 109/55 98 06/24/17 19:49 99.0 F 06/24/17 19:45 108 H 26 H 113/52 98 06/24/17 19:30 107 H 25 H 120/53 99 06/24/17 19:15 109 H 26 H 120/52 100 06/24/17 19:00 109 H 24 128/53 100 06/24/17 18:45 108 H 24 124/54 100 06/24/17 18:30 108 H 27 H 114/53 99 06/24/17 18:15 108 H 25 H 114/54 99 06/24/17 18:00 109 H 27 H 114/53 100 06/24/17 17:45 90 29 H 98/47 98 06/24/17 17:44 98.9 F 107 H 27 H 114/54 99 06/24/17 17:30 106 H 27 H 107/50 98 06/24/17 17:29 99.4 F 109 H 27 H 103/50 97 06/24/17 17:15 108 H 28 H 103/50 97 06/24/17 17:00 110 H 27 H 106/50 97 06/24/17 16:45 106 H 28 H 101/45 97 06/24/17 16:30 108 H 27 H 104/49 97 06/24/17 16:15 110 H 27 H 94/46 97 06/24/17 16:01 95 H 27 H 88/46 98 06/24/17 16:00 99.4 F 113 H 28 H 06/24/17 15:45 112 H 24 113/48 99 06/24/17 15:30 112 H 23 126/60 99 06/24/17 15:15 113 H 27 H 107/54 97 06/24/17 15:00 112 H 26 H 110/54 97 06/24/17 14:45 113 H 28 H 107/53 97 06/24/17 14:30 99 H 27 H 105/46 96 06/24/17 14:15 114 H 28 H 101/52 100 06/24/17 14:00 113 H 24 111/49 96 06/24/17 13:45 112 H 28 H 101/53 96 06/24/17 13:30 114 H 27 H 101/52 96 06/24/17 13:15 99 H 27 H 107/49 97 06/24/17 13:00 112 H 24 110/53 98 Pulse Ox 06/25/17 12:00 06/25/17 11:45 06/25/17 11:31 06/25/17 11:15 06/25/17 11:00 06/25/17 10:45 06/25/17 10:30 06/25/17 10:15 06/25/17 10:00 06/25/17 09:45 06/25/17 09:30 06/25/17 09:15 06/25/17 09:01 06/25/17 08:45 06/25/17 08:30 06/25/17 08:15 06/25/17 08:00 06/25/17 07:45 06/25/17 07:30 06/25/17 07:15 06/25/17 07:00 06/25/17 06:45 06/25/17 06:30 06/25/17 06:15 06/25/17 06:00 06/25/17 05:46 06/25/17 05:45 06/25/17 05:36 06/25/17 05:30 06/25/17 05:15 06/25/17 05:09 06/25/17 05:01 06/25/17 04:45 06/25/17 04:30 06/25/17 04:15 06/25/17 04:01 06/25/17 04:00 06/25/17 03:45 06/25/17 03:30 06/25/17 03:15 06/25/17 03:00 06/25/17 02:45 06/25/17 02:31 06/25/17 02:30 06/25/17 02:15 06/25/17 02:00 06/25/17 01:45 06/25/17 01:36 06/25/17 01:31 06/25/17 01:30 06/25/17 01:15 06/25/17 01:13 100 06/25/17 01:00 06/25/17 00:45 06/25/17 00:30 06/25/17 00:20 06/25/17 00:15 06/25/17 00:00 06/24/17 23:45 06/24/17 23:30 06/24/17 23:26 06/24/17 23:21 06/24/17 23:11 06/24/17 23:10 06/24/17 23:00 06/24/17 22:51 06/24/17 22:41 06/24/17 22:30 06/24/17 22:21 06/24/17 22:11 06/24/17 22:00 06/24/17 21:45 06/24/17 21:30 06/24/17 21:15 06/24/17 21:00 06/24/17 20:45 06/24/17 20:30 06/24/17 20:28 06/24/17 20:15 06/24/17 20:00 06/24/17 19:49 06/24/17 19:45 06/24/17 19:30 06/24/17 19:15 06/24/17 19:00 06/24/17 18:45 06/24/17 18:30 06/24/17 18:15 06/24/17 18:00 06/24/17 17:45 06/24/17 17:44 06/24/17 17:30 06/24/17 17:29 06/24/17 17:15 06/24/17 17:00 06/24/17 16:45 06/24/17 16:30 06/24/17 16:15 06/24/17 16:01 06/24/17 16:00 06/24/17 15:45 06/24/17 15:30 06/24/17 15:15 06/24/17 15:00 06/24/17 14:45 06/24/17 14:30 06/24/17 14:15 06/24/17 14:00 06/24/17 13:45 06/24/17 13:30 06/24/17 13:15 06/24/17 13:00 - Physical Examination General: Other (intubated on the vent) Cardiac: Positive: irregularly irregular - Labs and Meds Coagulation 06/25/17 Range/Units 10:15 PT 39.0 H (12.2-14.9) Sec. INR 3.74 H (0.87-1.13) CBC 06/24/17 06/25/17 06/25/17 Range/Units 13:00 00:25 07:47 WBC 10.2 15.2 H (4.5-11.0) K/mm3 RBC 2.59 L 2.79 L (3.65-5.03) M/mm3 Hgb 6.6 L 7.7 L 8.2 L (11.8-15.2) gm/dl Hct 20.7 L 23.3 L 25.2 L (35.5-45.6) % Plt Count 24 L 15 L* (140-440) K/mm3 06/25/17 Range/Units 10:15 WBC 13.4 H (4.5-11.0) K/mm3 RBC 2.38 L (3.65-5.03) M/mm3 Hgb 6.9 L (11.8-15.2) gm/dl Hct 21.6 L (35.5-45.6) % Plt Count 48 L D (140-440) K/mm3 Comprehensive Metabolic Panel 06/24/17 06/24/17 06/25/17 Range/Units 13:00 22:00 04:40 Sodium 135 L 132 L 135 L (137-145) mmol/L Potassium 6.3 H* 6.9 H* 5.4 H D (3.6-5.0) mmol/L Chloride 95.6 L 94.5 L 96.4 L (98-107) mmol/L Carbon Dioxide 17 L 15 L 21 L (22-30) mmol/L BUN 60 H 64 H 36 H (9-20) mg/dL Creatinine 9.0 H 9.3 H 5.6 H (0.8-1.5) mg/dL Glucose 174 H 125 H 107 H (75-100) mg/dL Calcium 7.7 L 7.4 L 8.0 L (8.4-10.2) mg/dL
[2017-06-25 13:16] LABS: ISTAT Base Excess -11; ISTAT PCO2 41.3 (35-45); ISTAT PH 7.221 (7.35-7.45); ISTAT PO2 76 (80-105); ISTAT SO2 92; ISTAT TCO2 18
[2017-06-25 13:42] LABS: Hematocrit 21.4 % (35.5-45.6); Hemoglobin 6.6 gm/dl (11.8-15.2); Mean Corpuscular HGB Conc 31 % (32-34); Mean Corpuscular Hemoglobin 29 pg (28-32); Mean Corpuscular Volume 91 fl (84-94); Red Blood Count 2.34 M/mm3 (3.65-5.03); Red Cell Distribution Width 17.4 % (13.2-15.2); White Blood Count 14.9 K/mm3 (4.5-11.0)
[2017-06-25 13:56] LABS: Platelet Count 34 K/mm3 (140-440)
[2017-06-25] MEDS ORDERED: NACL 0.9% 500 ML 500 ML IV NR (14:35)
[2017-06-25] MEDS ORDERED: D50W (25GM) Syringe IV ONE (14:46)
[2017-06-25] MEDS ORDERED: ADRENALIN ONE (14:46)
[2017-06-25] MEDS ORDERED: LANOXIN IV ONE ×2 (15:03→21:00)
--- NOTE | 2017-06-25 15:41 | Progress Note ---
Subjective Principal diagnosis: septic shock, respiratory failure, end-stage renal disease GI bleed Interval history: Patient was evaluated today for follow-up on multiple renal related issues, He was dialyzed yesterday which she tolerated in the critical care setting Current labs are relatively satisfactory/he remains intubated Acidosis hyperkalemia better patient's care plan was discussed with his power of road service locksmith Yue yesterday at length Even so 24 hours vitals labs noted Current medications: Reviewed Social history:Reviewed Family history: Reviewed HEENT:intubated Neck: Supple without JVD Chest: bilateral basilar crackles with diminished breath sounds in the lung bases Heart: Regular rate and rhythm S1 and S2 heard no S3-S4 Abdomen: Soft slightly distended has dressing in place bowel sounds absent, abdominal distention slightly worse Extremity: Dry skin minimal edema Psychiatry: No agitation and aggression noted Assessment and plan End-stage renal disease: patient is doing very very poorly critically ill hypotensive septic Patient did receive hemodialysis yesterday May require renal placement therapy tonight again, we'll check basic metabolic profile again Patient has hypotension sepsis and is currently critically ill Lactic acidosis GI bleed respiratory failure patient appeared to be septic febrile doing poorly Admitted with GI bleed/status post surgery GI bleeding status post GI follow-up endoscopy Hypoglycemia currently on D10 drip Discussed with family at the bedside his prognosis is very poor mortality risk is very high family is aware,and very appreciated but the care Objective - Vital Signs Vital signs: Vital Signs - 12hr 06/25/17 06/25/17 06/25/17 03:45 04:00 04:01 Temperature 98.4 F Pulse Rate 141 H 158 H Pulse Rate [ 146 H From Monitor] Respiratory 23 26 H 22 Rate Respiratory Rate [Abdomen] Blood Pressure 79/55 86/56 O2 Sat by Pulse 98 99 Oximetry 06/25/17 06/25/17 06/25/17 04:15 04:30 04:45 Temperature Pulse Rate 165 H 147 H 142 H Pulse Rate [ From Monitor] Respiratory 22 21 20 Rate Respiratory Rate [Abdomen] Blood Pressure 86/56 131/78 121/65 O2 Sat by Pulse 99 100 97 Oximetry 06/25/17 06/25/17 06/25/17 05:01 05:09 05:15 Temperature Pulse Rate 147 H 133 H 146 H Pulse Rate [ From Monitor] Respiratory 20 20 Rate Respiratory Rate [Abdomen] Blood Pressure 123/67 134/62 O2 Sat by Pulse 99 99 Oximetry 06/25/17 06/25/17 06/25/17 05:30 05:36 05:45 Temperature Pulse Rate 139 H 136 H 141 H Pulse Rate [ From Monitor] Respiratory 20 20 Rate Respiratory Rate [Abdomen] Blood Pressure 126/65 132/63 O2 Sat by Pulse 99 99 Oximetry 06/25/17 06/25/17 06/25/17 05:46 06:00 06:15 Temperature Pulse Rate 134 H 149 H 141 H Pulse Rate [ From Monitor] Respiratory 19 19 Rate Respiratory Rate [Abdomen] Blood Pressure 126/66 147/57 127/63 O2 Sat by Pulse 98 99 99 Oximetry 06/25/17 06/25/17 06/25/17 06:30 06:45 07:00 Temperature Pulse Rate 138 H 141 H 136 H Pulse Rate [ From Monitor] Respiratory 20 21 21 Rate Respiratory Rate [Abdomen] Blood Pressure 144/47 122/59 131/57 O2 Sat by Pulse 99 99 100 Oximetry 06/25/17 06/25/17 06/25/17 07:15 07:30 07:45 Temperature Pulse Rate 148 H 134 H 135 H Pulse Rate [ From Monitor] Respiratory 20 20 22 Rate Respiratory Rate [Abdomen] Blood Pressure 124/55 131/49 124/55 O2 Sat by Pulse 100 99 99 Oximetry 06/25/17 06/25/17 06/25/17 08:00 08:15 08:30 Temperature 97.5 F L Pulse Rate 130 H 127 H 127 H Pulse Rate [ 122 H From Monitor] Respiratory 20 20 20 Rate Respiratory Rate [Abdomen] Blood Pressure 122/56 124/58 132/58 O2 Sat by Pulse 100 100 100 Oximetry 06/25/17 06/25/17 06/25/17 08:45 09:01 09:15 Temperature Pulse Rate 127 H 126 H 128 H Pulse Rate [ From Monitor] Respiratory 20 27 H 26 H Rate Respiratory Rate [Abdomen] Blood Pressure 108/50 107/48 112/43 O2 Sat by Pulse 100 98 96 Oximetry 06/25/17 06/25/17 06/25/17 09:30 09:45 10:00 Temperature Pulse Rate 136 H 131 H 117 H Pulse Rate [ From Monitor] Respiratory 26 H 26 H 22 Rate Respiratory 20 Rate [Abdomen] Blood Pressure 100/50 104/44 114/47 O2 Sat by Pulse 95 93 100 Oximetry 06/25/17 06/25/17 06/25/17 10:15 10:30 10:45 Temperature Pulse Rate 116 H 130 H 122 H Pulse Rate [ From Monitor] Respiratory 26 H 26 H 27 H Rate Respiratory Rate [Abdomen] Blood Pressure 112/51 99/51 101/54 O2 Sat by Pulse 97 96 98 Oximetry 06/25/17 06/25/17 06/25/17 11:00 11:15 11:31 Temperature Pulse Rate 126 H 125 H 124 H Pulse Rate [ From Monitor] Respiratory 26 H 26 H 26 H Rate Respiratory Rate [Abdomen] Blood Pressure 111/54 94/58 94/58 O2 Sat by Pulse 98 100 98 Oximetry 06/25/17 06/25/17 06/25/17 11:45 12:00 12:15 Temperature 97.5 F L Pulse Rate 128 H 130 H 127 H Pulse Rate [ 117 H From Monitor] Respiratory 26 H 27 H 26 H Rate Respiratory Rate [Abdomen] Blood Pressure 99/57 98/58 98/58 O2 Sat by Pulse 98 99 98 Oximetry 06/25/17 06/25/17 06/25/17 12:30 12:45 13:01 Temperature Pulse Rate 124 H 120 H 117 H Pulse Rate [ From Monitor] Respiratory 26 H 26 H 28 H Rate Respiratory Rate [Abdomen] Blood Pressure 95/60 100/82 117/59 O2 Sat by Pulse 99 98 96 Oximetry 06/25/17 06/25/17 06/25/17 13:15 13:25 13:30 Temperature Pulse Rate 125 H 121 H 118 H Pulse Rate [ From Monitor] Respiratory 28 H 28 H Rate Respiratory Rate [Abdomen] Blood Pressure 129/54 108/50 125/53 O2 Sat by Pulse 98 99 100 Oximetry 06/25/17 06/25/17 06/25/17 13:45 14:00 14:04 Temperature Pulse Rate 121 H 125 H Pulse Rate [ From Monitor] Respiratory 28 H 28 H 22 Rate Respiratory Rate [Abdomen] Blood Pressure 108/50 118/49 O2 Sat by Pulse 64 L 98 Oximetry 06/25/17 06/25/17 06/25/17 14:15 14:30 14:45 Temperature Pulse Rate 123 H 115 H 142 H Pulse Rate [ From Monitor] Respiratory 28 H 28 H 29 H Rate Respiratory Rate [Abdomen] Blood Pressure 105/48 97/52 97/52 O2 Sat by Pulse 99 99 99 Oximetry 06/25/17 15:01 Temperature Pulse Rate 141 H Pulse Rate [ From Monitor] Respiratory 29 H Rate Respiratory Rate [Abdomen] Blood Pressure 110/55 O2 Sat by Pulse 100 Oximetry - Lab 06/26/17 01:55 06/26/17 05:31 Most recent lab results Calcium 8.0 mg/dL (8.4-10.2) L 06/25/17 04:40 Phosphorus 8.20 mg/dL (2.5-4.5) H 06/23/17 17:40 Magnesium 1.60 mg/dL (1.7-2.3) L 06/23/17 17:40
[2017-06-25] MEDS: NEO-SYNEPHRINE 100 MG in NACL 0.9% 90 ML IV SCH ×2 (16:00→19:23)
[2017-06-25] MEDS ORDERED: CORDARONE 900 MG in D5W 482 ML IV SCH (16:00)
[2017-06-25 16:19] LABS: ISTAT Base Excess -16; ISTAT HCO3 12.5; ISTAT PCO2 34.8 (35-45); ISTAT PH 7.164 (7.35-7.45); ISTAT PO2 86 (80-105); ISTAT SO2 94; ISTAT TCO2 14
--- NOTE | 2017-06-25 16:34 | Progress Note ---
Subjective Patient Reports: Positive: feels better Narrative: no change in clinical status .HGB 6.6 talked to family as to the malnutrition and the renal failure , no rectal bleeding .On TPN , still entubated Objective Vital Signs - 12hr 06/25/17 06/25/17 06/25/17 04:45 05:01 05:09 Temperature Pulse Rate 142 H 147 H 133 H Pulse Rate [ From Monitor] Respiratory 20 20 Rate Respiratory Rate [Abdomen] Blood Pressure 121/65 123/67 O2 Sat by Pulse 97 99 Oximetry 06/25/17 06/25/17 06/25/17 05:15 05:30 05:36 Temperature Pulse Rate 146 H 139 H 136 H Pulse Rate [ From Monitor] Respiratory 20 20 Rate Respiratory Rate [Abdomen] Blood Pressure 134/62 126/65 O2 Sat by Pulse 99 99 Oximetry 06/25/17 06/25/17 06/25/17 05:45 05:46 06:00 Temperature Pulse Rate 141 H 134 H 149 H Pulse Rate [ From Monitor] Respiratory 20 19 Rate Respiratory Rate [Abdomen] Blood Pressure 132/63 126/66 147/57 O2 Sat by Pulse 99 98 99 Oximetry 06/25/17 06/25/17 06/25/17 06:15 06:30 06:45 Temperature Pulse Rate 141 H 138 H 141 H Pulse Rate [ From Monitor] Respiratory 19 20 21 Rate Respiratory Rate [Abdomen] Blood Pressure 127/63 144/47 122/59 O2 Sat by Pulse 99 99 99 Oximetry 06/25/17 06/25/17 06/25/17 07:00 07:15 07:30 Temperature Pulse Rate 136 H 148 H 134 H Pulse Rate [ From Monitor] Respiratory 21 20 20 Rate Respiratory Rate [Abdomen] Blood Pressure 131/57 124/55 131/49 O2 Sat by Pulse 100 100 99 Oximetry 06/25/17 06/25/17 06/25/17 07:45 08:00 08:15 Temperature 97.5 F L Pulse Rate 135 H 130 H 127 H Pulse Rate [ 122 H From Monitor] Respiratory 22 20 20 Rate Respiratory Rate [Abdomen] Blood Pressure 124/55 122/56 124/58 O2 Sat by Pulse 99 100 100 Oximetry 06/25/17 06/25/17 06/25/17 08:30 08:45 09:01 Temperature Pulse Rate 127 H 127 H 126 H Pulse Rate [ From Monitor] Respiratory 20 20 27 H Rate Respiratory Rate [Abdomen] Blood Pressure 132/58 108/50 107/48 O2 Sat by Pulse 100 100 98 Oximetry 06/25/17 06/25/17 06/25/17 09:15 09:30 09:45 Temperature Pulse Rate 128 H 136 H 131 H Pulse Rate [ From Monitor] Respiratory 26 H 26 H 26 H Rate Respiratory Rate [Abdomen] Blood Pressure 112/43 100/50 104/44 O2 Sat by Pulse 96 95 93 Oximetry 06/25/17 06/25/17 06/25/17 10:00 10:15 10:30 Temperature Pulse Rate 117 H 116 H 130 H Pulse Rate [ From Monitor] Respiratory 22 26 H 26 H Rate Respiratory 20 Rate [Abdomen] Blood Pressure 114/47 112/51 99/51 O2 Sat by Pulse 100 97 96 Oximetry 06/25/17 06/25/17 06/25/17 10:45 11:00 11:15 Temperature Pulse Rate 122 H 126 H 125 H Pulse Rate [ From Monitor] Respiratory 27 H 26 H 26 H Rate Respiratory Rate [Abdomen] Blood Pressure 101/54 111/54 94/58 O2 Sat by Pulse 98 98 100 Oximetry 06/25/17 06/25/17 06/25/17 11:31 11:45 12:00 Temperature 97.5 F L Pulse Rate 124 H 128 H 130 H Pulse Rate [ 117 H From Monitor] Respiratory 26 H 26 H 27 H Rate Respiratory Rate [Abdomen] Blood Pressure 94/58 99/57 98/58 O2 Sat by Pulse 98 98 99 Oximetry 06/25/17 06/25/17 06/25/17 12:15 12:30 12:45 Temperature Pulse Rate 127 H 124 H 120 H Pulse Rate [ From Monitor] Respiratory 26 H 26 H 26 H Rate Respiratory Rate [Abdomen] Blood Pressure 98/58 95/60 100/82 O2 Sat by Pulse 98 99 98 Oximetry 06/25/17 06/25/17 06/25/17 13:01 13:15 13:25 Temperature Pulse Rate 117 H 125 H 121 H Pulse Rate [ From Monitor] Respiratory 28 H 28 H Rate Respiratory Rate [Abdomen] Blood Pressure 117/59 129/54 108/50 O2 Sat by Pulse 96 98 99 Oximetry 06/25/17 06/25/17 06/25/17 13:30 13:45 14:00 Temperature Pulse Rate 118 H 121 H 125 H Pulse Rate [ From Monitor] Respiratory 28 H 28 H 28 H Rate Respiratory Rate [Abdomen] Blood Pressure 125/53 108/50 118/49 O2 Sat by Pulse 100 64 L 98 Oximetry 06/25/17 06/25/17 06/25/17 14:04 14:15 14:30 Temperature Pulse Rate 123 H 115 H Pulse Rate [ From Monitor] Respiratory 22 28 H 28 H Rate Respiratory Rate [Abdomen] Blood Pressure 105/48 97/52 O2 Sat by Pulse 99 99 Oximetry 06/25/17 06/25/17 06/25/17 14:45 15:01 15:15 Temperature Pulse Rate 142 H 141 H 137 H Pulse Rate [ From Monitor] Respiratory 29 H 29 H 28 H Rate Respiratory Rate [Abdomen] Blood Pressure 97/52 110/55 122/69 O2 Sat by Pulse 99 100 100 Oximetry 06/25/17 06/25/17 06/25/17 15:31 15:45 16:00 Temperature 98.5 F Pulse Rate 124 H 114 H Pulse Rate [ 109 H From Monitor] Respiratory 29 H 28 H 28 H Rate Respiratory Rate [Abdomen] Blood Pressure 112/44 112/44 O2 Sat by Pulse 99 97 99 Oximetry 06/25/17 06/25/17 16:01 16:15 Temperature Pulse Rate 122 H 123 H Pulse Rate [ From Monitor] Respiratory 28 H 29 H Rate Respiratory Rate [Abdomen] Blood Pressure 74/47 74/47 O2 Sat by Pulse 100 99 Oximetry - Labs 06/25/17 13:30 06/25/17 04:40 Diabetes panel 06/24/17 06/25/17 Range/Units 22:00 04:40 Sodium 132 L 135 L (137-145) mmol/L Potassium 6.9 H* 5.4 H D (3.6-5.0) mmol/L Chloride 94.5 L 96.4 L (98-107) mmol/L Carbon Dioxide 15 L 21 L (22-30) mmol/L BUN 64 H 36 H (9-20) mg/dL Creatinine 9.3 H 5.6 H (0.8-1.5) mg/dL Glucose 125 H 107 H (75-100) mg/dL Calcium 7.4 L 8.0 L (8.4-10.2) mg/dL Calcium panel 06/24/17 06/25/17 Range/Units 22:00 04:40 Calcium 7.4 L 8.0 L (8.4-10.2) mg/dL Pituitary panel 06/24/17 06/25/17 Range/Units 22:00 04:40 Sodium 132 L 135 L (137-145) mmol/L Potassium 6.9 H* 5.4 H D (3.6-5.0) mmol/L Chloride 94.5 L 96.4 L (98-107) mmol/L Carbon Dioxide 15 L 21 L (22-30) mmol/L BUN 64 H 36 H (9-20) mg/dL Creatinine 9.3 H 5.6 H (0.8-1.5) mg/dL Glucose 125 H 107 H (75-100) mg/dL Calcium 7.4 L 8.0 L (8.4-10.2) mg/dL Adrenal panel 06/24/17 06/25/17 Range/Units 22:00 04:40 Sodium 132 L 135 L (137-145) mmol/L Potassium 6.9 H* 5.4 H D (3.6-5.0) mmol/L Chloride 94.5 L 96.4 L (98-107) mmol/L Carbon Dioxide 15 L 21 L (22-30) mmol/L BUN 64 H 36 H (9-20) mg/dL Creatinine 9.3 H 5.6 H (0.8-1.5) mg/dL Glucose 125 H 107 H (75-100) mg/dL Calcium 7.4 L 8.0 L (8.4-10.2) mg/dL
[2017-06-25 16:45] LABS: BUN/Creatinine Ratio 6.06; Calcium 8.1 mg/dL (8.4-10.2); Chloride 92.9 mmol/L (98-107)
[2017-06-25 16:53] LABS: Potassium 7.1 mmol/L (3.6-5.0)
[2017-06-25] MEDS ORDERED: NACL 0.9% 100 ML IV PRN (17:41)
[2017-06-25] MEDS ORDERED: SODIUM BICARBONATE IV ONE ×2 (17:49→18:00)
--- NOTE | 2017-06-25 18:43 | Progress Note ---
Assessment and Plan Assessment and plan: Patient is 66 years old male with past medical history of hypertension and end stage renal disease and is on hemodialysis who presents to the with 3 days of worsening bloody stools . Just over 3 days ago the patient was at his normal baseline state of health. Patient noticed black stools on 06/15/2017 and Called his Paint Mixer Hand in [facility] and instructed him to visit the nearest emergency department if continue to have bloody stools. Patient on 06/17/17 he had a toilet full of bloody loose stools. Patient had the same problem years ago. Patient also complaining chest pain on the epigastric area. [place] states that the pain began this morning and consisted of a sharp pain that lasted around 30 seconds, followed by constant a dull pain. He describes the quality as a chest tightness/pressure without radiation to the shoulder, arm, back, or jaw. He denies nausea, vomiting and shortness of breath. He denies fever, wt loss, SOB, dizziness, hematemesis, diarrhea, constipation, or hematochezia. Was also noted to have elevated blood pressure No hx of liver disease. No NSAID use. No ETOH abuse. Patient current daily smoker. Major status in the ED were concerning for mild diverticulitis with possible colonic mass and bilateral pleural effusion and also polycystic kidney disease. Patient did proceed to have that GI nuclear scan which showed an uptake of the left upper quadrant patient was taken to the OR on 819 and underwent a subtotal colectomy FOR diverticular bleeding. Because septic on 821 with a temperature of 101.2 with neutropenia and bandemia 40%. Cultures growing gram-negative rods Acute hypoxic respiratory failure - Intubated 06/23 remains on mechanical ventilation - ABG, 7.3 PCO2 40 PaO2 74 bicarbonate 20 SVT WITH NOW WITH NEW ONSET AFIB WITH RVR Changed to neosynophrin Amiodarin drip started Digoxin started Severe Sepsis with GNR bactermia- Not present on admission - Patient was treated IV fluids and started on Pressors - cvp LINE on the right femoral region -Fluconazole per ID -Continue Vancomycin and Zosyn Septic shock -As noted above. -PRESSORS CHANGED. patient remains signiciantly unstable for Imagaing. Diverticular Bleed s/p subtotal colectomy -Repeat CT to r/o leak and absces Severe Anemia -Transfuse to keep H/H ABOVE 7 - s/p Subtotal Colectomy for extensive diverticular bleed with diverticulitis Severe Hyperkalemia -Nephrology following- dialysized yesterday. will need repeat dialysis today -BICARB, CALCIUM, FOR CORRECTION -MONITOR RENAL FUNCTION Hypoglycemia with confusion, acute metabolic encephalopathy - Patient is on D10 normal saline increase to 150cc per hour -Start on TPN - Accu-Chek every hour and patient is on D50 infusion as needed Severe anemia secondary to GI bleed, S/P total colectomy - was transfused multiple units of blood - Hemoglobin trended down to 6.6- SURGERY FOLLOWING - No bowel movement after the surgery Tobacco abuse- counselling when awake Lactic acidosis WITH SEVERE METABOLIC ACIDOSIS * Continue corrective measures Toxic Encephalopathy -Likely secondary to sepsis Chest pain - Cardiology consulted End stage renal disease on hemodialysis -Nephrology Following -Continue with the hemodialysis DVT prophylaxis - On SCDs because of GI bleed Disposition - Continue ICU care Prognosis: Poor, FAMILY AWARE- DISCUSSED WITH BROTHER, SISTER AND AT BEDSIDE Discussed with nursing The high probability of a clinically significant, sudden or life threatening deterioration of the [GI, CVS, ID, GLOBAL MARKETING COORDINATOR, endocrine] system(s) required my full and direct attention, intervention and personal management. The aggregate critical care time was [35] minutes. This time is in addition to time spent performing reported procedures but includes the following: [x] Data Review and interpretation [x] Patient assessment and monitoring of vital signs [x] Documentation History Interval history: Patient seen and examined this morning remains sedated and intubated per nursing staff patient with decrease in all blood sugar levels. Remains critically ill Hospitalist Physical - Physical exam Narrative exam: VITAL SIGNS: Reviewed. GENERAL: The patient sedated and intubated. Vital signs as documented. HEAD: No signs of head trauma. EYES: Pupils are equal. EARS: Hearing grossly intact. MOUTH: Oropharynx is normal. NECK: No adenopathy, no JVD. CHEST: Chest with Transmitted breath sounds bilaterally. No wheezes, rales, or rhonchi. CARDIAC: Regular rate and rhythm. S1 and S2, without murmurs, gallops, or rubs. VASCULAR: No Edema. Peripheral pulses normal and equal in all extremities. ABDOMEN: Soft, midline surgical wound with dressing, no overt drainage noted. Bowel Sounds hypoactive. MUSCULOSKELETAL: Good range of motion of all major joints. Extremities without clubbing, cyanosis or edema. NEUROLOGIC EXAM: intubated. PSYCHIATRIC: UNABLE TO ASSESS. SKIN: Right fem line placed. - Constitutional Vitals: Temp Pulse Resp BP Pulse Ox 98.5 F 89 28 H 77/39 99 06/25/17 16:00 06/25/17 17:45 06/25/17 17:01 06/25/17 17:45 06/25/17 16:45 General appearance: Present: no acute distress Results - Labs CBC & Chem 7: 06/25/17 13:30 06/25/17 15:48 Labs: Laboratory Last Values WBC 14.9 K/mm3 (4.5-11.0) H 06/25/17 13:30 RBC 2.34 M/mm3 (3.65-5.03) L 06/25/17 13:30 Hgb 6.6 gm/dl (11.8-15.2) L 06/25/17 13:30 Hct 21.4 % (35.5-45.6) L 06/25/17 13:30 MCV 91 fl (84-94) 06/25/17 13:30 MCH 29 pg (28-32) 06/25/17 13:30 MCHC 31 % (32-34) L 06/25/17 13:30 RDW 17.4 % (13.2-15.2) H 06/25/17 13:30 Plt Count 34 K/mm3 (140-440) L 06/25/17 13:30 Lymph % (Auto) 12.0 % (13.4-35.0) L 06/19/17 05:30 [place] % (Auto) 8.6 % (0.0-7.3) H 06/19/17 05:30 Eos % (Auto) 0.1 % (0.0-4.3) 06/19/17 05:30 Baso % (Auto) 0.5 % (0.0-1.8) 06/19/17 05:30 Lymph # 1.3 K/mm3 (1.2-5.4) 06/19/17 05:30 [place] # 0.9 K/mm3 (0.0-0.8) H 06/19/17 05:30 Eos # 0.0 K/mm3 (0.0-0.4) 06/19/17 05:30 Baso # 0.1 K/mm3 (0.0-0.1) 06/19/17 05:30 Add Manual Diff Complete 06/25/17 00:25 Total Counted 100 06/25/17 00:25 Seg Neutrophils % Tray Delivery Aide 06/25/17 00:25 Seg Neuts % (Manual) 63.0 % (40.0-70.0) 06/25/17 00:25 Band Neutrophils % 15.0 % 06/25/17 00:25 Lymphocytes % (Manual) 11.0 % (13.4-35.0) L 06/25/17 00:25 Reactive Lymphs % (Man) 3.0 % 06/25/17 00:25 Monocytes % (Manual) 6.0 % (0.0-7.3) 06/25/17 00:25 Eosinophils % (Manual) 0 % (0.0-4.3) 06/25/17 00:25 Basophils % (Manual) 0 % (0.0-1.8) 06/25/17 00:25 Metamyelocytes % 2.0 % 06/25/17 00:25 Myelocytes % 0 % 06/25/17 00:25 Promyelocytes % 0 % 06/25/17 00:25 Blast Cells % 0 % 06/25/17 00:25 Nucleated RBC % 3.0 % (0.0-0.9) H 06/25/17 00:25 Seg Neutrophils # 8.3 K/mm3 (1.8-7.7) H 06/19/17 05:30 Seg Neutrophils # Man 6.4 K/mm3 (1.8-7.7) 06/25/17 00:25 Band Neutrophils # 1.5 K/mm3 06/25/17 00:25 Lymphocytes # (Manual) 1.1 K/mm3 (1.2-5.4) L 06/25/17 00:25 Abs React Lymphs (Man) 0.3 K/mm3 06/25/17 00:25 Monocytes # (Manual) 0.6 K/mm3 (0.0-0.8) 06/25/17 00:25 Eosinophils # (Manual) 0.0 K/mm3 (0.0-0.4) 06/25/17 00:25 Basophils # (Manual) 0.0 K/mm3 (0.0-0.1) 06/25/17 00:25 Metamyelocytes # 0.2 K/mm3 06/25/17 00:25 Myelocytes # 0.0 K/mm3 06/25/17 00:25 Promyelocytes # 0.0 K/mm3 06/25/17 00:25 Blast Cells # 0.0 K/mm3 06/25/17 00:25 WBC Morphology Not Reportable 06/25/17 00:25 Hypersegmented Neuts Not Reportable 06/25/17 00:25 Hyposegmented Neuts Not Reportable 06/25/17 00:25 Hypogranular Neuts Not Reportable 06/25/17 00:25 Smudge Cells Not Reportable 06/25/17 00:25 Toxic Granulation Not Reportable 06/25/17 00:25 Toxic Vacuolation Not Reportable 06/25/17 00:25 Dohle Bodies Not Reportable 06/25/17 00:25 Pelger-Huet Anomaly Not Reportable 06/25/17 00:25 Reji Rods Not Reportable 06/25/17 00:25 Platelet Estimate Consistent w auto 06/25/17 00:25 Clumped Platelets Not Reportable 06/25/17 00:25 Plt Clumps, EDTA Not Reportable 06/25/17 00:25 Large Platelets Not Reportable 06/25/17 00:25 Giant Platelets Not Reportable 06/25/17 00:25 Platelet Satelliting Not Reportable 06/25/17 00:25 Plt Morphology Comment Not Reportable 06/25/17 00:25 RBC Morphology Not Reportable 06/25/17 00:25 Dimorphic RBCs Not Reportable 06/25/17 00:25 Polychromasia Not Reportable 06/25/17 00:25 Hypochromasia Few 06/25/17 00:25 Poikilocytosis Not Reportable 06/25/17 00:25 Anisocytosis 1+ 06/25/17 00:25 Microcytosis Not Reportable 06/25/17 00:25 Macrocytosis Not Reportable 06/25/17 00:25 Spherocytes Not Reportable 06/25/17 00:25 Pappenheimer Bodies Not Reportable 06/25/17 00:25 Sickle Cells Not Reportable 06/25/17 00:25 Target Cells Not Reportable 06/25/17 00:25 Tear Drop Cells Not Reportable 06/25/17 00:25 Ovalocytes Not Reportable 06/25/17 00:25 Helmet Cells Not Reportable 06/25/17 00:25 Ya-Gratiot Bodies Not Reportable 06/25/17 00:25 [place] Rings Not Reportable 06/25/17 00:25 Nicole Cells Not Reportable 06/25/17 00:25 Bite Cells Not Reportable 06/25/17 00:25 Crenated Cell Not Reportable 06/25/17 00:25 Elliptocytes Not Reportable 06/25/17 00:25 Acanthocytes (Spur) Not Reportable 06/25/17 00:25 Rouleaux Not Reportable 06/25/17 00:25 Hemoglobin C Crystals Not Reportable 06/25/17 00:25 Schistocytes Not Reportable 06/25/17 00:25 Malaria parasites Not Reportable 06/25/17 00:25 Ravindra Bodies Not Reportable 06/25/17 00:25 Hem Pathologist Commnt No 06/25/17 00:25 PT 39.0 Sec. (12.2-14.9) H 06/25/17 10:15 INR 3.74 (0.87-1.13) H 06/25/17 10:15 APTT 30.2 Sec. (24.2-36.6) 06/20/17 19:31 POC ABG pH 7.164 (7.35-7.45) L 06/25/17 16:09 POC ABG pCO2 34.8 (35-45) L 06/25/17 16:09 POC ABG pO2 86 (80-105) 06/25/17 16:09 POC ABG HCO3 12.5 06/25/17 16:09 POC ABG Total CO2 14 06/25/17 16:09 POC ABG O2 Sat 94 06/25/17 16:09 POC ABG Base Excess -16 06/25/17 16:09 FiO2 70 % 06/25/17 16:09 Sodium 131 mmol/L (137-145) L 06/25/17 15:48 Potassium 7.1 mmol/L (3.6-5.0) H* D 06/25/17 15:48 Chloride 92.9 mmol/L (98-107) L 06/25/17 15:48 Carbon Dioxide 14 mmol/L (22-30) L D 06/25/17 15:48 Anion Gap 31 mmol/L 06/25/17 15:48 BUN 37 mg/dL (9-20) H 06/25/17 15:48 Creatinine 6.1 mg/dL (0.8-1.5) H 06/25/17 15:48 Estimated GFR 11 ml/min 06/25/17 15:48 BUN/Creatinine Ratio 6.06 % 06/25/17 15:48 Glucose 154 mg/dL (75-100) H 06/25/17 15:48 POC Glucose 72 (70-105) 06/25/17 17:12 Lactic Acid 6.20 mmol/L (0.7-2.0) H* 06/24/17 12:00 Calcium 8.1 mg/dL (8.4-10.2) L 06/25/17 15:48 Phosphorus 8.20 mg/dL (2.5-4.5) H 06/23/17 17:40 Magnesium 1.70 mg/dL (1.7-2.3) 06/25/17 15:48 Total Bilirubin 0.40 mg/dL (0.1-1.2) 06/21/17 12:49 AST 16 units/L (5-40) 06/21/17 12:49 ALT 5 units/L (7-56) L 06/21/17 12:49 Alkaline Phosphatase 40 units/L (35-129) 06/21/17 12:49 Troponin T 0.272 ng/mL (0.00-0.029) H* D 06/23/17 17:40 C-Reactive Protein 29.60 mg/dL (0.00-1.30) H 06/24/17 12:00 Total Protein 4.9 g/dL (6.3-8.2) L D 06/21/17 12:49 Albumin 2.8 g/dL (3.9-5) L 06/21/17 12:49 Albumin/Globulin Ratio 1.3 % 06/21/17 12:49 Triglycerides 90 mg/dL (2-149) 06/18/17 15:40 Cholesterol 92 mg/dL (50-199) 06/18/17 15:40 LDL Cholesterol Direct 48 mg/dL (50-130) L 06/18/17 15:40 HDL Cholesterol 26 mg/dL (40-59) L 06/18/17 15:40 Cholesterol/HDL Ratio 3.53 % 06/18/17 15:40 Lipase 32 units/L (13-60) 06/17/17 23:10 Blood Type O POSITIVE 06/24/17 16:15 Antibody Screen Negative 06/24/17 16:15 Crossmatch See Detail 06/24/17 16:15 - Imaging and Cardiology CT scan - abdomen: pending
[2017-06-25] MEDS ORDERED: TPN ADULT 2,400 ML IV SCH (20:00)
[2017-06-25 22:56] LABS: Calcium 7.7 mg/dL (8.4-10.2); Chloride 97.9 mmol/L (98-107)
[2017-06-25 23:00] LABS: Potassium 6.6 mmol/L (3.6-5.0)
[2017-06-25] MEDS: LEVOPHED 8 MG in NACL 0.9% 250ML 242 ML IV SCH (23:03)
[2017-06-26] MEDS: ASCORBIC ACID 1,500 MG in NACL 0.9% 50 ML IV SCH ×2 (00:14→05:46)
[2017-06-26] MEDS: NEO-SYNEPHRINE 100 MG in NACL 0.9% 90 ML IV SCH ×4 (00:37→07:21)
[2017-06-26] MEDS: D50W (25GM) Vial IV PRN (02:12)
[2017-06-26 02:20] LABS: Hematocrit 22.2 % (35.5-45.6); Hemoglobin 6.8 gm/dl (11.8-15.2); Mean Corpuscular HGB Conc 31 % (32-34); Mean Corpuscular Hemoglobin 30 pg (28-32); Mean Corpuscular Volume 96 fl (84-94); Red Blood Count 2.31 M/mm3 (3.65-5.03); Red Cell Distribution Width 17.7 % (13.2-15.2); White Blood Count 16.1 K/mm3 (4.5-11.0)
[2017-06-26 02:27] LABS: Platelet Count 14 K/mm3 (140-440)
[2017-06-26 03:09] LABS: Anisocytosis 1+; Basophils % (Manual) 0 % (0.0-1.8); Blastocytes % (Manual) 0 %; Dohle Bodies Few; Eosinophils % (Manual) 0 % (0.0-4.3); Hypochromasia 2+
[2017-06-26 03:10] LABS: Burr Cells Few; Diff Status Complete; Platelet Estimate Consistent w Auto
[2017-06-26] MEDS: LEVOPHED 8 MG in NACL 0.9% 250ML 242 ML IV SCH ×3 (03:16→07:22)
[2017-06-26 04:51] LABS: Albumin/Globulin Ratio 0.7 %; BUN/Creatinine Ratio 5.64; Bilirubin,Total 3.8 mg/dL (0.1-1.2); Calcium 8.3 mg/dL (8.4-10.2); Chloride 97.4 mmol/L (98-107); Magnesium 2.3 mg/dL (1.7-2.3); Phosphorous 11.5 mg/dL (2.5-4.5)
[2017-06-26] MEDS ORDERED: D50W (25GM) Syringe IV PRN (04:54)
[2017-06-26 05:05] LABS: Potassium 8.3 mmol/L (3.6-5.0)
[2017-06-26 05:07] LABS: Total Protein 2.4 g/dL (6.3-8.2)
[2017-06-26 06:21] LABS: ISTAT Base Excess -24; ISTAT HCO3 7.9; ISTAT PCO2 34.1 (35-45); ISTAT PH 6.973 (7.35-7.45); ISTAT PO2 124 (80-105); ISTAT SO2 96; ISTAT TCO2 9
[2017-06-26] MEDS ORDERED: ATROPINE 0.1% (CARDIAC) ONE (06:45)
[2017-06-26] MEDS ORDERED: SODIUM BICARBONATE IV ONE (06:45)
[2017-06-26] MEDS ORDERED: D5W (50 ML) IV ONE (06:45)
[2017-06-26] MEDS ORDERED: CALCIUM CHLORIDE IV ONE (06:45)
[2017-06-26] MEDS ORDERED: ADRENALIN ONE (06:45)
[2017-06-26] MEDS ORDERED: CEPHULAC ONE (06:58)
[2017-06-26] MEDS ORDERED: KIONEX ONE (07:00)
--- NOTE | 2017-06-26 07:07 | Event Note ---
Date: 06/26/17 Code blue called initial rhythm PEA ACLS protocol initiated Lab called during code, K of 8 Calcium and bicarbonate given Blood sugar less than 30, D50 given Went into V. tach and was shocked once There was ROSC Give kayexalate
[2017-06-26] MEDS ORDERED: NACL 0.9% 250ML 250 ML IV ONE (07:19)
[2017-06-26] MEDS ORDERED: KIONEX PO ONE (08:00)
[2017-06-26] MEDS ORDERED: NACL 0.9% 500 ML 500 ML IV ONE (08:00)
[2017-06-26] MEDS ORDERED: Vasostrict 20 UNIT in NACL 0.9% 100 ML IV SCH (08:00)
[2017-06-26] MEDS ORDERED: INTROPIN DRIP 800 MG/D5W 250 ML 800 MG/250 ML BAG IV SCH (08:00)
[2017-06-26] MEDS ORDERED: ATROPINE IV ONE (08:01)
--- NOTE | 2017-06-26 08:07 | Progress Note ---
Assessment and Plan Assessment and plan: Patient is 66 years old male with past medical history of hypertension and end stage renal disease and is on hemodialysis who presents to the with 3 days of worsening bloody stools . Just over 3 days ago the patient was at his normal baseline state of health. Patient noticed black stools on 06/15/2017 and Called his Early Childhood Education Specialist in [facility] and instructed him to visit the nearest emergency department if continue to have bloody stools. Patient on 06/17/17 he had a toilet full of bloody loose stools. Patient had the same problem years ago. Patient also complaining chest pain on the epigastric area. [place] states that the pain began this morning and consisted of a sharp pain that lasted around 30 seconds, followed by constant a dull pain. He describes the quality as a chest tightness/pressure without radiation to the shoulder, arm, back, or jaw. He denies nausea, vomiting and shortness of breath. He denies fever, wt loss, SOB, dizziness, hematemesis, diarrhea, constipation, or hematochezia. Was also noted to have elevated blood pressure No hx of liver disease. No NSAID use. No ETOH abuse. Patient current daily smoker. Major status in the ED were concerning for mild diverticulitis with possible colonic mass and bilateral pleural effusion and also polycystic kidney disease. Patient did proceed to have that GI nuclear scan which showed an uptake of the left upper quadrant patient was taken to the OR on 819 and underwent a subtotal colectomy FOR diverticular bleeding. Because septic on 821 with a temperature of 101.2 with neutropenia and bandemia 40%. Cultures growing gram-negative rods Patient remains critically ill. Patient had a cardiopulmonary arrest this Morning and late last night the patient also had an asystole event. He remains, unresponsive. with severely depressed plt. nasal bleed. Patient currently with multiple organ failure with possible DIC Will transfuse single donor platelet and PRBC will hold Amiodarone. Heart rate remains in the low 30. Will give atropin Will add Epinephrine to Pressors to gain better MAP Start on Bicarb drip. Acute hypoxic respiratory failure with combined acidosis - Intubated 06/23 remains on mechanical ventilation -Start on Bicarb drip SVT WITH NOW WITH NEW ONSET AFIB WITH RVR -now Bradycardic following CODE. Severe Sepsis with suspected GNR bactermia- Not present on admission - Patient was treated IV fluids and started on Pressors - cvp LINE on the right femoral region -Fluconazole per ID -Continue Vancomycin and Zosyn Hepatic shock -supportive care Septic shock -As noted above. -PRESSORS CHANGED. patient remains signiciantly unstable for Imagaing. Diverticular Bleed s/p subtotal colectomy -Repeat CT to r/o leak and abscess- patient remains unstable for this procedure Severe Anemia with Severe Thrombocytopenia -Give additional platelet -Transfuse to keep H/H ABOVE 7 - s/p Subtotal Colectomy for extensive diverticular bleed with diverticulitis Severe Hyperkalemia - Resistant despite multiple measures. -Nephrology following- dialysized yesterday. will need repeat dialysis today, -BICARB, CALCIUM, FOR CORRECTION -MONITOR RENAL FUNCTION Hypoglycemia with confusion, acute metabolic encephalopathy - Resistant despite, TPN. Continue D10 normal saline increase to 150cc per hour with intermitent D50 -Started on TPN - Accu-Chek every hour and patient is on D50 infusion as needed Severe anemia secondary to GI bleed, S/P total colectomy - was transfused multiple units of blood - Hemoglobin trended down to 6.6- SURGERY FOLLOWING - No bowel movement after the surgery Tobacco abuse- counselling when awake Lactic acidosis WITH SEVERE METABOLIC ACIDOSIS * Continue corrective measures Toxic Encephalopathy -multifactorial Chest pain-NO ACTIVE AT THIS TIME - Cardiology FOLLOWING End stage renal disease on hemodialysis -Nephrology Following -Continue with the hemodialysis DVT prophylaxis - On SCDs because of GI bleed Disposition - Continue ICU care Prognosis: Poor, FAMILY AWARE- DISCUSSED WITH BROTHER, SISTER AND AT BEDSIDE Discussed with nursing The high probability of a clinically significant, sudden or life threatening deterioration of the [GI, CVS, ID, ISOTOPE HYDROLOGIST, endocrine] system(s) required my full and direct attention, intervention and personal management. The aggregate critical care time was [45] minutes. This time is in addition to time spent performing reported procedures but includes the following: [x] Data Review and interpretation [x] Patient assessment and monitoring of vital signs [x] Documentation Discussed with and family, brothers, sisters daughter. Patient Made a DNR according to their wishes. History Interval history: Patient seen and examined this morning remains sedated and intubated. cardiac arrest requiring resusitation this am. Remains critically ill Hospitalist Physical - Physical exam Narrative exam: VITAL SIGNS: Reviewed. GENERAL: The patient sedated and intubated. noted nasal bleed. Vital signs as documented. HEAD: No signs of head trauma. EYES: fixed EARS: Hearing grossly intact. MOUTH: Oropharynx is normal. NECK: No adenopathy, no JVD. CHEST: Chest with Transmitted breath sounds bilaterally. No wheezes, rales, or rhonchi. CARDIAC: Regular rate and rhythm. S1 and S2, without murmurs, gallops, or rubs. VASCULAR: No Edema. Peripheral pulses normal and equal in all extremities. ABDOMEN: Soft, midline surgical wound with dressing, no overt drainage noted. Bowel Sounds MUSCULOSKELETAL: Good range of motion of all major joints. Extremities without clubbing, cyanosis or edema. NEUROLOGIC EXAM: intubated. PSYCHIATRIC: UNABLE TO ASSESS. SKIN: Right fem line inplace. - Constitutional Vitals: Temp Pulse Resp BP Pulse Ox 97 F L 51 L 28 H 42/22 100 06/26/17 04:00 06/26/17 07:37 06/26/17 06:15 06/26/17 06:15 06/26/17 03:39 General appearance: Present: no acute distress Results - Labs CBC & Chem 7: 06/26/17 01:55 06/26/17 05:31 Labs: Laboratory Last Values WBC 16.1 K/mm3 (4.5-11.0) H 06/26/17 01:55 RBC 2.31 M/mm3 (3.65-5.03) L 06/26/17 01:55 Hgb 6.8 gm/dl (11.8-15.2) L 06/26/17 01:55 Hct 22.2 % (35.5-45.6) L 06/26/17 01:55 MCV 96 fl (84-94) H 06/26/17 01:55 MCH 30 pg (28-32) 06/26/17 01:55 MCHC 31 % (32-34) L 06/26/17 01:55 RDW 17.7 % (13.2-15.2) H 06/26/17 01:55 Plt Count 14 K/mm3 (140-440) L* 06/26/17 01:55 Lymph % (Auto) 12.0 % (13.4-35.0) L 06/19/17 05:30 Frio % (Auto) 8.6 % (0.0-7.3) H 06/19/17 05:30 Eos % (Auto) 0.1 % (0.0-4.3) 06/19/17 05:30 Baso % (Auto) 0.5 % (0.0-1.8) 06/19/17 05:30 Lymph # 1.3 K/mm3 (1.2-5.4) 06/19/17 05:30 Frio # 0.9 K/mm3 (0.0-0.8) H 06/19/17 05:30 Eos # 0.0 K/mm3 (0.0-0.4) 06/19/17 05:30 Baso # 0.1 K/mm3 (0.0-0.1) 06/19/17 05:30 Add Manual Diff Complete 06/26/17 01:55 Total Counted 100 06/26/17 01:55 Seg Neutrophils % Cell Room Operator 06/26/17 01:55 Seg Neuts % (Manual) 40.0 % (40.0-70.0) 06/26/17 01:55 Band Neutrophils % 40.0 % 06/26/17 01:55 Lymphocytes % (Manual) 5.0 % (13.4-35.0) L 06/26/17 01:55 Reactive Lymphs % (Man) 0 % 06/26/17 01:55 Monocytes % (Manual) 9.0 % (0.0-7.3) H 06/26/17 01:55 Eosinophils % (Manual) 0 % (0.0-4.3) 06/26/17 01:55 Basophils % (Manual) 0 % (0.0-1.8) 06/26/17 01:55 Metamyelocytes % 6.0 % 06/26/17 01:55 Myelocytes % 0 % 06/26/17 01:55 Promyelocytes % 0 % 06/26/17 01:55 Blast Cells % 0 % 06/26/17 01:55 Nucleated RBC % 4.0 % (0.0-0.9) H 06/26/17 01:55 Seg Neutrophils # 8.3 K/mm3 (1.8-7.7) H 06/19/17 05:30 Seg Neutrophils # Man 6.4 K/mm3 (1.8-7.7) 06/26/17 01:55 Band Neutrophils # 6.4 K/mm3 06/26/17 01:55 Lymphocytes # (Manual) 0.8 K/mm3 (1.2-5.4) L 06/26/17 01:55 Abs React Lymphs (Man) 0.0 K/mm3 06/26/17 01:55 Monocytes # (Manual) 1.4 K/mm3 (0.0-0.8) H 06/26/17 01:55 Eosinophils # (Manual) 0.0 K/mm3 (0.0-0.4) 06/26/17 01:55 Basophils # (Manual) 0.0 K/mm3 (0.0-0.1) 06/26/17 01:55 Metamyelocytes # 1.0 K/mm3 06/26/17 01:55 Myelocytes # 0.0 K/mm3 06/26/17 01:55 Promyelocytes # 0.0 K/mm3 06/26/17 01:55 Blast Cells # 0.0 K/mm3 06/26/17 01:55 WBC Morphology Not Reportable 06/26/17 01:55 Hypersegmented Neuts Not Reportable 06/26/17 01:55 Hyposegmented Neuts Not Reportable 06/26/17 01:55 Hypogranular Neuts Not Reportable 06/26/17 01:55 Smudge Cells Not Reportable 06/26/17 01:55 Toxic Granulation Not Reportable 06/26/17 01:55 Toxic Vacuolation Not Reportable 06/26/17 01:55 Dohle Bodies Few 06/26/17 01:55 Pelger-Huet Anomaly Not Reportable 06/26/17 01:55 Reji Rods Not Reportable 06/26/17 01:55 Platelet Estimate Consistent w auto 06/26/17 01:55 Clumped Platelets Not Reportable 06/26/17 01:55 Plt Clumps, EDTA Not Reportable 06/26/17 01:55 Large Platelets Not Reportable 06/26/17 01:55 Giant Platelets Not Reportable 06/26/17 01:55 Platelet Satelliting Not Reportable 06/26/17 01:55 Plt Morphology Comment Not Reportable 06/26/17 01:55 RBC Morphology Not Reportable 06/26/17 01:55 Dimorphic RBCs Not Reportable 06/26/17 01:55 Polychromasia Not Reportable 06/26/17 01:55 Hypochromasia 2+ 06/26/17 01:55 Poikilocytosis Not Reportable 06/26/17 01:55 Anisocytosis 1+ 06/26/17 01:55 Microcytosis Not Reportable 06/26/17 01:55 Macrocytosis Not Reportable 06/26/17 01:55 Spherocytes Not Reportable 06/26/17 01:55 Pappenheimer Bodies Not Reportable 06/26/17 01:55 Sickle Cells Not Reportable 06/26/17 01:55 Target Cells Not Reportable 06/26/17 01:55 Tear Drop Cells Not Reportable 06/26/17 01:55 Ovalocytes Not Reportable 06/26/17 01:55 Helmet Cells Not Reportable 06/26/17 01:55 [place] Bodies Not Reportable 06/26/17 01:55 [place] Rings Not Reportable 06/26/17 01:55 Nicole Cells Few 06/26/17 01:55 Bite Cells Not Reportable 06/26/17 01:55 Crenated Cell Not Reportable 06/26/17 01:55 Elliptocytes Not Reportable 06/26/17 01:55 Acanthocytes (Spur) Not Reportable 06/26/17 01:55 Rouleaux Not Reportable 06/26/17 01:55 Hemoglobin C Crystals Not Reportable 06/26/17 01:55 Schistocytes Not Reportable 06/26/17 01:55 Malaria parasites Not Reportable 06/26/17 01:55 Ravindra Bodies Not Reportable 06/26/17 01:55 Hem Pathologist Commnt No 06/26/17 01:55 PT 39.0 Sec. (12.2-14.9) H 06/25/17 10:15 INR 3.74 (0.87-1.13) H 06/25/17 10:15 APTT 30.2 Sec. (24.2-36.6) 06/20/17 19:31 POC ABG pH 6.973 (7.35-7.45) L 06/26/17 06:10 POC ABG pCO2 34.1 (35-45) L 06/26/17 06:10 POC ABG pO2 124 (80-105) H 06/26/17 06:10 POC ABG HCO3 7.9 06/26/17 06:10 POC ABG Total CO2 9 06/26/17 06:10 POC ABG O2 Sat 96 06/26/17 06:10 POC ABG Base Excess -24 06/26/17 06:10 FiO2 70 % 06/26/17 06:10 Sodium 139 mmol/L (137-145) D 06/25/17 21:33 Potassium 8.3 mmol/L (3.6-5.0) H* D 06/26/17 04:13 Chloride 97.9 mmol/L (98-107) L 06/25/17 21:33 Carbon Dioxide 7 mmol/L (22-30) L* 06/26/17 04:13 Anion Gap 43 mmol/L 06/26/17 04:13 BUN 22 mg/dL (9-20) H 06/26/17 04:13 Creatinine 3.9 mg/dL (0.8-1.5) H 06/26/17 04:13 Estimated GFR 19 ml/min 06/26/17 04:13 BUN/Creatinine Ratio 5.64 % 06/26/17 04:13 Glucose 76 mg/dL (75-100) 06/26/17 05:31 POC Glucose < 40 (70-105) L 06/26/17 06:54 Lactic Acid 6.20 mmol/L (0.7-2.0) H* 06/24/17 12:00 Calcium 8.3 mg/dL (8.4-10.2) L 06/26/17 04:13 Phosphorus 11.50 mg/dL (2.5-4.5) H 06/26/17 04:13 Magnesium 2.30 mg/dL (1.7-2.3) 06/26/17 04:13 Total Bilirubin 3.80 mg/dL (0.1-1.2) H 06/26/17 04:13 AST 24979 units/L (5-40) H 06/26/17 04:13 ALT 1819 units/L (7-56) H 06/26/17 04:13 Alkaline Phosphatase 275 units/L (35-129) H 06/26/17 04:13 Troponin T 0.272 ng/mL (0.00-0.029) H* D 06/23/17 17:40 C-Reactive Protein 29.60 mg/dL (0.00-1.30) H 06/24/17 12:00 Total Protein 2.4 g/dL (6.3-8.2) L D 06/26/17 04:13 Albumin 1.0 g/dL (3.9-5) L 06/26/17 04:13 Albumin/Globulin Ratio 0.7 % 06/26/17 04:13 Triglycerides 90 mg/dL (2-149) 06/18/17 15:40 Cholesterol 92 mg/dL (50-199) 06/18/17 15:40 LDL Cholesterol Direct 48 mg/dL (50-130) L 06/18/17 15:40 HDL Cholesterol 26 mg/dL (40-59) L 06/18/17 15:40 Cholesterol/HDL Ratio 3.53 % 06/18/17 15:40 Lipase 32 units/L (13-60) 06/17/17 23:10 Random Vancomycin 2.6 ug/mL (0-40.0) 06/26/17 04:30 Blood Type O POSITIVE 06/24/17 16:15 Antibody Screen Negative 06/24/17 16:15 Crossmatch See Detail 06/24/17 16:15
[2017-06-26] MEDS ORDERED: ADRENALIN 16 MG in NACL 0.9% 250ML 234 ML IV SCH (09:00)
--- NOTE | 2017-06-26 09:31 | Progress Note ---
Subjective Narrative: Dr Walter relayed to me the marked deterioration in the Pt condition , was put on DNR , I agree, I did talk to family as to the critical situation the Pt was in , I explained to them as well . Objective Vital Signs - 12hr 06/25/17 06/25/17 06/25/17 21:31 21:45 22:00 Temperature Pulse Rate 104 H 89 87 Pulse Rate [ From Monitor] Respiratory 28 H 28 H 28 H Rate Blood Pressure 111/47 115/47 100/41 O2 Sat by Pulse Oximetry 06/25/17 06/25/17 06/25/17 22:15 22:31 22:45 Temperature Pulse Rate 85 93 H 84 Pulse Rate [ From Monitor] Respiratory 28 H 28 H 28 H Rate Blood Pressure 118/56 87/55 73/30 O2 Sat by Pulse Oximetry 06/25/17 06/25/17 06/25/17 23:00 23:15 23:30 Temperature Pulse Rate 89 93 H 94 H Pulse Rate [ From Monitor] Respiratory 28 H 28 H 28 H Rate Blood Pressure 94/33 84/32 88/26 O2 Sat by Pulse Oximetry 06/25/17 06/25/17 06/26/17 23:45 23:57 00:00 Temperature 97.5 F L Pulse Rate 102 H 96 H 101 H Pulse Rate [ 87 From Monitor] Respiratory 28 H 28 H 28 H Rate Blood Pressure 89/32 84/30 91/36 O2 Sat by Pulse 100 Oximetry 06/26/17 06/26/17 06/26/17 00:03 00:10 00:15 Temperature 97.5 F L Pulse Rate 99 H 97 H 90 Pulse Rate [ From Monitor] Respiratory 28 H 28 H 28 H Rate Blood Pressure 91/36 91/36 88/40 O2 Sat by Pulse 53 L 34 L Oximetry 06/26/17 06/26/17 06/26/17 00:31 00:45 01:00 Temperature Pulse Rate 87 93 H 96 H Pulse Rate [ From Monitor] Respiratory 28 H 28 H 28 H Rate Blood Pressure 63/36 139/114 98/63 O2 Sat by Pulse 74 L 55 L Oximetry 06/26/17 06/26/17 06/26/17 01:15 01:31 01:45 Temperature Pulse Rate 93 H 94 H 92 H Pulse Rate [ From Monitor] Respiratory 28 H 28 H 28 H Rate Blood Pressure 96/24 85/36 93/39 O2 Sat by Pulse Oximetry 06/26/17 06/26/17 06/26/17 02:00 02:15 02:30 Temperature Pulse Rate 92 H 76 81 Pulse Rate [ From Monitor] Respiratory 28 H 28 H 28 H Rate Blood Pressure 81/48 90/36 92/56 O2 Sat by Pulse 63 L Oximetry 06/26/17 06/26/17 06/26/17 02:45 03:00 03:15 Temperature Pulse Rate 69 69 72 Pulse Rate [ From Monitor] Respiratory 28 H 28 H 28 H Rate Blood Pressure 116/30 108/43 97/38 O2 Sat by Pulse Oximetry 06/26/17 06/26/17 06/26/17 03:30 03:39 03:45 Temperature Pulse Rate 67 71 Pulse Rate [ 67 From Monitor] Respiratory 28 H 28 H 28 H Rate Blood Pressure 91/32 86/31 O2 Sat by Pulse 100 Oximetry 06/26/17 06/26/17 06/26/17 04:00 04:15 04:31 Temperature 97 F L Pulse Rate 58 L 39 L 47 L Pulse Rate [ From Monitor] Respiratory 28 H 28 H 28 H Rate Blood Pressure 82/64 112/64 79/63 O2 Sat by Pulse Oximetry 06/26/17 06/26/17 06/26/17 04:45 05:00 05:01 Temperature Pulse Rate 45 L 52 L 60 Pulse Rate [ From Monitor] Respiratory 28 H 28 H Rate Blood Pressure 80/38 90/46 O2 Sat by Pulse Oximetry 06/26/17 06/26/17 06/26/17 05:15 05:31 05:45 Temperature Pulse Rate 45 L 42 L 47 L Pulse Rate [ From Monitor] Respiratory 28 H 28 H 28 H Rate Blood Pressure 87/50 75/35 95/34 O2 Sat by Pulse Oximetry 06/26/17 06/26/17 06/26/17 06:00 06:01 06:15 Temperature Pulse Rate 47 L 45 L 51 L Pulse Rate [ From Monitor] Respiratory 28 H 28 H Rate Blood Pressure 95/34 42/22 O2 Sat by Pulse Oximetry 06/26/17 07:37 Temperature Pulse Rate 51 L Pulse Rate [ From Monitor] Respiratory Rate Blood Pressure O2 Sat by Pulse Oximetry - Labs 06/26/17 01:55 06/26/17 05:31 Diabetes panel 06/25/17 06/25/1706/25/17 Range/Units 15:48 17:48 20:21 Sodium 131 L (137-145) mmol/L Potassium 7.1 H* D (3.6-5.0) mmol/L Chloride 92.9 L (98-107) mmol/L Carbon Dioxide 14 L D (22-30) mmol/L BUN 37 H (9-20) mg/dL Creatinine 6.1 H (0.8-1.5) mg/dL Glucose 154 H 78 169 H (75-100) mg/dL Calcium 8.1 L (8.4-10.2) mg/dL AST (5-40) units/L ALT (7-56) units/L Alkaline Phosphatase (35-129) units/L Total Protein (6.3-8.2) g/dL Albumin (3.9-5) g/dL 06/25/17 06/25/17 06/25/17 Range/Units 21:00 21:33 22:30 Sodium 139 D (137-145) mmol/L Potassium 6.6 H* (3.6-5.0) mmol/L Chloride 97.9 L (98-107) mmol/L Carbon Dioxide 12 L (22-30) mmol/L BUN 24 H (9-20) mg/dL Creatinine 4.0 H (0.8-1.5) mg/dL Glucose 90 89 53 L (75-100) mg/dL Calcium 7.7 L (8.4-10.2) mg/dL AST (5-40) units/L ALT (7-56) units/L Alkaline Phosphatase (35-129) units/L Total Protein (6.3-8.2) g/dL Albumin (3.9-5) g/dL 06/25/17 06/26/17 06/26/17 Range/Units 23:15 00:46 03:11 Sodium (137-145) mmol/L Potassium (3.6-5.0) mmol/L Chloride (98-107) mmol/L Carbon Dioxide (22-30) mmol/L BUN (9-20) mg/dL Creatinine (0.8-1.5) mg/dL Glucose 119 H 50 L 84 (75-100) mg/dL Calcium (8.4-10.2) mg/dL AST (5-40) units/L ALT (7-56) units/L Alkaline Phosphatase (35-129) units/L Total Protein (6.3-8.2) g/dL Albumin (3.9-5) g/dL 06/26/17 06/26/17 06/26/17 Range/Units 04:13 04:35 05:31 Sodium (137-145) mmol/L Potassium 8.3 H* D (3.6-5.0) mmol/L Chloride (98-107) mmol/L Carbon Dioxide 7 L* (22-30) mmol/L BUN 22 H (9-20) mg/dL Creatinine 3.9 H (0.8-1.5) mg/dL Glucose 59 L 68 L 76 (75-100) mg/dL Calcium 8.3 L (8.4-10.2) mg/dL AST 55665 H (5-40) units/L ALT 1819 H (7-56) units/L Alkaline Phosphatase 275 H (35-129) units/L Total Protein 2.4 L D (6.3-8.2) g/dL Albumin 1.0 L (3.9-5) g/dL Calcium panel 06/25/17 06/25/17 06/26/17 Range/Units 15:48 21:33 04:13 Calcium 8.1 L 7.7 L 8.3 L (8.4-10.2) mg/dL Phosphorus 11.50 H (2.5-4.5) mg/dL Albumin 1.0 L (3.9-5) g/dL Pituitary panel 06/25/17 06/25/17 06/25/17 Range/Units 15:48 17:48 20:21 Sodium 131 L (137-145) mmol/L Potassium 7.1 H* D (3.6-5.0) mmol/L Chloride 92.9 L (98-107) mmol/L Carbon Dioxide 14 L D (22-30) mmol/L BUN 37 H (9-20) mg/dL Creatinine 6.1 H (0.8-1.5) mg/dL Glucose 154 H 78 169 H (75-100) mg/dL Calcium 8.1 L (8.4-10.2) mg/dL 06/25/17 06/25/17 06/25/17 Range/Units 21:00 21:33 22:30 Sodium 139 D (137-145) mmol/L Potassium 6.6 H* (3.6-5.0) mmol/L Chloride 97.9 L (98-107) mmol/L Carbon Dioxide 12 L (22-30) mmol/L BUN 24 H (9-20) mg/dL Creatinine 4.0 H (0.8-1.5) mg/dL Glucose 90 89 53 L (75-100) mg/dL Calcium 7.7 L (8.4-10.2) mg/dL 06/25/17 06/26/17 06/26/17 Range/Units 23:15 00:46 03:11 Sodium (137-145) mmol/L Potassium (3.6-5.0) mmol/L Chloride (98-107) mmol/L Carbon Dioxide (22-30) mmol/L BUN (9-20) mg/dL Creatinine (0.8-1.5) mg/dL Glucose 119 H 50 L 84 (75-100) mg/dL Calcium (8.4-10.2) mg/dL 06/26/17 06/26/17 06/26/17 Range/Units 04:13 04:35 05:31 Sodium (137-145) mmol/L Potassium 8.3 H* D (3.6-5.0) mmol/L Chloride (98-107) mmol/L Carbon Dioxide 7 L* (22-30) mmol/L BUN 22 H (9-20) mg/dL Creatinine 3.9 H (0.8-1.5) mg/dL Glucose 59 L 68 L 76 (75-100) mg/dL Calcium 8.3 L (8.4-10.2) mg/dL Adrenal panel 06/25/17 06/25/17 06/25/17 Range/Units 15:48 17:48 20:21 Sodium 131 L (137-145) mmol/L Potassium 7.1 H* D (3.6-5.0) mmol/L Chloride 92.9 L (98-107) mmol/L Carbon Dioxide 14 L D (22-30) mmol/L BUN 37 H (9-20) mg/dL Creatinine 6.1 H (0.8-1.5) mg/dL Glucose 154 H 78 169 H (75-100) mg/dL Calcium 8.1 L (8.4-10.2) mg/dL Total Bilirubin (0.1-1.2) mg/dL AST (5-40) units/L ALT (7-56) units/L Alkaline Phosphatase (35-129) units/L Total Protein (6.3-8.2) g/dL Albumin (3.9-5) g/dL 06/25/17 06/25/17 06/25/17 Range/Units 21:00 21:33 22:30 Sodium 139 D (137-145) mmol/L Potassium 6.6 H* (3.6-5.0) mmol/L Chloride 97.9 L (98-107) mmol/L Carbon Dioxide 12 L (22-30) mmol/L BUN 24 H (9-20) mg/dL Creatinine 4.0 H (0.8-1.5) mg/dL Glucose 90 89 53 L (75-100) mg/dL Calcium 7.7 L (8.4-10.2) mg/dL Total Bilirubin (0.1-1.2) mg/dL AST (5-40) units/L ALT (7-56) units/L Alkaline Phosphatase (35-129) units/L Total Protein (6.3-8.2) g/dL Albumin (3.9-5) g/dL 06/25/17 06/26/17 06/26/17 Range/Units 23:15 00:46 03:11 Sodium (137-145) mmol/L Potassium (3.6-5.0) mmol/L Chloride (98-107) mmol/L Carbon Dioxide (22-30) mmol/L BUN (9-20) mg/dL Creatinine (0.8-1.5) mg/dL Glucose 119 H 50 L 84 (75-100) mg/dL Calcium (8.4-10.2) mg/dL Total Bilirubin (0.1-1.2) mg/dL AST (5-40) units/L ALT (7-56) units/L Alkaline Phosphatase (35-129) units/L Total Protein (6.3-8.2) g/dL Albumin (3.9-5) g/dL 06/26/17 06/26/17 06/26/17 Range/Units 04:13 04:35 05:31 Sodium (137-145) mmol/L Potassium 8.3 H* D (3.6-5.0) mmol/L Chloride (98-107) mmol/L Carbon Dioxide 7 L* (22-30) mmol/L BUN 22 H (9-20) mg/dL Creatinine 3.9 H (0.8-1.5) mg/dL Glucose 59 L 68 L 76 (75-100) mg/dL Calcium 8.3 L (8.4-10.2) mg/dL Total Bilirubin 3.80 H (0.1-1.2) mg/dL AST 37245 H (5-40) units/L ALT 1819 H (7-56) units/L Alkaline Phosphatase 275 H (35-129) units/L Total Protein 2.4 L D (6.3-8.2) g/dL Albumin 1.0 L (3.9-5) g/dL
--- NOTE | 2017-06-26 09:43 | Death Summary ---
Summary - Providers Date of service: 06/26/17 Consults: 06/18/17 09:21 Consult to Physician [CONS] Routine Consulting Provider: BRAD SHEPPARD Reason For Exam: esrd Place consult to:: [facility] Notified:: Y If yes, spoke with:: DR SHEPPARD Time called:: 07:40 06/18/17 09:22 Consult to Physician [CONS] Stat Consulting Provider: JOANNA BINGHAM Reason For Exam: gi bleed Place consult to:: [facility] Notified:: Y 06/18/17 09:27 Consult to Physician [CONS] Routine Consulting Provider: RUTHIE LORENZO Reason For Exam: Chest pain Place consult to:: [facility] Notified:: Y Was contact made?: Yes If yes, spoke with:: ERIC Time called:: 10:05 06/19/17 08:29 Consult to Physician [CONS] Routine Consulting Provider: KEN VENEGAS Reason For Exam: GI bleed, chest pain, to transfer to ICU Place consult to:: Dr. Venegas Notified:: Erica LEE Was contact made?: Yes If yes, spoke with:: Dr. Venegas Time called:: 11:18 06/20/17 14:24 Consult to Physician [CONS] Routine Consulting Provider: WILMA LUJAN Reason For Exam: GI bleeding Place consult to:: general surgery Notified:: yes, notified office to contact Dr Lujan Phone number called:: [phone] If yes, spoke with:: [employer] police officer Time called:: 15:47 Comment:: Evaluate for possible colectomy 06/23/17 16:39 Consult to Dietitian/Nutrition [CONS] Routine Physician Instructions: Reason For Exam: TPN Reason for Consult: Poor oral intake 06/24/17 09:03 Consult to Physician [CONS] Routine Consulting Provider: WILLOW BOYCE Reason For Exam: sepsis Place consult to:: Willow glynn Notified:: yes Phone number called:: [phone] Was contact made?: Yes If yes, spoke with:: Dr. Naqvi Time called:: 09:07 Attending: DEIRDRE AVITIA MD - summary Date of admission: 06/18/17 09:02 Date of : 06/26/17 Reason for admission: Diverticular Bleed Procedures/treatments rendered: Hemicolectomy Pertinent studies: Multiorgan failure Acute hypoxic respiratory failure with combined acidosis SVT WITH NOW WITH NEW ONSET AFIB WITH RVR Severe Sepsis with suspected GNR bactermia- Not present on admission Hepatic shock Septic shock Diverticular Bleed s/p subtotal colectomy Severe Anemia with Severe Thrombocytopenia Severe Hyperkalemia Hypoglycemia with confusion, acute metabolic encephalopathy Severe anemia secondary to GI bleed, S/P total colectomy Tobacco abuse- counselling when awake Lactic acidosis WITH SEVERE METABOLIC ACIDOSIS Toxic Encephalopathy End stage renal disease on hemodialysis Disposition:
--- NOTE | 2017-06-26 09:44 | Discharge Summary ---
Providers - Providers Date of Admission: 06/18/17 09:02 Date of discharge: 06/26/17 Attending physician: DEIRDRE AVITIA MD 06/18/17 09:21 Consult to Physician [CONS] Routine Consulting Provider: RBAD SHEPPARD Reason For Exam: esrd Place consult to:: NEPHRO Notified:: Y If yes, spoke with:: DR SHEPPARD Time called:: 07:40 06/18/17 09:22 Consult to Physician [CONS] Stat Consulting Provider: JOANNA BINGHAM Reason For Exam: gi bleed Place consult to:: [facility] Notified:: Y 06/18/17 09:27 Consult to Physician [CONS] Routine Consulting Provider: RUTHIE LORENZO Reason For Exam: Chest pain Place consult to:: [facility] Notified:: Y Was contact made?: Yes If yes, spoke with:: ERIC Time called:: 10:05 06/19/17 08:29 Consult to Physician [CONS] Routine Consulting Provider: KEN VENEGAS Reason For Exam: GI bleed, chest pain, to transfer to ICU Place consult to:: Dr. Venegas Notified:: Erica LEE Was contact made?: Yes If yes, spoke with:: Dr. Venegas Time called:: 11:18 06/20/17 14:24 Consult to Physician [CONS] Routine Consulting Provider: WILMA LUJAN Reason For Exam: GI bleeding Place consult to:: general surgery Notified:: yes, notified office to contact Dr Lujan Phone number called:: [phone] If yes, spoke with:: mechanical engineering officer Time called:: 15:47 Comment:: Evaluate for possible colectomy 06/23/17 16:39 Consult to Dietitian/Nutrition [CONS] Routine Physician Instructions: Reason For Exam: TPN Reason for Consult: Poor oral intake 06/24/17 09:03 Consult to Physician [CONS] Routine Consulting Provider: WILLOW BOYCE Reason For Exam: sepsis Place consult to:: Willow glynn Notified:: yes Phone number called:: [phone] Was contact made?: Yes If yes, spoke with:: Dr. Naqvi Time called:: 09:07 Primary care physician: REGULATORY ANALYST Hospitalization Reason for admission: diverticular bleed Condition: Stable Hospital course: Patient is 66 years old male with past medical history of hypertension and end stage renal disease and is on hemodialysis who presents to the with 3 days of worsening bloody stools . Patient noticed black stools on 06/15/2017 and Called his Design Assistant in [facility] and instructed him to visit the nearest emergency department if continue to have bloody stools. Patient on 06/17/17 he had a toilet full of bloody loose stools. Patient had the same problem years ago. Patient also complaining chest pain on the epigastric area. Montgomery states that the pain began this morning and consisted of a sharp pain that lasted around 30 seconds, followed by constant a dull pain. He describes the quality as a chest tightness/pressure without radiation to the shoulder, arm, back, or jaw. He denies nausea, vomiting and shortness of breath. He denies fever, wt loss, SOB, dizziness, hematemesis, diarrhea, constipation, or hematochezia. Was also noted to have elevated blood pressure No hx of liver disease. No NSAID use. No ETOH abuse. Patient current daily smoker. Major status in the ED were concerning for mild diverticulitis with possible colonic mass and bilateral pleural effusion and also polycystic kidney disease. Patient did proceed to have that GI nuclear scan which showed an uptake of the left upper quadrant patient was taken to the OR on and underwent a subtotal colectomy FOR diverticular bleeding. Because septic on with a temperature of 101.2 with neutropenia and bandemia 40%. Cultures growing gram-negative rods. Patient was started on broad specturm abx, managed in the ICU and intubated, requring multiple pressors, repeated transfusion for anemia and siginficantly difficut to contirol electrolyte abnormalities. He had 2 cardiopulmonary arrest and was resuscitated but unfotunately could not sustain the overwhelming diseses as he went into multiorgan failure Multiorgan failure Acute hypoxic respiratory failure with combined acidosis SVT WITH NOW WITH NEW ONSET AFIB WITH RVR Severe Sepsis with suspected GNR bactermia- Not present on admission Hepatic shock Septic shock Diverticular Bleed s/p subtotal colectomy Severe Anemia with Severe Thrombocytopenia Severe Hyperkalemia Hypoglycemia with confusion, acute metabolic encephalopathy Severe anemia secondary to GI bleed, S/P total colectomy Tobacco abuse- counselling when awake Lactic acidosis WITH SEVERE METABOLIC ACIDOSIS Toxic Encephalopathy End stage renal disease on hemodialysis Disposition: DC-20 Time spent for discharge: 35 MINS Core Measure Documentation - Palliative Care Palliative Care/ Comfort Measures: Not Applicable - Core Measures Any of the following diagnoses?: none - VTE Discharge Requirements Deep Vein Thrombosis/Pulmonary Embolism Present on Admission: No Exam - Physical Exam Narrative exam: VITAL SIGNS: Reviewed. GENERAL: The patient sedated and intubated.NASAL BLEED HEAD: No signs of head trauma. EYES: fixed and dilated MOUTH: Oropharynx is normal. CHEST: Chest with vent Transmitted breath sounds bilaterally. CARDIAC: asystoly VASCULAR: No Edema. ABDOMEN: Soft, midline surgical wound with dressing, - Constitutional Vitals: Temp Pulse Resp BP Pulse Ox 97 F L 51 L 28 H 42/22 100 06/26/17 04:00 06/26/17 07:37 06/26/17 06:15 06/26/17 06:15 06/26/17 03:39 Plan Follow up with: PRIMARY MD TALHA [Primary Care Provider] - 3-5 Days Forms: Accompanied Note
[2017-06-26 09:58] LABS: ISTAT Base Excess -26; ISTAT HCO3 6.1; ISTAT PCO2 27.5 (35-45); ISTAT PH 6.954 (7.35-7.45); ISTAT PO2 53 (80-105); ISTAT SO2 66; ISTAT TCO2 7
[2017-06-26] MEDS ORDERED: SODIUM BICARBONATE 50 MEQ in NACL 0.9% 1000 ML 1,000 ML IV SCH (10:00)
[2017-06-26] MEDS ORDERED: VANCOMYCIN 1,250 MG in NACL 0.9% 250ML 250 ML IV ONE (10:00)
[2017-06-26 10:17] VITALS: BP 94/43
--- NOTE | 2017-06-26 10:46 | Event Note ---
Date: 06/26/17 Came to do rounds and the case with nurse, family and Dr. Walter. Patient with 2 episodes of cardiac arrests, ROSC; but now junctional-agonal rhythm. Currently DO NOT RESUSCITATE. I discussed status in detail with available family members and They understand patient's situation. He later on quietly without pain and was pronounced by Critical care time with a 31 minutes of [id number] coordination of care with staff, family and hospitalist.
[2017-06-26] MEDS ORDERED: LANOXIN IV SCH (17:00)
== END 2017-06-26 13:15 | DRG 329 ==
LOC: ED 22:16 → 4A 06-18 09:02 → CC1 06-19 22:20
PROVIDERS: ADMIT Internal Medicine; ATTEND Internal Medicine
PROC: 30233R1 Transfusion of Nonautologous Platelets into Peripheral Vein, Percutaneous Approach (ICD-10-PCS; 2017-06-18)
PROC: 30233N1 Transfusion of Nonautologous Red Blood Cells into Peripheral Vein, Percutaneous Approach (ICD-10-PCS; 2017-06-18)
PROC: 4A033R1 Measurement of Arterial Saturation, Peripheral, Percutaneous Approach (ICD-10-PCS; 2017-06-18)
PROC: 5A1D60Z (ICD-10-PCS; 2017-06-18)
PROC: 5A1945Z Respiratory Ventilation, 24-96 Consecutive Hours (ICD-10-PCS; 2017-06-18)
PROC: 0BH17EZ Insertion of Endotracheal Airway into Trachea, Via Natural or Artificial Opening (ICD-10-PCS; 2017-06-18)
PROC: 0DJ08ZZ Inspection of Upper Intestinal Tract, Via Natural or Artificial Opening Endoscopic (ICD-10-PCS; principal; 2017-06-19)
PROC: 0DJD8ZZ Inspection of Lower Intestinal Tract, Via Natural or Artificial Opening Endoscopic (ICD-10-PCS; 2017-06-20)
PROC: 0DTF0ZZ Resection of Right Large Intestine, Open Approach (ICD-10-PCS; 2017-06-21)
PROC: 02HV33Z Insertion of Infusion Device into Superior Vena Cava, Percutaneous Approach (ICD-10-PCS; 2017-06-23)
PROC: B5181ZA Fluoroscopy of Superior Vena Cava using Low Osmolar Contrast, Guidance (ICD-10-PCS; 2017-06-23)
DX: K57.91 Diverticulosis of intestine, part unspecified, without perforation or abscess with bleeding (principal); G92 Toxic encephalopathy; A41.50 Gram-negative sepsis, unspecified; J96.01 Acute respiratory failure with hypoxia; N18.6 End stage renal disease; R65.21 Severe sepsis with septic shock; D62 Acute posthemorrhagic anemia; F17.200 Nicotine dependence, unspecified, uncomplicated; E03.9 Hypothyroidism, unspecified; E87.5 Hyperkalemia; K29.80 Duodenitis without bleeding; I10 Essential (primary) hypertension; R00.0 Tachycardia, unspecified; E16.2 Hypoglycemia, unspecified; Z82.49 Family history of ischemic heart disease and other diseases of the circulatory system; Z85.46 Personal history of malignant neoplasm of prostate; I46.9 Cardiac arrest, cause unspecified
CPT/HCPCS: 31500; 36415; 36430; 36600; 71010; 74174; 78278; 80048; 80053; 80061; 80202; 82140; 82533; 82803; 82947; 82962; 83690; 83735; 84100; 84484; 85007; 85014; 85018; 85025; 85027; 85610; 85730; 86140; 86850; 86900; 86901; 86920; 87040; 87205; 88307; 93005; 93010; 93306; 94002; 94003; 94640; 94760; 96361; 96374; 96375; 99291; A9560; C9113; J0171; J0282; J0330; J0360; J0461; J0690; J0885; J1160; J1170; J1265; J1450; J1642; J1720; J2001; J2185; J2250; J2270; J2370; J2405; J2543; J2597; J2704; J2710; J3370; J3411; J7030; J7040; J7042; J7050; J7060; J7070; P9016; P9035; P9047; Q9967